=== PATIENT | female | born 1945 | race Caucasian/White ===

== ENCOUNTER 2021-03-29 08:03 | Outpatient (CLI) | payer MEDICARE, BC, SELFPAY ==
--- NOTE | ~2021-03-29 | XR_ITS ---
EXAMINATION: XR foot RT standing 2V EXAM DATE: 03/29/2021 08:47 INDICATION: M05.79 - Rheumatoid arthritis with rheumatoid factor of multiple sites without organ or s ystems involvement. TECHNIQUE: Frontal and lateral projections of the right foot standing. There is no prior study for comparison. 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 There are no bony erosion s identified. There are no acute fractures or dislocations identified. There is no subcutaneous gas. The soft tissue is unremarkable. There are no radiopaque foreign bodies. Small calcaneal inferio r spur. IMPRESSION: Mild right 1st MTP osteoarthritis. Reviewed, dictated and finalized at location A.
--- NOTE | ~2021-03-29 | XR_ITS ---
EXAMINATION: XR foot LT standing 2V EXAM DATE: 03/29/2021 08:47 INDICATION: M05.79 - Rheumatoid arthritis with rheumatoid factor of multiple sites without organ or s ystems involvement TECHNIQUE: Frontal and lateral projections of the left foot standing There is no prior study for c omparison. FINDINGS: There are no bony erosions identified. There are no acute fractures or dislocations identi fied. There is no subcutaneous gas. The soft tissue is unremarkable. There are no radiopaque fore ign bodies. Small calcaneal inferior spur. IMPRESSION: 1. Unremarkable left foot exam. Reviewed, dictated and finalized at location A.
--- NOTE | ~2021-03-29 | XR_ITS ---
EXAMINATION: XR hand BI arthritis min 3V EXAM DATE: 03/29/2021 08:47 INDICATION: M05.79 - Rheumatoid arthritis. Hand pain. TECHNIQUE: Right hand frontal, lateral and oblique projections obtained and reviewed. Left hand fron eunice, lateral and oblique projections obtained and reviewed. Catchers projection of both hands. There is no prior study for comparison. FINDINGS: RIGHT HAND: There is polyarticular primary osteoarthritis as follows: Mild right 1st MCP, 2nd-5th DIP joints. There are no bony erosions identified. There are no acute fractures or dislocations identifi ed. There is no subcutaneous gas. The soft tissue is unremarkable. There are no radiopaque foreig n bodies. LEFT HAND: There is polyarticular primary osteoarthritis as follows: Mild 1st interphalangeal, 2nd-5t h distal interphalangeal, 2nd proximal interphalangeal joints. There are no bony erosions identified. There are no acute fractures or dislocations identified. There is no subcutaneous gas. The soft ti ssue is unremarkable. There are no radiopaque foreign bodies. IMPRESSION: Mild bilateral hand polyarticular osteoarthritis. No erosions. Reviewed, dictated and finalized at location A.
[2021-03-29 09:06] LABS: Hematocrit 39.9 % (37.0-47.0); Hemoglobin 13.4 g/dL (12.0-15.0); Mean Corpuscular HGB Conc 33.6 g/dl (32-36); Mean Corpuscular Hemoglobin 29.2 pg (26-34); Mean Corpuscular Volume 86.9 fl (80-100); Mean Platelet Volume 10.7 fl (7.4-10.4); Platelet Count Result 243 k/mm3 (150-375); Red Blood Count 4.59 M/mm3 (4.2-5.4); Red Cell Distribution Width 15.1 % (11.5-14.5)
[2021-03-29 09:13] LABS: Add Urine Microscopic? YES; Appearance Urine Cloudy (Clear); Bacteria Urine Trace /hpf; Bilirubin Urine Negative (Negative); Blood Urine Negative (Negative); Color Urine Yellow (Yellow); Glucose Urine UA Negative (Negative); Ketones Urine Negative (Negative); Leukocyte Esterase Ur 3+ LEU/UL (Negative); Mucus Urine Few /lpf; Nitrate Urine Negative (Negative); Protein Urine Negative (Negative); RBC Urine 21-50 /hpf (0-2); Specific Grav Ur 1.019 (1.001-1.035); Squamous Epithelial Cell Urine Many /hpf (Few); Urobilinogen Urine Negative mg/dL (<2.0); WBC Urine 31-50 /hpf
[2021-03-29 10:17] LABS: Erythrocyte Sedimentation Rate 25 mm/hr (0-20)
[2021-03-29 10:40] LABS: Hepatitis B Surface Antigen Negative (Negative)
[2021-03-29 10:56] LABS: Alanine Aminotransferase 101 U/L (4-35); Albumin Level 4.4 g/dL (3.5-5.1); Alkaline Phosphatase 89 U/L (38-126); Anion Gap 14 mmol/L (8-16); Aspartate Amino Transferase 143 U/L (14-36); Bilirubin,Total 0.3 mg/dL (0.2-1.3); Blood Urea Nitrogen 20 mg/dL (7-17); CRP 0.9 mg/dL (<1.0); Calcium 9.3 mg/dL (8.4-10.2); Carbon Dioxide 21 mmol/L (22-30); Chloride 105 mmol/L (98-107); Estimated Glomerular Filt Rate > 60; Glucose 131 mg/dL (65-105); Potassium 3.9 mmol/L (3.4-5.0); Sodium 140 mmol/L (137-145)
[2021-03-29 10:57] LABS: Hemoglobin A1C 6.4 % (<5.7)
[2021-03-29 10:57] LABS: Hepatitis B Surface Anti Res Negative
[2021-04-01 15:27] LABS: NIL 0.02 IU/mL; Quantiferon TB Plus, 1T NEGATIVE (NEGATIVE)
== END 2021-03-29 08:04 | disposition home or self-care (01) ==
LOC: ANHIMG 08:16
PROVIDERS: PCP Nurse Practitioner Family; Visit Provider Internal Medicine
DX: M05.79 Rheumatoid arthritis with rheumatoid factor of multiple sites without organ or systems involvement (principal); M19.90 Unspecified osteoarthritis, unspecified site; E11.65 Type 2 diabetes mellitus with hyperglycemia; M19.071 Primary osteoarthritis, right ankle and foot; M19.041 Primary osteoarthritis, right hand; M19.042 Primary osteoarthritis, left hand
CPT/HCPCS: 36415; 73130; 73620; 80053; 81001; 83036; 85027; 85652; 86140; 86480; 86706; 87077; 87086; 87088; 87340

== ENCOUNTER 2021-05-04 10:16 | Outpatient (CLI) | payer MEDICARE, BC, SELFPAY ==
--- NOTE | ~2021-05-04 | MM_ITS ---
EXAMINATION: MM screening [facility] BI w diana HISTORY: Screening mammogram TECHNIQUE: Craniocaudal and mediolateral oblique 3-D tomosynthesis images were obtained and synthetic 2-D images were generated. CAD analysis was submitted and interpreted. COMPARISON: 12/18/2015, 12/11/2015, 04/21/2015, 09/04/2014 BREAST PARENCHYMAL COMPOSITION: There are scattered areas of fibroglandular density. FINDINGS: There are changes of interval lumpectomy in the right breast. There is no evidence of suspi cious mass, calcification, or architectural distortion to suggest malignancy in either breast. There has been no suspicious interval change. IMPRESSION: 1. No mammographic evidence of malignancy. 2. Recommend routine screening mammography in one year. BI-RADS Category 2: Benign finding(s). Reviewed, dictated and finalized at location A.
== END 2021-05-04 10:17 | disposition home or self-care (01) ==
LOC: ANHIMG 10:21
PROVIDERS: PCP Nurse Practitioner Family; Visit Provider Nurse Practitioner Family
DX: Z12.31 Encounter for screening mammogram for malignant neoplasm of breast (principal)
CPT/HCPCS: 77063; 77067

== ENCOUNTER 2021-06-14 09:11 | Outpatient (CLI) | payer MEDICARE, BC, SELFPAY ==
--- NOTE | ~2021-06-14 | US_ITS ---
EXAMINATION: US right upper quadrant DATE: 06/14/2021 09:43 INDICATION: Abnormal liver function tests. TECHNIQUE: Multiple grayscale and Doppler ultrasound images of the abdomen were obtained. COMPARISON: CT abdomen and pelvis 11/15/2018 FINDINGS: The pancreas is obscured by bowel gas. There is diffuse hepatic steatosis. No liver surface nodularity. There is normal flow in main portal vein. The gallbladder is absent. The common duct is normal and measures 5 mm. IMPRESSION: 1. Diffuse hepatic steatosis. Reviewed, dictated and finalized at location A.
== END 2021-06-14 09:12 | disposition home or self-care (01) ==
PROVIDERS: PCP Nurse Practitioner Family; Visit Provider Nurse Practitioner Family
DX: R74.01 Elevation of levels of liver transaminase levels (principal); K76.0 Fatty (change of) liver, not elsewhere classified
CPT/HCPCS: 76705

== ENCOUNTER 2022-04-18 09:48 | Emergency (ER) | payer MEDICARE, BC, SELFPAY ==
[2022-04-18] VITALS (22 sets, daily range): BP systolic 141–160; BP diastolic 79–102; PULSE 60–83; RESP 15–22; TEMP 36.8; O2SAT 93–97
--- NOTE | ~2022-04-18 | CT_ITS ---
EXAMINATION: CTA chest PE protocol DATE: 04/18/2022 11:39 INDICATION: Shortness of breath. Elevated d-dimer. History of Covid. TECHNIQUE: Computed tomography angiography (CTA) of the chest was performed with 100 mL Omnipaque-350 intravenous contrast timed to evaluate the pulmonary arteries. Coronal maximum intensity projection 3D-reconstructions were created by the technologist. Automated exposure control and iterative reconst ruction technique were employed. Exam dose: 847.40 mGy-cm total exam DLP. COMPARISON: 04/18/2022 AP and lateral chest FINDINGS: There is diagnostic contrast enhancement of the pulmonary arteries and no evidence of pulmo nary embolism. Heart size is within normal range. Aortic calcification and ectasia. No pericardial effusion. Moderate right and mild left pleural effusions, with associated compressive atelectasis involving par ticularly the right and to a lesser extent left lower lobes. There is mild prominence of the hilar and mediastinal nodes, likely reactive. Status post right axillary lymph node resection. The breasts are partially excluded from examination. Status post cholecystectomy. The adrenal glands are unremarkable. Small sliding hiatal hernia. Prominent osteoarthritic change at the glenohumeral joints. Prominent degenerative change of the thor acic spine and lower cervical spine. IMPRESSION: No evidence of pulmonary embolism Bilateral pleural effusions, moderate on the right, mild on the left, with associated bilateral right greater than left lower lung compressive atelectasis Reviewed, dictated and finalized at Location A. Reviewed, dictated and finalized at location B. IMPRESSION: No evidence of pulmonary embolism Bilateral pleural effusions, moderate on the right, mild on the left, with asso ciated bilateral right greater than left lower lung compressive atelectasis
--- NOTE | ~2022-04-18 | XR_ITS ---
EXAMINATION: XR chest 2V DATE: 04/18/2022 10:30 INDICATION: Shortness of breath TECHNIQUE: frontal and lateral views of the chest were obtained. COMPARISON: Chest CT dated 12/19/2017 FINDINGS: Opacities at the bilateral lung bases, right greater than left. This includes blunting at the posteri or sulci and right costophrenic angle consistent with small bilateral pleural effusions. No pulmonary edema or pneumothorax. The cardiomediastinal silhouette is normal. Surgical clips at the right axill a likely related to prior axillary lymph node dissection. IMPRESSION: 1. Small bilateral pleural effusions with associated bibasilar atelectasis and/or pneumonia. Reviewed, dictated and finalized at location A. IMPRESSION: 1. Small bilateral pleural effusions with associated bibasilar atelectasis and/ or pneumonia.
--- NOTE | 2022-04-18 09:50 | ECG_ITS ---
Measurements Intervals Agenda Rate: 74 P: 55 ND: 138 QRS: 69 QRSD: 92 T: 47 QT: 391 QTc: 436 Interpretive Statements SINUS RHYTHM WITH OCCASIONAL SUPRAVENTRICULAR PREMATURE COMPLEXES POSSIBLE LEFT ATRIAL ENLARGEMENT [-0.1mV P-WAVE IN V1/V2] BORDERLINE ECG NO PREVIOUS ECG AVAILABLE FOR COMPARISON Electronically Signed On 04-18-2022 15:49:34 CDT by Gaspre Peña M.D.
--- NOTE | 2022-04-18 10:16 | ED.SOB ---
HPI - SOB/Dyspnea General Chief Complaint: Shortness of Breath/Dyspnea Stated Complaint: difficulty breathing - covid 3 weeks ago Time Seen by Provider: 04/18/22 10:03 History of Present Illness HPI Narrative: 76-year-old female with history of diabetes, hypertension, anxiety, recent COVID infection here for evaluation of shortness of breath. Patient states that she tested also for COVID 3 weeks ago, at that time she had a mild cough, and upper respiratory type symptoms which improved without intervention. She was feeling well until 3 days ago when she began to feel SOB, which has been increasing in severity since. She feels short of breath most notably when she is up and exerting herself, but also when she is lying down flat. She contacted her PCP who told her to come to the ED. Does note some acute on chronic BLE swelling which has not been worked up. Denies fevers, chills, chest pain, nausea, vomiting, abdominal pain. Related Data Home Medications Medication Instructions Recorded Confirmed desvenlafaxine succinate 50 mg 50 mg PO DAILY 02/11/21 10/27/21 tablet,extended release 24 hr (Pristiq) duloxetine 60 mg capsule,delayed 120 mg PO DAILY 02/11/21 10/27/21 release (Cymbalta) sumatriptan succinate 50 mg tablet 50 mg PO ONCE 02/11/21 10/27/21 (Imitrex) tizanidine 4 mg tablet 4 mg PO TID 02/11/21 10/27/21 triamterene 37.5 1 cap PO DAILY 02/11/21 10/27/21 mg-hydrochlorothiazide 25 mg capsule buspirone 10 mg tablet 10 mg PO TID 03/19/21 10/27/21 cholecalciferol (vitamin D3) 1,250 1,250 mcg PO WEEKLY 03/19/21 10/27/21 mcg (50,000 unit) capsule esomeprazole magnesium 40 mg 40 mg PO DAILY 03/19/21 10/27/21 granules delayed release for susp fenofibrate 160 mg tablet 160 mg PO DAILY 03/19/21 10/27/21 gabapentin 400 mg capsule 400 mg PO DAILY 03/19/21 10/27/21 insulin glargine 100 unit/mL (3 25 unit subcut QAM 03/19/21 10/27/21 mL) subcutaneous pen (Lantus Solostar U-100 Insulin) losartan 50 mg tablet 50 mg PO DAILY 03/19/21 10/27/21 losartan 50 mg tablet 50 mg PO DAILY 03/19/21 10/27/21 nebivolol 5 mg tablet (Bystolic) 5 mg PO DAILY 03/19/21 10/27/21 rosuvastatin 20 mg tablet 20 mg PO DAILY 03/19/21 10/27/21 tizanidine 4 mg capsule 4 mg PO QHS 03/19/21 10/27/21 zolpidem 12.5 mg tablet,extended PO 03/19/21 10/27/21 release,multiphase Allergies Allergy/AdvReac Type Severity Reaction Status Date / Time ascorbic acid Allergy Intermediate MIGRAINE Verified 10/27/21 13:44 monosodium glutamate Allergy Unknown MIGRAINE Verified 10/27/21 13:44 Penicillins AdvReac Hives Verified 04/18/22 10:10 Chocolate Allergy Intermediate MIGRAINE Uncoded 10/27/21 13:44 DIETARY Allergy Intermediate MIGRAINE Uncoded 10/27/21 13:44 SUPPLEMENT,[id number].[email or web address] NUTS Allergy Intermediate MIGRAINE Uncoded 10/27/21 13:44 MSG AdvReac Intermediate MIGRAINE Uncoded 10/27/21 13:44 Review of Systems Review of Systems: Gen.: Denies fevers or chills Eyes: Denies eye pain or visual change ENT: Denies congestion Respiratory: Reports shortness of breath. Denies cough CV: Denies chest pain or palpitations GI: Denies abdominal pain nausea, emesis or diarrhea denies burning, urgency, frequency or hematuria Musculoskeletal: Denies back pain or muscle pain Neuro: Denies numbness, tingling, weakness or focal weakness Skin: Denies rash Except as documented, all other systems reviewed and negative [facility] Past Medical History Medical History Arthritis Cancer Depression Diabetes Generalized osteoarthritis of multiple sites H/O gastroesophageal reflux (GERD) H/O malignant neoplasm of female breast Head ache Transaminitis Vitamin D deficiency Surgical History Surgical History H/O lumpectomy Social History Social History Social History: never smoker Smoking s
[2022-04-18 10:17] LABS: Basophils Percent Auto 0.3 % (0.2-1.2); Eosinophils Absolute Auto 0.2 K/mm3 (0-0.3); Hematocrit 36.6 % (37.0-47.0); Hemoglobin 11.9 g/dL (12.0-15.0); Immature Granulocyte Absolute 0.08 K/mm3 (0.00-0.031); Immature Granulocyte Percent A 0.8 % (0-0.5); Lymphocytes Absolute Auto 1.88 K/mm3 (0.9-3.2); Lymphocytes Percent Auto 19.2 % (18.3-44.2); Mean Corpuscular HGB Conc 32.5 g/dl (32-36); Mean Corpuscular Hemoglobin 28.1 pg (26-34); Mean Corpuscular Volume 86.3 fl (80-100); Mean Platelet Volume 10.5 fl (7.4-10.4); Monocytes Absolute Auto 0.7 K/mm3 (0.1-0.6); Neutrophils Absolute Auto 6.9 K/mm3 (1.3-6.7); Neutrophils Percent Auto 70.7 % (45.5-73.1); Platelet Count Result 263 k/mm3 (150-375); Red Blood Count 4.24 M/mm3 (4.2-5.4); Red Cell Distribution Width 14.7 % (11.5-14.5); White Blood Count 9.8 K/mm3 (4.5-10.0)
[2022-04-18 10:34] LABS: Alanine Aminotransferase 19 U/L (6-35); Albumin Level 4.1 g/dL (3.5-5.1); Alkaline Phosphatase 68 U/L (38-126); Anion Gap 7 mmol/L (8-16); Aspartate Amino Transferase 21 U/L (14-36); Bilirubin,Total 0.3 mg/dL (0.2-1.3); Blood Urea Nitrogen 16 mg/dL (7-17); Calcium 8.6 mg/dL (8.4-10.2); Carbon Dioxide 24 mmol/L (22-30); Chloride 108 mmol/L (98-107); Estimated CRCL calculation 55 ml/min; Estimated Glomerular Filt Rate > 60; Glucose 142 mg/dL (65-110); Potassium 3.5 mmol/L (3.4-5.0); Sodium 139 mmol/L (137-145)
[2022-04-18 10:36] LABS: INR 1.2; Partial Thromboplastin Time 32.3 SECONDS (22.3-36.8); Prothrombin Time 15.2 Seconds (11.1-14.7)
[2022-04-18 10:39] LABS: D Dimer 1.48 ug/mL (<0.48)
[2022-04-18 10:46] LABS: NT Pro B Type Natriuretic Pept 1520 pg/mL (5-100); Troponin I < 0.012 ng/mL (0.000-0.034)
[2022-04-18 13:54] LABS: Troponin I < 0.012 ng/mL (0.000-0.034)
[2022-04-18] MEDS: FUROSEMIDE INJ 40 MG/4 ML VIAL IV PUSH (14:37)
== END 2022-04-18 15:59 | disposition home or self-care (01) ==
PROVIDERS: Physician Assistant; Emergency Provider Emergency Medicine; PCP Nurse Practitioner Family
DX: R06.02 Shortness of breath (principal); Z86.16 Personal history of COVID-19; I10 Essential (primary) hypertension; E11.9 Type 2 diabetes mellitus without complications; M19.90 Unspecified osteoarthritis, unspecified site; K21.9 Gastro-esophageal reflux disease without esophagitis; E55.9 Vitamin D deficiency, unspecified; F41.9 Anxiety disorder, unspecified; F32.A Depression, unspecified; Z85.3 Personal history of malignant neoplasm of breast; Z79.4 Long term (current) use of insulin; R94.31 Abnormal electrocardiogram [ECG] [EKG]
CPT/HCPCS: 36415; 71046; 71275; 80053; 83880; 84484; 85025; 85380; 85610; 85730; 93005; 96374; 99284; J1940; Q9967

== ENCOUNTER 2022-05-27 12:23 | Outpatient (CLI) | payer MEDICARE, BC, SELFPAY ==
--- NOTE | 2022-05-27 12:31 | ECHO_ITS ---
Patient Info Name: Cynthia Leon Age: 76 years : 1945 Gender: Female Ht: 66 in Wt: 210 lbs BSA: 2.14 m2 HR: 75 bpm BP: 139 / 86 mmHg Technical Quality: Good Exam Date: 05/27/2022 1:01 PM Exam Location: [facility] Patient Status: Outpatient Admit Date: 05/27/2022 Staff Ordering Physician: Rey Marie DO Tray Setter: Mar Cisse RDCS Attending Provider: Rey Marie DO Referring Physician: Frank WU; Exam Type: CA echo doppler color flow Study Info Indications R06.00 - Dyspnea, unspecified Complete two-dimensional, color flow and Doppler transthoracic echocardiogram is performed. Summary 1. Complete two-dimensional, color flow and Doppler transthoracic echocardiogram is performed. 2. Left ventricular chamber dimension is normal. 3. Left ventricular systolic function is hyperdynamic, estimated at >70%. 4. There is mildly increased left ventricular wall thickness. 5. The left ventricular diastolic function is grade I diastolic dysfunction. 6. E/e' 11 is mildly elevated. 7. Global longitudinal strain is abnormal at -15.3%. 8. Left atrial chamber dimension is mildly enlarged. 9. There is mild aortic valve sclerosis. 10. There is mild aortic valve regurgitation. 11. The mitral valve has mildly calcified annulus. 12. No pulmonary hypertension, estimated pulmonary arterial systolic pressure is 37 mmHg. 13. Dilated inferior vena cava with >50% collapse upon inspiration consistent with elevated right atrial pressure, 10 mmHg. Left Ventricle E/e' 11 is mildly elevated. Global longitudinal strain is abnormal at -15.3%. Left ventricular chamber dimension is normal. Left ventricular systolic function is hyperdynamic, estimated at >70%. There is mildly increased left ventricular wall thickness. The left ventricular diastolic function is grade I diastolic dysfunction. Right Ventricle Right ventricular systolic function is normal and with normal TAPSE 2.0 cm. Right ventricular chamber dimension is normal. Left Atria Left atrial chamber dimension is mildly enlarged. Right Atria Right atrial chamber dimension is normal. Aortic Valve The aortic valve is trileaflet. There is mild aortic valve sclerosis. There is no aortic valve stenosis. There is mild aortic valve regurgitation. Pulmonic Valve There is no pulmonic regurgitation. Mitral Valve The mitral valve has mildly calcified annulus. There is no mitral valve stenosis. There is no mitral valve regurgitation. Tricuspid Valve There is no tricuspid valve regurgitation. No pulmonary hypertension, estimated pulmonary arterial systolic pressure is 37 mmHg. Pericardium/Pleural There is no pericardial effusion. Inferior Vena Cava Dilated inferior vena cava with >50% collapse upon inspiration consistent with elevated right atrial pressure, 10 mmHg. Aorta The aortic root size at the sinus of Valsalva is normal. Left Ventricular Outflow Tract Name Value Normal LVOT 2D LVOT Diameter 2.0 cm LVOT Doppler LVOT Peak Gradient 7 mmHg LVOT Mean Gradient 4 mmHg LVOT VT
== END 2022-05-27 12:24 | disposition home or self-care (01) ==
LOC: ANHCARD 12:24
PROVIDERS: PCP Nurse Practitioner Family; Visit Provider Internal Medicine Cardiovascular Disease
DX: R06.00 Dyspnea, unspecified (principal); I35.1 Nonrheumatic aortic (valve) insufficiency
CPT/HCPCS: 93306

== ENCOUNTER 2022-05-30 08:38 | Outpatient (CLI) | payer MEDICARE, BC, SELFPAY ==
--- NOTE | ~2022-05-30 | MMUS_ITS ---
EXAMINATION: US breast biopsy RT w image, MM post biopsy invasive RT DATE: 05/30/2022 10:56 (accession [id number]), 05/30/2022 10:55 (accession [id number]) INDICATION: Patient with lung and increasing pain at the 12:00 location in the right breast near the site of prior lumpectomy. Ultrasound-guided core biopsy is requested to evaluate for malignancy. TECHNIQUE AND FINDINGS: The risks and potential benefits of the procedure were discussed with the patient including bleeding, infection, and nondiagnostic specimen. A time out was performed. The skin of the right breast was pr epared and draped in usual sterile fashion. 1% lidocaine was used for superficial anesthesia. 1% lido tony with epinephrine was used for deep anesthesia. A vacuum-assisted biopsy gun needle was advanced through to the outer edge of the region of interest from a lateral approach utilizing sonographic guidance. A total of seven tissue core samples were obt ained through the lesion. A tissue marker clip was then placed at the biopsy site. Hemostasis was ach ieved. A sterile bandage was applied. The patient tolerated procedure well and there was no evidence of immediate complication. The patient was given verbal instructions to return to the Emergency Department in the event of severe breast pa in or rapid breast enlargement. A two view right breast mammogram was obtained to document tissue mar ker clip placement. IMPRESSION: 1. Successful ultrasound-guided vacuum-assisted biopsy of right breast mass with tissue marker placem ent. Reviewed, dictated and finalized at location A. IMPRESSION: 1. Successful ultrasound-guided vacuum-assisted biopsy of right breast mass wit h tissue marker placement.
== END 2022-05-30 08:39 | disposition home or self-care (01) ==
LOC: ANHIMG 08:41
PROVIDERS: PCP Nurse Practitioner Family; Visit Provider Nurse Practitioner Family
DX: N63.12 Unspecified lump in the right breast, upper inner quadrant (principal)
CPT/HCPCS: 19083; 88305; 88342; A4648

== ENCOUNTER 2022-10-05 12:55 | Outpatient (CLI) | payer MEDICARE, BC, SELFPAY | END 2022-10-05 12:56 | disposition home or self-care (01) | LOC: ANHAUDIO 12:57 | PROVIDERS: PCP Nurse Practitioner Family; Visit Provider Nurse Practitioner Family | DX: H90.3 Sensorineural hearing loss, bilateral (principal) | CPT/HCPCS: 92557; 92567 ==

== ENCOUNTER 2022-12-15 09:00 | Outpatient (RCR) | payer MEDICARE, BC, SELFPAY | END 2023-01-18 23:59 | disposition home or self-care (01) | LOC: ANHAUDASC 09:00 | PROVIDERS: PCP Nurse Practitioner Family; Visit Provider Nurse Practitioner Family | DX: Z46.1 Encounter for fitting and adjustment of hearing aid (principal) | CPT/HCPCS: 99199; V5160; V5261 ==

== ENCOUNTER 2023-11-27 09:43 | Outpatient (CLI) | payer MEDICARE, SELFPAY ==
--- NOTE | ~2023-11-27 | US_ITS ---
EXAMINATION: US renal BI DATE: 11/27/2023 12:05 INDICATION: Chronic kidney disease, stage IIIB. TECHNIQUE: Multiple ultrasound grayscale images of the kidneys were obtained. COMPARISON: CT abdomen and pelvis 11/15/18 FINDINGS: The right kidney measures 12.2 x 5.6 x 5.4 cm. The left kidney measures 12.4 x 6.4 x 4.7 cm. The kidn eys demonstrate normal parenchymal echogenicity. There is no hydronephrosis. The bladder is normal. IMPRESSION: 1. Normal kidney sizes. No hydronephrosis. Reviewed, dictated and finalized at location A. 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
[2023-11-27 11:45] LABS: Creatinine Urine 15.7 mg/dL; Total Protein Urine Random 14 mg/dL; Ur Ttl Prot Creatinine Ratio 0.89 mg/mg (0-0.20)
[2023-11-27 12:03] LABS: Parathyroid Intact 13.7 pg/mL (7.5-53.5)
[2023-11-27 12:09] LABS: Vitamin D 25 Hydroxy 33.3 ng/mL
[2023-11-28 08:19] LABS: Albumin Level 4.1 g/dL (3.5-5.1); Anion Gap 11 mmol/L (8-16); Blood Urea Nitrogen 15 mg/dL (7-17); Calcium 9.8 mg/dL (8.4-10.2); Carbon Dioxide 22 mmol/L (22-30); Chloride 102 mmol/L (98-107); Estimated Glomerular Filt Rate > 60; Glucose 244 mg/dL (65-110); Phosphorus 3.2 mg/dL (2.5-4.5); Potassium 4.4 mmol/L (3.4-5.0); Sodium 135 mmol/L (137-145)
== END 2023-11-27 09:44 | disposition home or self-care (01) ==
PROVIDERS: PCP Nurse Practitioner Family; Visit Provider Internal Medicine Nephrology
DX: E11.22 Type 2 diabetes mellitus with diabetic chronic kidney disease (principal); E55.9 Vitamin D deficiency, unspecified; I12.9 Hypertensive chronic kidney disease with stage 1 through stage 4 chronic kidney disease, or unspecified chronic kidney disease; N25.81 Secondary hyperparathyroidism of renal origin; N18.32 Chronic kidney disease, stage 3b
CPT/HCPCS: 36415; 76775; 80069; 82306; 82570; 83970; 84156

== ENCOUNTER 2024-03-29 08:29 | Outpatient (CLI) | payer MEDICARE, SELFPAY ==
[2024-03-29 09:51] LABS: Hematocrit 49.2 % (37.0-47.0); Hemoglobin 15.6 g/dL (12.0-15.0); Mean Corpuscular HGB Conc 31.7 g/dl (32-36); Mean Corpuscular Hemoglobin 28.8 pg (26-34); Mean Corpuscular Volume 90.8 fl (80-100); Mean Platelet Volume 10.8 fl (7.4-10.4); Platelet Count Result 236 k/mm3 (150-375); Red Blood Count 5.42 M/mm3 (4.2-5.4); Red Cell Distribution Width 13.8 % (11.5-14.5); White Blood Count 10.8 K/mm3 (4.5-10.0)
[2024-03-29 10:02] LABS: Phosphorus 3.2 mg/dL (2.5-4.5)
[2024-03-29 11:18] LABS: Alanine Aminotransferase 47 U/L (6-35); Albumin Level 4.8 g/dL (3.5-5.1); Alkaline Phosphatase 100 U/L (38-126); Anion Gap 13 mmol/L (4-12); Aspartate Amino Transferase 71 U/L (14-36); Bilirubin,Total 0.5 mg/dL (0.2-1.3); Blood Urea Nitrogen 23 mg/dL (7-17); Calcium 9.5 mg/dL (8.4-10.2); Carbon Dioxide 22 mmol/L (22-30); Chloride 102 mmol/L (98-107); Cholesterol 108 mg/dL (0-200); Estimated Glomerular Filt Rate 54; Glucose 152 mg/dL (65-110); HDL Direct 29 mg/dL; Potassium 4.1 mmol/L (3.4-5.0); Sodium 137 mmol/L (137-145); Triglycerides 294 mg/dL (<150)
[2024-03-29 11:23] LABS: NT Pro B Type Natriuretic Pept 39 pg/mL (19.9-100)
[2024-03-29 11:28] LABS: LDL Cholesterol Direct 51 mg/dL
[2024-03-29 11:50] LABS: Creatinine Urine 185.8 mg/dL; Total Protein Urine Random 19 mg/dL
[2024-03-29 12:21] LABS: Hemoglobin A1C 7.6 % (<5.7)
== END 2024-03-29 08:30 | disposition home or self-care (01) ==
PROVIDERS: PCP Nurse Practitioner Family; Referring Provider Internal Medicine Nephrology
DX: E11.22 Type 2 diabetes mellitus with diabetic chronic kidney disease (principal); I12.9 Hypertensive chronic kidney disease with stage 1 through stage 4 chronic kidney disease, or unspecified chronic kidney disease; N18.2 Chronic kidney disease, stage 2 (mild); R06.00 Dyspnea, unspecified; E78.5 Hyperlipidemia, unspecified
CPT/HCPCS: 36415; 80053; 80061; 82570; 83036; 83880; 84100; 84156; 85027

== ENCOUNTER 2024-11-15 13:15 | Outpatient (CLI) | payer MEDICARE, SELFPAY ==
--- NOTE | ~2024-11-15 | MMUS_ITS ---
EXAMINATION: MM diagnostic cathy BI w diana, US breast LT limited HISTORY: Left breast mass TECHNIQUE: 3-D tomosynthesis images of the breasts were performed and synthetic 2-D images were gener ated. CAD analysis was submitted and interpreted. High resolution limited left breast ultrasound was performed. COMPARISON: 05/02/2022, 05/04/2021 BREAST PARENCHYMAL COMPOSITION:Not Dense. There are scattered areas of fibroglandular density. FINDINGS: MAMMOGRAPHIC FINDINGS: There is an irregular dense mass at the posterior, upper left breast, seen on the LM view, measuring at least 2.7 cm in diameter. Stable parenchymal pattern of the right breast, with stable postoperativ e change at the upper aspect. No suspicious microcalcifications in either breast. ULTRASOUND: At the 2:00 position left breast, 10 cm from the nipple, there is a 2.2 x 2.1 x 1.8 cm irregular tall er than wide hypoechoic mass, which correlates with the mammographic finding. IMPRESSION: 2.2 cm irregular hypoechoic mass at the 2:00 position left breast, 10 cm from the nipple. This is hig hly suspicious for malignancy. Ultrasound-guided biopsy recommended to establish a histologic diagnos is. BI-RADS category 5, highly suggestive of malignancy. Reviewed, dictated and finalized at location M. ERCIAL ASSISTANT IMPRESSION: 2.2 cm irregular hypoechoic mass at the 2:00 position left breast, 10 cm from t he nipple. This is highly suspicious for malignancy. Ultrasound-guided biopsy r ecommended to establish a histologic diagnosis. BI-RADS category 5, highly suggestive of malignancy.
--- OUTSIDE RECORDS SUMMARY | 2024-11-15 13:24 | XMS_ITS ---
Author Organization [facility] Address [address] [place] [address] Phone Care Team Providers Care Supervisor Furnace Process Name Role Phone SUSAN AVELAR, JAVIER Kiser [phone] Problems Includes: Active, inactive, and resolved Problems All Visits Onset Date Resolved Date Provider Condition S tatus Major Depression 02/20/2023 JAVIER BAUM MD Active Last Documented On 3 2:06PM ; [facility] Mild Cognitive Impairment 11/24/2022 Active Last Documented On 3 5:53PM ; [facility] Vitamin B12 Deficiency 03/23/2020 Ac tive Last Documented On 3 5:52PM ; [facility] Diabetes Mellitus Type 2 03/12/2019 Active Last Documented On 3 5:52PM ; [facility] Rheumatoid Arthritis 03/12/2019 Acti ve Last Documented On 3 5:52PM ; [facility] Arthritis 11/16/2016 Active Last Documented On 3 5:50PM ; [facility] Hyperlipidemia 11/15/2016 Active Last Documented On 3 5:50PM ; [facility] Psychophysiological Insomnia 11/15/2016 Active Last Documented On 3 5:50PM ; [facility] Breast Cancer 02/11/2016 Active Last Documented On 3 5:49PM ; [facility] Note: Stage II right side Migraine Headache 12/22/2015 Active Last Documented On 3 5:49PM ; [facility] Generalized Anxiety Disorder 11/07/2012 Active Last Documented On 3 5:43PM ; [facility] Hiatal Hernia 11/07/2012 Active Last Documented On 3 5:43PM ; [facility] Hypertension Systemic 11/07/2012 Act carlos Last Documented On 3 5:43PM ; [facility] Triglyceride Problems 11/07/2012 Act carlos Last Documented On 3 5:43PM ; [facility] 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 sleepwalking, sleeptalking, sleepdriving, etc... Pt verbalized understanding Last Documented On 4 10:02AM ; [facility] Discussed good sleep hygiene habits Last Documented On 4 10:02AM ; [facility] Patient counseling I discuss ed risk, benefits, and side effects of sleep aid - Zolpidem ER - including the possibility of sleep related behaviors i.e. sleepwalking, sleeptalking, sleepdriving, etc... Pt verbalized understanding Last Documented On 3 10:33AM ; [facility] Assessments Includes: Assessments for all patient encounters Findings Encounter Date Generalized anxiety disorder PSYCH ADULT FOLLOW UP with JAVIER BAUM MD 11/30/2023 Last Documented On 4 4:48AM ; [facility] Major depression, recurrent PSYCH ADULT FOLLOW UP with JAVIER BAUM MD 11/30/2023 Last Documented On 4 4:48AM ; [facility] Major depressive disorder PSYCH ADULT FO LLOW UP with JAVIER BAUM MD 11/30/2023 Last Documented On 4 4:48AM ; [facility] Migraine headache PSYCH ADULT FOLLOW UP with MET BRENDA BAUM MD 11/30/2023 Last Documented On 4 4:48AM ; [facility] Mild Cognitive Impairment PSYCH ADULT FO LLOW UP with JAVIER BAUM MD 11/30/2023 Last Documented On 4 4:48AM ; [facility] Organic sleep-related bruxism PSYCH ADUL T FOLLOW UP with JAVIER BAUM MD 11/30/2023 Last Documented On 4 4:48AM ; [facility] Psychophysiological insomnia PSYCH ADULT FOLLOW UP with JAVIER BAUM MD 11/30/2023 Last Documented On 4 4:48AM ; [facility] Generalized anxiety disorder PSYCH ADULT FOLLOW UP with JAVIER BAUM MD 05/25/2023 Last Documented On 3 3:33PM ; [facility] Major depression, recurrent PSYCH ADULT FOLLOW UP with JAVIER BAUM MD 05/25/2023 Last Documented On 3 3:33PM ; [facility] Major depressive disorder PSYCH ADULT FO LLOW UP with JAVIER BAUM MD 05/25/2023 Last Documented On 3 3:33PM ; [facility] Migraine headache PSYCH ADULT FOLLOW UP with MET BRENDA BAUM MD 05/25/2023 Last Documented On 3 3:33PM ; [facility] Mild Cognitive Impairment PSYCH ADULT FO LLOW UP with JAVIER BAUM MD 05/25/2023 Last Documented On 3 3:33PM ; [facility] Organic sleep-related bruxism PSYCH ADUL T FOLLOW UP with JAVIER BAUM MD 05/25/2023 Last Documented On 3 3:33PM ; [facility] Psychophysiological insomnia PSYCH ADULT FOLLOW UP with JAVIER BAUM MD 05/25/2023 Last Documented On 3 3:33PM ; [facility] Psychophysiological insomnia PSYCH ADULT FOLLOW UP with JAVIER BAUM MD 05/25/2023 Last Documented On 3 3:33PM ; [facility] Instructions Includes: Instructions for all patient encounters Education and Decision Aids were provided during visit for: Patient counseling I discuss ed risk, benefits, and side effects of sleep aid Zolpidem ER - including the possibility of sleep related behaviors i.e. sleepwalking, sleeptalking, sleepdriving, etc... Pt verbalized understanding Last Documented On 4 10:02AM ; [facility] Discussed good sleep hygiene habits Last Documented On 4 10:02AM ; [facility] Patient counseling I discuss ed risk, benefits, and side effects of sleep aid - Zolpidem ER - including the possibility of sleep related behaviors i.e. sleepwalking, sleeptalking, sleepdriving, etc... Pt verbalized understanding Last Documented On 3 10:33AM ; [facility] Medical Equipment - Implanted Devices Includes: Current and historical Devices No Medical Equipment Recorded Medications Includes: Current and historical Medications Current Medications (continue as prescribed) Zolpidem Tartrate ER 12.5 MG Oral Tablet Extended Release 01/03/2024 Provider: JAVIER BAUM MD Diagnosis: Insomnia, unspec ified TAKE 1 TABLET BY MOUTH EVERY NIGHT AT BEDTIME Last Documented On 01/03/2024 9:04AM By Kaity Baum MD ; [facility] DULoxetine HCl 60 MG Oral Capsule Delayed Release Particles 12/18/2023 Provider: JAVIER BAUM MD Diagnosis: Major depressive disorder, recurrent, moderate TAKE ONE CAPSULE BY MOUTH DAILY Last Documented On 12/18/2023 7:25AM By Kaity Baum MD ; [facility] Aimovig 70 MG/ML Subcutaneou s Solution Auto-injector 08/29/2023 Provider: JAVIER VILLA MD Diagnosis: Chronic migraine w/o aura, not intractable, w/o stat migr as directed - inject 70 mg subcutaneously once a month to upper thigh or abdomnial area, please rotate sites Last Documented On 08/29/2023 4:03PM By Kaity Baum MD ; [facility] Desvenlafaxine Succinate ER 50 MG Oral Tablet Extended Release 24 Hour 08/21/2023 Provider: JAVIER BAUM MD Diagnosis: Major depressive disorder, recurrent, moderate TAKE 1 TABLET BY MOUTH DAILY DIRECTED Last Documented On 08/21/2023 7:15AM By Kaity Baum MD ; [facility] Diclofenac Sodium 75 MG Oral Tablet Delayed Release Provider: Diagnosis: 1 tab daily prn Last Documented On 05/25/2023 10:12AM By VALE CORDOBA ; [facility] Gabapentin 100 MG OR CAPS 11/24/2022 Provider: Diagnosis: 1 at hs Last Documented On 02/18/2023 5:33PM By VALE CORDOBA ; [facility] Nurtec 75 MG OR TBDP 10/18/2022 Provider: JAVIER BAUM MD Diagnosis: Chronic migraine w/o aura, not intractable, w/o stat migr as directed -- 1 tab a day a s needed only at the onset of migraine headache Last Documented On 02/18/2023 5:33PM By Kaity Baum MD ; [facility] Lantus SoloStar 100 UNIT/ML SC SOPN 04/07/2022 Provi georgi: Diagnosis: 25u subq in the evening Munira Greenberg NP Last Documented On 02/18/2023 5:33PM By VALE CORDOBA ; [facility] Fenofibrate 160 MG OR TABS 09/28/2021 Provider: Diagnosis: 1 tab daily Munira Greenberg NP Last Documented On 02/18/2023 5:33PM By VALE CORDOBA ; [facility] Dialyvite Vitamin D3 Max 1.25 MG (03506 UT) OR TABS Provider: Diagnosis: 1 tab q other week Last Documented On 02/18/2023 5:33PM By VALE CORDOBA ; [facility] Bystolic 5 MG OR TABS 10/01/2019 Provider: Diagnosis: 1 tab daily from Munira Greenberg NP Last Documented On 02/18/2023 5:33PM By VALE CORDOBA ; [facility] SUMAtriptan Succinate 100 MG OR TABS 10/01/2019 Provider: JAVIER BAUM MD Diagnosis: Chronic migraine w/o aura, not intractable, w/o stat migr as directed -- 1 tab a day a s needed for migraine - take it at the osnet of migraine Last Documented On 02/18/2023 5:33PM By Kaity Baum MD ; [facility] NexIUM 20 MG OR CPDR 03/12/2019 Provider: Diagnosis: 1 cap daily Last Documented On 02/18/2023 5:33PM By VALE CORDOBA ; [facility] Folic Acid 1 MG OR TABS 09/17/2018 Provider: Diagnosis: 1 tab daily Last Documented On 02/18/2023 5:33PM By VALE CORDOBA ; [facility] Losartan Potassium 25 MG OR TABS 05/07/2015 Provider : Diagnosis: Last Documented On 02/18/2023 5:33PM By Kaity Baum MD ; [facility] Triamterene-HCTZ 37.5-25 MG OR CAPS 05/15/2013 Provi georgi: Diagnosis: Last Documented On 02/18/2023 5:33PM By Kaity Baum MD ; [facility] tiZANidine HCl 4 MG OR CAPS 05/15/2013 Provider: Diagnosis: Last Documented On 02/18/2023 5:33PM By Kaity Baum MD ; [facility] Past Medications on file Zolpidem Tartrate ER 12.5 MG Oral Tablet Extended Release 11/02/2023 - 01/03/2024 Provider: JAVIER JOHNSON MD Diagnosis: Insomnia, unspec ified TAKE 1 TABLET BY MOUTH EVERY NIGHT AT BEDTIME Last Documented On 01/03/2024 9:03AM By Kaity Baum MD ; [facility] busPIRone HCl 10 MG Oral Tablet 07/26/2023 - 07/20/2024 Provider: JAVIER BAUM MD Diagnosis: Generalized anxi ety disorder as directed --1 in am 1 at n oon and 2 tabs in the evening Last Documented On 07/26/2023 6:01PM By Kaity Baum MD ; [facility] Cymbalta 60 MG Oral Capsule Delayed Release Particles 06/21/2023 - 12/18/2023 Provider: JAVIER BAUM MD Diagnosis: Major depressive disorder, recurrent, moderate 1 ca - 1 capsule daily Last Documented On 12/18/2023 7:22AM By Kaity Baum MD ; [facility] Zolpidem Tartrate ER 12.5 MG Oral Tablet Extended Release 06/09/2023 - 11/02/2023 Provider: JAVIER JOHNSON MD Diagnosis: Insomnia, unspec ified One tablet at bed time Last Documented On 11/02/2023 10:13AM By Kaity Baum MD ; [facility] Nurtec 75 MG Oral Tablet Disintegrating 06/05/2023 - 07/05/2023 Provider: JAVIER BAUM MD Diagnosis: Chronic migraine w/o aura, not intractable, w/o stat migr as directed - 1 tab a day as needed only at the onset of migraine headache -- given 6 tabs samples on 05/25/23 Last Documented On 06/05/2023 2:05PM By Kaity Baum MD ; [facility] Aimovig 70 MG/ML Subcutaneous Solution Auto-injector 06/05/2023 - 08/29/2023 Provider: JAVIER BAUM MD Diagnosis: Chronic migraine w/o aura, not intractable, w/o stat migr as directed - inject 70 mg s ubcutaneously once a month to upper thigh or abdomnial area, please rotate sites Last Documented On 08/29/2023 3:46PM By Kaity Baum MD ; [facility] Aimovig 70 MG/ML Subcutaneous Solution Auto-injector 06/05/2023 - 07/05/2023 Provider: JAVIER BAUM MD Diagnosis: Chronic migraine w/o aura, not intractable, w/o stat migr as directed - inject 70 mg S Q once a month - given 3 months samples on 05/25/23 Last Documented On 06/05/2023 1:58PM By Kaity Baum MD ; [facility] L-Methylfolate 15 MG Oral Tablet 06/05/2023 - 12/02/2023 Provider: JAVIER BAUM MD Diagnosis: Mild cognitive impairment of uncertain or unknown etiology 1 tablet every morning with food Last Documented On 06/05/2023 2:07PM By Kaity Baum MD ; [facility] L-Methylfolate 15 MG Oral Tablet 05/25/2023 - 05/19/2024 Provider: JAVIER BAUM MD Diagnosis: Major depressive disorder, recurrent, moderate 1 tablet every morning Last Documented On 05/25/2023 11:14AM By Kaity Baum MD ; [facility] Pristiq 50 MG Oral Tablet Extended Release 24 Hour 04/21/2023 - 08/21/2023 Provider: JAVIER JOHNSON MD Diagnosis: Major depressive disorder, recurrent, moderate as directed --1 tab daily Last Documented On 08/21/2023 7:12AM By Kaity Baum MD ; [facility] Zolpidem Tartrate ER 12.5 MG OR TBCR 01/09/2023 - 06/09/2023 Provider: JAVIER JOHNSON MD Diagnosis: One tablet at bed time as needed for sleep Last Documented On 06/09/2023 9:16AM By Kaity Baum MD ; [facility] Cymbalta 60 MG OR CPEP 12/19/2022 - 06/21/2023 Provider: JAVIER JOHNSON MD Diagnosis: Major depressive disorder, recurrent, moderate 1 ca - 1 capsule daily Last Documented On 06/21/2023 2:23PM By Kaity Baum MD ; [facility] Zonisamide 25 MG OR CAPS 11/24/2022 - 05/25/2023 Provi georgi: Diagnosis: 2 caps bid Last Documented On 05/25/2023 10:13AM By VALE CORDOBA ; [facility] L-Methylfolate 15 MG OR TABS 11/24/2022 - 05/25/2023 Provider: JAVIER BAUM MD Diagnosis: Mild cognitive impairment of uncertain or unknown etiology 1 tablet every morning with food Last Documented On 06/05/2023 2:07PM By Kaity Baum MD ; [facility] Diclofenac Sodium 75 MG OR TBEC 11/24/2022 - Provider: Diagnosis: 1 tab bid Last Documented On 05/25/2023 10:12AM By VALE CORDOBA ; [facility] Cymbalta 60 MG OR CPEP 10/26/2022 - 12/19/2022 Provider: JAVIER JOHNSON MD Diagnosis: Major depressive disorder, recurrent, moderate 1 ca - 1 capsule daily Last Documented On 02/18/2023 5:33PM By Kaity Baum MD ; [facility] Pristiq 50 MG OR TB24 10/18/2022 - 04/21/2023 Provider : JAVIER BAUM MD Diagnosis: Major depressive disorder, recurrent, moderate as directed --1 tab daily Last Documented On 04/21/2023 11:45AM By Kaity Baum MD ; [facility] EC-Naproxen 500 MG OR TBEC 10/13/2022 - 05/25/2023 Provider: JAVIER BAUM MD Diagnosis: Chronic migraine w/o aura, not intractable, w/o stat migr as directed --1 tab a day wi th food as needed for headaches Last Documented On 05/25/2023 10:13AM By VALE CORDOBA ; [facility] Zolpidem Tartrate ER 12.5 MG OR TBCR 10/10/2022 - 01/09/2023 Provider: JAVIER JOHNSON MD Diagnosis: One tablet at bed time as needed for sleep Last Documented On 02/18/2023 5:33PM By Kaity Baum MD ; [facility] EC-Naproxen 500 MG OR TBEC 06/20/2022 - 10/13/2022 Provider: JAVIER BAUM MD Diagnosis: Chronic migraine w/o aura, not intractable, w/o stat migr as directed --1 tab a day wi th food as needed for headaches Last Documented On 02/18/2023 5:33PM By Kaity Baum MD ; [facility] Zolpidem Tartrate ER 12.5 MG OR TBCR 04/18/2022 - 10/10/2022 Provider: JAVIER JOHNSON MD Diagnosis: One tablet at bed time as needed for sleep Last Documented On 02/18/2023 5:33PM By Kaity Baum MD ; [facility] busPIRone HCl 10 MG OR TABS 04/07/2022 - 07/26/2023 Provider: JAVIER BAUM MD Diagnosis: Generalized anxi ety disorder as directed --1 in am 1 at n oon and 2 tabs in the evening Last Documented On 07/26/2023 5:59PM By Kaity Baum MD ; [facility] Pristiq 50 MG OR TB24 04/07/2022 - 10/18/2022 Provider : JAVIER BAUM MD Diagnosis: Major depressive disorder, recurrent, moderate as directed --1 tab daily Last Documented On 02/18/2023 5:33PM By Kaity Baum MD ; [facility] Cymbalta 60 MG OR CPEP 04/07/2022 - 10/26/2022 Provider: JAVIER JOHNSON MD Diagnosis: Major depressive disorder, recurrent, moderate 1 ca - 1 capsule daily Last Documented On 02/18/2023 5:33PM By Kaity Baum MD ; [facility] HYDROcodone-Acetaminophen 10-325 MG OR TABS 04/06/2022 - 11/24/2022 Provider: Diagnosis: 1 tab daily prn #30 12/08/21, 08/11/21, 06/17/21, 05/18/21, 02/11/21, 11/27/20, 10/01/20, 08/06/20, 06/04/20, 04/02/20, 02/03/20, 12/16/19, 10/30/19, 08/19/[address] He Stokes Last Documented On 02/18/2023 5:33PM By VALE CORDOBA ; [facility] EC-Naproxen 500 MG OR TBEC 11/29/2021 - 06/20/2022 Provider: JAVIER BAUM MD Diagnosis: Chronic migraine w/o aura, not intractable, w/o stat migr as directed --1 tab a day wi th food as needed for headaches Last Documented On 02/18/2023 5:33PM By Kaity Baum MD ; [facility] Nurtec 75 MG OR TBDP 10/25/2021 - 10/18/2022 Provider: JAVIER BAUM MD Diagnosis: Chronic migraine w/o aura, not intractable, w/o stat migr as directed -- 1 tab a day a s needed only at the onset of headache Last Documented On 02/18/2023 5:33PM By Kaity Baum MD ; [facility] Cymbalta 60 MG OR CPEP 10/20/2021 - 04/07/2022 Provider: JAVIER JOHNSON MD Diagnosis: Major depressive disorder, recurrent, moderate 1 ca - 1 capsule daily Last Documented On 02/18/2023 5:33PM By Kaity Baum MD ; [facility] Pristiq 50 MG OR TB24 10/20/2021 - 04/07/2022 Provider : JAVIER BAUM MD Diagnosis: Major depressive disorder, recurrent, moderate as directed --1 tab daily Last Documented On 02/18/2023 5:33PM By Kaity Baum MD ; [facility] Zolpidem Tartrate ER 12.5 MG OR TBCR 10/20/2021 - 04/18/2022 Provider: JAVIER JOHNSON MD Diagnosis: One tablet at bed time as needed for sleep Last Documented On 02/18/2023 5:33PM By Kaity Baum MD ; [facility] Gabapentin 100 MG OR CAPS 09/28/2021 - 11/24/2022 Prov ider: Diagnosis: 2 at hs Last Documented On 02/18/2023 5:33PM By VALE CORDOBA ; [facility] HYDROcodone-Acetaminophen 10-325 MG OR TABS 09/27/2021 - 04/06/2022 Provider: Diagnosis: 1 tab daily prn #30 08/11/21 , 06/17/21, 05/18/21, 02/11/21, 11/27/20, 10/01/20, 08/06/20, 06/04/20, 04/02/20, 02/03/20, 12/16/19, 10/30/19, 08/19/[address] He Stokes Last Documented On 02/18/2023 5:33PM By VALE CORDOBA ; [facility] Trimethoprim 100 MG OR TABS 08/27/2021 - 11/25/2021 Pr ovider: Diagnosis: 1 tab daily for 90 days Last Documented On 02/18/2023 5:33PM By VALE CORDOBA ; [facility] Zolpidem Tartrate ER 12.5 MG OR TBCR 05/28/2021 - 09/28/2021 Provider: JAVIER BAUM MD Diagnosis: Psychophysiologi c insomnia One tablet at bed time as ne eded for sleep Last Documented On 02/18/2023 5:33PM By Kaity Baum MD ; [facility] EC-Naproxen 500 MG OR TBEC 05/26/2021 - 11/29/2021 Provider: JAVIER BAUM MD Diagnosis: Chronic migraine w/o aura, not intractable, w/o stat migr as directed --1 tab a day wi th food as needed for headaches Last Documented On 02/18/2023 5:33PM By Kaity Baum MD ; [facility] Cymbalta 60 MG OR CPEP 04/12/2021 - 10/20/2021 Provider: JAVIER JOHNSON MD Diagnosis: Major depressive disorder, recurrent, moderate 1 ca - 1 capsule daily Last Documented On 02/18/2023 5:33PM By Kaity Baum MD ; [facility] Pristiq 50 MG OR TB24 04/12/2021 - 09/28/2021 Provider : JAVIER BAUM MD Diagnosis: Major depressive disorder, recurrent, moderate as directed --1 tab daily Last Documented On 02/18/2023 5:33PM By Kaity Baum MD ; [facility] Methotrexate 10 MG/0.4ML SC SOSY 03/30/2021 - 09/28/20 Provider: Diagnosis: 10 mg once a week Last Documented On 02/18/2023 5:33PM By VALE CORDOBA ; [facility] Gabapentin 400 MG OR CAPS 03/30/2021 - 09/28/2021 Prov ider: Diagnosis: 1 cap hs Last Documented On 02/18/2023 5:33PM By VALE CORDOBA ; [facility] Dialyvite Vitamin D3 Max 1.2 5 MG (82100 UT) OR TABS 03/30/2021 - 09/28/2021 Provider: Diagnosis: once a week Last Documented On 02/18/2023 5:33PM By VALE CORDOBA ; [facility] HYDROcodone-Acetaminophen 10-325 MG OR TABS 03/29/2021 - 09/27/2021 Provider: Diagnosis: 1 tab daily prn #30 02/11/21, 11/27/20, 10/01/20, 08/06/20, 06/04/20, 04/02/20, 02/03/20, 12/16/19, 10/30/19, 08/19/[address] He Stokes Last Documented On 02/18/2023 5:33PM By VALE CORDOBA ; [facility] busPIRone HCl 10 MG OR TABS 02/08/2021 - 04/07/2022 Provider: JAVIER BAMU MD Diagnosis: Generalized anxi ety disorder as directed --1 in am 1 at n oon and 2 tabs in the evening Last Documented On 02/18/2023 5:33PM By Kaity Baum MD ; [facility] Zolpidem Tartrate ER 12.5 MG OR TBCR 01/29/2021 - 05/28/2021 Provider: JAVIER BAUM MD Diagnosis: Psychophysiologi c insomnia One tablet at bed time as ne eded for sleep Last Documented On 02/18/2023 5:33PM By Kaity Baum MD ; [facility] EC-Naproxen 500 MG OR TBEC 11/30/2020 - 05/26/2021 Provider: JAVIER BAUM MD Diagnosis: Chronic migraine w/o aura, not intractable, w/o stat migr as directed --1 tab a day wi th food as needed for headaches Last Documented On 02/18/2023 5:33PM By Kaity Baum MD ; [facility] Cymbalta 60 MG OR CPEP 11/09/2020 - 04/12/2021 Provider: JAVIER JOHNSON MD Diagnosis: Major depressive disorder, recurrent, moderate 1 ca - 1 capsule daily Last Documented On 02/18/2023 5:33PM By Kaity Baum MD ; [facility] Nurtec 75 MG OR TBDP 10/25/2020 - 10/25/2021 Provider: JAVIER BAUM MD Diagnosis: Chronic migraine w/o aura, not intractable, w/o stat migr as directed -- 1 tab a day a s needed only at the onset of headache Last Documented On 02/18/2023 5:33PM By Kaity Baum MD ; [facility] Nurtec 75 MG OR TBDP 10/14/2020 - 10/07/2020 Provider: JAVIER BAUM MD Diagnosis: Chronic migraine w/o aura, not intractable, w/o stat migr as directed -- 1 tab a day a s needed only at the onset of headache Last Documented On 02/18/2023 5:33PM By Kaity Baum MD ; [facility] Pristiq 50 MG OR TB24 10/12/2020 - 04/12/2021 Provider : JAVIER BAUM MD Diagnosis: Major depressive disorder, recurrent, moderate as directed --1 tab daily Last Documented On 02/18/2023 5:33PM By Kaity Baum MD ; [facility] Raloxifene HCl 60 MG OR TABS 10/07/2020 - 03/30/2021 P rovider: Diagnosis: 1 tab daily Last Documented On 02/18/2023 5:33PM By VALE CORDOBA ; [facility] Rosuvastatin Calcium 20 MG OR TABS 10/07/2020 - 2020 Provider: Diagnosis: 1 tab daily Munira Greenberg NP Last Documented On 02/18/2023 5:33PM By VALE CORDOBA ; [facility] HYDROcodone-Acetaminophen 10-325 MG OR TABS 10/07/2020 - 03/29/2021 Provider: Diagnosis: 1 tab daily prn #30 10/01/20 , 08/06/20, 06/04/20, 04/02/20, 02/03/20, 12/16/19, 10/30/19, 08/19/[address] He Stokes Last Documented On 02/18/2023 5:33PM By VALE CORDOBA ; [facility] Gabapentin 100 MG OR CAPS 10/07/2020 - 03/30/2021 Prov ider: Diagnosis: 3 capsules at bedtime Last Documented On 02/18/2023 5:33PM By VALE CORDOBA ; [facility] Zolpidem Tartrate ER 12.5 MG OR TBCR 07/30/2020 - 01/29/2021 Provider: JAVIER BAUM MD Diagnosis: Psychophysiologi c insomnia One tablet at bed time as ne eded for sleep Last Documented On 02/18/2023 5:33PM By Kaity Baum MD ; [facility] Pristiq 50 MG OR TB24 06/15/2020 - 10/12/2020 Provider : JAVIER BAUM MD Diagnosis: Major depressive disorder, recurrent, moderate as directed --1 tab daily Last Documented On 02/18/2023 5:33PM By Kaity Baum MD ; [facility] Cymbalta 60 MG OR CPEP 06/15/2020 - 11/09/2020 Provider: JAVIER JOHNSON MD Diagnosis: Major depressive disorder, recurrent, moderate 1 ca - 1 capsule daily Last Documented On 02/18/2023 5:33PM By Kaity Baum MD ; [facility] EC-Naproxen 500 MG OR TBEC 06/11/2020 - 11/30/2020 Provider: JAVIER BAUM MD Diagnosis: Chronic migraine w/o aura, not intractable, w/o stat migr as directed --1 tab a day wi th food as needed for headaches Last Documented On 02/18/2023 5:33PM By Kaity Baum MD ; [facility] Nurtec 75 MG OR TBDP 06/07/2020 - 05/25/2023 Provider: JAVIER BAUM MD Diagnosis: Chronic migraine w/o aura, not intractable, w/o stat migr as directed - 1 tab a day as needed only at the onset of migraine headache -- given 2 tabs samples on 03/31/20 Last Documented On 06/05/2023 2:05PM By Kaity Baum MD ; [facility] Nurtec 75 MG OR TBDP 04/07/2020 - 10/14/2020 Provider: JAVIER BAUM MD Diagnosis: Chronic migraine w/o aura, not intractable, w/o stat migr as directed -- 1 tab a day a s needed only at the onset of headache Last Documented On 02/18/2023 5:33PM By Kaity Baum MD ; [facility] Simponi Aria 50 MG/4ML IV SOLN 03/31/2020 - 03/30/2021 Provider: Diagnosis: use as directed from Dr. Gay Last Documented On 02/18/2023 5:33PM By VALE CORDOBA ; [facility] KP Folic Acid 1 MG OR TABS 03/31/2020 - 10/07/2020 Pro vider: Diagnosis: Last Documented On 02/18/2023 5:33PM By Kaity Baum MD ; [facility] Vitamin D (Ergocalciferol) 5 0 MCG (1999 [place]) OR CAPS 03/31/2020 - 10/07/2020 Provider: Diagnosis: once a week Last Documented On 02/18/2023 5:33PM By Kaity Baum MD ; [facility] HYDROcodone-Acetaminophen 10-325 MG OR TABS 03/31/2020 - 10/07/2020 Provider: Diagnosis: 1 tab daily prn #30 02/03/20, 12/16/19, 10/30/19, by Dr. He Stokes Last Documented On 02/18/2023 5:33PM By VALE CORDOBA ; [facility] Zolpidem Tartrate ER 12.5 MG OR TBCR 02/24/2020 - 07/30/2020 Provider: JAVIER BAUM MD Diagnosis: Psychophysiologi c insomnia One tablet at bed time as ne eded for sleep Last Documented On 02/18/2023 5:33PM By Kaity Baum MD ; [facility] EC-Naproxen 500 MG OR TBEC 12/18/2019 - 06/11/2020 Provider: JAVIER BAUM MD Diagnosis: Chronic migraine w/o aura, not intractable, w/o stat migr as directed --1 tab a day wi th food as needed for headaches Last Documented On 02/18/2023 5:33PM By Kaity Baum MD ; [facility] EC-Naproxen 500 MG OR TBEC 12/16/2019 - 12/18/2019 Provider: JAVIER BAUM MD Diagnosis: Chronic migraine w/o aura, not intractable, w/o stat migr as directed --1 tab a day wi th food as needed for aches Last Documented On 02/18/2023 5:33PM By Kaity Baum MD ; [facility] Cymbalta 60 MG OR CPEP 12/12/2019 - 06/15/2020 Provider: JAVIER JOHNSON MD Diagnosis: Major depressive disorder, recurrent, moderate 1 ca - 1 capsule daily Last Documented On 02/18/2023 5:33PM By Kaity Baum MD ; [facility] busPIRone HCl 10 MG OR TABS 10/28/2019 - 02/08/2021 Provider: JAVIER BAUM MD Diagnosis: Generalized anxi ety disorder as directed --1 in am 1 at n oon and 2 tabs in the evening Last Documented On 02/18/2023 5:33PM By Kaity Baum MD ; [facility] EC-Naproxen 500 MG OR TBEC 10/01/2019 - 12/16/2019 Provider: JAVIER BAUM MD Diagnosis: Chronic migraine w/o aura, not intractable, w/o stat migr as directed --1 tab a day as needed for aches Last Documented On 02/18/2023 5:33PM By Kaity Baum MD ; [facility] Raloxifene HCl 60 MG OR TABS 10/01/2019 - 10/07/2020 P rovider: Diagnosis: pt states she has 20 mg tabs but there is only 60 mg tabs in the system 1 tab daily Last Documented On 02/18/2023 5:33PM By VALE CORDOBA ; [facility] Cymbalta 60 MG OR CPEP 09/16/2019 - 12/12/2019 Provider: JAVIER JOHNSON MD Diagnosis: Major depressive disorder, recurrent, moderate 1 ca - 1 capsule daily Last Documented On 02/18/2023 5:33PM By Kaity Baum MD ; [facility] Zolpidem Tartrate ER 12.5 MG OR TBCR 09/03/2019 - 02/24/2020 Provider: JAVIER BAUM MD Diagnosis: Psychophysiologi c insomnia One tablet at bed time as ne eded for sleep Last Documented On 02/18/2023 5:33PM By Kaity Baum MD ; [facility] Cymbalta 60 MG OR CPEP 06/10/2019 - 09/16/2019 Provider: JAVIER JOHNSON MD Diagnosis: Major depressive disorder, recurrent, moderate 1 ca - 1 capsule daily Last Documented On 02/18/2023 5:33PM By Kaity Baum MD ; [facility] Zolpidem Tartrate ER 12.5 MG OR TBCR 04/01/2019 - 09/03/2019 Provider: JAVIER BAUM MD Diagnosis: Psychophysiologi c insomnia One tablet at bed time as ne eded for sleep Last Documented On 02/18/2023 5:33PM By Kaity Baum MD ; [facility] Pristiq 50 MG OR TB24 03/15/2019 - 06/15/2020 Provider : JAVIER BAUM MD Diagnosis: Major depressive disorder, recurrent, moderate as directed --1 tab daily Last Documented On 02/18/2023 5:33PM By Kaity Baum MD ; [facility] traZODone HCl 50 MG OR TABS 03/15/2019 - 10/25/2020 Provider: JAVIER BAUM MD Diagnosis: Insomnia, unspec ified as directed -- 1 or 2 at bed time as needed for sleep Last Documented On 02/18/2023 5:33PM By Kaity Baum MD ; [facility] Zolpidem Tartrate ER 12.5 MG OR TBCR 03/15/2019 - 04/01/2019 Provider: JAVIER BAUM MD Diagnosis: Psychophysiologi c insomnia One tablet at bed time as ne eded for sleep Last Documented On 02/18/2023 5:33PM By Kaity Baum MD ; [facility] busPIRone HCl 10 MG OR TABS 03/15/2019 - 10/28/2019 Provider: JAVIER BAUM MD Diagnosis: Generalized anxi ety disorder as directed --1 in am 1 at n oon and 2 tabs in the evening Last Documented On 02/18/2023 5:33PM By Kaity Baum MD ; [facility] Ajovy 225 MG/1.5ML SC SOSY 03/15/2019 - 10/01/2019 Provider: JAVIER BAUM MD Diagnosis: Chronic migraine w/o aura, not intractable, w/o stat migr as directed -- 225 mg1.5 ml Subcutaneous once a month --given 1 box sample on 03/12/19 Last Documented On 02/18/2023 5:33PM By Kaity Baum MD ; [facility] Cymbalta 60 MG OR CPEP 03/15/2019 - 06/10/2019 Provider: JAVIER JOHNSON MD Diagnosis: Major depressive disorder, recurrent, moderate 1 ca - 1 capsule daily Last Documented On 02/18/2023 5:33PM By Kaity Baum MD ; [facility] Lantus SoloStar 100 UNIT/ML SC SOPN 03/12/2019 - 04/07 Provider: Diagnosis: 15 u subq in the evening Munira Greenberg NP Last Documented On 02/18/2023 5:33PM By VALE CORDOBA ; [facility] Zolpidem Tartrate ER 12.5 MG OR TBCR 02/27/2019 - 03/12/2019 Provider: JAVIER BAUM MD Diagnosis: Psychophysiologi c insomnia One tablet at bed time as ne eded for sleep Last Documented On 02/18/2023 5:33PM By Kaity Baum MD ; [facility] busPIRone HCl 10 MG OR TABS 01/21/2019 - 03/12/2019 Provider: JAVIER BAUM MD Diagnosis: Generalized anxi ety disorder as directed --1 in am 1 at n oon and 2 tabs in the evening Last Documented On 02/18/2023 5:33PM By Kaity Baum MD ; [facility] Pristiq 50 MG OR TB24 12/10/2018 - 03/12/2019 Provider : JAVIER BAUM MD Diagnosis: Major depressive disorder, recurrent, moderate as directed --1 tab daily Last Documented On 02/18/2023 5:33PM By Kaity Baum MD ; [facility] Cymbalta 60 MG OR CPEP 11/07/2018 - 03/12/2019 Provider: JAVIER JOHNSON MD Diagnosis: Major depressive disorder, recurrent, moderate 1 ca - 1 capsule daily Last Documented On 02/18/2023 5:33PM By Kaity Baum MD ; [facility] Zolpidem Tartrate ER 12.5 MG OR TBCR 10/08/2018 - 02/27/2019 Provider: JAVIER BAUM MD Diagnosis: Psychophysiologi c insomnia One tablet at bed time as ne eded for sleep --called in 30 and 4 RF on 10/08/18 Last Documented On 02/18/2023 5:33PM By Kaity Baum MD ; [facility] Pristiq 50 MG OR TB24 09/17/2018 - 12/10/2018 Provider : JAVIER BAUM MD Diagnosis: Major depressive disorder, recurrent, moderate as directed --1 tab daily Last Documented On 02/18/2023 5:33PM By Kaity Baum MD ; [facility] Zolpidem Tartrate ER 12.5 MG OR TBCR 09/17/2018 - 10/08/2018 Provider: JAVIER BAUM MD Diagnosis: Psychophysiologi c insomnia One tablet at bed time as ne eded for sleep --called in 30 and 5 RF on 04/11/18 Last Documented On 02/18/2023 5:33PM By Kaity Baum MD ; [facility] Aimovig 70 MG/ML SC SOAJ 09/17/2018 - 10/01/2019 Provider: JAVIER BAUM MD Diagnosis: Chronic migraine w/o aura, not intractable, w/o stat migr as directed -- 70 mg subcutaneous once a month Last Documented On 02/18/2023 5:33PM By Kaity Baum MD ; [facility] Cymbalta 60 MG OR CPEP 09/17/2018 - 11/07/2018 Provider: JAVIER JOHNSON MD Diagnosis: Major depressive disorder, recurrent, moderate 1 ca - 1 capsule daily Last Documented On 02/18/2023 5:33PM By Kaity Baum MD ; [facility] busPIRone HCl 10 MG OR TABS 09/17/2018 - 01/21/2019 Provider: JAVIER BAUM MD Diagnosis: Generalized anxi ety disorder as directed --1 in am 1 at n oon and 2 tabs in the evening Last Documented On 02/18/2023 5:33PM By Kaity Baum MD ; [facility] Gabapentin 100 MG OR CAPS 09/17/2018 - 10/07/2020 Prov ider: Diagnosis: 1 capsule tid Last Documented On 02/18/2023 5:33PM By VALE CORDOBA ; [facility] Zolpidem Tartrate ER 12.5 MG OR TBCR 04/11/2018 - 09/17/2018 Provider: JAVIER JOHNSON MD Diagnosis: Insomnia, unspec ified One tablet at bed time as ne eded for sleep --called in 30 and 5 RF on 04/11/18 Last Documented On 02/18/2023 5:33PM By Kaity Baum MD ; [facility] Imitrex 50 MG OR TABS 03/25/2018 - 10/07/2020 Provider : JAVIER BAUM MD Diagnosis: Chronic migraine w/o aura, intractable, w/o stat migr as directed 1 a day as neede d at the onset of migraine Last Documented On 02/18/2023 5:33PM By Kaity Baum MD ; [facility] Pristiq 50 MG OR TB24 03/25/2018 - 09/17/2018 Provider : JAVIER BAUM MD Diagnosis: Major depressive disorder, recurrent, moderate as directed --1 tab daily Last Documented On 02/18/2023 5:33PM By Kaity Baum MD ; [facility] busPIRone HCl 10 MG OR TABS 03/25/2018 - 09/17/2018 Provider: JAVIER BAUM MD Diagnosis: Generalized anxi ety disorder as directed --1 in am 1 at n oon and 2 tabs in the evening Last Documented On 02/18/2023 5:33PM By Kaity Baum MD ; [facility] Cymbalta 60 MG OR CPEP 03/25/2018 - 09/17/2018 Provider: JAVEIR JOHNSON MD Diagnosis: Major depressive disorder, recurrent, moderate 1 ca - 1 capsule daily Last Documented On 02/18/2023 5:33PM By Kaity Baum MD ; [facility] Methotrexate 2.5 MG OR TABS 03/20/2018 - 03/30/2021 Pr ovider: Diagnosis: 10 tabs once a week -- Dr. Gay -- [facility] Last Documented On 02/18/2023 5:33PM By Kaity Baum MD ; [facility] traZODone HCl 50 MG OR TABS 11/13/2017 - 03/12/2019 Provider: JAVIER BAUM MD Diagnosis: Insomnia, unspec ified as directed -- 1 or 2 at bed time as needed for sleep Last Documented On 02/18/2023 5:33PM By Kaity Baum MD ; [facility] Zolpidem Tartrate ER 12.5 MG OR TBCR 10/13/2017 - 04/11/2018 Provider: JAVIER JOHNSON MD Diagnosis: Insomnia, unspec ified One tablet at bed time as ne eded for sleep --called in 30 and 5 RF on 10/13/17 Last Documented On 02/18/2023 5:33PM By Kaity Baum MD ; [facility] Cymbalta 60 MG OR CPEP 10/09/2017 - 03/20/2018 Provider: JAVIER JOHNSON MD Diagnosis: Major depressive disorder, recurrent, moderate 1 ca - 1 capsule daily Last Documented On 02/18/2023 5:33PM By Kaity Baum MD ; [facility] busPIRone HCl 10 MG OR TABS 10/09/2017 - 03/20/2018 Provider: JAVIER BAUM MD Diagnosis: Generalized anxi ety disorder as directed --1 in am 1 at n oon and 2 tabs in the evening Last Documented On 02/18/2023 5:33PM By Kaity Baum MD ; [facility] Pristiq 50 MG OR TB24 10/09/2017 - 03/20/2018 Provider : JAVIER BAUM MD Diagnosis: Major depressive disorder, recurrent, moderate as directed --1 tab daily Last Documented On 02/18/2023 5:33PM By Kaity Baum MD ; [facility] Raloxifene HCl 60 MG OR TABS 09/12/2017 - 10/01/2019 Damien chakraborty: Diagnosis: pt states she has 20 mg tabs but there is only 6 0 mg tabs in the system Last Documented On 3 5:33PM By MARYAM CORDOBA ; [facility] Topamax 25 MG OR TABS 09/12/2017 - 03/20/2018 Provider: JAVIER JOHNSON MD Diagnosis: Chronic migraine w/o aura, not intractable, w/o stat migr One tablet twice a day Last Documented On 02/18/2023 5:33PM By Kaity Baum MD ; [facility] Zolpidem Tartrate ER 12.5 MG OR TBCR 09/12/2017 - 10/13/2017 Provider: JAVIER JOHNSON MD Diagnosis: Insomnia, unspec ified One tablet at bed time as needed for sleep Last Documented On 02/18/2023 5:33PM By Kaity Baum MD ; [facility] Gabapentin 100 MG OR CAPS 09/12/2017 - 09/17/2018 Prov ider: Diagnosis: twice daily Last Documented On 3 5:33PM By MARYAM CORDOBA ; [facility] Remicade 100 MG IV SOLR 09/12/2017 - 03/31/2020 Provid er: Diagnosis: once every 2 months Last Documented On 02/18/2023 5:33PM By Kaity Baum MD ; [facility] Zolpidem Tartrate ER 12.5 MG OR TBCR 03/28/2017 - 09/12/2017 Provider: JAVIER JOHNSON MD Diagnosis: Insomnia, unspec ified One tablet at bed time as needed for sleep Last Documented On 02/18/2023 5:33PM By Kaity Baum MD ; [facility] busPIRone HCl 10 MG OR TABS 03/28/2017 - 09/12/2017 Provider: JAVIER BAUM MD Diagnosis: Generalized anxi ety disorder as directed --1 in am 1 at n oon and 2 tabs in the evening Last Documented On 02/18/2023 5:33PM By Kaity Baum MD ; [facility] Meloxicam 15 MG OR TABS 03/28/2017 - 03/20/2018 Provid er: Diagnosis: Use as directed Last Documented On 02/18/2023 5:33PM By JULIETTE CUENCA LPN ; [facility] Pristiq 50 MG OR TB24 03/28/2017 - 09/12/2017 Provider : JAVIER BAUM MD Diagnosis: Major depressive disorder, recurrent, moderate as directed --1 tab daily Last Documented On 02/18/2023 5:33PM By Kaity Baum MD ; [facility] Cymbalta 60 MG OR CPEP 03/28/2017 - 09/12/2017 Provider: JAVIER JOHNSON MD Diagnosis: Major depressive disorder, recurrent, moderate 1 ca - 1 capsule daily Last Documented On 02/18/2023 5:33PM By Kaity Baum MD ; [facility] Pristiq 50 MG OR TB24 02/27/2017 - 10/09/2017 Provider: JAVIER JOHNSON MD Diagnosis: Major depressive disorder, recurrent, moderate One tablet daily -- 1 month samples given for p/u on 02/27/17 Last Documented On 02/18/2023 5:33PM By Kaity Baum MD ; [facility] busPIRone HCl 10 MG OR TABS 11/16/2016 - 03/28/2017 Provider: JAVEIR BAUM MD Diagnosis: Generalized anxi ety disorder as directed --1 in am and 2 tabs in the evening Last Documented On 02/18/2023 5:33PM By Kaity Baum MD ; [facility] Pristiq 50 MG OR TB24 11/16/2016 - 02/27/2017 Provider: JAVIER BAUM MD Diagnosis: Major depressive disorder, recurrent, moderate One tablet daily --has 14 ta bs left + 3 months samples given --since pt had headaches when it got reduced to qod Last Documented On 02/18/2023 5:33PM By Kaity Baum MD ; [facility] Cephalexin 500 MG OR TABS 11/16/2016 - 12/16/2016 Prov ider: Diagnosis: Take 1 every 6 hours until gone Last Documented On 02/18/2023 5:33PM By JULIETTE CUENCA LPN ; [facility] Meloxicam 15 MG OR TABS 11/16/2016 - 03/28/2017 Provid er: Diagnosis: 1 daily Last Documented On 02/18/2023 5:33PM By JULIETTE CUENCA LPN ; [facility] Imitrex 50 MG OR TABS 11/11/2016 - 03/20/2018 Provider : JAVIER BAUM MD Diagnosis: Chronic migraine w/o aura, intractable, w/o stat migr as directed 1 a day as neede d at the onset of migraine Last Documented On 02/18/2023 5:33PM By Kaity Baum MD ; [facility] Zolpidem Tartrate ER 12.5 MG OR TBCR 11/11/2016 - 03/28/2017 Provider: JAVIER JOHNSON MD Diagnosis: Insomnia, unspec ified One tablet at bed time as needed for sleep Last Documented On 02/18/2023 5:33PM By Kaity Baum MD ; [facility] NexIUM 20 MG OR CPDR 08/10/2016 - 03/12/2019 Provider: Diagnosis: Last Documented On 02/18/2023 5:33PM By Kaity Baum MD ; [facility] traZODone HCl 50 MG OR TABS 08/10/2016 - 11/13/2017 Provider: JAVIER BAUM MD Diagnosis: Insomnia, unspec ified as directed -- 1 or 2 at bed time as needed for sleep Last Documented On 02/18/2023 5:33PM By Kaity Baum MD ; [facility] busPIRone HCl 10 MG OR TABS 08/10/2016 - 11/16/2016 Provider: JAVIER BAUM MD Diagnosis: Generalized anxi ety disorder as directed --1 in am and 2 tabs in the evening Last Documented On 02/18/2023 5:33PM By Kaity Baum MD ; [facility] Cymbalta 60 MG OR CPEP 08/10/2016 - 03/28/2017 Provider: JAVIER JOHNSON MD Diagnosis: Major depressive disorder, recurrent, moderate 1 ca - 1 capsule daily Last Documented On 02/18/2023 5:33PM By Kaity Baum MD ; [facility] Zolpidem Tartrate ER 12.5 MG OR TBCR 08/10/2016 - 11/11/2016 Provider: JAVIER JOHNSON MD Diagnosis: Insomnia, unspec ified One tablet at bed time as ne eded for sleep --called in 30 and 5RF on 05/16/16 Last Documented On 02/18/2023 5:33PM By Kaity Baum MD ; [facility] Pristiq 50 MG OR TB24 08/10/2016 - 11/16/2016 Provider: JAVIER BAUM MD Diagnosis: Major depressive disorder, recurrent, moderate One tablet daily -- 56 + 35 + 91 tabs samples given -- 1 a day for 2 mos then 1 every other day therafter Last Documented On 02/18/2023 5:33PM By Kaity Baum MD ; [facility] Cymbalta 60 MG OR CPEP 05/25/2016 - 08/10/2016 Provider: JAVIER JOHNSON MD Diagnosis: Major depressive disorder, recurrent, moderate 1 ca - 1 capsule daily Last Documented On 02/18/2023 5:33PM By Kaity Baum MD ; [facility] busPIRone HCl 10 MG OR TABS 05/16/2016 - 08/10/2016 Provider: JAVIER BAUM MD Diagnosis: Generalized anxi ety disorder as directed --1 in am and 2 tabs in the evening Last Documented On 02/18/2023 5:33PM By Kaity Baum MD ; [facility] Zolpidem Tartrate ER 12.5 MG OR TBCR 05/16/2016 - 08/10/2016 Provider: JAVIER JOHNSON MD Diagnosis: Insomnia, unspec ified One tablet at bed time as ne eded for sleep --called in 30 and 5RF on 05/16/16 Last Documented On 02/18/2023 5:33PM By Kaity Baum MD ; [facility] busPIRone HCl 10 MG OR TABS 05/07/2016 - 05/16/2016 Provider: JAVIER BAUM MD Diagnosis: Generalized anxi ety disorder One tablet in am and 2 tabs in evening for anxiety Last Documented On 02/18/2023 5:33PM By Kaity Baum MD ; [facility] Treximet 85-500 MG OR TABS 05/07/2016 - 03/25/2018 Provider: JAVIER BAUM MD Diagnosis: Chronic migraine w/o aura, not intractable, w/o stat migr as directed -- 1 a day as ne eded for fro headache -- 2 tabs samples given (pt was reminded not to take imitrex in combination with treximet) Last Documented On 02/18/2023 5:33PM By Kaity Baum MD ; [facility] Zolpidem Tartrate ER 12.5 MG OR TBCR 05/07/2016 - 05/16/2016 Provider: JAVIER JOHNSON MD Diagnosis: Insomnia, unspec ified One tablet at bed time as needed for sleep Last Documented On 02/18/2023 5:33PM By Kaity Baum MD ; [facility] Femara 2.5 MG OR TABS 05/03/2016 - 11/16/2016 Provider : Diagnosis: Last Documented On 02/18/2023 5:33PM By Kaity Baum MD ; [facility] Pristiq 50 MG OR TB24 05/03/2016 - 08/10/2016 Provider : JAVIER BAUM MD Diagnosis: Major depressive disorder, recurrent, moderate as directed -- 2 a day -- 3 months samples given on 05/03/16 Last Documented On 02/18/2023 5:33PM By Kaity Baum MD ; [facility] Imitrex 50 MG OR TABS 04/11/2016 - 11/11/2016 Provider : JAVIER BAUM MD Diagnosis: Chronic migraine w/o aura, intractable, w/o stat migr as directed 1 a day as neede d at the onset of migraine Last Documented On 02/18/2023 5:33PM By Kaity Baum MD ; [facility] busPIRone HCl 10 MG OR TABS 02/11/2016 - 05/03/2016 Provider: JAVIER BAUM MD Diagnosis: Generalized anxi ety disorder One tablet in am and 2 tabs in evening for anxiety Last Documented On 02/18/2023 5:33PM By Kaity Baum MD ; [facility] Pristiq 50 MG OR TB24 02/11/2016 - 08/10/2016 Provider: JAVIER JOHNSON MD Diagnosis: Major depressive disorder, recurrent, moderate One tablet daily -- 35 tabs samples given on 02/11/16 Last Documented On 02/18/2023 5:33PM By Kaity Baum MD ; [facility] Zolpidem Tartrate ER 12.5 MG OR TBCR 02/11/2016 - 05/03/2016 Provider: JAVIER JOHNSON MD Diagnosis: Oth insomnia not due to a substance or known physiol cond One tablet at bed time as needed for sleep Last Documented On 02/18/2023 5:33PM By Kaity Baum MD ; [facility] Cymbalta 60 MG OR CPEP 02/11/2016 - 05/25/2016 Provider: JAVIER JOHNSON MD Diagnosis: Major depressive disorder, recurrent, moderate 1 ca - 1 capsule daily Last Documented On 02/18/2023 5:33PM By Kaity Baum MD ; [facility] Letrozole 2.5 MG OR TABS 02/11/2016 - 09/17/2018 Provi georgi: Diagnosis: 1 tablet a day Last Documented On 02/18/2023 5:33PM By JULIETTE CUENCA LPN ; [facility] Pristiq 50 MG OR TB24 12/29/2015 - 02/11/2016 Provider: JAVIER JOHNSON MD Diagnosis: Major depressive disorder, recurrent, moderate One tablet daily -- 42 tabs samples for p/u 01/04/16 Last Documented On 02/18/2023 5:33PM By Kaity Baum MD ; [facility] Zolpidem Tartrate ER 12.5 MG OR TBCR 11/10/2015 - 02/11/2016 Provider: JAVIER JOHNSON MD Diagnosis: Oth insomnia not due to a substance or known physiol cond One tablet at bed time as needed for sleep Last Documented On 02/18/2023 5:33PM By Kaity Baum MD ; [facility] Pristiq 50 MG OR TB24 11/10/2015 - 08/10/2016 Provider: JAVIER JOHNSON MD Diagnosis: Major depressive disorder, recurrent, unspecified One tablet daily Last Documented On 02/18/2023 5:33PM By Kaity Baum MD ; [facility] Treximet 85-500 MG OR TABS 11/10/2015 - 05/03/2016 Provider: JAVIER JOHNSON MD Diagnosis: Chronic migraine w/o aura, intractable, w/o stat migr as directed -- 1 a day as ne eded for fro headache -- 8 samples given Last Documented On 02/18/2023 5:33PM By Kaity Baum MD ; [facility] Cymbalta 60 MG OR CPEP 11/10/2015 - 02/11/2016 Provider: JAVIER JOHNSON MD Diagnosis: Major depressive disorder, recurrent, moderate 1 ca - 1 capsule daily Last Documented On 02/18/2023 5:33PM By Kaity Baum MD ; [facility] busPIRone HCl 10 MG OR TABS 11/10/2015 - 02/11/2016 Provider: JAVIER BAUM MD Diagnosis: Generalized anxi ety disorder One tablet in am and 2 tabs in evening for anxiety Last Documented On 02/18/2023 5:33PM By Kaity Baum MD ; [facility] Pristiq 50 MG OR TB24 11/10/2015 - 02/11/2016 Provider: JAVIER BAUM MD Diagnosis: Generalized anxi ety disorder One tablet daily -- 6 weeks samples given, the other mos she gets it from the pharmacy Last Documented On 02/18/2023 5:33PM By Kaity Baum MD ; [facility] Imitrex 50 MG OR TABS 10/12/2015 - 04/11/2016 Provider : JAVIER BAUM MD Diagnosis: Chronic migraine w/o aura, intractable, w/o stat migr as directed 1 a day as neede d at the onset of migraine Last Documented On 02/18/2023 5:33PM By Kaity Baum MD ; [facility] busPIRone HCl 10 MG OR TABS 09/10/2015 - 11/10/2015 Provider: JAVIER BAUM MD Diagnosis: Generalized anxi ety disorder One tablet twice a day Last Documented On 02/18/2023 5:33PM By Kaity Baum MD ; [facility] Imitrex 50 MG OR TABS 05/11/2015 - 10/12/2015 Provider: JAVIER BAUM MD Diagnosis: CHRONIC MIGRAINE W/OUT AURA, W/ INTERCHANGABLE MIGRAINE as directed 1 a day as neede d at the onset of migraine Last Documented On 02/18/2023 5:33PM By Kaity Baum MD ; [facility] Cymbalta 60 MG OR CPEP 05/07/2015 - 11/10/2015 Provider: JAVIER JOHNSON MD Diagnosis: MAJOR DEPRESSION DISORDER/RECURRENT 1 ca - 1 capsule daily Last Documented On 02/18/2023 5:33PM By Kaity Baum MD ; [facility] Treximet 85-500 MG OR TABS 05/07/2015 - 11/10/2015 Provider: JAVIER BAUM MD Diagnosis: CHRONIC MIGRAINE W/OUT AURA, W/ INTERCHANGABLE MIGRAINE as directed -- 1 a day as ne eded for fro headache -- 8 samples given Last Documented On 02/18/2023 5:33PM By Kaity Baum MD ; [facility] Zolpidem Tartrate ER 12.5 MG OR TBCR 05/07/2015 - 11/10/2015 Provider: JAVIER JOHNSON MD Diagnosis: PERSISTENT INSOM JOHN One tablet at bed time as needed for sleep Last Documented On 02/18/2023 5:33PM By Kaity Baum MD ; [facility] Atenolol 25 MG OR TABS 05/07/2015 - 10/01/2019 Provide r: Diagnosis: HYPERTENSION NOS Take 1 by mouth every day Last Documented On 02/18/2023 5:33PM By JULIETTE CUENCA LPN ; [facility] Lotrel 10-20 MG OR CAPS 05/07/2015 - 09/17/2018 Provid er: Diagnosis: HYPERTENSION NOS Take 1 capsule by mouth daily Last Documented On 02/18/2023 5:33PM By JULIETTE CUENCA LPN ; [facility] NexIUM 20 MG OR CPDR 05/07/2015 - 11/16/2016 Provider: Diagnosis: Take 1 capsule by mouth daily Last Documented On 02/18/2023 5:33PM By JULIETTE CUENCA LPN ; [facility] Fenofibrate Micronized 134 MG OR CAPS 05/07/2015 - Provider: Diagnosis: Take 1 capsule by mouth daily Last Documented On 02/18/2023 5:33PM By JULIETTE CUENCA LPN ; [facility] busPIRone HCl 10 MG OR TABS 05/07/2015 - 09/10/2015 Provider: JAVIER BAUM MD Diagnosis: GENERALIZED ANXI ETY DIS One tablet twice a day Last Documented On 02/18/2023 5:33PM By Kaity Baum MD ; [facility] Pristiq 50 MG OR TB24 05/07/2015 - 11/10/2015 Provider: JAVIER JOHNSON MD Diagnosis: GENERALIZED ANXI ETY DIS One tablet daily Last Documented On 02/18/2023 5:33PM By Kaity Baum MD ; [facility] busPIRone HCl 10 MG OR TABS 03/10/2015 - 05/07/2015 Provider: JAVIER BAUM MD Diagnosis: GENERALIZED ANXI ETY DIS One tablet twice a day Last Documented On 02/18/2023 5:33PM By Kaity Baum MD ; [facility] Imitrex 50 MG OR TABS 12/12/2014 - 05/11/2015 Provider: JAVIER BAUM MD Diagnosis: CHRONIC MIGRAINE W/OUT AURA, W/ INTERCHANGABLE MIGRAINE 1 a day as needed at the onset of migraine Last Documented On 02/18/2023 5:33PM By Kaity Baum MD ; [facility] Imitrex 50 MG OR TABS 11/10/2014 - 12/12/2014 Provider: JAVIER BAUM MD Diagnosis: CHRONIC MIGRAINE W/OUT AURA, W/ INTERCHANGABLE MIGRAINE 1 a day as needed at the onset of migraine Last Documented On 02/18/2023 5:33PM By Kaity Baum MD ; [facility] Zolpidem Tartrate ER 12.5 MG OR TBCR 11/06/2014 - 05/07/2015 Provider: JAVIER JOHNSON MD Diagnosis: PERSISTENT INSOM JOHN as needed for sleep Last Documented On 02/18/2023 5:33PM By Kaity Baum MD ; [facility] Cymbalta 60 MG OR CPEP 11/06/2014 - 05/07/2015 Provider: JAVIER BAUM MD Diagnosis: GENERALIZED ANXI ETY DIS may give generic -- Duloxetine Last Documented On 02/18/2023 5:33PM By Kaity Baum MD ; [facility] Pristiq 50 MG OR TB24 11/06/2014 - 05/07/2015 Provider: JAVIER JOHNSON MD Diagnosis: GENERALIZED ANXI ETY DIS Last Documented On 02/18/2023 5:33PM By Kaity Baum MD ; [facility] busPIRone HCl 10 MG OR TABS 11/06/2014 - 03/10/2015 Provider: JAVIER BAUM MD Diagnosis: GENERALIZED ANXI ETY DIS Last Documented On 02/18/2023 5:33PM By Kaity Baum MD ; [facility] Pristiq 50 MG OR TB24 11/06/2014 - 02/11/2016 Provider: JAVIER JOHNSON MD Diagnosis: MAJOR DEPRESSION DISORDER/RECURRENT 3 months samples given Last Documented On 02/18/2023 5:33PM By Kaity Baum MD ; [facility] Imitrex 50 MG OR TABS 10/10/2014 - 11/06/2014 Provider: JAVIER BAUM MD Diagnosis: CHRONIC MIGRAINE W/OUT AURA, W/ INTERCHANGABLE MIGRAINE 1 a day as needed at the onset of migraine Last Documented On 02/18/2023 5:33PM By Kaity Baum MD ; [facility] Zolpidem Tartrate ER 12.5 MG OR TBCR 09/05/2014 - 11/06/2014 Provider: JAVIER JOHNSON MD Diagnosis: PERSISTENT INSOM JOHN as needed for sleep Last Documented On 02/18/2023 5:33PM By Kaity Baum MD ; [facility] busPIRone HCl 10 MG OR TABS 05/15/2014 - 11/06/2014 Provider: JAVIER BAUM MD Diagnosis: GENERALIZED ANXI ETY DIS Last Documented On 02/18/2023 5:33PM By Kaity Baum MD ; [facility] Pristiq 50 MG OR TB24 05/15/2014 - 11/10/2015 Provider: JAVIER JOHNSON MD Diagnosis: MAJOR DEPRESSION DISORDER/RECURRENT has 3 refills and given 3 months samples Last Documented On 02/18/2023 5:33PM By Kaity Baum MD ; [facility] Cymbalta 60 MG OR CPEP 05/15/2014 - 11/06/2014 Provider: JAVIER BAUM MD Diagnosis: GENERALIZED ANXI ETY DIS may give generic --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
--- OUTSIDE RECORDS SUMMARY | 2024-11-15 13:24 | XMS_ITS | Clinical Summary ---
Author Organization [facility] Address [address] [place] [id number] Phone Care Team Providers Care Shop Fitter Name Role Phone SUSAN AVELAR, JAVIER Kiser [phone] Reason for Visit and Chief Complaint FOLLOW UP Problems Includes: Problems addressed during this encounter and other active Problems All Visits Onset Date Resolved Date Provider Condition S tatus Mild Cognitive Impairment 11/24/2022 JAVIER BAUM MD Active Last Documented On 3 4:31PM ; [facility] Vitamin B12 Deficiency 03/23/2020 JAVIER AGRAWAL MD Active Last Documented On 0 1:13AM ; [facility] Diabetes Mellitus Type 2 03/12/2019 JAVIER BAUM MD Active Last Documented On 9 2:14PM ; [facility] Rheumatoid Arthritis 03/12/2019 JAVIER DELONG MD Active Last Documented On 9 2:15PM ; [facility] Arthritis 11/16/2016 JAVIER BAUM MD Ac tive Last Documented On 7 1:43PM ; [facility] Hyperlipidemia 11/15/2016 JAVIER Bergman Active Last Documented On 7 2:14PM ; [facility] Psychophysiological Insomnia 11/15/2016 JAVIER BAUM MD Active Last Documented On 7 2:13PM ; [facility] Breast Cancer 02/11/2016 JAVIER BAUM MD Active Last Documented On 02/11/2016 1:39PM ; [facility] Note: Stage II right side Migraine Headache 12/22/2015 JAVIER Das MD Active Last Documented On 6 9:50PM ; [facility] Major Depression, Recurrent 12/21/2012 JAVIER BAUM MD Active Last Documented On 3 9:51PM ; [facility] Generalized Anxiety Disorder 11/07/2012 JAVIER BAUM MD Active Last Documented On 3 12:52PM ; [facility] Hiatal Hernia 11/07/2012 JAVIER BAUM MD Active Last Documented On 3 12:53PM ; [facility] Hypertension Systemic 11/07/2012 JAVIER GAUTHIER MD Active Last Documented On 3 12:53PM ; [facility] Triglyceride Problems 11/07/2012 JAVIER GAUTHIER MD Active Last Documented On 3 12:55PM ; [facility] 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 VIVIAN BAUM MD Active Last Documented On 3 12:54PM ; [facility] Plan of Treatment Pending Tests Order Diagnosis Results Due Ordering Damien chakraborty Lab VITAMIN D 04/30/20 JAVIER GAUTHIER MD Last Documented On 0 1:14AM ; [facility] Lab B12 & FOLATE 04/30/20 JAVIER BAUM MD Last Documented On 0 1:14AM ; [facility] Assessments Includes: Assessments from this encounter No Assessments Recorded Medical Equipment - Implanted Devices Includes: Current Devices No Medical Equipment Recorded Medications Includes: Medications discussed during this encounter and other current Medications Current Medications (continue as prescribed) Zolpidem Tartrate ER 12.5 MG Oral Tablet Extended Release 01/09/2023 Provider: JAVIER BAUM MD Diagnosis: One tablet at bed time as needed for sleep Last Documented On 01/09/2023 2:25PM By Kaity Baum MD ; [facility] Cymbalta 60 MG Oral Capsule Delayed Release Particles 12/19/2022 Provider: JAVIER BAUM MD Diagnosis: Major depressive disorder, recurrent, moderate 1 ca - 1 capsule daily Last Documented On 3 11:16AM By Kaity Baum MD ; [facility] Gabapentin 100 MG Oral Capsule 11/24/2022 Provider: Diagnosis: 1 at hs Last Documented On 11/24/2022 2:25PM By VALE CORDOBA ; [facility] Diclofenac Sodium 75 MG Oral Tablet Delayed Release Provider: Diagnosis: 1 tab bid Last Documented On 11/24/2022 2:32PM By VALE CORDOBA ; [facility] Zonisamide 25 MG Oral Capsule 11/24/2022 Provider: BRADY ESPINO MD Diagnosis: 2 caps bid Last Documented On 11/24/2022 2:39PM By VALE CORDOBA ; [facility] L-Methylfolate 15 MG Oral Tablet 11/24/2022 Provider: JAVIER BAUM MD Diagnosis: Mild cognitive impairment of uncertain or unknown etiology 1 tablet every morning with food Last Documented On 11/24/2022 4:40PM By Kaity Baum MD ; [facility] Pristiq 50 MG Oral Tablet Extended Release 24 Hour 10/18/2022 Provider: JAVIER DELONG MD Diagnosis: Major depressive disorder, recurrent, moderate as directed --1 tab daily Last Documented On 2 11:36AM By Kaity Baum MD ; [facility] Nurtec 75 MG Oral Tablet Disintegrating 10/18/2022 Provider: JAVIER ABUM MD Diagnosis: Chronic migraine w/o aura, not intractable, w/o stat migr as directed -- 1 tab a day a s needed only at the onset of migraine headache Last Documented On 2 11:36AM By Kaity Baum MD ; [facility] EC-Naproxen 500 MG Oral Tablet Delayed Release 10/13/2022 Provider: JAVIER VILLA MD Diagnosis: Chronic migraine w/o aura, not intractable, w/o stat migr as directed --1 tab a day wi th food as needed for headaches Last Documented On 2 10:40AM By Kaity Baum MD ; [facility] Lantus SoloStar 100 UNIT/ML Subcutaneous Solutio n Pen-injector 04/07/2022 Provider: Diagnosis: 25u subq in the evening Munira Greenberg NP Last Documented On 2 11:01AM By VALE CORDOBA ; [facility] busPIRone HCl 10 MG Oral Tablet 04/07/2022 Provider: JAVIER BAUM MD Diagnosis: Generalized anxi ety disorder as directed --1 in am 1 at n oon and 2 tabs in the evening Last Documented On 2 11:55AM By Kaity Baum MD ; [facility] Fenofibrate 160 MG Oral Tablet 09/28/2021 Provider: Diagnosis: 1 tab daily Munira Greenberg NP Last Documented On 1 11:34AM By VALE CORDOBA ; [facility] Dialyvite Vitamin D3 Max 1.25 MG ([id number] UT) Oral Table t 09/28/2021 Provider: Diagnosis: 1 tab q other week Last Documented On 1 11:35AM By VALE [facility]ORD[facility] Oral Tablet 10/01/2019 Provider: Diagnosis: 1 tab daily from Munira Greenberg NP Last Documented On 10/01/2019 3:30PM By VALE CORDOBA ; [facility] SUMAtriptan Succinate 100 MG Oral Tablet 10/01/2019 Provider: JAVIER BAUM MD Diagnosis: Chronic migraine w/o aura, not intractable, w/o stat migr as directed -- 1 tab a day a s needed for migraine - take it at the osnet of migraine Last Documented On 10/01/2019 4:33PM By Kaity Baum MD ; [facility] NexIUM 20MG Oral Capsule Delayed Release 03/12/2019 Provider: Diagnosis: 1 cap daily Last Documented On 03/12/2019 9:52AM By VALE CORDOBA ; [facility] Folic Acid 1MG Oral Tablet 09/17/2018 Provider: Diagnosis: 1 tab daily Last Documented On 09/17/2018 1:44PM By VALE CORDOBA ; [facility] Losartan Potassium 25 MG Tablet 05/07/2015 Provider: Diagnosis: Last Documented On 05/07/2015 2:14PM By Kaity Baum MD ; [facility] Triamterene-HCTZ 37.5-25 MG OR CAPS 05/15/2013 Provi georgi: Diagnosis: Last Documented On 05/15/2013 9:58PM By Kaity Baum MD ; [facility] tiZANidine HCl 4 MG OR CAPS 05/15/2013 Provider: Diagnosis: Last Documented On 05/15/2013 9:57PM By Kaity Baum MD ; [facility] Medications Administered Includes: Administered Medications from this encounter No Administered Medications Recorded Results Includes: Results discussed during this encounter No Results Recorded For Specified Dates History of Present Illness Includes: History of Present Illness from this encounter No History of Present Illness Recorded Social History No Social History Recorded - Smoking Status Unknown Medical History Includes: Medical History addressed during this encounter No Medical History Recorded Family History Includes: Family History addressed during this encounter No Family History Recorded Review of Systems Includes: Review of Systems from this encounter No Review of Systems Recorded Mental Status Includes: Mental Status from this encounter No Mental Status Recorded Functional Status Includes: Functional Status from this encounter No Functional Status Recorded Physical Exam Includes: Physical Exam from this encounter No Physical Exam Recorded Allergies Includes: Active Allergies Substance Type Reaction Onset Date Resolved Date Statu s Penicillin V Potassium Allergy Skin Rashes / Eruption of skin 09/17/2018 Active Last Documented On 05/25/2023 10:18AM ; [facility] Note: Imported from external source. Insurance Includes: Active Insurance Policies Plan Name Member ID Group # Subscriber Relationship Effect carlos Dates 1 - [facility] [id number] Cynthia Cooper Clinical Notes Includes: Clinical Notes from this encounter No Clinical Notes Recorded
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
--- OUTSIDE RECORDS SUMMARY | 2024-11-15 13:24 | XMS_ITS | Clinical Summary ---
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 -- brother Sororal: Depression -- sister Son's: Attention-deficit hyperactivity disorder -- son Review Of Systems Systemic: Feeling poorly (malaise). No fever, no chills, and no night sweats. Head: Headache associated with head congestion. No sinus pain. Neck: Neck pain. No neck stiffness. Eyes: No vision problems, no itching of the eyes, and no eye pain. Otolaryngeal: Hearing loss - wears hearing aids. No earache, no nasal discharge, no hoarseness, and no sore throat. Cardiovascular: No chest pain or discomfort, no palpitations, and the heart rate was not fast. Pulmonary: No dyspnea, no cough, and no wheezing. Gastrointestinal: No heartburn. No [...] no rash. Physical Findings - Vitals taken 05/25/2023 10:21 am BP-Sitting L 136/68 mmHg BP Cuff Size Regular Pulse Rate-Sitting 71 bpm Pulse Rhythm Regular Height 66 in Weight 212 lbs Body Mass Index 34.2 kg/m2 Body Surface Area 2.1 m2 Tests Educational Testing: Questionnaires PHQ-9: Value PHQ-9: total score 5 Assessment - Migraine headache - Mild Cognitive Impairment - Major depressive disorder - Major depression, recurrent - Psychophysiological insomnia - Psychophysiological insomnia - Organic sleep-related bruxism - Generalized anxiety disorder Therapy - Dangerousness assessment: no suicide risk. - Counseling on new medication: I discussed the risks, benefits and side effects of Aimovig . Patient verbalized understanding and agreed to treatment. - Supportive care and encouragement--given positive reinforcement to keep patient motivated and active, provided supportive therapy and offered feedback, reviewed coping strategies, breathing exercises. - Encouragement to exercise - balanced meal plan, low fat low carb diet. - Education and instructions. - Patient counseling I discussed risk, benefits, and side effects of sleep aid - Zolpidem ER - including the possibility of sleep related behaviors i.e. sleepwalking, sleeptalking, sleepdriving, etc... Pt verbalized understanding. - Assessment of suicide risk performed - not suicidal - Clinical summary provided to patient. * Call [phone] and /or go to the nearest emergency room or call me if suicidal/homicidal ideation or other serious concerns arise. * I gave instructions to call me should there be any questions or concerns. * Patient voiced understanding and agreed to treatment plan. Plan StartCited - Chronic migraine w/o aura, not intractable, w/o stat migr Aimovig 70 MG/ML mL as directed - inject 70 mg subcutaneously once a month to upper thigh or abdomnial area, please rotate sites, 30 days, 5 refills Aimovig 70 MG/ML mL as directed - inject 70 mg SQ once a month - given 3 months samples on 05/25/23, 30 days, 0 refills Nurtec 75 MG tablet as directed - 1 tab a day as needed only at the onset of migraine headache -- given 6 tabs samples on 05/25/23, 30 days, 0 refills EndCited StartCited - Major depressive disorder, recurrent, moderate L-Methylfolate 15 MG tablet 1 tablet every morning, 30 days, 11 refills EndCited StartCited - Mild cognitive impairment, so stated L-Methylfolate 15 MG tablet 1 tablet every morning with food, 30 days, 5 refills EndCited StartCited - Other Follow-up 11/30/23 EndCited Major Depressive Disorder - Cymbalta 60 [...] a month - 3 boxes samples on 05/25/23 Psychophysiological Insomnia - Zolpidem ER 12.5 mg [...] impression and score - please see above for treatment and PHQ score.
--- OUTSIDE RECORDS SUMMARY | 2024-11-15 13:24 | XMS_ITS | Clinical Summary ---
Author Organization [facility] Address [address] [place] [address] Care Team Providers Care Pearl Technician Name Role Phone Unavailable Primary Care Provider Unavailabl e Immunizations Immunization Administration Dates Next Due Covid-19, Mrna, Lnp-s, Pf, 30 Mcg/0.3 Ml Dose (P fizer) 08/20/2021 Social History Tobacco Use Types Packs/Day Years Used Date Smoking Tobacco: Never Assessed Comments Unknown Sex and Gender Information Value Date Recorded Sex Assigned at Not on file Legal Sex Female 12:02 PM CDT Gender Identity Not on file Sexual Orientation Not on file Plan of Treatment Health Maintenance Due Date Last Done Comments DEXA Bone Density 1945 Hepatitis C Virus (HCV) Screening 1945 TdaP Immunization 1945 Pneumococcal Immunization (5 0+ years) (1 of 1 - PCV) 1997 Zoster Immunization (1 of 2) 1997 Respiratory Syncytial Virus (RSV) Immunization (Adult) (1 - 1-dose 75+ series) 2022 Influenza Immunization (#1) 2024 SARS-COV-2 Immunization ( season) 2024 08/20/2021 Hepatitis B Immunization Aged Out No longer eligible based on patient's age to complete this topic Meningococcal Immunization (ACWY) Aged Out No longer eligible based on patient's age to complete this topic Rotavirus Immunization Aged Out No lo nger eligible based on patient's age to complete this topic
--- OUTSIDE RECORDS SUMMARY | 2024-11-15 13:24 | XMS_ITS | Clinical Summary ---
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 Name Role Phone SUSAN AVELAR, JAVIER Kiser [phone] Reason for Visit and Chief Complaint [Patient Encounter] Problems Includes: Problems addressed during this encounter and other active Problems All Visits Onset Date Resolved Date Provider Condition S tatus Major Depression 02/20/2023 JAVIER BAUM MD Active Last Documented On 3 2:06PM ; [facility] Mild Cognitive Impairment 11/24/2022 Active Last Documented On 3 5:53PM ; [facility] Vitamin B12 Deficiency 03/23/2020 Ac tive Last Documented On 3 5:52PM ; [facility] Diabetes Mellitus Type 2 03/12/2019 Active Last Documented On 3 5:52PM ; [facility] Rheumatoid Arthritis 03/12/2019 Acti ve Last Documented On 3 5:52PM ; [facility] Arthritis 11/16/2016 Active Last Documented On 3 5:50PM ; [facility] Hyperlipidemia 11/15/2016 Active Last Documented On 3 5:50PM ; [facility] Psychophysiological Insomnia 11/15/2016 Active Last Documented On 3 5:50PM ; [facility] Breast Cancer 02/11/2016 Active Last Documented On 3 5:49PM ; [facility] Note: Stage II right side Migraine Headache 12/22/2015 Active Last Documented On 3 5:49PM ; [facility] Generalized Anxiety Disorder 11/07/2012 Active Last Documented On 3 5:43PM ; [facility] Hiatal Hernia 11/07/2012 Active Last Documented On 3 5:43PM ; [facility] [[email or web address]] Hypertension Systemic 11/07/2012 Act carlos Last Documented On 3 5:43PM ; [facility] Triglyceride Problems 11/07/2012 Act carlos Last Documented On 3 5:43PM ; [facility] 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 Last Documented On 3 5:43PM ; [facility] Plan of Treatment Future Appointments Date Time Location Provi georgi PSYCH ADULT FOLLOW UP 11/28/2024 10:00AM [facility] JAVIER BAUM MD Last Documented On 4 11:13AM ; [facility] Assessments Includes: Assessments from this encounter No Assessments Recorded Medical Equipment - Implanted Devices Includes: Current Devices No Medical Equipment Recorded Medications Includes: Medications discussed during this encounter and other current Medications Discontinued / Stopped on this date on 04/06/2022 HYDROcodone-Acetaminophen 10-325 MG OR TABS Provider: Diagnosis: Last Documented On 02/18/2023 5:33PM By VALE CORDOBA ; [facility] Gabapentin 100 MG OR CAPS Provider: Diagnosis: Last Documented On 02/18/2023 5:33PM By VALE CORDOBA ; [facility] Current Medications (continue as prescribed) Zolpidem Tartrate ER 12.5 MG Oral Tablet Extended Release 01/03/2024 Provider: JAVIER BAUM MD Diagnosis: Insomnia, unspec ified TAKE 1 TABLET BY MOUTH EVERY NIGHT AT BEDTIME Last Documented On 01/03/2024 9:04AM By Kaity Baum MD ; [facility] DULoxetine HCl 60 MG Oral Capsule Delayed Release Particles 12/18/2023 Provider: JAVIER BAUM MD Diagnosis: Major depressive disorder, recurrent, moderate TAKE ONE CAPSULE BY MOUTH DAILY Last Documented On 12/18/2023 7:25AM By Kaity Baum MD ; [facility] Aimovig 70 MG/ML Subcutaneou s Solution Auto-injector 08/29/2023 Provider: JAVIER VILLA MD Diagnosis: Chronic migraine w/o aura, not intractable, w/o stat migr as directed - inject 70 mg subcutaneously once a month to upper thigh or abdomnial area, please rotate sites Last Documented On 08/29/2023 4:03PM By Kaity Baum MD ; [facility] Desvenlafaxine Succinate ER 50 MG Oral Tablet Extended Release 24 Hour 08/21/2023 Provider: JAVIER BAUM MD Diagnosis: Major depressive disorder, recurrent, moderate TAKE 1 TABLET BY MOUTH DAILY DIRECTED Last Documented On 08/21/2023 7:15AM By Kaity Baum MD ; [facility] Diclofenac Sodium 75 MG Oral Tablet Delayed Release Provider: Diagnosis: 1 tab daily prn Last Documented On 05/25/2023 10:12AM By VALE CORDOBA ; [facility] Gabapentin 100 MG OR CAPS 11/24/2022 Provider: Diagnosis: 1 at hs Last Documented On 02/18/2023 5:33PM By VALE CORDOBA ; [facility] Nurtec 75 MG OR TBDP 10/18/2022 Provider: JAVIER BAUM MD Diagnosis: Chronic migraine w/o aura, not intractable, w/o stat migr as directed -- 1 tab a day a s needed only at the onset of migraine headache Last Documented On 02/18/2023 5:33PM By Kaity Baum MD ; [facility] Lantus SoloStar 100 UNIT/ML SC SOPN 04/07/2022 Provi georgi: Diagnosis: 25u subq in the evening Munira Greenberg NP Last Documented On 02/18/2023 5:33PM By VALE CORDOBA ; [facility] Fenofibrate 160 MG OR TABS 09/28/2021 Provider: Diagnosis: 1 tab daily Munira Greenberg NP Last Documented On 02/18/2023 5:33PM By VALE CORDOBA ; [facility] Dialyvite Vitamin D3 Max 1.25 MG (31867 UT) OR TABS Provider: Diagnosis: 1 tab q other week Last Documented On 02/18/2023 5:33PM By VALE CORDOBA ; [facility] Bystolic 5 MG OR TABS 10/01/2019 Provider: Diagnosis: 1 tab daily from Munira Greenberg NP Last Documented On 02/18/2023 5:33PM By VALE CORDOBA ; [facility] SUMAtriptan Succinate 100 MG OR TABS 10/01/2019 Provider: JAVIER BAUM MD Diagnosis: Chronic migraine w/o aura, not intractable, w/o stat migr as directed -- 1 tab a day a s needed for migraine - take it at the osnet of migraine Last Documented On 02/18/2023 5:33PM By Kaity Baum MD ; [facility] NexIUM 20 MG OR CPDR 03/12/2019 Provider: Diagnosis: 1 cap daily Last Documented On 02/18/2023 5:33PM By VALE CORDOBA ; [facility] Folic Acid 1 MG OR TABS 09/17/2018 Provider: Diagnosis: 1 tab daily Last Documented On 02/18/2023 5:33PM By VALE CORDOBA ; [facility] Losartan Potassium 25 MG OR TABS 05/07/2015 Provider : Diagnosis: Last Documented On 02/18/2023 5:33PM By Kaity Baum MD ; [facility] Triamterene-HCTZ 37.5-25 MG OR CAPS 05/15/2013 Provi georgi: Diagnosis: Last Documented On 02/18/2023 5:33PM By Kaity Baum MD ; [facility] tiZANidine HCl 4 MG OR CAPS 05/15/2013 Provider: Diagnosis: Last Documented On 02/18/2023 5:33PM By Kaity Baum MD ; [facility] Medications Administered Includes: Administered Medications from this encounter No Administered Medications Recorded Vital Signs Includes: Vital Signs from this encounter Vital Name 11/24/2022 02:39P Blood Pressure Sitting (mmHg) 130/88 BP Cuff Size Regular Pulse Rate-Sitting (bpm) 72 Pulse Rhythm Regular Height (in) 66 Weight (lb) 211 Body Mass Index 34.1 Body Surface Area 2 Last Documented: On 02/18/2023 6:07PM ; [facility] [[email or web address]] Results Includes: Results discussed during this encounter [...] Active Last Documented On 05/25/2023 10:18AM ; [facility] Note: Imported from external source. Encounters Encounter Provider Location Date Check-In Time Check-Out Time Diagnosis [Patient Encounter] 11/24/2022 12:00AM 11:59PM Insurance Includes: Active Insurance Policies Plan Name Member ID Group # Subscriber Relationship Effect carlos Dates - [facility] [id number] Cynthia Cooper Clinical Notes Includes: Clinical Notes from this encounter No Clinical Notes Recorded
--- OUTSIDE RECORDS SUMMARY | 2024-11-15 13:24 | XMS_ITS ---
Author Organization [facility] Address [address] [place] [phone] Phone Care Team Providers Care Medical Assistant Name Role Phone SUSAN AVELAR, JAVIER Kiser [phone] Problems Includes: Active, inactive, and resolved Problems All Visits Onset Date Resolved Date Provider Condition S tatus Mild Cognitive Impairment 11/24/2022 JAVIER BAUM MD Active Last Documented On 3 4:31PM ; [facility] Vitamin B12 Deficiency 03/23/2020 JAVIER AGRAWAL MD Active Last Documented On 0 1:13AM ; [facility] Diabetes Mellitus Type 2 03/12/2019 JAVIER BAUM MD Active Last Documented On 9 2:14PM ; [facility] Rheumatoid Arthritis 03/12/2019 JAVIER DELONG MD Active Last Documented On 9 2:15PM ; [facility] Arthritis 11/16/2016 JAVIER BAUM MD Ac tive Last Documented On 7 1:43PM ; [facility] Hyperlipidemia 11/15/2016 JAVIER Bermgan Active Last Documented On 7 2:14PM ; [facility] Psychophysiological Insomnia 11/15/2016 JAVIER BAUM MD Active Last Documented On 7 2:13PM ; [facility] Breast Cancer 02/11/2016 JAVIER BAUM MD Active Last Documented On 02/11/2016 1:39PM ; [facility] Note: Stage II right side Migraine Headache 12/22/2015 JAVIER Das MD Active Last Documented On 6 9:50PM ; [facility] Major Depression, Recurrent 12/21/2012 JAVIER BAUM MD Active Last Documented On 3 9:51PM ; [facility] General[facility] Anxiety Disorder 11/07/2012 JAVIER BAUM MD Active Last Documented On 3 12:52PM ; [facility] Hiatal Hernia 11/07/2012 JAVIER BAUM MD Active Last Documented On 3 12:53PM ; [facility] Hypertension Systemic 11/07/2012 JAVIER GAUTHIER MD Active Last Documented On 3 12:53PM ; [facility] Triglyceride Problems 11/07/2012 JAVIER GAUTHIER MD Active Last Documented On 3 12:55PM ; [facility] 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 VIVIAN BAUM MD Active Last Documented On 3 12:54PM ; [facility] Plan of Treatment Pending Tests Order Diagnosis Results Due Ordering P mylene Lab VITAMIN D 04/30/20 JAVIER GAUTHIER MD Last Documented On 0 1:14AM ; [facility] Lab B12 & FOLATE 04/30/20 JAVIER BAUM MD Last Documented On 0 1:14AM ; [facility] Instructions to patient Lose weight Last Documented On 2 11:09AM ; [facility] Lose weight Last Documented On 1 11:36AM ; [facility] Lose weight Last Documented On 1 11:27AM ; [facility] Lose weight Last Documented On 0 12:03PM ; [facility] Lose weight Last Documented On 0 2:00PM ; [facility] Education and Decision Aids were provided during visit for: Patient counseling I discuss ed risk, benefits, and side effects of sleep aid - Zolpidem ER - including the possibility of sleep related behaviors i.e. sleepwalking, sleeptalking, sleepdriving, etc... Pt verbalized understanding Last Documented On 3 2:41PM ; [facility] I recommended cognitive exer cises such as reading and/or word search puzzles, etc.. Last Documented On 3 8:20AM ; [facility] Patient education about medi cation --- I educated patient on medication(s) and diagnosis. I reviewed the risks, benefits and side effects of patient's medications Last Documented On 2 10:51AM ; [facility] Discussed calming techniques such as breathing exercises and other relaxation techniques Last Documented On 2 10:51AM ; [facility] Patient counseling I discuss ed risk, benefits, and side effects of sleep aid - Zolpidem ER - including the possibility of sleep related behaviors i.e. sleepwalking, sleeptalking, sleepdriving, etc... Pt verbalized understanding Last Documented On 2 11:09AM ; [facility] Counseling for nutrition/ricci ght management provided Last Documented On 2 11:09AM ; [facility] Discussed good sleep hygiene habits Last Documented On 2 11:09AM ; [facility] Patient education about medi cation --- I educated patient on medication(s) and diagnosis. I reviewed the risks, benefits and side effects of patient's medications Last Documented On 1 11:35AM ; [facility] Discussed calming techniques such as breathing exercises and other relaxation techniques Last Documented On 1 11:35AM ; [facility] Patient counseling I discuss ed risk, benefits, and side effects of sleep aid - Zolpidem ER - including the possibility of sleep related behaviors i.e. sleepwalking, sleeptalking, sleepdriving, etc... Pt verbalized understanding Last Documented On 1 11:36AM ; [facility] Counseling for nutrition/ricci ght management provided Last Documented On 1 11:36AM ; [facility] Discussed good sleep hygiene habits Last Documented On 1 11:36AM ; [facility] Patient education about medi cation --- I educated patient on medication(s) and diagnosis. I reviewed the risks, benefits and side effects of patient's medications Last Documented On 1 11:04AM ; [facility] Discussed calming techniques such as breathing exercises and other relaxation techniques Last Documented On 1 11:04AM ; [facility] Patient counseling I discuss ed risk, benefits, and side effects of sleep aid - Zolpidem ER - including the possibility of sleep related behaviors i.e. sleepwalking, sleeptalking, sleepdriving, etc... Pt verbalized understanding Last Documented On 1 11:27AM ; [facility] Counseling for nutrition/ricci ght management provided Last Documented On 1 11:27AM ; [facility] Discussed good sleep hygiene habits Last Documented On 1 11:27AM ; [facility] Patient education about medi cation --- I educated patient on medication(s) and diagnosis. I reviewed the risks, benefits and side effects of patient's medications Last Documented On 0 11:32AM ; [facility] Discussed calming techniques such as breathing exercises and other relaxation techniques Last Documented On 0 11:32AM ; [facility] Patient counseling I discuss ed risk, benefits, and side effects of sleep aid -Zolpidem ER - including the possibility of sleep related behaviors i.e. sleepwalking, sleeptalking, sleepdriving, etc... Pt verbalized understanding Last Documented On 0 12:03PM ; [facility] Counseling for nutrition/ricci ght management provided Last Documented On 0 12:03PM ; [facility] Patient education about medi cation --- I educated patient on medication(s) and diagnosis. I reviewed the risks, benefits and side effects of patient's medications Last Documented On 0 1:38PM ; [facility] Discussed calming techniques such as breathing exercises and other relaxation techniques Last Documented On 0 1:38PM ; [facility] Patient counseling I discuss ed risk, benefits, and side effects of sleep aid - Zolpidem ER - including the possibility of sleep related behaviors i.e. sleepwalking, sleeptalking, sleepdriving, etc... Pt verbalized understanding Last Documented On 0 2:00PM ; [facility] Counseling for nutrition/ricci ght management provided Last Documented On 0 2:00PM ; [facility] Patient education about a pr oper diet Last Documented On 9 3:38PM ; [facility] Patient education about medi cation --- I educated patient on medication(s) and diagnosis. I reviewed the risks, benefits and side effects of patient's medications Last Documented On 9 3:20PM ; [facility] Discussed calming techniques such as breathing exercises and other relaxation techniques Last Documented On 9 3:20PM ; [facility] Discussed calming techniques such as breathing exercises/medication other relaxation techniques Last Documented On 9 12:46AM ; [facility] Patient counseling I discuss ed risk, benefits, and side effects of sleep aid - Zolpidem ER including the possibility of sleep related behaviors i.e. sleepwalking, sleeptalking, sleepdriving, etc... Pt verbalized understanding Last Documented On 9 3:38PM ; [facility] Counseling for nutrition/ricci ght management provided Last Documented On 9 3:38PM ; [facility] Discussed good sleep hygiene habits Last Documented On 9 12:45AM ; [facility] Patient education about a pr oper diet Last Documented On 9 9:41AM ; [facility] Patient education about medi cation --- I educated patient on medication(s) and diagnosis. I reviewed the risks, benefits and side effects of patient's medications Last Documented On 9 9:26AM ; [facility] Discussed calming techniques such as breathing exercises and other relaxation techniques Last Documented On 9 9:26AM ; [facility] Patient counseling I discuss ed risk, benefits, and side effects of sleep aid Zolpidem ER including the possibility of sleep related behaviors i.e. sleepwalking, sleeptalking, sleepdriving, etc... Pt verbalized understanding Last Documented On 9 9:41AM ; [facility] Counseling for nutrition/ricci ght management provided Last Documented On 9 9:41AM ; [facility] Patient education about a pr oper diet Last Documented On 8 1:51PM ; [facility] Patient education about medi cation --- I educated patient on medication(s) and diagnosis. I reviewed the risks, benefits and side effects of patient's medications Last Documented On 8 1:47PM ; [facility] Discussed calming techniques such as breathing exercises and other relaxation techniques Last Documented On 8 1:47PM ; [facility] Patient counseling I discuss ed risk, benefits, and side effects of sleep aid Zolpidem ER - including the possibility of sleep related behaviors i.e. sleepwalking, sleeptalking, sleepdriving, etc... Pt verbalized understanding Last Documented On 8 1:51PM ; [facility] Counseling for nutrition/ricci ght management provided Last Documented On 8 1:51PM ; [facility] Patient education about medi cation --- I educated patient on medication(s) and diagnosis. I reviewed the risks, benefits and side effects of patient's medications Last Documented On 8 1:43PM ; [facility] Discussed calming techniques such as breathing exercises and other relaxation techniques Last Documented On 8 1:43PM ; [facility] Discussed calming techniques such as breathing exercises/medication other relaxation techniques Last Documented On 8 2:04PM ; [facility] Patient counseling I discuss ed risk, benefits, and side effects of sleep aid Zolpidem ER, including the possibility of sleep related behaviors i.e. sleepwalking, sleeptalking, sleepdriving, etc... Pt verbalized understanding Last Documented On 8 2:04PM ; [facility] Counseling for nutrition/ricci ght management provided Last Documented On 8 9:22PM ; [facility] Discussed good sleep hygiene habits Last Documented On 8 9:22PM ; [facility] Patient education about medi cation --- I educated patient on medication(s) and diagnosis. I reviewed the risks, benefits and side effects of patient's medications Last Documented On 7 1:36PM ; [facility] Discussed calming techniques such as breathing exercises and other relaxation techniques Last Documented On 7 1:36PM ; [facility] Patient counseling I discuss ed risk, benefits, and side effects of sleep aid - ambien including the possibility of sleep related behaviors i.e. sleepwalking, sleeptalking, sleepdriving, etc... Pt verbalized understanding Last Documented On 7 6:24AM ; [facility] Counseling for nutrition/ricci ght management provided Last Documented On 7 6:23AM ; [facility] Discussed good sleep hygiene habits Last Documented On 7 6:23AM ; [facility] Patient education about medi cation --- I educated patient on medication(s) and diagnosis. I reviewed the risks, benefits and side effects of patient's medications Last Documented On 7 1:27PM ; [facility] Discussed calming techniques such as breathing exercises and other relaxation techniques Last Documented On 7 1:27PM ; [facility] Counseling for nutrition/ricci ght management provided Last Documented On 7 11:56AM ; [facility] Patient education about medi cation --- I educated patient on medication(s) and diagnosis. I reviewed the risks, benefits and side effects of patient's medications Last Documented On 7 1:26PM ; [facility] Discussed calming techniques such as breathing exercises/meditation and other relaxation techniques Last Documented On 7 1:26PM ; [facility] Patient counseling I discuss ed risk, benefits, and side effects of sleep aid -zolpidem including the possibility of sleep related behaviors i.e. sleepwalking, sleeptalking, sleepdriving, etc... Pt verbalized understanding Last Documented On 7 1:28PM ; [facility] Counseling for nutrition/ricci ght management provided Last Documented On 7 12:47AM ; [facility] Discussed good sleep hygiene habits Last Documented On 7 12:47AM ; [facility] Patient education about medi cation --- I educated patient on medication(s) and diagnosis. I reviewed the risks, benefits and side effects of patient's medications Last Documented On 6 1:30PM ; [facility] Discussed calming techniques such as breathing exercises/meditation and other relaxation techniques Last Documented On 6 1:30PM ; [facility] Patient counseling I discuss ed risk, benefits, and side effects of sleep aid zolpidem er- including the possibility of sleep related behaviors i.e. sleepwalking, sleeptalking, sleepdriving, etc... Pt verbalized understanding Last Documented On 6 1:32PM ; [facility] Counseling for nutrition/ricci ght management provided Last Documented On 6 1:35PM ; [facility] Patient education about medi cation --- I educated patient on medication(s) and diagnosis. I reviewed the risks, benefits and side effects of patient's medications Last Documented On 6 1:09PM ; [facility] Discussed calming techniques such as breathing exercises/meditation and other relaxation techniques Last Documented On 6 1:09PM ; [facility] Discussed good sleep hygiene habits Last Documented On 6 9:54PM ; [facility] Patient education about medi cation --- I educated patient on medication(s) and diagnosis. I reviewed the risks, benefits and side effects of patient's medications Last Documented On 6 1:20PM ; [facility] Discussed calming techniques such as breathing exercises/meditation and other relaxation techniques Last Documented On 6 1:20PM ; [facility] Patient counseling I discuss ed risk, benefits, and side effects of sleep aid - Zolpidem including the possibility of sleep related behaviors i.e. sleepwalking, sleeptalking, sleepdriving, etc... Pt verbalized understanding Last Documented On 6 1:21PM ; [facility] Patient education about medi cation --- I educated patient on medication(s) and diagnosis. I reviewed the risks, benefits and side effects of patient's medications Last Documented On 6 1:08PM ; [facility] Discussed calming techniques such as breathing exercises/meditation and other relaxation techniques Last Documented On 6 1:08PM ; [facility] Patient counseling I discuss ed risk, benefits, and side effects of sleep aid - ambien cr including the possibility of sleep related behaviors i.e. sleepwalking, sleeptalking, sleepdriving, etc... Pt verbalized understanding Last Documented On 6 2:11AM ; [facility] Patient education about medi cation --- I educated patient on medication(s) and diagnosis. I reviewed the risks, benefits and side effects of patient's medications Last Documented On 5 7:57AM ; [facility] Discussed calming techniques such as breathing exercises/meditation and other relaxation techniques Last Documented On 5 1:36PM ; [facility] Patient counseling I discuss ed risk, benefits, and side effects of sleep aid - Ambien CR including the possibility of sleep related behaviors i.e. sleepwalking, sleeptalking, sleepdriving, etc... Pt verbalized understanding Last Documented On 5 8:02AM ; [facility] Counseling for nutrition/ricci ght management provided Last Documented On 5 7:57AM ; [facility] Patient education about medi cation --- I educated patient on medication(s) and diagnosis. I reviewed the risks, benefits and side effects of patient's medications Last Documented On 5 3:43AM ; [facility] Discussed calming techniques such as breathing exercises/meditation and other relaxation techniques Last Documented On 5 1:35PM ; [facility] Counseling for nutrition/ricci ght management provided Last Documented On 5 3:43AM ; [facility] Patient education about medi cation --- I educated patient on medication(s) and diagnosis. I reviewed the risks, benefits and side effects of patient's medications Last Documented On 4 10:39PM ; [facility] Discussed calming techniques such as breathing exercises/meditation and other relaxation techniques Last Documented On 4 1:06PM ; [facility] Counseling for nutrition/ricci ght management provided Last Documented On 4 10:39PM ; [facility] Patient education about medi cation --- I educated patient on medication(s) and diagnosis Last Documented On 4 1:21AM ; [facility] Discussed calming techniques such as breathing exercises/meditation and other relaxation techniques Last Documented On 4 1:10PM ; [facility] Counseling for nutrition/ricci ght management provided --yoga/meditation Last Documented On 4 1:21AM ; [facility] Patient education about medi cation --- I educated patient on medication(s) and diagnosis Last Documented On 3 9:53PM ; [facility] Discussed calming techniques such as breathing exercises/meditation and other relaxation techniques Last Documented On 3 4:02PM ; [facility] Discussed calming techniques such as yoga meditation to help relieve some anxiety symptoms Last Documented On 3 9:53PM ; [facility] Patient education about medi cation --- I educated patient on medication(s) and diagnosis Last Documented On 3 5:45PM ; [facility] Discussed calming techniques such as yoga meditation to help relieve some anxiety symptoms Last Documented On 3 4:42PM ; [facility] Discussed calming techniques such as breathing exercises and other relaxation techniques Last Documented On 3 4:42PM ; [facility] Assessments Includes: Assessments for all patient encounters Findings Encounter Date Generalized anxiety disorder FOLLOW UP with JOSEFINA BAUM MD 11/24/2022 Last Documented On 3 8:24AM ; [facility] Major depression, recurrent FOLLOW UP with AMADEO BAUM MD 11/24/2022 Last Documented On 3 8:24AM ; [facility] Migraine headache FOLLOW UP with JAVIER DELONG MD 11/24/2022 Last Documented On 3 8:24AM ; [facility] Mild Cognitive Impairment FOLLOW UP with JAVIER BAUM MD 11/24/2022 Last Documented On 3 8:24AM ; [facility] Psychophysiological insomnia FOLLOW UP with JOSEFINA BAUM MD 11/24/2022 Last Documented On 3 8:24AM ; [facility] Vitamin B12 deficiency FOLLOW UP with JAVIER BAUM MD 11/24/2022 Last Documented On 3 8:24AM ; [facility] Generalized anxiety disorder FOLLOW UP with JOSEFINA BAUM MD 04/07/2022 Last Documented On 2 10:23AM ; [facility] Major depression, recurrent FOLLOW UP with AMADEO BAUM MD 04/07/2022 Last Documented On 2 10:23AM ; [facility] Migraine headache FOLLOW UP with JAVIER DELONG MD 04/07/2022 Last Documented On 2 10:23AM ; [facility] Psychophysiological insomnia FOLLOW UP with JOSEFINA BAUM MD 04/07/2022 Last Documented On 2 10:23AM ; [facility] Vitamin B12 deficiency FOLLOW UP with JAVIER BAUM MD 04/07/2022 Last Documented On 2 10:23AM ; [facility] Generalized anxiety disorder TELEHEALTH with MET BRENDA BAUM MD 09/28/2021 Last Documented On 2 7:40AM ; [facility] Major depression, recurrent TELEHEALTH with JOSEFINA BAUM MD 09/28/2021 Last Documented On 2 7:40AM ; [facility] Migraine headache TELEHEALTH with JAVIER GAUTHIER MD 09/28/2021 Last Documented On 2 7:40AM ; [facility] Psychophysiological insomnia TELEHEALTH with MET BRENDA BAUM MD 09/28/2021 Last Documented On 2 7:40AM ; [facility] Vitamin B12 deficiency TELEHEALTH with JAVIER BAUM MD 09/28/2021 Last Documented On 2 7:40AM ; [facility] Generalized anxiety disorder TELEHEALTH with MET BRENDA BAUM MD 03/30/2021 Last Documented On 1 8:11AM ; [facility] Major depression, recurrent TELEHEALTH with JOSEFINA BAUM MD 03/30/2021 Last Documented On 1 8:11AM ; [facility] Migraine headache TELEHEALTH with JAVIER GAUTHIER MD 03/30/2021 Last Documented On 1 8:11AM ; [facility] Psychophysiological insomnia TELEHEALTH with MET BRENDA BAUM MD 03/30/2021 Last Documented On 1 8:11AM ; [facility] Vitamin B12 deficiency TELEHEALTH with JAVIER BAUM MD 03/30/2021 Last Documented On 1 8:11AM ; [facility] Generalized anxiety disorder TELEHEALTH with MET BRENDA BAUM MD 10/07/2020 Last Documented On 1 11:46AM ; [facility] Major depression, recurrent TELEHEALTH with JOSEFINA BAUM MD 10/07/2020 Last Documented On 1 11:46AM ; [facility] Migraine headache TELEHEALTH with JAVIER GAUTHIER MD 10/07/2020 Last Documented On 1 11:46AM ; [facility] Psychophysiological insomnia TELEHEALTH with MET BRENDA BAUM MD 10/07/2020 Last Documented On 1 11:46AM ; [facility] Vitamin B12 deficiency TELEHEALTH with JAVIER BAUM MD 10/07/2020 Last Documented On 1 11:46AM ; [facility] Migraine headache * PHONE CALL with JAVIER BAUM MD 04/07/2020 Last Documented On 0 2:01PM ; [facility] Generalized anxiety disorder GENERAL OFF ICE VISIT with JAVIER BAUM MD 03/31/2020 Last Documented On 0 1:15AM ; [facility] Major depression, recurrent GENERAL OFFI CE VISIT with JAVIER BAUM MD 03/31/2020 Last Documented On 0 1:15AM ; [facility] GENERAL OFFICE VISIT with JOSEFINA BAMU MD 03/31/2020 Last Documented On 0 1:15AM ; [facility] Psychophysiological insomnia GENERAL OFF ICE VISIT with JAVIER BAUM MD 03/31/2020 Last Documented On 0 1:15AM ; [facility] Vitamin B12 deficiency GENERAL OFFICE VISIT with JAVIER BAUM MD 03/31/2020 Last Documented On 0 1:15AM ; [facility] Generalized anxiety disorder GENERAL OFF ICE VISIT with JAVIER BAUM MD 10/01/2019 Last Documented On 9 12:49AM ; [facility] Major depression, recurrent GENERAL OFFI CE VISIT with JAVIER BAUM MD 10/01/2019 Last Documented On 9 12:49AM ; [facility] Migraine headache GENERAL OFFICE VISIT with JOSEFINA BAUM MD 10/01/2019 Last Documented On 9 12:49AM ; [facility] Psychophysiological insomnia GENERAL OFF ICE VISIT with JAVIER BAUM MD 10/01/2019 Last Documented On 9 12:49AM ; [facility] Generalized anxiety disorder GENERAL OFF ICE VISIT with JAVIER BAUM MD 03/12/2019 Last Documented On 9 7:15AM ; [facility] Major depression, recurrent GENERAL OFFI CE VISIT with JAVIER BAUM MD 03/12/2019 Last Documented On 9 7:15AM ; [facility] Migraine headache GENERAL OFFICE VISIT with JOSEFINA BAUM MD 03/12/2019 Last Documented On 9 7:15AM ; [facility] Psychophysiological insomnia GENERAL OFF ICE VISIT with JAVIER BAUM MD 03/12/2019 Last Documented On 9 7:15AM ; [facility] GENERAL OFF ICE VISIT with JAVIER BAUM MD 09/17/2018 Last Documented On 8 10:36PM ; [facility] Major depression, recurrent GENERAL OFFI CE VISIT with JAVIER BAUM MD 09/17/2018 Last Documented On 8 10:36PM ; [facility] Migraine headache GENERAL OFFICE VISIT with JOSEFINA BAUM MD 09/17/2018 Last Documented On 8 10:36PM ; [facility] Psychophysiological insomnia GENERAL OFF ICE VISIT with JAVIER BAUM MD 09/17/2018 Last Documented On 8 10:36PM ; [facility] Generalized anxiety disorder GENERAL OFF ICE VISIT with JAVIER BAUM MD 03/20/2018 Last Documented On 8 9:23PM ; [facility], recurrent GENERAL OFFI CE VISIT with JAVIER BAUM MD 03/20/2018 Last Documented On 8 9:23PM ; [facility] Migraine headache GENERAL OFFICE VISIT with JOSEFINA BAUM MD 03/20/2018 Last Documented On 8 9:23PM ; [facility] Psychophysiological insomnia GENERAL OFF ICE VISIT with JAVIER BAUM MD 03/20/2018 Last Documented On 8 9:23PM ; [facility] Generalized anxiety disorder GENERAL OFF ICE VISIT with JAVIER BAUM MD 09/12/2017 Last Documented On 7 6:27AM ; [facility] Major depression, recurrent GENERAL OFFI CE VISIT with JAVIER BAUM MD 09/12/2017 Last Documented On 7 6:27AM ; [facility] Migraine headache GENERAL OFFICE VISIT with JOSEFINA BAUM MD 09/12/2017 Last Documented On 7 6:27AM ; [facility] Psychophysiological insomnia GENERAL OFF ICE VISIT with JAVIER BAUM MD 09/12/2017 Last Documented On 7 6:27AM ; [facility] General[facility] disorder GENERAL OFF ICE VISIT with JAVIER BAUM MD 03/28/2017 Last Documented On 7 11:57AM ; [facility] Major depression, recurrent GENERAL OFFI CE VISIT with JAVIER BAUM MD 03/28/2017 Last Documented On 7 11:57AM ; [facility] Migraine headache GENERAL OFFICE VISIT with JOSEFINA BAUM MD 03/28/2017 Last Documented On 7 11:57AM ; [facility] Psychophysiological insomnia GENERAL OFF ICE VISIT with JAVIER BAUM MD 03/28/2017 Last Documented On 7 11:57AM ; [facility] Generalized anxiety disorder GENERAL OFF ICE VISIT with JAVIER BAUM MD 11/16/2016 Last Documented On 7 12:53AM ; [facility] Major depression, recurrent GENERAL OFFI CE VISIT with JAVIER BAUM MD 11/16/2016 Last Documented On 7 12:53AM ; [facility] Migraine headache GENERAL OFFICE VISIT with JOSEFINA BAUM MD 11/16/2016 Last Documented On 7 12:53AM ; [facility] Psychophysiological insomnia GENERAL OFF ICE VISIT with JAVIER BAUM MD 11/16/2016 Last Documented On 7 12:53AM ; [facility] Generalized anxiety disorder GENERAL OFF ICE VISIT with JAVIER BAUM MD 08/10/2016 Last Documented On 6 1:36PM ; [facility] Major depression, recurrent GENERAL OFFI CE VISIT with JAVIER BAUM MD 08/10/2016 Last Documented On 6 1:36PM ; [facility] Migraine headache GENERAL OFFICE VISIT with JOSEFINA BAUM MD 08/10/2016 Last Documented On 6 1:36PM ; [facility] Persistent insomnia GENERAL OFFICE VISIT with ME ANNMARIE BAUM MD 08/10/2016 Last Documented On 6 1:36PM ; [facility] Generalized anxiety disorder GENERAL OFF ICE VISIT with JAVIER BAUM MD 05/03/2016 Last Documented On 6 10:03PM ; [facility] Major [facility], recurrent GENERAL OFFI CE VISIT with JAVIER BAUM MD 05/03/2016 Last Documented On 6 10:03PM ; [facility] Migraine headache GENERAL OFFICE VISIT with JOSEFINA BAUM MD 05/03/2016 Last Documented On 6 10:03PM ; [facility] Persistent insomnia GENERAL OFFICE VISIT with ME ANNMARIE BAUM MD 05/03/2016 Last Documented On 6 10:03PM ; [facility] 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 GENERAL OFFICE VISIT with JAVIER BAUM MD 02/11/2016 Last Documented On 6 4:47PM ; [facility] Generalized anxiety disorder GENERAL OFF ICE VISIT with JAVIER BAUM MD 02/11/2016 Last Documented On 6 4:47PM ; [facility] Major depression, recurrent GENERAL OFFI CE VISIT with JAVIER BAUM MD 02/11/2016 Last Documented On 6 4:47PM ; [facility] Persistent insomnia GENERAL OFFICE VISIT with ME ANNMARIE BAUM MD 02/11/2016 Last Documented On 6 4:47PM ; [facility] Major depression, recurrent * PHONE CALL with ME ANNMARIE BAUM MD 12/29/2015 Last Documented On 6 5:34PM ; [facility] 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 GENERAL OFFICE VISIT with JAVIER BAUM MD 11/10/2015 Last Documented On 6 2:12AM ; [facility] Generalized anxiety disorder GENERAL OFF ICE VISIT with JAVIER BAUM MD 11/10/2015 Last Documented On 6 2:12AM ; [facility] Major depression, recurrent GENERAL OFFI CE VISIT with JAVIER BAUM MD 11/10/2015 Last Documented On 6 2:12AM ; [facility] Persistent insomnia GENERAL OFFICE VISIT with ME ANNMARIE BAUM MD 11/10/2015 Last Documented On 6 2:12AM ; [facility] 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 GENERAL OFFICE VISIT with JAVIER BAUM MD 05/07/2015 Last Documented On 5 8:03AM ; [facility] Generalized anxiety disorder GENERAL OFF ICE VISIT with JAVIER BAUM MD 05/07/2015 Last Documented On 5 8:03AM ; [facility] Major depression, recurrent GENERAL OFFI CE VISIT with JAVIER BAUM MD 05/07/2015 Last Documented On 5 8:03AM ; [facility] Persistent insomnia GENERAL OFFICE VISIT with ME ANNMARIE BAUM MD 05/07/2015 Last Documented On 5 8:03AM ; [facility] 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 GENERAL OFFICE VISIT with JAVIER BAUM MD 11/06/2014 Last Documented On 5 3:44AM ; [facility] Generalized anxiety disorder GENERAL OFF ICE VISIT with JAVIER BAUM MD 11/06/2014 Last Documented On 5 3:44AM ; [facility] Major depression, recurrent GENERAL OFFI CE VISIT with JAVIRE BAUM MD 11/06/2014 Last Documented On 5 3:44AM ; [facility] Persistent insomnia GENERAL OFFICE VISIT with ME ANNMARIE BAUM MD 11/06/2014 Last Documented On 5 3:44AM ; [facility] 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 GENERAL OFFICE VISIT with JAVIER BAUM MD 05/15/2014 Last Documented On 4 10:44PM ; [facility] Generalized anxiety disorder GENERAL OFF ICE VISIT with JAVIER BAUM MD 05/15/2014 Last Documented On 4 10:44PM ; [facility] Major depression, recurrent GENERAL OFFI CE VISIT with JAVIER BAUM MD 05/15/2014 Last Documented On 4 10:44PM ; [facility] Persistent insomnia GENERAL OFFICE VISIT with ME ANNMARIE BAUM MD 05/15/2014 Last Documented On 4 10:44PM ; [facility] 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 GENERAL OFFICE VISIT with JAVIER BAUM MD 11/13/2013 Last Documented On 4 1:23AM ; [facility] Generalized anxiety disorder GENERAL OFF ICE VISIT with JAVIER BAUM MD 11/13/2013 Last Documented On 4 1:23AM ; [facility] Major depression, recurrent GENERAL OFFI CE VISIT with JAVIER BAUM MD 11/13/2013 Last Documented On 4 1:23AM ; [facility] Persistent insomnia GENERAL OFFICE VISIT with ME ANNMARIE BAUM MD 11/13/2013 Last Documented On 4 1:23AM ; [facility] 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 GENERAL OFFICE VISIT with JAVIER BAUM MD 05/14/2013 Last Documented On 3 10:10PM ; [facility] Generalized anxiety disorder GENERAL OFF ICE VISIT with JAVIER BAUM MD 05/14/2013 Last Documented On 3 10:10PM ; [facility] Major depression, recurrent GENERAL OFFI CE VISIT with JAVIER BAUM MD 05/14/2013 Last Documented On 3 10:10PM ; [facility] Persistent insomnia GENERAL OFFICE VISIT with ME ANNMARIE BAUM MD 05/14/2013 Last Documented On 3 10:10PM ; [facility] Generalized anxiety disorder GENERAL OFF ICE VISIT with JAVIER BAUM MD 11/13/2012 Last Documented On 3 5:48PM ; [facility] Migraine headache GENERAL OFFICE VISIT with JOSEFINA BAUM MD 11/13/2012 Last Documented On 3 5:48PM ; [facility] Severe recurrent major depression GENERA L OFFICE VISIT with JAVIER BAUM MD 11/13/2012 Last Documented On 3 5:48PM ; [facility] Instructions Includes: Instructions for all patient encounters Instructions to patient Lose weight Last Documented On 2 11:09AM ; [facility] Lose [facility] Last Documented On 1 11:36AM ; [facility] Lose weight Last Documented On 1 11:27AM ; [facility] Lose weight Last Documented On 0 12:03PM ; [facility] Lose weight Last Documented On 0 2:00PM ; [facility] Education and Decision Aids were provided during visit for: Patient counseling I discuss ed risk, benefits, and side effects of sleep aid - Zolpidem ER - including the possibility of sleep related behaviors i.e. sleepwalking, sleeptalking, sleepdriving, etc... Pt verbalized understanding Last Documented On 3 2:41PM ; [facility] I recommended cognitive exer cises such as reading and/or word search puzzles, etc.. Last Documented On 3 8:20AM ; [facility] Patient education about medi cation --- I educated patient on medication(s) and diagnosis. I reviewed the risks, benefits and side effects of patient's medications Last Documented On 2 10:51AM ; [facility] Discussed calming techniques such as breathing exercises and other relaxation techniques Last Documented On 2 10:51AM ; [facility] Patient counseling I discuss ed risk, benefits, and side effects of sleep aid - Zolpidem ER - including the possibility of sleep related behaviors i.e. sleepwalking, sleeptalking, sleepdriving, etc... Pt verbalized understanding Last Documented On 2 11:09AM ; [facility] Counseling for nutrition/ricci ght management provided Last Documented On 2 11:09AM ; [facility] Discussed good sleep hygiene habits Last Documented On 2 11:09AM ; [facility] Patient education about medi cation --- I educated patient on medication(s) and diagnosis. I reviewed the risks, benefits and side effects of patient's medications Last Documented On 1 11:35AM ; [facility] Discussed calming techniques such as breathing exercises and other relaxation techniques Last Documented On 1 11:35AM ; [facility] Patient counseling I discuss ed risk, benefits, and side effects of sleep aid - Zolpidem ER - including the possibility of sleep related behaviors i.e. sleepwalking, sleeptalking, sleepdriving, etc... Pt verbalized understanding Last Documented On 1 11:36AM ; [facility] Counseling for nutrition/ricci ght management provided Last Documented On 1 11:36AM ; [facility] Discussed good sleep hygiene habits Last Documented On 1 11:36AM ; [facility] Patient education about medi cation --- I educated patient on medication(s) and diagnosis. I reviewed the risks, benefits and side effects of patient's medications Last Documented On 1 11:04AM ; [facility] Discussed calming techniques such as breathing exercises and other relaxation techniques Last Documented On 1 11:04AM ; [facility] Patient counseling I discuss ed risk, benefits, and side effects of sleep aid - Zolpidem ER - including the possibility of sleep related behaviors i.e. sleepwalking, sleeptalking, sleepdriving, etc... Pt verbalized understanding Last Documented On 1 11:27AM ; [facility] Counseling for nutrition/ricci ght management provided Last Documented On 1 11:27AM ; [facility] Discussed good sleep hygiene habits Last Documented On 1 11:27AM ; [facility] Patient education about medi cation --- I educated patient on medication(s) and diagnosis. I reviewed the risks, benefits and side effects of patient's medications Last Documented On 0 11:32AM ; [facility] Discussed calming techniques such as breathing exercises and other relaxation techniques Last Documented On 0 11:32AM ; [facility] Patient counseling I discuss ed risk, benefits, and side effects of sleep aid -Zolpidem ER - including the possibility of sleep related behaviors i.e. sleepwalking, sleeptalking, sleepdriving, etc... Pt verbalized understanding Last Documented On 0 12:03PM ; [facility] Counseling for nutrition/ricci ght management provided Last Documented On 0 12:03PM ; [facility] Patient education about medi cation --- I educated patient on medication(s) and diagnosis. I reviewed the risks, benefits and side effects of patient's medications Last Documented On 0 1:38PM ; [facility] Discussed calming techniques such as breathing exercises and other relaxation techniques Last Documented On 0 1:38PM ; [facility] Patient counseling I discuss ed risk, benefits, and side effects of sleep aid - Zolpidem ER - including the possibility of sleep related behaviors i.e. sleepwalking, sleeptalking, sleepdriving, etc... Pt verbalized understanding Last Documented On 0 2:00PM ; [facility] Counseling for nutrition/ricci ght management provided Last Documented On 0 2:00PM ; [facility] Patient education about a pr oper diet Last Documented On 9 3:38PM ; [facility] Patient education about medi cation --- I educated patient on medication(s) and diagnosis. I reviewed the risks, benefits and side effects of patient's medications Last Documented On 9 3:20PM ; [facility] Discussed calming techniques such as breathing exercises and other relaxation techniques Last Documented On 9 3:20PM ; [facility] Discussed calming techniques such as breathing exercises/medication other relaxation techniques Last Documented On 9 12:46AM ; [facility] Patient counseling I discuss ed risk, benefits, and side effects of sleep aid - Zolpidem ER including the possibility of sleep related behaviors i.e. sleepwalking, sleeptalking, sleepdriving, etc... Pt verbalized understanding Last Documented On 9 3:38PM ; [facility] Counseling for nutrition/ricci ght management provided Last Documented On 9 3:38PM ; [facility] Discussed good sleep hygiene habits Last Documented On 9 12:45AM ; [facility] Patient education about a pr oper diet Last Documented On 9 9:41AM ; [facility] Patient education about medi cation --- I educated patient on medication(s) and diagnosis. I reviewed the risks, benefits and side effects of patient's medications Last Documented On 9 9:26AM ; [facility] Discussed calming techniques such as breathing exercises and other relaxation techniques Last Documented On 9 9:26AM ; [facility] Patient counseling I discuss ed risk, benefits, and side effects of sleep aid Zolpidem ER including the possibility of sleep related behaviors i.e. sleepwalking, sleeptalking, sleepdriving, etc... Pt verbalized understanding Last Documented On 9 9:41AM ; [facility] Counseling for nutrition/ricci ght management provided Last Documented On 9 9:41AM ; [facility] Patient education about a pr oper diet Last Documented On 8 1:51PM ; [facility] Patient education about medi cation --- I educated patient on medication(s) and diagnosis. I reviewed the risks, benefits and side effects of patient's medications Last Documented On 8 1:47PM ; [facility] Discussed calming techniques such as breathing exercises and other relaxation techniques Last Documented On 8 1:47PM ; [facility] Patient counseling I discuss ed risk, benefits, and side effects of sleep aid Zolpidem ER - including the possibility of sleep related behaviors i.e. sleepwalking, sleeptalking, sleepdriving, etc... Pt verbalized understanding Last Documented On 8 1:51PM ; [facility] Counseling for nutrition/ricci ght management provided Last Documented On 8 1:51PM ; [facility] Patient education about medi cation --- I educated patient on medication(s) and diagnosis. I reviewed the risks, benefits and side effects of patient's medications Last Documented On 8 1:43PM ; [facility] Discussed calming techniques such as breathing exercises and other relaxation techniques Last Documented On 8 1:43PM ; [facility] Discussed calming techniques such as breathing exercises/medication other relaxation techniques Last Documented On 8 2:04PM ; [facility] Patient counseling I discuss ed risk, benefits, and side effects of sleep aid Zolpidem ER, including the possibility of sleep related behaviors i.e. sleepwalking, sleeptalking, sleepdriving, etc... Pt verbalized understanding Last Documented On 8 2:04PM ; [facility] Counseling for nutrition/ricci ght management provided Last Documented On 8 9:22PM ; [facility] Discussed good sleep hygiene habits Last Documented On 8 9:22PM ; [facility] Patient education about medi cation --- I educated patient on medication(s) and diagnosis. I reviewed the risks, benefits and side effects of patient's medications Last Documented On 7 1:36PM ; [facility] Discussed calming techniques such as breathing exercises and other relaxation techniques Last Documented On 7 1:36PM ; [facility] Patient counseling I discuss ed risk, benefits, and side effects of sleep aid - ambien including the possibility of sleep related behaviors i.e. sleepwalking, sleeptalking, sleepdriving, etc... Pt verbalized understanding Last Documented On 7 6:24AM ; [facility] Counseling for nutrition/ricci ght management provided Last Documented On 7 6:23AM ; [facility] Discussed good sleep hygiene habits Last Documented On 7 6:23AM ; [facility] Patient education about medi cation --- I educated patient on medication(s) and diagnosis. I reviewed the risks, benefits and side effects of patient's medications Last Documented On 7 1:27PM ; [facility] Discussed calming techniques such as breathing exercises and other relaxation techniques Last Documented On 7 1:27PM ; [facility] Counseling for nutrition/ricci ght management provided Last Documented On 7 11:56AM ; [facility] Patient education about medi cation --- I educated patient on medication(s) and diagnosis. I reviewed the risks, benefits and side effects of patient's medications Last Documented On 7 1:26PM ; [facility] Discussed calming techniques such as breathing exercises/meditation and other relaxation techniques Last Documented On 7 1:26PM ; [facility] Patient counseling I discuss ed risk, benefits, and side effects of sleep aid -zolpidem including the possibility of sleep related behaviors i.e. sleepwalking, sleeptalking, sleepdriving, etc... Pt verbalized understanding Last Documented On 7 1:28PM ; [facility] Counseling for nutrition/ricci ght management provided Last Documented On 7 12:47AM ; [facility] Discussed good sleep hygiene habits Last Documented On 7 12:47AM ; [facility] Patient education about medi cation --- I educated patient on medication(s) and diagnosis. I reviewed the risks, benefits and side effects of patient's medications Last Documented On 6 1:30PM ; [facility] Discussed calming techniques such as breathing exercises/meditation and other relaxation techniques Last Documented On 6 1:30PM ; [facility] Patient counseling I discuss ed risk, benefits, and side effects of sleep aid zolpidem er- including the possibility of sleep related behaviors i.e. sleepwalking, sleeptalking, sleepdriving, etc... Pt verbalized understanding Last Documented On 6 1:32PM ; [facility] Counseling for nutrition/ricci ght management provided Last Documented On 6 1:35PM ; [facility] Patient education about medi cation --- I educated patient on medication(s) and diagnosis. I reviewed the risks, benefits and side effects of patient's medications Last Documented On 6 1:09PM ; [facility] Discussed calming techniques such as breathing exercises/meditation and other relaxation techniques Last Documented On 6 1:09PM ; [facility] Discussed good sleep hygiene habits Last Documented On 6 9:54PM ; [facility] Patient education about medi cation --- I educated patient on medication(s) and diagnosis. I reviewed the risks, benefits and side effects of patient's medications Last Documented On 6 1:20PM ; [facility] Discussed calming techniques such as breathing exercises/meditation and other relaxation techniques Last Documented On 6 1:20PM ; [facility] Patient counseling I discuss ed risk, benefits, and side effects of sleep aid - Zolpidem including the possibility of sleep related behaviors i.e. sleepwalking, sleeptalking, sleepdriving, etc... Pt verbalized understanding Last Documented On 6 1:21PM ; [facility] Patient education about medi cation --- I educated patient on medication(s) and diagnosis. I reviewed the risks, benefits and side effects of patient's medications Last Documented On 6 1:08PM ; [facility] Discussed calming techniques such as breathing exercises/meditation and other relaxation techniques Last Documented On 6 1:08PM ; [facility] Patient counseling I discuss ed risk, benefits, and side effects of sleep aid - ambien cr including the possibility of sleep related behaviors i.e. sleepwalking, sleeptalking, sleepdriving, etc... Pt verbalized understanding Last Documented On 6 2:11AM ; [facility] Patient education about medi cation --- I educated patient on medication(s) and diagnosis. I reviewed the risks, benefits and side effects of patient's medications Last Documented On 5 7:57AM ; [facility] Discussed calming techniques such as breathing exercises/meditation and other relaxation techniques Last Documented On 5 1:36PM ; [facility] Patient counseling I discuss ed risk, benefits, and side effects of sleep aid - Ambien CR including the possibility of sleep related behaviors i.e. sleepwalking, sleeptalking, sleepdriving, etc... Pt verbalized understanding Last Documented On 5 8:02AM ; [facility] Counseling for nutrition/ricci ght management provided Last Documented On 5 7:57AM ; [facility] Patient education about medi cation --- I educated patient on medication(s) and diagnosis. I reviewed the risks, benefits and side effects of patient's medications Last Documented On 5 3:43AM ; [facility] Discussed calming techniques such as breathing exercises/meditation and other relaxation techniques Last Documented On 5 1:35PM ; [facility] Counseling for nutrition/ircci ght management provided Last Documented On 5 3:43AM ; [facility] Patient education about medi cation --- I educated patient on medication(s) and diagnosis. I reviewed the risks, benefits and side effects of patient's medications Last Documented On 4 10:39PM ; [facility] Discussed calming techniques such as breathing exercises/meditation and other relaxation techniques Last Documented On 4 1:06PM ; [facility] Counseling for nutrition/ricci ght management provided Last Documented On 4 10:39PM ; [facility] Patient education about medi cation --- I educated patient on medication(s) and diagnosis Last Documented On 4 1:21AM ; [facility] Discussed calming techniques such as breathing exercises/meditation and other relaxation techniques Last Documented On 4 1:10PM ; [facility] Counseling for nutrition/ricci ght management provided --yoga/meditation Last Documented On 4 1:21AM ; [facility] Patient education about medi cation --- I educated patient on medication(s) and diagnosis Last Documented On 3 9:53PM ; [facility] techniques such as breathing exercises/meditation and other relaxation techniques Last Documented On 3 4:02PM ; [facility] D[facility] calming techniques such as yoga meditation to help relieve some anxiety symptoms Last Documented On 3 9:53PM ; [facility] Patient education about medi cation --- I educated patient on medication(s) and diagnosis Last Documented On 3 5:45PM ; [facility] Discuss[facility] calming techniques such as yoga meditation to help relieve some anxiety symptoms Last Documented On 3 4:42PM ; [facility] Discussed calming techniques such as breathing exercises and other relaxation techniques Last Documented On 3 4:42PM ; [facility] Medical Equipment - Implanted Devices Includes: Current and historical Devices No Medical Equipment Recorded Medications Includes: Current and historical Medications Current Medications (continue as prescribed) Zolpidem Tartrate ER 12.5 MG Oral Tablet Extended Release 01/09/2023 Provider: JAVIER BAUM MD Diagnosis: One tablet at bed time as needed for sleep Last Documented On 01/09/2023 2:25PM By Kaity Baum MD ; [facility] Cymbalta 60 MG Oral Capsule Delayed Release Particles 12/19/2022 Provider: JAVIER BAUM MD Diagnosis: Major depressive disorder, recurrent, moderate 1 ca - 1 capsule daily Last Documented On 3 11:16AM By Kaity Baum MD ; [facility] Gabapentin 100 MG Oral Capsule 11/24/2022 Provider: Diagnosis: 1 at hs Last Documented On 11/24/2022 2:25PM By VALE CORDOBA ; [facility] Diclofenac Sodium 75 MG Oral Tablet Delayed Release Provider: Diagnosis: 1 tab bid Last Documented On 11/24/2022 2:32PM By VALE CORDOBA ; [facility] Zonisamide 25 MG Oral Capsule 11/24/2022 Provider: HE ESPINO MD Diagnosis: 2 caps bid Last Documented On 11/24/2022 2:39PM By VALE CORDOBA ; [facility] L-Methylfolate 15 MG Oral Tablet 11/24/2022 Provider: JAVIER BAUM MD Diagnosis: Mild cognitive impairment of uncertain or unknown etiology 1 tablet every morning with food Last Documented On 11/24/2022 4:40PM By Kaity Baum MD ; [facility] Pristiq 50 MG Oral Tablet Extended Release 24 Hour 10/18/2022 Provider: JAVIER DELONG MD Diagnosis: Major depressive disorder, recurrent, moderate as directed --1 tab daily Last Documented On 2 11:36AM By Kaity Baum MD ; [facility] Nurtec 75 MG Oral Tablet Disintegrating 10/18/2022 Provider: JAVIER BAUM MD Diagnosis: Chronic migraine w/o aura, not intractable, w/o stat migr as directed -- 1 tab a day a s needed only at the onset of migraine headache Last Documented On 2 11:36AM By Kaity Baum MD ; [facility] EC-Naproxen 500 MG Oral Tablet Delayed Release 10/13/2022 Provider: JAVIER VILLA MD Diagnosis: Chronic migraine w/o aura, not intractable, w/o stat migr as directed --1 tab a day wi th food as needed for headaches Last Documented On 2 10:40AM By Kaity Baum MD ; [facility] Lantus SoloStar 100 UNIT/ML Subcutaneous Solutio n Pen-injector 04/07/2022 Provider: Diagnosis: 25u subq in the evening Munira Greenberg NP Last Documented On 2 11:01AM By VALE CORDOBA ; [facility] busPIRone HCl 10 MG Oral Tablet 04/07/2022 Provider: JAVIER BAUM MD Diagnosis: Generalized anxi ety disorder as directed --1 in am 1 at n oon and 2 tabs in the evening Last Documented On 2 11:55AM By Kaity Baum MD ; [facility] Fenofibrate 160 MG Oral Tablet 09/28/2021 Provider: Diagnosis: 1 tab daily Munira Greenberg NP Last Documented On 1 11:34AM By VALE CORDOBA ; [facility] Dialyvite Vitamin D3 Max 1.25 MG (28833 UT) Oral Table t 09/28/2021 Provider: Diagnosis: 1 tab q other week Last Documented On 1 11:35AM By VALE CORDOBA ; [facility] Bystolic 5 MG Oral Tablet 10/01/2019 Provider: Diagnosis: 1 tab daily from Munira Greenberg NP Last Documented On 10/01/2019 3:30PM By VALE CORDOBA ; [facility] SUMAtriptan Succinate 100 MG Oral Tablet 10/01/2019 Provider: JAVIER BAUM MD Diagnosis: Chronic migraine w/o aura, not intractable, w/o stat migr as directed -- 1 tab a day a s needed for migraine - take it at the osnet of migraine Last Documented On 10/01/2019 4:33PM By Kaity Baum MD ; [facility] NexIUM 20MG Oral Capsule Delayed Release 03/12/2019 Provider: Diagnosis: 1 cap daily Last Documented On 03/12/2019 9:52AM By VALE CORDOBA ; [facility] Folic Acid 1MG Oral Tablet 09/17/2018 Provider: Diagnosis: 1 tab daily Last Documented On 09/17/2018 1:44PM By VALE CORDOBA ; [facility] Losartan Potassium 25 MG Tablet 05/07/2015 Provider: Diagnosis: Last Documented On 05/07/2015 2:14PM By Kaity Baum MD ; [facility] Triamterene-HCTZ 37.5-25 MG OR CAPS 05/15/2013 Provi georgi: Diagnosis: Last Documented On 05/15/2013 9:58PM By Kaity Baum MD ; [facility] tiZANidine HCl 4 MG OR CAPS 05/15/2013 Provider: Diagnosis: Last Documented On 05/15/2013 9:57PM By Kaity Baum MD ; [facility] Past Medications on file Cymbalta 60 MG Oral Capsule Delayed Release Particles 10/26/2022 - 12/19/2022 Provider: JAVIER BAUM MD Diagnosis: Major depressive disorder, recurrent, moderate 1 ca - 1 capsule daily Last Documented On 3 11:09AM By Kaity Baum MD ; [facility] Zolpidem Tartrate ER 12.5 MG Oral Tablet Extended Release 10/10/2022 - 01/09/2023 Provider: JAVIER ABUM MD Diagnosis: One tablet at bed time as needed for sleep Last Documented On 01/09/2023 2:22PM By Kaity Baum MD ; [facility] EC-Naproxen 500 MG Oral Tablet Delayed Release 06/20/2022 - 10/13/2022 Provider: JAVIER BAUM MD Diagnosis: Chronic migraine w/o aura, not intractable, w/o stat migr as directed --1 tab a day wi th food as needed for headaches Last Documented On 2 10:37AM By Kaity Baum MD ; [facility] Zolpidem Tartrate ER 12.5 MG Oral Tablet Extended Release 04/18/2022 - 10/10/2022 Provider: JAVIER BAUM MD Diagnosis: One tablet at bed time as needed for sleep Last Documented On 10/10/2022 2:36PM By Kaity Baum MD ; [facility] Pristiq 50 MG Oral Tablet Extended Release 24 Hour 04/07/2022 - 10/18/2022 Provider: JAVIER JOHNSON MD Diagnosis: Major depressive disorder, recurrent, moderate as directed --1 tab daily Last Documented On 2 11:24AM By Kaity Baum MD ; [facility] Cymbalta 60 MG Oral Capsule Delayed Release Particles 04/07/2022 - 10/26/2022 Provider: JAVIER BAUM MD Diagnosis: Major depressive disorder, recurrent, moderate 1 ca - 1 capsule daily Last Documented On 10/26/2022 2:25PM By Kaity Baum MD ; [facility] HYDROcodone-Acetaminophen 10-325 MG Oral Tablet 04/06/2022 - 11/24/2022 Provider: Diagnosis: 1 tab daily prn #30 12/08/21, 08/11/21, 06/17/21, 05/18/21, 02/11/21, 11/27/20, 10/01/20, 08/06/20, 06/04/20, 04/02/20, 02/03/20, 12/16/19, 10/30/19, 08/19/[address] He Espino Last Documented On 11/24/2022 2:22PM By VALE CORDOBA ; [facility] EC-Naproxen 500 MG Oral Tablet Delayed Release 11/29/2021 - 06/20/2022 Provider: JAVIER BAUM MD Diagnosis: Chronic migraine w/o aura, not intractable, w/o stat migr as directed --1 tab a day wi th food as needed for headaches Last Documented On 2 12:23PM By Kaity Baum MD ; [facility] Nurtec 75 MG Oral Tablet Disintegrating 10/25/2021 - 10/18/2022 Provider: JAVIER BAUM MD Diagnosis: Chronic migraine w/o aura, not intractable, w/o stat migr as directed -- 1 tab a day a s needed only at the onset of headache Last Documented On 2 11:25AM By Kaity Baum MD ; [facility] Zolpidem Tartrate ER 12.5 MG Oral Tablet Extended Release 10/20/2021 - 04/18/2022 Provider: JAVIER BAUM MD Diagnosis: One tablet at bed time as needed for sleep Last Documented On 2 11:48AM By Kaity Baum MD ; [facility] Pristiq 50 MG Oral Tablet Extended Release 24 Hour 10/20/2021 - 04/07/2022 Provider: JAVIER JOHNSON MD Diagnosis: Major depressive disorder, recurrent, moderate as directed --1 tab daily Last Documented On 2 11:55AM By Kaity Baum MD ; [facility] Cymbalta 60 MG Oral Capsule Delayed Release Particles 10/20/2021 - 04/07/2022 Provider: JAVIER BAUM MD Diagnosis: Major depressive disorder, recurrent, moderate 1 ca - 1 capsule daily Last Documented On 2 11:54AM By Kaity Baum MD ; [facility] Gabapentin 100 MG Oral Capsule 09/28/2021 - 11/24/2022 Provider: Diagnosis: 2 at hs Last Documented On 11/24/2022 2:25PM By VALE CORDOBA ; [facility] HYDROcodone-Acetaminophen 10-325 MG Oral Tablet 09/27/2021 - 04/06/2022 Provider: Diagnosis: 1 tab daily prn #30 08/11/21 , 06/17/21, 05/18/21, 02/11/21, 11/27/20, 10/01/20, 08/06/20, 06/04/20, 04/02/20, 02/03/20, 12/16/19, 10/30/19, 08/19/[address] He Espino Last Documented On 2 12:11PM By VALE CORDOBA ; [facility] Trimethoprim 100 MG Oral Tablet 08/27/2021 - 2 Provider: DASHA PEREIRA MD Diagnosis: 1 tab daily for 90 days Last Documented On 1 11:34AM By VALE CORDOBA ; [facility] Zolpidem Tartrate ER 12.5 MG Oral Tablet Extended Release 05/28/2021 - 09/28/2021 Provider: JAVIER BAUM MD Diagnosis: Psychophysiologi c insomnia One tablet at bed time as ne eded for sleep Last Documented On 10/20/2021 4:37PM By Kaity Baum MD ; [facility] EC-Naproxen 500 MG Oral Tablet Delayed Release 05/26/2021 - 11/29/2021 Provider: JAVIER BAUM MD Diagnosis: Chronic migraine w/o aura, not intractable, w/o stat migr as directed --1 tab a day wi th food as needed for headaches Last Documented On 2 10:30AM By Kaity Baum MD ; [facility] Pristiq 50 MG Oral Tablet Extended Release 24 Hour 04/12/2021 - 09/28/2021 Provider: JAVIER JOHNSON MD Diagnosis: Major depressive disorder, recurrent, moderate as directed --1 tab daily Last Documented On 10/20/2021 4:35PM By Kaity Baum MD ; [facility] Cymbalta 60 MG Oral Capsule Delayed Release Particles 04/12/2021 - 10/20/2021 Provider: JAVIER BAUM MD Diagnosis: Major depressive disorder, recurrent, moderate 1 ca - 1 capsule daily Last Documented On 10/20/2021 4:31PM By Kaity Baum MD ; [facility] Gabapentin 400 MG Oral Capsule 03/30/2021 - 09/28/2021 Provider: Diagnosis: 1 cap hs Last Documented On 1 12:23PM By VALE CORDOBA ; [facility] Dialyvite Vitamin D3 Max 1.2 5 MG (08611 UT) Oral Tablet 03/30/2021 - 09/28/2021 Provider: Diagnosis: once a week Last Documented On 11:35AM By VALE CORDOBA ; [facility] Methotrexate 10 MG/0.4ML Sub cutaneous Solution Prefilled Syringe 03/30/2021 - 09/28/2021 Provider: Diagnosis: 10 mg once a week Last Documented On 1 11:17AM By VALE CORDOBA ; [facility] HYDROcodone-Acetaminophen 10-325 MG Oral Tablet 03/29/2021 - 09/27/2021 Provider: Diagnosis: 1 tab daily prn #30 02/11/21, 11/27/20, 10/01/20, 08/06/20, 06/04/20, 04/02/20, 02/03/20, 12/16/19, 10/30/19, 08/19/[address] He Espino Last Documented On 1 11:53AM By VALE CORDOBA ; [facility] busPIRone HCl 10 MG Oral Tablet 02/08/2021 - 04/07/2022 Provider: JAVIER BAUM MD Diagnosis: Generalized anxi ety disorder as directed --1 in am 1 at n oon and 2 tabs in the evening Last Documented On 2 11:53AM By Kaity Baum MD ; [facility] Zolpidem Tartrate ER 12.5 MG Oral Tablet Extended Release 01/29/2021 - 05/28/2021 Provider: JAVIER BAUM MD Diagnosis: Psychophysiologi c insomnia One tablet at bed time as ne eded for sleep Last Documented On 05/28/2021 5:56PM By Kaity Baum MD ; [facility] EC-Naproxen 500 MG Oral Tablet Delayed Release 11/30/2020 - 05/26/2021 Provider: JAVIER BAUM MD Diagnosis: Chronic migraine w/o aura, not intractable, w/o stat migr as directed --1 tab a day wi th food as needed for headaches Last Documented On 1 10:52AM By Kaity Baum MD ; [facility] Cymbalta 60 MG Oral Capsule Delayed Release Particles 11/09/2020 - 04/12/2021 Provider: JAVIER BAUM MD Diagnosis: Major depressive disorder, recurrent, moderate 1 ca - 1 capsule daily Last Documented On 1 11:55AM By Kaity Baum MD ; [facility] Nurtec 75 MG Oral Tablet Disintegrating 10/25/2020 - 10/25/2021 Provider: JAVIER BAUM MD Diagnosis: Chronic migraine w/o aura, not intractable, w/o stat migr as directed -- 1 tab a day a s needed only at the onset of headache Last Documented On 2 11:16AM By Kaity Baum MD ; [facility] Nurtec 75 MG Oral Tablet Disintegrating 10/14/2020 - 10/07/2020 Provider: JAVIER BAUM MD Diagnosis: Chronic migraine w/o aura, not intractable, w/o stat migr as directed -- 1 tab a day a s needed only at the onset of headache Last Documented On 1 11:46AM By Kaity Baum MD ; [facility] Pristiq 50 MG Oral Tablet Extended Release 24 Hour 10/12/2020 - 04/12/2021 Provider: JAVIER JOHNSON MD Diagnosis: Major depressive disorder, recurrent, moderate as directed --1 tab daily Last Documented On 1 11:54AM By Kaity Baum MD ; [facility] Rosuvastatin Calcium 20 MG Oral Tablet 10/07/2020 - Provider: Diagnosis: 1 tab daily Munira Greenberg NP Last Documented On 1 11:18AM By VALE CORDOBA ; [facility] Raloxifene HCl 60 MG Oral Tablet 10/07/2020 - 03/30/20 21 Provider: PATRICA BAKER MD Diagnosis: 1 tab daily Last Documented On 1 11:08AM By VALE CORDOBA ; [facility] Gabapentin 100 MG Oral Capsule 10/07/2020 - 03/30/2021 Provider: Diagnosis: 3 capsules at bedtime Last Documented On 1 11:21AM By VALE CORDOBA ; [facility] HYDROcodone-Acetaminophen 10-325 MG Oral Tablet 10/07/2020 - 03/29/2021 Provider: Diagnosis: 1 tab daily prn #30 10/01/20 , 08/06/20, 06/04/20, 04/02/20, 02/03/20, 12/16/19, 10/30/19, 08/19/[address] He Espino Last Documented On 03/29/2021 4:02PM By VALE CORDOBA ; [facility] Zolpidem Tartrate ER 12.5 MG Oral Tablet Extended Release 07/30/2020 - 01/29/2021 Provider: JAVIER BAUM MD Diagnosis: Psychophysiologi c insomnia One tablet at bed time as ne eded for sleep Last Documented On 01/29/2021 3:37PM By Kaity Baum MD ; [facility] Pristiq 50 MG Oral Tablet Extended Release 24 Hour 06/15/2020 - 10/12/2020 Provider: JAVIER JOHNSON MD Diagnosis: Major depressive disorder, recurrent, moderate as directed --1 tab daily Last Documented On 10/12/2020 3:35PM By Kaity Baum MD ; [facility] Cymbalta 60 MG Oral Capsule Delayed Release Particles 06/15/2020 - 11/09/2020 Provider: JAVIER BAUM MD Diagnosis: Major depressive disorder, recurrent, moderate 1 ca - 1 capsule daily Last Documented On 11/09/2020 3:30PM By Kaity Baum MD ; [facility] EC-Naproxen 500 MG Oral Tablet Delayed Release 06/11/2020 - 11/30/2020 Provider: JAVIER BAUM MD Diagnosis: Chronic migraine w/o aura, not intractable, w/o stat migr as directed --1 tab a day wi th food as needed for headaches Last Documented On 11/30/2020 2:59PM By Kaity Baum MD ; [facility] Nurtec 75 MG Oral Tablet Disintegrating 06/07/2020 - 07/07/2020 Provider: JAVIER BAUM MD Diagnosis: Chronic migraine w/o aura, not intractable, w/o stat migr as directed - 1 tab a day as needed only at the onset of migraine headache -- given 2 tabs samples on 03/31/20 Last Documented On 06/07/2020 1:12AM By Kaity Baum MD ; [facility] Nurtec 75 MG Oral Tablet Disintegrating 04/07/2020 - 10/14/2020 Provider: JAVIER BAUM MD Diagnosis: Chronic migraine w/o aura, not intractable, w/o stat migr as directed -- 1 tab a day a s needed only at the onset of headache Last Documented On 10/14/2020 7:04PM By Kaity Baum MD ; [facility] Simponi Aria 50 MG/4ML Intravenous Solution 03/31/2020 - 03/30/2021 Provider: Diagnosis: use as directed from Dr. Gay Last Documented On 1 11:09AM By VALE CORDOBA ; [facility] HYDROcodone-Acetaminophen 10-325 MG Oral Tablet 03/31/2020 - 10/07/2020 Provider: Diagnosis: 1 tab daily prn #30 02/03/20, 12/16/19, 10/30/19, by Dr. He Espino Last Documented On 0 12:02PM By VALE CLIFFORD Rosalino ; [facility] Vitamin D (Ergocalciferol) 5 0 MCG (1999 UT) Oral Capsule 03/31/2020 - 10/07/2020 Provider: Diagnosis: once a week Last Documented On 0 12:01PM By VALE CLIFFORD Rosalino ; [facility] KP Folic Acid 1 MG Oral Tablet 03/31/2020 - 10/07/2020 Provider: Diagnosis: Last Documented On 0 11:55AM By VALE CORDOBA ; [facility] Zolpidem Tartrate ER 12.5 MG Oral Tablet Extended Release 02/24/2020 - 07/30/2020 Provider: JAVIER BAUM MD Diagnosis: Psychophysiologi c insomnia One tablet at bed time as ne eded for sleep Last Documented On 0 11:10AM By Kaity Baum MD ; [facility] EC-Naproxen 500 MG Oral Tablet Delayed Release 12/18/2019 - 06/11/2020 Provider: JAVIER BAUM MD Diagnosis: Chronic migraine w/o aura, not intractable, w/o stat migr as directed --1 tab a day wi th food as needed for headaches Last Documented On 06/11/2020 4:34PM By Kaity Baum MD ; [facility] EC-Naproxen 500 MG Oral Tablet Delayed Release 12/16/2019 - 12/18/2019 Provider: JAVIER BAUM MD Diagnosis: Chronic migraine w/o aura, not intractable, w/o stat migr as directed --1 tab a day wi th food as needed for aches Last Documented On 12/18/2019 7:31AM By Kaity Baum MD ; [facility] Cymbalta 60 MG Oral Capsule Delayed Release Particles 12/12/2019 - 06/15/2020 Provider: JAVIER BAUM MD Diagnosis: Major depressive disorder, recurrent, moderate 1 ca - 1 capsule daily Last Documented On 06/15/2020 6:30PM By Kaity Baum MD ; [facility] busPIRone HCl 10 MG Oral Tablet 10/28/2019 - 02/08/2021 Provider: JAVIER BAUM MD Diagnosis: Generalized anxi ety disorder as directed --1 in am 1 at n oon and 2 tabs in the evening Last Documented On 1 11:13AM By Kaity Baum MD ; [facility] EC-Naproxen 500 MG Oral Tablet Delayed Release 10/01/2019 - 12/16/2019 Provider: JAVIER BAUM MD Diagnosis: Chronic migraine w/o aura, not intractable, w/o stat migr as directed --1 tab a day as needed for aches Last Documented On 12/16/2019 3:20PM By Kaity Baum MD ; [facility] Raloxifene HCl 60 MG Oral Tablet 10/01/2019 - 10/07/20 Provider: PATRICA BAKER MD Diagnosis: pt states she has 20 mg tabs but there is only 60 mg tabs in the system 1 tab daily Last Documented On 0 11:59AM By VALE CORDOBA ; [facility] Cymbalta 60 MG Oral Capsule Delayed Release Particles 09/16/2019 - 12/12/2019 Provider: JAVIER BAUM MD Diagnosis: Major depressive disorder, recurrent, moderate 1 ca - 1 capsule daily Last Documented On 0 11:37AM By Kaity Baum MD ; [facility] Zolpidem Tartrate ER 12.5 MG Oral Tablet Extended Release 09/03/2019 - 02/24/2020 Provider: JAVIER BAUM MD Diagnosis: Psychophysiologi c insomnia One tablet at bed time as ne eded for sleep Last Documented On 02/24/2020 9:52AM By Kaity Baum MD ; [facility] Cymbalta 60MG Oral Capsule Delayed Release Particles 06/10/2019 - 09/16/2019 Provider: JAVIER BAUM MD Diagnosis: Major depressive disorder, recurrent, moderate 1 ca - 1 capsule daily Last Documented On 9 11:36AM By Kaity Baum MD ; [facility] Zolpidem Tartrate ER 12.5MG Oral Tablet Extended Release 04/01/2019 - 09/03/2019 Provider: JAVIER BAUM MD Diagnosis: Psychophysiologi c insomnia One tablet at bed time as ne eded for sleep Last Documented On 09/03/2019 1:34PM By Kaity Baum MD ; [facility] Cymbalta 60MG Oral Capsule Delayed Release Particles 03/15/2019 - 06/10/2019 Provider: JAVIER BAUM MD Diagnosis: Major depressive disorder, recurrent, moderate 1 ca - 1 capsule daily Last Documented On 9 11:25AM By Kaity Baum MD ; [facility] Pristiq 50MG Oral Tablet Extended Release 24 Hour 03/15/2019 - 06/15/2020 Provider: JAVIER JOHNSON MD Diagnosis: Major depressive disorder, recurrent, moderate as directed --1 tab daily Last Documented On 06/15/2020 6:31PM By Kaity Baum MD ; [facility] traZODone HCl 50MG Oral Tablet 03/15/2019 - 10/25/2020 Provider: JAVIER BAUM MD Diagnosis: Insomnia, unspec ified as directed -- 1 or 2 at bed time as needed for sleep Last Documented On 1 11:43AM By Kaity Baum MD ; [facility] Zolpidem Tartrate ER 12.5MG Oral Tablet Extended Release 03/15/2019 - 04/01/2019 Provider: JAVIER BAUM MD Diagnosis: Psychophysiologi c insomnia One tablet at bed time as ne eded for sleep Last Documented On 04/01/2019 1:22PM By Kaity Baum MD ; [facility] Ajovy 225MG/1.5ML Subcutaneous Solution Prefilled Syringe 03/15/2019 - 10/01/2019 Provider: JAVIER BAUM MD Diagnosis: Chronic migraine w/o aura, not intractable, w/o stat migr as directed -- 225 mg1.5 ml Subcutaneous once a month --given 1 box sample on 03/12/19 Last Documented On 10/01/2019 3:36PM By VALE CORDOBA ; [facility] busPIRone HCl 10MG Oral Tablet 03/15/2019 - 10/28/2019 Provider: JAVIER BAUM MD Diagnosis: Generalized anxi ety disorder as directed --1 in am 1 at n oon and 2 tabs in the evening Last Documented On 0 12:43PM By Kaity Baum MD ; [facility] Lantus SoloStar 100UNIT/ML S ubcutaneous Solution Pen-injector 03/12/2019 - 04/07/2022 Provider: Diagnosis: 15 u subq in the evening Munira Greenberg NP Last Documented On 2 11:01AM By VALE CORDOBA ; [facility] Zolpidem Tartrate ER 12.5MG Oral Tablet Extended Release 02/27/2019 - 03/12/2019 Provider: JAVIER BAUM MD Diagnosis: Psychophysiologi c insomnia One tablet at bed time as ne eded for sleep Last Documented On 03/15/2019 7:28AM By Kaity Baum MD ; [facility] busPIRone HCl 10MG Oral Tablet 01/21/2019 - 03/12/2019 Provider: JAVIER BAUM MD Diagnosis: Generalized anxi ety disorder as directed --1 in am 1 at n oon and 2 tabs in the evening Last Documented On 03/15/2019 7:28AM By Kaity Baum MD ; [facility] Pristiq 50MG Oral Tablet Extended Release 24 Hour 12/10/2018 - 03/12/2019 Provider: JAVIER JOHNSON MD Diagnosis: Major depressive disorder, recurrent, moderate as directed --1 tab daily Last Documented On 03/15/2019 7:28AM By Kaity Baum MD ; [facility] Cymbalta 60MG Oral Capsule, delayed-release particles 11/07/2018 - 03/12/2019 Provider: JAVIER BAUM MD Diagnosis: Major depressive disorder, recurrent, moderate 1 ca - 1 capsule daily Last Documented On 03/15/2019 7:28AM By Kaity Baum MD ; [facility] Zolpidem Tartrate ER 12.5MG Oral Tablet Extended Release 10/08/2018 - 02/27/2019 Provider: JAVIER BAUM MD Diagnosis: Psychophysiologi c insomnia One tablet at bed time as ne eded for sleep --called in 30 and 4 RF on 10/08/18 Last Documented On 02/27/2019 6:23PM By Kaity Baum MD ; [facility] Aimovig 70MG/ML Subcutaneous Solution Auto-injector 09/17/2018 - 10/01/2019 Provider: JAVIER BAUM MD Diagnosis: Chronic migraine w/o aura, not intractable, w/o stat migr as directed -- 70 mg subcutaneous once a month Last Documented On 10/01/2019 3:36PM By VALE CORDOBA ; [facility] Gabapentin 100MG Oral Capsule 09/17/2018 - 10/07/2020 Provider: Diagnosis: 1 capsule tid Last Documented On 0 12:00PM By VALE CORDOBA ; [facility] Zolpidem Tartrate ER 12.5MG Oral Tablet Extended Release 09/17/2018 - 10/08/2018 Provider: JAVIER BAUM MD Diagnosis: Psychophysiologi c insomnia One tablet at bed time as ne eded for sleep --called in 30 and 5 RF on 04/11/18 Last Documented On 10/08/2018 6:30PM By Kaity Baum MD ; [facility] BusPIRone HCl 10MG Oral Tablet 09/17/2018 - 01/21/2019 Provider: JAVIER BAUM MD Diagnosis: Generalized anxi ety disorder as directed --1 in am 1 at n oon and 2 tabs in the evening Last Documented On 01/21/2019 7:36PM By Kaity Baum MD ; [facility] Pristiq 50MG Oral Tablet Extended Release 24 Hour 09/17/2018 - 12/10/2018 Provider: JAVIER JOHNSON MD Diagnosis: Major depressive disorder, recurrent, moderate as directed --1 tab daily Last Documented On 12/10/2018 1:49PM By Kaity Baum MD ; [facility] Cymbalta 60MG Oral Capsule Delayed Release Particles 09/17/2018 - 11/07/2018 Provider: JAVIER BAUM MD Diagnosis: Major depressive disorder, recurrent, moderate 1 ca - 1 capsule daily Last Documented On 11/07/2018 2:54PM By Kaity Baum MD ; [facility] Zolpidem Tartrate ER 12.5MG Oral Tablet Extended Release 04/11/2018 - 09/17/2018 Provider: JAVIER JOHNSON MD Diagnosis: Insomnia, unspec ified One tablet at bed time as ne eded for sleep --called in 30 and 5 RF on 04/11/18 Last Documented On 8 10:24PM By Kaity Baum MD ; [facility] Pristiq 50MG Oral Tablet, extended-release 24 hour 03/25/2018 - 09/17/2018 Provider: JAVIER BAUM MD Diagnosis: Major depressive disorder, recurrent, moderate as directed --1 tab daily Last Documented On 8 10:24PM By Kaity Baum MD ; [facility] Imitrex 50MG Oral Tablet 03/25/2018 - 10/07/2020 Provider: JAVIER JOHNSON MD Diagnosis: Chronic migraine w/o aura, intractable, w/o stat migr as directed 1 a day as neede d at the onset of migraine Last Documented On 0 12:00PM By VALE CORDOBA ; [facility] Cymbalta 60MG Oral Capsule, delayed-release particles 03/25/2018 - 09/17/2018 Provider: JAVIER BAUM MD Diagnosis: Major depressive disorder, recurrent, moderate 1 ca - 1 capsule daily Last Documented On 8 10:24PM By Kaity Baum MD ; [facility] BusPIRone HCl 10MG Oral Tablet 03/25/2018 - 09/17/2018 Provider: JAVIER BAUM MD Diagnosis: Generalized anxi ety disorder as directed --1 in am 1 at n oon and 2 tabs in the evening Last Documented On 8 10:24PM By [facility] MD ; [facility] Meth[facility] 2.5MG Oral Tablet 03/20/2018 - 03/30/2021 Provider: Diagnosis: 10 tabs once a week -- Dr. Gay -- CRISTIANE Pack Last Documented On 1 11:21AM By VALE CORDOBA ; [facility] TraZODone HCl 50MG Oral Tablet 11/13/2017 - 03/12/2019 Provider: JAVIER BAUM MD Diagnosis: Insomnia, unspec ified as directed -- 1 or 2 at bed time as needed for sleep Last Documented On 03/15/2019 7:28AM By Kaity Baum MD ; [facility] Zolpidem Tartrate ER 12.5MG Oral Tablet Extended Release 10/13/2017 - 04/11/2018 Provider: JAVIER JOHNSON MD Diagnosis: Insomnia, unspec ified One tablet at bed time as ne eded for sleep --called in 30 and 5 RF on 10/13/17 Last Documented On 8 11:33AM By Kaity Baum MD ; [facility] BusPIRone HCl 10MG Oral Tablet 10/09/2017 - 03/20/2018 Provider: JAVIER BAUM MD Diagnosis: Generalized anxi ety disorder as directed --1 in am 1 at n oon and 2 tabs in the evening Last Documented On 03/25/2018 9:16PM By Kaity Baum MD ; [facility] Pristiq 50MG Oral Tablet Extended Release 24 Hour 10/09/2017 - 03/20/2018 Provider: JAVIER JOHNSON MD Diagnosis: Major depressive disorder, recurrent, moderate as directed --1 tab daily Last Documented On 03/25/2018 9:16PM By Kaity Baum MD ; [facility] Cymbalta 60MG Oral Capsule Delayed Release Particles 10/09/2017 - 03/20/2018 Provider: JAVIER BAUM MD Diagnosis: Major depressive disorder, recurrent, moderate 1 ca - 1 capsule daily Last Documented On 03/25/2018 9:16PM By Kaity Baum MD ; [facility] Remicade 100MG Intravenous S olution, when reconstituted 09/12/2017 - 03/31/2020 Provider: JANNIE GAY MD Diagnosis: once every 2 months Last Documented On 03/31/2020 2:14PM By Kaity Baum MD ; [facility] Topamax 25MG Oral Tablet 09/12/2017 - 03/20/2018 Provider: JAVIER JOHNSON MD Diagnosis: Chronic migraine w/o aura, not intractable, w/o stat migr One tablet twice a day Last Documented On 03/20/2018 2:09PM By Kaity Baum MD ; [facility] Zolpidem Tartrate ER 12.5MG Oral Tablet, controlled-release 09/12/2017 - 10/13/2017 Provider: JAVIER BAUM MD Diagnosis: Insomnia, unspec ified One tablet at bed time as needed for sleep Last Documented On 10/13/2017 3:33PM By Kaity Baum MD ; [facility] Gabapentin 100MG Oral Capsul e, conventional 09/12/2017 - 09/17/2018 Provider: PATRICA PEREZ MD Diagnosis: twice daily Last Documented On 09/17/2018 1:39PM By VALE CORDOBA ; [facility] Raloxifene HCl 60MG Oral Tablet 09/12/2017 - 9 Provider: PATRICA BAKER MD Diagnosis: pt states she has 20 mg tabs but there is only 60 mg tabs in the system Last Documented On 10/01/2019 3:28PM By VALE CORDOBA ; [facility] Pristiq 50MG Oral Tablet Extended Release 24 Hour 03/28/2017 - 09/12/2017 Provider: JAVIER JOHNSON MD Diagnosis: Major depressive disorder, recurrent, moderate as directed --1 tab daily Last Documented On 10/09/2017 6:27AM By Kaity Baum MD ; [facility] Cymbalta 60MG Oral Capsule Delayed Release Particles 03/28/2017 - 09/12/2017 Provider: JAVIER BAUM MD Diagnosis: Major depressive disorder, recurrent, moderate 1 ca - 1 capsule daily Last Documented On 10/09/2017 6:27AM By Kaity Baum MD ; [facility] Zolpidem Tartrate ER 12.5MG Oral Tablet Extended Release 03/28/2017 - 09/12/2017 Provider: JAVIER JOHNSON MD Diagnosis: Insomnia, unspec ified One tablet at bed time as needed for sleep Last Documented On 09/12/2017 2:28PM By Kaity Baum MD ; [facility] BusPIRone HCl 10MG Oral Tablet 03/28/2017 - 09/12/2017 Provider: JAVIER BAUM MD Diagnosis: Generalized anxi ety disorder as directed --1 in am 1 at n oon and 2 tabs in the evening Last Documented On 10/09/2017 6:27AM By Kaity Baum MD ; [facility] Meloxicam 15MG Oral Tablet 03/28/2017 - 03/20/2018 Pro vider: Diagnosis: Use as directed Last Documented On 03/20/2018 2:15PM By Kaity Baum MD ; [facility] Pristiq 50MG Oral Tablet Extended Release 24 Hour 02/27/2017 - 10/09/2017 Provider: JAVIER JOHNSON MD Diagnosis: Major depressive disorder, recurrent, moderate One tablet daily -- 1 month samples given for p/u on 02/27/17 Last Documented On 10/09/2017 6:25AM By Kaity Baum MD ; [facility] BusPIRone HCl 10MG Oral Tablet 11/16/2016 - 03/28/2017 Provider: JAVIER BAUM MD Diagnosis: Generalized anxi ety disorder as directed --1 in am and 2 tabs in the evening Last Documented On 03/28/2017 2:04PM By Kaity Baum MD ; [facility] Pristiq 50MG Oral Tablet, extended-release 24 hour 11/16/2016 - 02/27/2017 Provider: JAVIER BAUM MD Diagnosis: Major

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
--- OUTSIDE RECORDS SUMMARY | 2024-11-15 13:25 | XMS_ITS ---
Care Plan - [facility] Medical Group [facility] Created on: November 15, 2024 Cynthia NIELSON : 1945 Sex: Female Author Organization [facility] Medical Formerly [facility] S Address [address] [place] [id number] Phone Care Team Providers Care Store Keeper Name Role Phone SUSAN AVELAR, JAVIER PADILLA Unavailable [phone]
--- OUTSIDE RECORDS SUMMARY | 2024-11-15 13:25 | XMS_ITS ---
Care Plan - [facility] Created on: November 15, 2024 Cynthia NIELSON : 1945 Sex: Female Author Organization [facility] Address [address] [place] [address] Phone Care Team Providers Care Assistant Signal Maintainer Name Role Phone JAVIER DAVIS MD Unavailable [phone]
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
--- OUTSIDE RECORDS SUMMARY | 2024-11-15 13:25 | XMS_ITS | Encounter Summary ---
Author Organization [facility] Healthcare Address [address] [place] [address] Care Team Providers Care Heavy Equipment Operator Name Role Phone Munira Greenberg POSITIVE PRINTER OPERATOR Primary Care Provider + Encounter Details Date Type Department Care Team (Late st Contact Info) Description 11/13/2024 Orders Only [facility] Cardiology [address] [place] [address] Kaylan Ritter MD [address] [address] [address] Social History Tobacco Use Types Packs/Day Years Used Date Smoking Tobacco: Never Smokeless Tobacco: Never AUDIT-C Answer Date Recorded Q1: How often do you have a drink containing alc ohol? Monthly or less 07/01/2021 Q2: How many drinks containi ng alcohol do you have on a typical day when you are drinking? 1 or 2 07/01/2021 Q3: How often do you have si x or more drinks on one occasion? Never 07/01/2021 Comments Unknown Sex and Gender Information Value Date Recorded Sex Assigned at Not on file Legal Sex Female 1:04 AM FELT HAT STEAMER Gender Identity Not on file Sexual Orientation Not on file Occupation Industry Job Start Date Job End Date retired Not on file Not on file Not on file documented as of this encounter Plan of Treatment Not on file documented as of this encounter Procedures Procedure Name Priority Date/Time Associated Diagnosis Comments CARDIOLOGY DOCUMENT SCAN Routine 11/05/2024 8:24 AM FELT HAT STEAMER documented in this encounter Results * Cardiology Document Scan (11/05/2024 8:24 AM FELT HAT STEAMER) Anatomical Region Laterality Modality Other Kaylan Ritter MD [facility] PRO CEDURES Final Result documented in this encounter Visit Diagnoses Not on filedocumented in this encounter Care Teams Heavy Equipment Operator Relationship Specialty Start Date End Date Munira Greenberg NP [address] [place] [address] PCP - General Nurse Practitioner 06/18/21 documented as of this encounter
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
--- OUTSIDE RECORDS SUMMARY | 2024-11-15 13:26 | XMS_ITS | Clinical Summary ---
Author Organization [facility] Address [address] [place] [address] Phone Care Team Providers Care Dray Driver Name Role Phone SUSAN AVELAR, JAVIER Kiser [phone] Reason for Visit and Chief Complaint [Patient Encounter] Problems Includes: Problems addressed during this encounter and other active Problems All Visits Onset Date Resolved Date Provider Condition S tatus Major Depression 02/20/2023 JAVIER BAMU MD Active Last Documented On 3 2:06PM ; [facility] Mild Cognitive Impairment 11/24/2022 Active Last Documented On 3 5:53PM ; [facility] Vitamin B12 Deficiency 03/23/2020 Ac tive Last Documented On 3 5:52PM ; [facility] Diabetes Mellitus Type 2 03/12/2019 Active Last Documented On 3 5:52PM ; [facility] Rheumatoid Arthritis 03/12/2019 Acti ve Last Documented On 3 5:52PM ; [facility] Arthritis 11/16/2016 Active Last Documented On 3 5:50PM ; [facility] Hyperlipidemia 11/15/2016 Active Last Documented On 3 5:50PM ; [facility] Psychophysiological Insomnia 11/15/2016 Active Last Documented On 3 5:50PM ; [facility] Breast Cancer 02/11/2016 Active Last Documented On 3 5:49PM ; [facility] Note: Stage II right side Migraine Headache 12/22/2015 Active Last Documented On 3 5:49PM ; [facility] Generalized Anxiety Disorder 11/07/2012 Active Last Documented On 3 5:43PM ; [facility] Hiatal Hernia 11/07/2012 Active Last Documented On 3 5:43PM ; [facility] Hypertension Systemic 11/07/2012 Act carlos Last Documented On 3 5:43PM ; [facility] Triglyceride Problems 11/07/2012 Act carlos Last Documented On 3 5:43PM ; [facility] 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 Last Documented On 3 5:43PM ; [facility] Plan of Treatment Future Appointments Date Time Location Provi georgi PSYCH ADULT FOLLOW UP 11/28/2024 10:00AM [facility] OUP-PSY JAVIER BAUM MD Last Documented On 4 11:13AM ; [facility] Assessments Includes: Assessments from this encounter No Assessments Recorded Medical Equipment - Implanted Devices Includes: Current Devices No Medical Equipment Recorded Medications Includes: Medications discussed during this encounter and other current Medications Discontinued / Stopped on this date JAVIER BAUM MD on 05/28/2021 Zolpidem Tartrate ER 12.5 MG OR TBCR Provider: JAVIER BAUM MD Diagnosis: Psychophysiologi c insomnia Last Documented On 02/18/2023 5:33PM By Kaity Baum MD ; [facility] Methotrexate 10 MG/0.4ML SC SOSY Provider : Diagnosis: Last Documented On 02/18/2023 5:33PM By VALE CORDOBA ; [facility] Gabapentin 400 MG OR CAPS Provider: Diagnosis: Last Documented On 02/18/2023 5:33PM By VALE CORDOBA ; [facility] Dialyvite Vitamin D3 Max 1.25 MG (62526 UT) OR TABS Provider: Diagnosis: Last Documented On 02/18/2023 5:33PM By VALE CORDOBA ; [facility] Rosuvastatin Calcium 20 MG OR TABS Provid er: Diagnosis: Last Documented On 02/18/2023 5:33PM By VALE CORDOBA ; [facility] Current Medications (continue as prescribed) Zolpidem Tartrate ER 12.5 MG Oral Tablet Extended Release 01/03/2024 Provider: JAVIER BAUM MD Diagnosis: Insomnia, unspec ified TAKE 1 TABLET BY MOUTH EVERY NIGHT AT BEDTIME Last Documented On 01/03/2024 9:04AM By Kaity Baum MD ; [facility] DULoxetine HCl 60 MG Oral Capsule Delayed Release Particles 12/18/2023 Provider: JAVIER BAUM MD Diagnosis: Major depressive disorder, recurrent, moderate TAKE ONE CAPSULE BY MOUTH DAILY Last Documented On 12/18/2023 7:25AM By Kaity Baum MD ; [facility] Aimovig 70 MG/ML Subcutaneou s Solution Auto-injector 08/29/2023 Provider: JAVIER VILLA MD Diagnosis: Chronic migraine w/o aura, not intractable, w/o stat migr as directed - inject 70 mg subcutaneously once a month to upper thigh or abdomnial area, please rotate sites Last Documented On 08/29/2023 4:03PM By Kaity Baum MD ; [facility] Desvenlafaxine Succinate ER 50 MG Oral Tablet Extended Release 24 Hour 08/21/2023 Provider: JAVIER BAUM MD Diagnosis: Major depressive disorder, recurrent, moderate TAKE 1 TABLET BY MOUTH DAILY DIRECTED Last Documented On 08/21/2023 7:15AM By Kaity Baum MD ; [facility] Diclofenac Sodium 75 MG Oral Tablet Delayed Release Provider: Diagnosis: 1 tab daily prn Last Documented On 05/25/2023 10:12AM By VALE CORDOBA ; [facility] Gabapentin 100 MG OR CAPS 11/24/2022 Provider: Diagnosis: 1 at hs Last Documented On 02/18/2023 5:33PM By VALE CORDOBA ; [facility] Nurtec 75 MG OR TBDP 10/18/2022 Provider: JAVIER BAUM MD Diagnosis: Chronic migraine w/o aura, not intractable, w/o stat migr as directed -- 1 tab a day a s needed only at the onset of migraine headache Last Documented On 02/18/2023 5:33PM By Kaity Baum MD ; [facility] Lantus SoloStar 100 UNIT/ML SC SOPN 04/07/2022 Provi georgi: Diagnosis: 25u subq in the evening Munira Greenberg NP Last Documented On 02/18/2023 5:33PM By VALE CORDOBA ; [facility] Fenofibrate 160 MG OR TABS 09/28/2021 Provider: Diagnosis: 1 tab daily Munira Magnolia, JAILER Last Documented On 02/18/2023 5:33PM By VALE CORDOBA ; [facility] Dialyvite Vitamin D3 Max 1.25 MG (46193 UT) OR TABS Provider: Diagnosis: 1 tab q other week Last Documented On 02/18/2023 5:33PM By VALE CORDOBA ; [facility] Bystolic 5 MG OR TABS 10/01/2019 Provider: Diagnosis: 1 tab daily from Munira Greenberg NP Last Documented On 02/18/2023 5:33PM By VALE CORDOBA ; [facility] SUMAtriptan Succinate 100 MG OR TABS 10/01/2019 Provider: JAVIER BAUM MD Diagnosis: Chronic migraine w/o aura, not intractable, w/o stat migr as directed -- 1 tab a day a s needed for migraine - take it at the osnet of migraine Last Documented On 02/18/2023 5:33PM By Kaity Baum MD ; [facility] NexIUM 20 MG OR CPDR 03/12/2019 Provider: Diagnosis: 1 cap daily Last Documented On 02/18/2023 5:33PM By VALE CORDOBA ; [facility] Folic Acid 1 MG OR TABS 09/17/2018 Provider: Diagnosis: 1 tab daily Last Documented On 02/18/2023 5:33PM By VALE CORDOBA ; [facility] Losartan Potassium 25 MG OR TABS 05/07/2015 Provider : Diagnosis: Last Documented On 02/18/2023 5:33PM By Kaity Baum MD ; [facility] Triamterene-HCTZ 37.5-25 MG OR CAPS 05/15/2013 Provi georgi: Diagnosis: Last Documented On 02/18/2023 5:33PM By Kaity Baum MD ; [facility] tiZANidine HCl 4 MG OR CAPS 05/15/2013 Provider: Diagnosis: Last Documented On 02/18/2023 5:33PM By Kaity Baum MD ; [facility] Medications Administered Includes: Administered Medications from this encounter No Administered Medications Recorded Vital Signs Includes: Vital Signs from this encounter Vital Name 09/28/2021 12:21P Blood Pressure Sitting (mmHg) 149/88 BP Cuff Size Regular Pulse Rate-Sitting (bpm) 84 Pulse Rhythm Regular Height (in) 66 Weight (lb) 210 Body Mass Index (kg/m2) 33.9 Body Surface Area (m2) 2.0 Note: self reported vitals Last Documented: On 02/18/2023 6:07PM ; [facility] Results Includes: Results discussed during [...] Active Last Documented On 05/25/2023 10:18AM ; [facility] Note: Imported from external source. Encounters Encounter Provider Location Date Check-In Time Check-Out Time Diagnosis [Patient Encounter] 09/28/2021 12:00AM 11:59PM Insurance Includes: Active Insurance Policies Plan Name Member ID Group # Subscriber Relationship Effect carlos Dates 1 - [facility] [id number] Cynthia Cooper Clinical Notes Includes: Clinical Notes from this encounter No Clinical Notes Recorded
--- OUTSIDE RECORDS SUMMARY | 2024-11-15 13:26 | XMS_ITS | Clinical Summary ---
Author Organization [facility] Address [address] [place] [phone] Phone Care Team Providers Care Supervisor Brake Repair Name Role Phone SUSAN AVELAR, JAVIER Kiser [phone] Reason for Visit and Chief Complaint NO SHOW Problems Includes: Problems addressed during this encounter and other active Problems All Visits Onset Date Resolved Date Provider Condition S tatus Mild Cognitive Impairment 11/24/2022 JAVIER BAUM MD Active Last Documented On 3 4:31PM ; [facility] Vitamin B12 Deficiency 03/23/2020 JAVIER AGRAWAL MD Active Last Documented On 0 1:13AM ; [facility] Diabetes Mellitus Type 2 03/12/2019 JAVIER BAUM MD Active Last Documented On 9 2:14PM ; [facility] Rheumatoid Arthritis 03/12/2019 JAVIER DELONG MD Active Last Documented On 9 2:15PM ; [facility] Arthritis 11/16/2016 JAVIER BAUM MD Ac tive Last Documented On 7 1:43PM ; [facility] Hyperlipidemia 11/15/2016 JAVIER Bergman Active Last Documented On 7 2:14PM ; [facility] Psychophysiological Insomnia 11/15/2016 JAVIER BAUM MD Active Last Documented On 7 2:13PM ; [facility] Breast Cancer 02/11/2016 JAVIER BAUM MD Active Last Documented On 02/11/2016 1:39PM ; [facility] Note: Stage II right side Migraine Headache 12/22/2015 JAVIER Das MD Active Last Documented On 6 9:50PM ; [facility] Major Depression, Recurrent 12/21/2012 JAVIER BAUM MD Active Last Documented On 3 9:51PM ; [facility] Generalized Anxiety Disorder 11/07/2012 JAVIER BAUM MD Active Last Documented On 3 12:52PM ; [facility] Hiatal Hernia 11/07/2012 JAVIER BAUM MD Active Last Documented On 3 12:53PM ; [facility] Hypertension Systemic 11/07/2012 JAVIER GAUTHIER MD Active Last Documented On 3 12:53PM ; [facility] Triglyceride Problems 11/07/2012 JAVIER GAUTHIER MD Active Last Documented On 3 12:55PM ; [facility] 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 VIVIAN BAUM MD Active Last Documented On 3 12:54PM ; [facility] Plan of Treatment Pending Tests Order Diagnosis Results Due Ordering Damien chakraborty Lab VITAMIN D 04/30/20 JAVIER GAUTHIER MD Last Documented On 0 1:14AM ; [facility] Lab B12 & FOLATE 04/30/20 JAVIER BAUM MD Last Documented On 0 1:14AM ; [facility] Assessments Includes: Assessments from this encounter No [...] 01/09/2023 2:25PM By Kaity Baum MD ; [facility] Cymbalta 60 MG Oral Capsule Delayed Release Particles 12/19/2022 Provider: JAVIER BAUM MD Diagnosis: Major depressive disorder, recurrent, moderate 1 ca - 1 capsule daily Last Documented On 3 11:16AM By Kaity Baum MD ; [facility] Gabapentin 100 MG Oral Capsule 11/24/2022 Provider: Diagnosis: 1 at hs Last Documented On 11/24/2022 2:25PM By VALE CORDOBA ; [facility] Diclofenac Sodium 75 MG Oral Tablet Delayed Release Provider: Diagnosis: 1 tab bid Last Documented On 11/24/2022 2:32PM By VALE CORDOBA ; [facility] Zonisamide 25 MG Oral Capsule 11/24/2022 Provider: BRADY ESPINO MD Diagnosis: 2 caps bid Last Documented On 11/24/2022 2:39PM By VALE CORDOBA ; [facility] L-Methylfolate 15 MG Oral Tablet 11/24/2022 Provider: JAVIER BAUM MD Diagnosis: Mild cognitive impairment of uncertain or unknown etiology 1 tablet every morning with food Last Documented On 11/24/2022 4:40PM By Kaity Baum MD ; [facility] Pristiq 50 MG Oral Tablet Extended Release 24 Hour 10/18/2022 Provider: JAVIER DELONG MD Diagnosis: Major depressive disorder, recurrent, moderate as directed --1 tab daily Last Documented On 2 11:36AM By Kaity Baum MD ; [facility] Nurtec 75 MG Oral Tablet Disintegrating 10/18/2022 Provider: JAVIER BAUM MD Diagnosis: Chronic migraine w/o aura, not intractable, w/o stat migr as directed -- 1 tab a day a s needed only at the onset of migraine headache Last Documented On 2 11:36AM By Kaity Baum MD ; [facility] EC-Naproxen 500 MG Oral Tablet Delayed Release 10/13/2022 Provider: JAVIER VILLA MD Diagnosis: Chronic migraine w/o aura, not intractable, w/o stat migr as directed --1 tab a day wi th food as needed for headaches Last Documented On 2 10:40AM By Kaity Baum MD ; [facility] Lantus SoloStar 100 UNIT/ML Subcutaneous Solutio n Pen-injector 04/07/2022 Provider: Diagnosis: 25u subq in the evening Munira Greenberg NP Last Documented On 2 11:01AM By VALE CORDOBA ; [facility] busPIRone HCl 10 MG Oral Tablet 04/07/2022 Provider: JAVIER BAUM MD Diagnosis: Generalized anxi ety disorder as directed --1 in am 1 at n oon and 2 tabs in the evening Last Documented On 2 11:55AM By Kaity Baum MD ; [facility] Fenofibrate 160 MG Oral Tablet 09/28/2021 Provider: Diagnosis: 1 tab daily Munira Greenberg NP Last Documented On 1 11:34AM By VALE CORDOBA ; [facility] Dialyvite Vitamin D3 Max 1.25 MG (93742 UT) Oral Table t 09/28/2021 Provider: Diagnosis: 1 tab q other week Last Documented On 1 11:35AM By VALE CORDOBA ; [facility] Bystolic 5 MG Oral Tablet 10/01/2019 Provider: Diagnosis: 1 tab daily from Munira Greenberg NP Last Documented On 10/01/2019 3:30PM By VALE CORDOBA ; [facility] SUMAtriptan Succinate 100 MG Oral Tablet 10/01/2019 Provider: JAVIER BAUM MD Diagnosis: Chronic migraine w/o aura, not intractable, w/o stat migr as directed -- 1 tab a day a s needed for migraine - take it at the osnet of migraine Last Documented On 10/01/2019 4:33PM By Kaity Baum MD ; [facility] NexIUM 20MG Oral Capsule Delayed Release 03/12/2019 Provider: Diagnosis: 1 cap daily Last Documented On 03/12/2019 9:52AM By VALE CORDOBA ; [facility] Folic Acid 1MG Oral Tablet 09/17/2018 Provider: Diagnosis: 1 tab daily Last Documented On 09/17/2018 1:44PM By VALE CORDOBA ; [facility] Losartan Potassium 25 MG Tablet 05/07/2015 Provider: Diagnosis: Last Documented On 05/07/2015 2:14PM By Kaity Baum MD ; [facility] Triamterene-HCTZ 37.5-25 MG OR CAPS 05/15/2013 Provi georgi: Diagnosis: Last Documented On 05/15/2013 9:58PM By Kaity Baum MD ; [facility] tiZANidine HCl 4 MG OR CAPS 05/15/2013 Provider: Diagnosis: Last Documented On 05/15/2013 9:57PM By Kaity Baum MD ; [facility] Medications Administered Includes: Administered Medications from this [...] Active Last Documented On 05/25/2023 10:18AM ; [facility] Note: Imported from external source. Encounters Encounter Provider Location Date Check-In Time Check-Out Time Diagnosis NO SHOW METBRENDA BAUM MD [facility] 03/23/2022 1:30PM 11:59PM Insurance Includes: Active Insurance Policies Plan Name Member ID Group # Subscriber Relationship Effect carlos Dates 1 - [facility] [id number] Cynthia NIELSON Self Clinical Notes Includes: Clinical Notes from this encounter No Clinical Notes Recorded
--- OUTSIDE RECORDS SUMMARY | 2024-11-15 13:26 | XMS_ITS | Referral Summary ---
Author Organization [facility] Address [address] [place] [phone] Care Team Providers Care Antisqueak Chalker Name Role Phone Munira Greenberg SENIOR LOAN OFFICER Primary Care Provider + Encounters Date Type Department Care Team Description 11/13/2024 Orders Only [facility] Medical [facility] Cardiology [address] [facility] [address] [place] [phone] Jaki Ritter MD 11/05/2024 Orders Only [facility] Health Information Management [address] [place] [id number] Jaki Ritter MD 10/24/2024 Telephone [facility] Cardiology [address] [facility] [address] [place] [phone] Jaki Ritter MD 10/21/2024 11:51 AM WIRE BRUSHER - 10/21/2024 11:59 PM WIRE BRUSHER Hospital Encounter [facility] [id number] [place] [id number] Other chest pain; Dyspnea on exertion Discharge Disposition: Discharge to home or self care 10/17/2024 Telephone [facility] [id number] [place] [id number] Dariela Mejia RN 10/04/2024 9:15 AM WIRE BRUSHER Ancillary Procedure [facility] Medical [facility] Cardiology at [address] [place] [phone] Other chest pain; Dyspnea on exertion 09/25/2024 9:45 AM WIRE BRUSHER Office Visit [facility] Cardiology at [address] [place] [phone] Jaki Ritter MD Other chest pain (Primary Dx); Dyspnea on exertion; Primary hypertension; Mixed hyperlipidemia from Last 3 Months Allergies Active Allergy Reactions Criticality Noted Date Comments Fenofibrate Nanocrystallized Headache Low 021 Fluconazole Headache Low 07/01/2021 Niacin Hives Medium 07/01/2021 Pantoprazole Headache Low 07/01/2021 Penicillins Hives High 08/11/2016 Medications busPIRone (BUSPAR) 10 mg tablet buspirone 10 mg tablet TAKE 1 TABLET IN AM AND TAKE 2 TABLETS IN PM [address] (CYMBALTA) 60 mg capsule duloxetine 60 mg capsule,delayed release Take 1 capsule every day by oral route. 8 Active ergocalciferol (VITAMIN D) 50,000 unit capsule ergocalciferol (vitamin D2) 1,250 mcg (50,000 unit) capsule TAKE 1 CAPSULE BY MOUTH EVERY 2 WEEKS Active fenofibrate (TRIGLIDE) 160 mg tablet fenofibrate 160 mg tablet TAKE 1 TABLET BY MOUTH EVERY NIGHT Active insulin glargine (LANTUS) 100 unit/mL (3 mL) pen for injection Lantus Solostar U-100 Insulin 100 unit/mL (3 mL) subcutaneous pen 25 units injected SQ nightly 9 Active nebivoloL (Bystolic) 5 mg tablet Bystolic 5 mg tablet TAKE 1 TABLET BY MOUTH EVERY DAY Active triamterene-hy droCHLOROthiaz rina (triamterene-h ydroCHLOROthia zide) 37.5-25 mg per tablet/capsule triamterene 37.5 mg-hydrochlorothia zide 25 mg capsule TAKE 1 CAPSULE BY MOUTH EVERY DAY Active zolpidem CR (AMBIEN CR) 12.5 mg CR tablet zolpidem ER 12.5 mg tablet,extended release,multiphase Take 1 tablet every day by oral route. 8 Active losartan (COZAAR) 100 mg tablet Take 1 tablet (100 mg total) by mouth daily Active rosuvastatin (CRESTOR) 20 mg tablet Take 1 tablet (20 mg total) by mouth daily Active esomeprazole DR (NexIUM) 40 mg capsule Take 1 capsule (40 mg total) by mouth daily before breakfast Active desvenlafaxine ER 50 mg 24 hr tablet Take 1 tablet (50 mg total) by mouth daily Active cranberry 500 mg capsule Take by mouth Activ e diclofenac DR (VOLTAREN) 75 mg EC tablet Take 1 tablet (75 mg total) by mouth 2 (two) times a day Active Active Problems Problem Noted Date Diagnosed Date Primary hypertension 09/25/2024 Dyspnea on exertion 09/25/2024 Mixed hyperlipidemia 09/25/2024 Other chest pain 09/25/2024 Social History Tobacco Use Types Packs/Day Years [...] on file Legal Sex Female 1:04 AM WIRE BRUSHER Gender Identity Not on file Sexual Orientation Not on file Occupation Industry Job Start Date Job End Date retired Not on file Not on file Not on file Last Filed Vital Signs Vital Sign Reading Time Taken Comments Blood Pressure 124/65 10/21/2024 12:43 PM WIRE BRUSHER Pulse 75 10/21/2024 12:43 PM WIRE BRUSHER Temperature - - Respiratory Rate - - Oxygen Saturation 96% 09/25/2024 9:45 AM WIRE BRUSHER Inhaled Oxygen Concentration - - Weight 98 kg (216 lb) 09/25/2024 9:45 AM WIRE BRUSHER Height 165.1 cm (5' 5 ) 09/25/2024 9:45 AM WIRE BRUSHER Body Mass Index 35.94 09/25/2024 9:45 AM WIRE BRUSHER Plan of Treatment Not on file Procedures Procedure Name Priority Date/Time Associated Diagnosis Comments CARDIOLOGY DOCUMENT SCAN Routine 025 8:24 AM WIRE BRUSHER CARDIOLOGY DOCUMENT SCAN 11/05/2024 CT HEART MORPHOLOGY AND CORONARY ARTERIES W CONTRAST Schedule Routine, Read Routine (OP Routine) 10/21/2024 12:51 PM WIRE BRUSHER Other chest pain Dyspnea on exertion POC ISTAT Routine 10/21/2024 12:20 PM WIRE BRUSHER TRANSTHORACIC ECHO (TTE) COMPLETE W DOPPLER/CF WO CONTRAST Routine 10/04/2024 9:48 AM WIRE BRUSHER Other chest pain Dyspnea on exertion ELECTROCARDIOGRAM REPORT Routine 024 10:25 AM WIRE BRUSHER Other chest pain from Last 3 Months Results * Cardiology Document Scan (11/05/2024 8:24 AM WIRE BRUSHER) Anatomical Region Laterality Modality Other Jaki Ritter MD CV CARDIAC SERVICES PRO CEDURES Final Result * Cardiology Document Scan (11/05/2024) Anatomical Region Laterality Modality Other Jaik Ritter MD CV CARDIAC SERVICES PRO CEDURES Final Result * CTA Heart and Coronary Arteries W Morphology when Performed (10/21/2024 12:51 PM WIRE BRUSHER) Anatomical Region Laterality Modality Chest N/A Computed Tomogra phy 10/21/2024 2:03 PM WIRE BRUSHER Impressions 10/21/2024 2:32 PM WIRE BRUSHER 1. ??Mixed plaque within the mid right coronary artery which results in at least 70% stenosis. ??Consider further evaluation with rectal flow reserve (FFR). ?? 2. ??LEFT upper outer quadrant/axillary 2.5 cm mass which is highly suspicious for breast cancer. ??Recommend further evaluation with mammography and ultrasound with consideration of tissue sampling if not already performed. 3. ??Large hiatal hernia. Recommend follow up of the Incidental breast mass Additional Imaging In 1 Month with mammography and breast ultrasound. ?? Dictated by: Ambrosio Wilson M.D. The radiology attending physician has personally reviewed this study, and had reviewed and/or edited this written report and agrees with it. Electronically signed by: Gasper Perrin M.D. Narrative 10/21/2024 2:32 PM WIRE BRUSHER EXAMINATION: CORONARY CT ANGIOGRAM HISTORY: 79-year-old woman with chest pain. ?? COMPARISON: None TECHNIQUE: CT angiography of the coronary arteries was performed after the administration of 90 mL of Optiray 350. Images were also obtained precontrast for the purposes of calcium scoring. ??Prior to the examination, 5 mg of intravenous metoprolol and 0.8 mg of sublingual nitroglycerin were administered. The patient's heart rate and blood pressure at the time of the examination were 75 beats per minute and 124/65 mmHg. Images were transferred to a 3D workstation for additional post-processing. FINDINGS: The coronary arteries are right system dominant. There is no anomalous coronary artery origin or course. Right coronary system: Mixed plaque within the mid right coronary artery which results in at least 70% stenosis. Left coronary system: There is a short left main coronary artery without plaque or stenosis. There is a small 1st obtuse marginal branch and a large 2nd obtuse marginal branch. ??There are small calcific plaques within the 2nd obtuse marginal branch which results in mild stenosis. There is no plaque or significant stenosis of the left circumflex artery. There is no significant plaque or stenosis of the left anterior descending coronary artery. ??There are calcified plaques within the 1st and 2nd diagonal branches which do not result in significant stenosis. The calculated calcium score is 193. ?? Other findings: Large hiatal hernia. ??Mild bibasilar atelectasis. ??No pleural effusion or pneumothorax. Normal caliber main pulmonary artery. ??Normal caliber of the imaged thoracic aorta with mild atherosclerosis. ??Heart size is normal. ??No pericardial effusion. ??Mild aortic valve leaflet calcification. 2.5 x 2.5 cm left upper outer quadrant/axillary mass. Accessory left hepatic artery arising from the left gastric artery. Procedure Note Gasper Perrin MD - 10/21/2024 EXAMINATION: CORONARY CT ANGIOGRAM HISTORY: 79-year-old woman with chest pain. COMPARISON: None TECHNIQUE: CT angiography of the coronary arteries was performed after the administration of 90 mL of Optiray 350. Images were also obtained precontrast for the purposes of calcium scoring. Prior to the examination, 5 mg of intravenous metoprolol and 0.8 mg of sublingual nitroglycerin were administered. The patient's heart rate and blood pressure at the time of the examination were 75 beats per minute and 124/65 mmHg. Images were transferred to a 3D workstation for additional post-processing. FINDINGS: The coronary arteries are right system dominant. There is no anomalous coronary artery origin or course. Right coronary system: Mixed plaque within the mid right coronary artery which results in at least 70% stenosis. Left coronary system: There is a short left main coronary artery without plaque or stenosis. There is a small 1st obtuse marginal branch and a large 2nd obtuse marginal branch. There are small calcific plaques within the 2nd obtuse marginal branch which results in mild stenosis. There is no plaque or significant stenosis of the left circumflex artery. There is no significant plaque or stenosis of the left anterior descending coronary artery. There are calcified plaques within the 1st and 2nd diagonal branches which do not result in significant stenosis. The calculated calcium score is 193. Other findings: Large hiatal hernia. Mild bibasilar atelectasis. No pleural effusion or pneumothorax. Normal caliber main pulmonary artery. Normal caliber of the imaged thoracic aorta with mild atherosclerosis. Heart size is normal. No pericardial effusion. Mild aortic valve leaflet calcification. 2.5 x 2.5 cm left upper outer quadrant/axillary mass. Accessory left hepatic artery arising from the left gastric artery. IMPRESSION: 1. Mixed plaque within the mid right coronary artery which results in at least 70% stenosis. Consider further evaluation with rectal flow reserve (FFR). 2. LEFT upper outer quadrant/axillary 2.5 cm mass which is highly suspicious for breast cancer. Recommend further evaluation with mammography and ultrasound with consideration of tissue sampling if not already performed. 3. Large hiatal hernia. Recommend follow up of the Incidental breast mass Additional Imaging In 1 Month with mammography and breast ultrasound. Dictated by: Ambrosio Wilson M.D. The radiology attending physician has personally reviewed this study, and had reviewed and/or edited this written report and agrees with it. Electronically signed by: Gasper Perrin M.D. Jaki Ritter MD IMG CT PROCEDURES Final Result * POC ISTAT (10/21/2024 12:20 PM WIRE BRUSHER) Creatinine, POC, bld 1.0 0.6 - 1.3 mg/dL POC Device Number [id number] [facility] POC Performer [id number] [facility] Blood 10/21/2024 12:2 0 PM WIRE BRUSHER 10/21/2024 12:20 PM WIRE BRUSHER Yoana Nicole NP LAB BLOOD ORDERABLES Fi nal Result [facility] [id number] [facility] [address] * TRANSTHORACIC ECHO (TTE) COMPLETE W DOPPLER/CF WO CONTRAST (10/04/2024 9:48 AM WIRE BRUSHER) Anatomical Region Laterality Modality Ultrasound 10/04/2024 9:21 AM WIRE BRUSHER Narrative 10/04/2024 12:23 PM WIRE BRUSHER [facility] Cardiology [address], [address], [place] [address] P:[phone] P:[phone] Echocardiographic Report Patient Name: Cynthia NIELSON : 1945 Study Date: 10/04/2024 9:21:15 AM Gender: F Tech: Location: [facility] Ref Provider: JAKI RITTER ?Height(Cm): 165 BSA: 2.12 Weight(Kg): 98 Heart Rate: 76 BP: 128 / 76 Quality: Good Order Provider: JAKI RITTER ?? PROCEDURES: Echocardiographic Report: Transthoracic echocardiogram with complete 2D, M-Mode, and color Doppler examination. ?? INDICATIONS: Chest Pain and Dyspnea on Exertion. ?? MEASUREMENTS: 2D/MM ?Value ? Range ?Doppler ?Value ? Range EF Mod BP ?63 % ?[ 54 - 74 ] ?DAWOOD Vmax ? 2.60 cm2 ?[ 2.00 - 4.00 ] EF Teich MM ?54 % ?[ 54 - 74 ] ?AV Mean PG ? 6 mmHg Estimated EF ? 70 % ? AV Peak Gilmar ?1.71 m/s ?[ 1.00 - 1.70 ] LVIDd 2D ? 4.41 cm ? [ 3.80 - 5.20 ] ?AV Peak PG ? 12 mmHg LVIDd MM ? 5.54 cm ? [ 3.80 - 5.20 ] ?AV VTI ? 30.59 cm LVIDs 2D ? 3.02 cm ? [ 2.20 - 3.50 ] ?LVOT Diam ?1.99 cm ? [ 1.70 - 2.10 ] LVIDs MM ? 3.98 cm ? [ 2.20 - 3.50 ] ?LVOT Peak Gilmar ?1.43 m/s ?[ 0.70 - 1.10 ] LVPWd 2D ? 1.05 cm ? [ 0.60 - 0.90 ] ?LVOT VTI ? 24.99 cm LVPWd MM ? 0.98 cm ? [ 0.60 - 0.90 ] ?MV E Peak Gilmar ?0.59 m/s ?[ 0.60 - 1.30 ] IVSd 2D ?1.09 cm ? [ 0.60 - 0.90 ] ?MV A Peak Gilmar ?0.95 m/s ?[ 1.00 - 1.20 ] IVSd MM ?0.86 cm ? [ 0.60 - 0.90 ] ?MV Decel Time ?248 msec ?[ 104 - 258 ] LA Dimension MM ?4.07 cm ? [ 2.70 - 3.80 ] ?PV Peak Gilmar ?1.05 m/s ?[ 0.40 - 0.80 ] AoR Diam MM ?3.28 cm ? [ 2.70 - 3.70 ] ?TR Peak Gilmar ?2.41 m/s ?[ 1.00 - 2.80 ] LA Volume Index ?23 cc/m2 ?[ 16 - 34 ] ?TR Peak PG ? 23 mmHg ACS MM ? 1.38 cm ?RVSP ? 31.00 mmHg ?[ 10.00 - 36.00 ] E` ? 0.05 m/s E/E` ? 12 2D/MM ?Value ? Range ?Doppler ?Value ? Range - ?? FINDINGS: Interpretation Site: Exam was interpreted at [facility]. Left Ventricle: Normal left ventricular size. Normal global left ventricular systolic function. Impaired diastolic relaxation Grade I. Ejection fraction is measured at 63 %. Ejection Fraction is visually estimated to be 70 %. Right Ventricle: Normal right ventricular size. Left Atrium: Left atrial size is within upper limits of normal. Right Atrium: The right atrium is normal in size. Atrial Septum: Normal atrial septum. Mitral Valve: Normal appearance of the mitral valve. Aortic Valve: No evidence of hemodynamically significant aortic stenosis by Doppler. Aortic cusps appear moderately sclerotic. Trace aortic valve regurgitation. Tricuspid Valve: Normal appearance of the tricuspid valve. Estimated peak RVSP is 31 mmHg. Pulmonic Valve: Normal appearance of the pulmonic valve. Pericardium: Normal pericardium with no significant pericardial effusion. Aorta: Normal aortic root. IVC: Normal size and normal respiratory collapse consistent with normal right atrial pressure (<5 mmHg). Pulmonary Artery: Normal pulmonary artery size. ?? CONCLUSIONS: Normal left ventricular size. Normal global left ventricular systolic function. Impaired diastolic relaxation Grade I. Ejection fraction is measured at 63 %. Ejection Fraction is visually estimated to be 70 %. Left atrial size is within upper limits of normal. No evidence of hemodynamically significant aortic stenosis by Doppler. Aortic cusps appear moderately sclerotic. Systolic leaflet excursion is well-maintained. Trace aortic valve regurgitation. Electronically Signed By: Gasper Peña MD, [facility] 10/04/2024 12:22:45 PM WIRE BRUSHER 70 Procedure Note Gasper Peña MD - 10/04/2024 [facility] Medical Group Cardiology [address] [facility], [address], [place] [address] P:[phone] P:[phone] Echocardiographic Report Patient Name: Cynthia NIELSON : 1945 Study Date: 10/04/2024 9:21:15 AM Gender: F Tech: Location: [facility] Ref Provider: JAKI RITTER Height(Cm): 165 BSA: 2.12 Weight(Kg): 98 Heart Rate: 76 BP: 128 / 76 Quality: Good Order Provider: JAKI RITTER PROCEDURES: Echocardiographic Report: Transthoracic echocardiogram with complete 2D, M-Mode, and color Dopplerexamination. INDICATIONS: Chest Pain and Dyspnea on Exertion. MEASUREMENTS: 2D/MM Value Range Doppler ValueRange EF Mod BP 63 % [ 54 - 74 ] DAWOOD Vmax 2.60cm2 [ 2.00 - 4.00 ] EF Teich MM 54 % [ 54 - 74 ] AV Mean PG 6mmHg Estimated EF 70 % AV Peak Gilmar 1.71m/s [ 1.00 - 1.70 ] LVIDd 2D 4.41 cm [ 3.80 - 5.20 ] AV Peak PG 12mmHg LVIDd MM 5.54 cm [ 3.80 - 5.20 ] AV VTI 30.59cm LVIDs 2D 3.02 cm [ 2.20 - 3.50 ] LVOT Diam 1.99 cm[ 1.70 - 2.10 ] LVIDs MM 3.98 cm [ 2.20 - 3.50 ] LVOT Peak Gilmar 1.43m/s [ 0.70 - 1.10 ] LVPWd 2D 1.05 cm [ 0.60 - 0.90 ] LVOT VTI 24.99cm LVPWd MM 0.98 cm [ 0.60 - 0.90 ] MV E Peak Gilmar 0.59m/s [ 0.60 - 1.30 ] IVSd 2D 1.09 cm [ 0.60 - 0.90 ] MV A Peak Gilmar 0.95m/s [ 1.00 - 1.20 ] IVSd MM 0.86 cm [ 0.60 - 0.90 ] MV Decel Time 248msec [ 104 - 258 ] LA Dimension MM 4.07 cm [ 2.70 - 3.80 ] PV Peak Gilmar 1.05m/s [ 0.40 - 0.80 ] AoR Diam MM 3.28 cm [ 2.70 - 3.70 ] TR Peak Gilmar 2.41m/s [ 1.00 - 2.80 ] LA Volume Index 23 cc/m2 [ 16 - 34 ] TR Peak PG 23mmHg ACS MM 1.38 cm RVSP 31.00mmHg [ 10.00 - 36.00 ] E` 0.05 m/s E/E` 12 2D/MM Value Range Doppler ValueRange - FINDINGS: Interpretation Site: Exam was interpreted at [facility]. Left Ventricle: Normal left ventricular size. Normal global left ventricular systolicfunction. Impaired diastolic relaxation Grade I. Ejection fraction is measured at 63 %.Ejection Fraction is visually estimated to be 70 %. Right Ventricle: Normal right ventricular size. Left Atrium: Left atrial size is within upper limits of normal. Right Atrium: The right atrium is normal in size. Atrial Septum: Normal atrial septum. Mitral Valve: Normal appearance of the mitral valve. Aortic Valve: No evidence of hemodynamically significant aortic stenosis by Doppler.Aortic cusps appear moderately sclerotic. Trace aortic valve regurgitation. Tricuspid Valve: Normal appearance of the tricuspid valve. Estimated peak RVSP is 31mmHg. Pulmonic Valve: Normal appearance of the pulmonic valve. Pericardium: Normal pericardium with no significant pericardial effusion. Aorta: Normal aortic root. IVC: Normal size and normal respiratory collapse consistent with normal rightatrial pressure (<5 mmHg). Pulmonary Artery: Normal pulmonary artery size. CONCLUSIONS: Normal left ventricular size. Normal global left ventricular systolicfunction. Impaired diastolic relaxation Grade I. Ejection fraction is measured at 63 %.Ejection Fraction is visually estimated to be 70 %. Left atrial size is within upper limits of normal. No evidence of hemodynamically significant aortic stenosis by Doppler.Aortic cusps appear moderately sclerotic. Systolic leaflet excursion iswell-maintained. Trace aortic valve regurgitation. Electronically Signed By: Gasper Peña MD, [facility] 10/04/2024 12:22:45 PM WIRE BRUSHER 70 Jaki Ritter MD CV ECHO PROCEDURES Elle l Result * Electrocardiogram Report (09/25/2024 10:25 AM WIRE BRUSHER) Jaki Ritter MD ECG ORDERABLES Final R esult from Last 3 Months Insurance MEDICARE [employer] [facility] Address: [address] [place] [address] [employer] MEDICARE PPO Care Teams Antisqueak Chalker Relationship Specialty Start Date End Date Munira Greenberg NP [address] [place] [address] [place] [address] PCP - General Nurse Practitioner 06/18/21
--- OUTSIDE RECORDS SUMMARY | 2024-11-15 13:26 | XMS_ITS | Clinical Summary ---
Author Organization [facility] Address [address] [place] [address] Phone Care Team Providers Care Boring Machine Operator Vertical Name Role Phone SUSAN AVELAR, JAVIER Kiser [phone] Reason for Visit and Chief Complaint [Patient Encounter] Problems Includes: Problems addressed during this encounter and other active Problems All Visits Onset Date Resolved Date Provider Condition S tatus Major Depression 02/20/2023 JAVIER BAUM MD Active Last Documented On 3 2:06PM ; [facility] Mild Cognitive Impairment 11/24/2022 Active Last Documented On 3 5:53PM ; [facility] Vitamin B12 Deficiency 03/23/2020 Ac tive Last Documented On 3 5:52PM ; [facility] Diabetes Mellitus Type 2 03/12/2019 Active Last Documented On 3 5:52PM ; [facility] Rheumatoid Arthritis 03/12/2019 Acti ve Last Documented On 3 5:52PM ; [facility] Arthritis 11/16/2016 Active Last Documented On 3 5:50PM ; [facility] Hyperlipidemia 11/15/2016 Active Last Documented On 3 5:50PM ; [facility] Psychophysiological Insomnia 11/15/2016 Active Last Documented On 3 5:50PM ; [facility] Breast Cancer 02/11/2016 Active Last Documented On 3 5:49PM ; [facility] Note: Stage II right side Migraine Headache 12/22/2015 Active Last Documented On 3 5:49PM ; [facility] Generalized Anxiety Disorder 11/07/2012 Active Last Documented On 3 5:43PM ; [facility] Hiatal Hernia 11/07/2012 Active Last Documented On 3 5:43PM ; 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 OUP-PSY JAVIER BAUM MD Last Documented On 4 11:13AM ; [facility] Assessments Includes: Assessments from this encounter No Assessments Recorded Medical Equipment - Implanted Devices Includes: Current Devices No Medical Equipment Recorded Medications Includes: Medications discussed during this encounter and other current Medications Discontinued / Stopped on this date on 03/12/2019 Lantus SoloStar 100 UNIT/ML SC SOPN Provi georgi: Diagnosis: Last Documented On 02/18/2023 5:33PM By VALE CORDOBA ; [facility] Current Medications (continue as prescribed) Zolpidem Tartrate ER 12.5 MG Oral Tablet Extended Release 01/03/2024 Provider: JAVIER ABUM MD Diagnosis: Insomnia, unspec ified TAKE 1 TABLET BY MOUTH EVERY NIGHT AT BEDTIME Last Documented On 01/03/2024 9:04AM By Kaity Baum MD ; [facility] DULoxetine HCl 60 MG Oral Capsule Delayed Release Particles 12/18/2023 Provider: JAVIER BAUM MD Diagnosis: Major depressive disorder, recurrent, moderate TAKE ONE CAPSULE BY MOUTH DAILY Last Documented On 12/18/2023 7:25AM By Kaity Baum MD ; [facility] Aimovig 70 MG/ML Subcutaneou s Solution Auto-injector 08/29/2023 Provider: JAVIER VILLA MD Diagnosis: Chronic migraine w/o aura, not intractable, w/o stat migr as directed - inject 70 mg subcutaneously once a month to upper thigh or abdomnial area, please rotate sites Last Documented On 08/29/2023 4:03PM By Kaity Baum MD ; [facility] Desvenlafaxine Succinate ER 50 MG Oral Tablet Extended Release 24 Hour 08/21/2023 Provider: JAVIER BAUM MD Diagnosis: Major depressive disorder, recurrent, moderate TAKE 1 TABLET BY MOUTH DAILY DIRECTED Last Documented On 08/21/2023 7:15AM By Kaity Baum MD ; [facility] Diclofenac Sodium 75 MG Oral Tablet Delayed Release Provider: Diagnosis: 1 tab daily prn Last Documented On 05/25/2023 10:12AM By VALE CORDOBA ; [facility] Gabapentin 100 MG OR CAPS 11/24/2022 Provider: Diagnosis: 1 at hs Last Documented On 02/18/2023 5:33PM By VALE CORDOBA ; [facility] Nurtec 75 MG OR TBDP 10/18/2022 Provider: JAVIER BAUM MD Diagnosis: Chronic migraine w/o aura, not intractable, w/o stat migr as directed -- 1 tab a day a s needed only at the onset of migraine headache Last Documented On 02/18/2023 5:33PM By Kaity Baum MD ; [facility] Lantus SoloStar 100 UNIT/ML SC SOPN 04/07/2022 Provi georgi: Diagnosis: 25u subq in the evening Munira Greenberg NP Last Documented On 02/18/2023 5:33PM By VALE CORDOBA ; [facility] Fenofibrate 160 MG OR TABS 09/28/2021 Provider: Diagnosis: 1 tab daily uMnira Greenberg NP Last Documented On 02/18/2023 5:33PM By VALE CORDOBA ; [facility] Dialyvite Vitamin D3 Max 1.25 MG (31180 UT) OR TABS Provider: Diagnosis: 1 tab q other week Last Documented On 02/18/2023 5:33PM By VALE CORDOBA ; [facility] Bystolic 5 MG OR TABS 10/01/2019 Provider: Diagnosis: 1 tab daily from Munira Greenberg NP Last Documented On 02/18/2023 5:33PM By VALE CORDOBA ; [facility] SUMAtriptan Succinate 100 MG OR TABS 10/01/2019 Provider: JAVIER BAUM MD Diagnosis: Chronic migraine w/o aura, not intractable, w/o stat migr as directed -- 1 tab a day a s needed for migraine - take it at the osnet of migraine Last Documented On 02/18/2023 5:33PM By Kaity Baum MD ; [facility] NexIUM 20 MG OR CPDR 03/12/2019 Provider: Diagnosis: 1 cap daily Last Documented On 02/18/2023 5:33PM By VALE CORDOBA ; [facility] Folic Acid 1 MG OR TABS 09/17/2018 Provider: Diagnosis: 1 tab daily Last Documented On 02/18/2023 5:33PM By VALE CORDOBA ; [facility] Losartan Potassium 25 MG OR TABS 05/07/2015 Provider : Diagnosis: Last Documented On 02/18/2023 5:33PM By Kaity Baum MD ; [facility] Triamterene-HCTZ 37.5-25 MG OR CAPS 05/15/2013 Provi georgi: Diagnosis: Last Documented On 02/18/2023 5:33PM By Kaity Baum MD ; [facility] tiZANidine HCl 4 MG OR CAPS 05/15/2013 Provider: Diagnosis: Last Documented On 02/18/2023 5:33PM By Kaity Baum MD ; [facility] Medications Administered Includes: Administered Medications from this encounter No Administered Medications Recorded Vital Signs Includes: Vital Signs from this encounter Vital Name 04/07/2022 11:11A Blood Pressure Sitting (mmHg) 128/76 BP Cuff Size Regular Pulse Rate-Sitting (bpm) 74 Pulse Rhythm Regular Height (in) 66 Weight (lb) 211 Body Mass Index (kg/m2) 34.1 Body Surface Area (m2) 2.0 Last Documented: On 02/18/2023 6:07PM ; [facility] Results Includes: Results discussed during this encounter [...] Active Last Documented On 05/25/2023 10:18AM ; [facility] Note: Imported from external source. Encounters Encounter Provider Location Date Check-In Time Check-Out Time Diagnosis [Patient Encounter] 04/07/2022 12:00AM 11:59PM Insurance Includes: Active Insurance Policies Plan Name Member ID Group # Subscriber Relationship Effect carlos Dates - [facility] [id number] Cynthia NIELSON Self Clinical Notes Includes: Clinical Notes from this encounter No Clinical Notes Recorded
--- OUTSIDE RECORDS SUMMARY | 2024-11-15 13:26 | XMS_ITS | Clinical Summary ---
Author Organization [facility] Address [address] [place] [phone] Care Team Providers Care Dewer Name Role Phone Munira Greenberg VENTILATOR SPECIALIST Primary Care Provider + Allergies Active Allergy Reactions Criticality Noted Date [...] Mixed hyperlipidemia 09/25/2024 Other chest pain 09/25/2024 Encounters Date Type Department Care Team Description 11/13/2024 Orders Only [facility] Cardiology [address] [place] [phone] Jaki Ritter MD 11/05/2024 Orders Only [facility] Information Management [address] [place] [phone] Jaki Ritter MD 10/24/2024 Telephone [facility] Cardiology [address] [place] [address] [address] [place] [phone] Jaki Ritter MD 10/21/2024 11:51 AM CRIMPER ASSEMBLER - 10/21/2024 11:59 PM CRIMPER ASSEMBLER Hospital Encounter [facility] [address] [address] Other chest pain; Dyspnea on exertion Discharge Disposition: Discharge to home or self care 10/17/2024 Telephone [facility] [address] [address] Dariela Mejia RN 10/04/2024 9:15 AM CRIMPER ASSEMBLER Ancillary Procedure [facility] Cardiology at [address] [place] [phone] Other chest pain; Dyspnea on exertion 09/25/2024 9:45 AM CRIMPER ASSEMBLER Office Visit [facility] Cardiology at [address] [phone] Jaki Ritter MD Other chest pain (Primary Dx); Dyspnea on exertion; Primary hypertension; Mixed hyperlipidemia from Last 3 Months Surgical History Surgery Date Site/Laterality Comments CHOLECYSTECTOMY BREAST LUMPECTOMY Right BREAST BIOPSY 12/24/2015 Right Medical History Medical History Date Comments Depression Emphysema of lung (HCC) Diabetes mellitus (HCC) Cancer (CMS/HCC) (HCC) Peripheral neuropathy Gastric reflux GERD (gastroesophageal reflux disease) Hiatal hernia Hypercholesteremia Hypertension Migraines Rheumatoid arthritis (HCC) Spondylosis of lumbar joint Anterolisthesis 07/01/2021 Grade 1 L4 on L5 Family History Medical History Relation Name Comments No Known Problems Father Arthritis Mother Heart disease Mother Relation Name Status Comments Father Mother Social History Tobacco Use Types Packs/Day Years [...] on file Legal Sex Female 1:04 AM CRIMPER ASSEMBLER Gender Identity Not on file Sexual Orientation Not on file Occupation Industry Job Start Date Job End Date retired Not on file Not on file Not on file Obstetrics History Last Filed Vital Signs Vital Sign Reading Time Taken Comments Blood Pressure 124/65 10/21/2024 12:43 PM CRIMPER ASSEMBLER Pulse 75 10/21/2024 12:43 PM CRIMPER ASSEMBLER Temperature - - Respiratory Rate - - Oxygen Saturation 96% 09/25/2024 9:45 AM CRIMPER ASSEMBLER Inhaled Oxygen Concentration - - Weight 98 kg (216 lb) 09/25/2024 9:45 AM CRIMPER ASSEMBLER Height 165.1 cm (5' 5 ) 09/25/2024 9:45 AM CRIMPER ASSEMBLER Body Mass Index 35.94 09/25/2024 9:45 AM CRIMPER ASSEMBLER Plan of Treatment Health Maintenance Due Date Last Done Comments Depression Screening 1945 Fall Risk Assessment 1945 Hepatitis C Screening 1945 Osteoporosis Screening-Bone Density Scan 1945 Hepatitis B Screening 1963 Zoster Vaccine (2 of 3) 12/02/2011 10/07/2011 Well Visit 65+ 2012 DTaP/Tdap/Td Vaccine (2 - Td or Tdap) 11/08/2020 11/08/2010 Covid-19 Vaccine (4 - 2023-2 5 season) 2024 08/20/2021, 01/08/2021, 12/18/2020 Influenza Vaccine (#1) 2024 , 09/08/2019, 09/26/2018, Additional history exists Pneumococcal vaccine 65+ Completed 018, 08/12/2016, 11/19/2012 Procedures Procedure Name Priority Date/Time Associated Diagnosis Comments CARDIOLOGY DOCUMENT SCAN Routine 025 8:24 AM CRIMPER ASSEMBLER CARDIOLOGY DOCUMENT SCAN 11/05/2024 CT HEART MORPHOLOGY AND CORONARY ARTERIES W CONTRAST Schedule Routine, Read Routine (OP Routine) 10/21/2024 12:51 PM CRIMPER ASSEMBLER Other chest pain Dyspnea on exertion POC ISTAT Routine 10/21/2024 12:20 PM CRIMPER ASSEMBLER TRANSTHORACIC ECHO (TTE) COMPLETE W DOPPLER/CF WO CONTRAST Routine 10/04/2024 9:48 AM CRIMPER ASSEMBLER Other chest pain Dyspnea on exertion ELECTROCARDIOGRAM REPORT Routine 024 10:25 AM CRIMPER ASSEMBLER Other chest pain from Last 3 Months Results * Cardiology Document Scan (11/05/2024 8:24 AM CRIMPER ASSEMBLER) Anatomical Region Laterality Modality Other us Jaki Ritter MD [facility] CARDIAC SERVICES PRO CEDURES Final Result * Cardiology Document Scan (11/05/2024) Anatomical Region Laterality Modality Other us Jaki Ritter MD CV CARDIAC SERVICES PRO CEDURES Final Result * CTA Heart and Coronary Arteries W Morphology when Performed (10/21/2024 12:51 PM CRIMPER ASSEMBLER) Anatomical Region Laterality Modality Chest N/A Computed Tomogra phy 10/21/2024 2:03 PM CRIMPER ASSEMBLER Impressions 10/21/2024 2:32 PM CRIMPER ASSEMBLER 1. ??Mixed plaque within the mid right [...] Gasper Perrin M.D. Narrative 10/21/2024 2:32 PM CRIMPER ASSEMBLER EXAMINATION: CORONARY CT ANGIOGRAM HISTORY: 79-year-old woman [...] it. Electronically signed by: Gasper Perrin M.D. [facility] Mark Ritter MD IMG CT PROCEDURES Final Result * POC ISTAT (10/21/2024 12:20 PM CRIMPER ASSEMBLER) Creatinine, POC, bld 1.0 0.6 - 1.3 mg/dL POC Device Number [id number] [facility] POC Performer [id number] [facility] Blood 10/21/2024 12:2 0 PM CRIMPER ASSEMBLER 10/21/2024 12:20 PM CRIMPER ASSEMBLER Yoana Nicole NP LAB BLOOD ORDERABLES Fi nal Result [facility] [id number] [facility] [address] * TRANSTHORACIC ECHO (TTE) COMPLETE W DOPPLER/CF WO CONTRAST (10/04/2024 9:48 AM CRIMPER ASSEMBLER) Anatomical Region Laterality Modality Ultrasound 10/04/2024 9:21 AM CRIMPER ASSEMBLER Narrative 10/04/2024 12:23 PM CRIMPER ASSEMBLER [facility] Cardiology [address] , [address], [place] [address] P:[phone] P:[phone] Echocardiographic Report Patient Name: Cynthia NIELSON : [...] FINDINGS: Interpretation Site: [facility] Left Ventricle: Normal left ventricular size. [...] regurgitation. Electronically Signed By: Gasper Peña MD, [facility] 10/04/2024 12:22:45 PM CRIMPER ASSEMBLER 70 Procedure Note Gasper Peña MD - 10/04/2024 [facility] Cardiology [address] [facility], [address], [place] [address] P:[phone] P:[phone] Echocardiographic Report Patient Name: Cynthia NIELSON : [...] FINDINGS: Interpretation Site: [facility]am [facility]. Left Ventricle: Normal left ventricular size. [...] regurgitation. Electronically Signed By: Gasper Peña MD, [facility] 10/04/2024 12:22:45 PM CRIMPER ASSEMBLER 70 Jaki Ritter MD CV ECHO PROCEDURES Elle l Result * Electrocardiogram Report (09/25/2024 10:25 AM CRIMPER ASSEMBLER) us Jaki Ritter MD ECG ORDERABLES Final R esult from Last 3 Months Insurance MEDICARE [facility] [employer] CHOICE MEDICARE PPO Care Teams Dewer Relationship Specialty Start Date End Date Munira Greenberg NP [address] [place] [address] [place] [address] PCP - General Nurse Practitioner 06/18/21
--- OUTSIDE RECORDS SUMMARY | 2024-11-15 13:26 | XMS_ITS | Clinical Summary ---
Author Organization [facility] Address [address] [place] [address] Phone Care Team Providers Care Entertainment Musician Name Role Phone Munira Greenberg [facility] Primary Care Provider Allergies Active Allergy Reactions Criticality Noted Date Comments Amoxicillin Hives High 08/11/2016 Unclassified Drug Nausea and Vomiting Low 6 Medications zolpidem (AMBIEN CR) 12.5 mg Controlled Release tablet Take 12.5 mg by mouth nightly as needed for Insomnia. Active tiZANidine (ZANAFLEX) 4 mg Capsule Take 4 mg by mouth daily at bedtime . Active ERGOCALCIFEROL, VITAMIN D2, (VITAMIN D ORAL) Take 50,000 mg by mouth. Active busPIRone (BUSPAR) 10 mg tablet Take 10 mg by mouth 3 times daily. Active triamterene-hyd rochlorothiazid e (DYAZIDE) 37.5-25 mg capsule Take 1 Cap by mouth daily early morning babysitter. Active desvenlafaxine (PRISTIQ) 50 mg Extended Release 24 hour tablet Take 50 mg by mouth daily with breakfast. Active DULoxetine (CYMBALTA) 60 mg Capsule, Delayed Release(E.C.) Take 60 mg by mouth daily. Active simvastatin (ZOCOR) 40 mg tablet Take 40 mg by mouth daily at bedtime . Active SUMAtriptan (IMITREX) 50 mg tablet Take 50 mg by mouth every 2 hours as needed for Headaches may repeat in 2 hours; max dose 200mg in 24 hours . Active HYDROcodone-tabatha taminophen (NORCO) 10-325 mg Tablet Take 1 Tab by mouth every 4 hours as needed for Pain, Moderate. Active esomeprazole (NEXIUM) 40 mg Capsule, Delayed Release(E.C.) Take 40 mg by mouth 2 times daily. Active ergocalciferol (VITAMIN D2) 50,000 unit capsule Take 50,000 Units by mouth every 2 weeks. Active losartan (COZAAR) 50 mg tablet Take 50 mg by mouth daily. Active FOLIC ACID ORAL Take by mouth. Active gabapentin (NEURONTIN) 100 mg capsuleIndicati ons:Malignant neoplasm of upper-outer quadrant of right breast in female, estrogen receptor positive (CMS/HCC) Take 100 mg by mouth 3 times daily. Active nebivolol (BYSTOLIC) 5 mg Tablet Take 5 mg by mouth daily. Active albuterol HFA 90 mcg inhaler albuterol sulfate HFA 90 mcg/actuation aerosol inhaler INHALE 2 PUFFS BY MOUTH FOUR TIMES DAILY NEEDED Active clotrimazole-be tamethasone (LOTRISONE) 1-0.05 % Cream clotrimazole-bet amethasone 1 %-0.05 % topical cream APPLY TO THE AFFECTED AND SURROUNDING AREAS OF SKIN BY TOPICAL ROUTE 2 TIMES PER DAY IN THE MORNING AND EVENING FOR 2 WEEKS Active fluticasone propionate (FLONASE) 50 mcg/spray Economy, Suspension nasal inhaler fluticasone propionate 50 mcg/actuation nasal spray,suspension Use 2 sprays in each nostril once daily in the morning Active golimumab (Simponi ARIA) 12.5 mg/mL Solution Simponi Aria 50 MG/4ML Intravenous Solution QTY: 0 Days: 0 Refills: 0 Written: 03/31/20 Patient Instructions: use as directed from Dr. Gay 0 Active insulin glargine (Lantus Solostar U-100 Insulin) 100 unit/mL pen syringe Lantus SoloStar 100 UNIT/ML Subcutaneous Solution Pen-injector QTY: 0 Days: 0 Refills: 0 Written: 03/12/19 Patient Instructions: 15 u subq in the evening Munira Greenberg NP 9 Active methotrexate (RHEUMATREX) 2.5 mg Tablet Methotrexate 2.5 MG Oral Tablet QTY: 0 tablet Days: 0 Refills: 0 Written: 03/20/18 Patient Instructions: 10 tabs once a week -- Dr. Gay -- [address] Pack 8 Active naproxen (EC-Naprosyn) 500 mg Tablet, Delayed Release (E.C.) EC-Naproxen 500 MG Oral Tablet Delayed Release QTY: 15 tablet Days: 30 Refills: 3 Written: 12/18/19 Patient Instructions: as directed --1 tab a day with food as needed for headaches 0 Active raloxifene (EVISTA) 60 mg tablet TAKE 1 TABLET BY MOUTH EVERY DAY 90 Tablet 3 0 Active rimegepant (Nurtec ODT) 75 mg Tablet, Rapid Dissolve Take by mouth. Active Active Problems Patient Care Coordination No te Formatting of this note migh t be different from the original. Primary Care: Alix Morales ANP Referring Provider: Alix Morales ANP [address] [address] Other: Dr Candi Awad Problem Noted Date Diagnosed Date Malignant neoplasm of upper- outer quadrant of right female breast 12/24/2015 Overview (08/11/2016): Stage: Clinical T1 N0; pT1c N1 Date of diagnosis: 12/24/15 Diagnosis: right 1.6 cm IDC 1/2 LN ER(+) MD(+) HER 2 (-) Ki-76 21% Surgeon: Delmi Surgery: 01/18/16: right lump/SLN Medical Oncologist: Brad Oncotype: low RS (13) Chemotherapy: none Radiation Oncologist: Liliane Radiation: standard + boost Hormonal therapy: started letrozole on 04/2016 Left breast lump 05/06/2015 Family History Medical History Relation Name Comments Breast Cancer Paternal Aunt Breast Cancer Paternal Uncle Ovarian Cancer Neg Hx Uterine Cancer Neg Hx Relation Name Status Comments Paternal Aunt Paternal Uncle Social History Tobacco Use Types Packs/Day Years Used Date Smoking Tobacco: Never Smokeless Tobacco: Never Tobacco Cessation:Counseling Given: No Alcohol Use Standard Drinks/Week Comments Yes 0 (1 standard drink = 0.6 oz pur e alcohol) rarely Comments No Sex and Gender Information Value Date Recorded Sex Assigned at Not on file Legal Sex Female 4:29 AM INFORMATICS PHARMACIST Gender Identity Not on file Sexual Orientation Not on file Last Filed Vital Signs Vital Sign Reading Time Taken Comments Blood Pressure 125/73 10/29/2020 10:42 AM INFORMATICS PHARMACIST Pulse 79 10/29/2020 10:42 AM INFORMATICS PHARMACIST Temperature 36.4 ??C (97.5 ??F) 10/29/2020 10:[address] Respiratory Rate 16 02/14/2017 10:35 AM CDT Oxygen Saturation 98% 10/29/2020 10:42 AM INFORMATICS PHARMACIST Inhaled Oxygen Concentration - - Weight 97.1 kg (214 lb) 10/29/2020 10:42 AM INFORMATICS PHARMACIST Height 165.1 cm (5' 5 ) 10/29/2020 10:42 AM INFORMATICS PHARMACIST Body Mass Index 35.61 10/29/2020 10:42 AM INFORMATICS PHARMACIST Plan of Treatment Health Maintenance Due Date Last Done Comments DIABETES ANNUAL FOOT EXAM 1963 DIABETES ANNUAL RETINAL EXAM 1963 DIABETES MICROALBUMIN ANNUAL SCREEN 1963 LDL CHOLESTEROL ANNUAL 1963 ZOSTER VACCINE (2 of 3) 12/02/2011 10/07/2011 DTAP/TDAP/TD VACCINES (2 - T d or Tdap) 11/08/2020 11/08/2010 RSV VACCINE (60+ or ) (1 - 1-dose 75+ series) 2022 DIABETES HBA1C Q 6 MONTHS 06/06/20222021, 03/29/2021, 08/25/2020, Additional history exists INFLUENZA VACCINE (#1) 2024 , 08/11/2020, 09/26/2018, Additional history exists COVID-19 Vaccine (2 - 2023-2 5 season) 2024 08/20/2021 OSTEOPOROSIS SCREENING Completed 09/04/2014 PNEUMOCOCCAL VACCINE 65+ YEARS Completed 1 11/27/2017, 08/12/2016, 11/19/2012 Insurance MEDICARE RAILROAD [facility] BLUE ACCESS/TRUE BLUE PPO Advance Directives For more information, please contact: [phone] * Full Code (Latest Code Status on File) Date Activated Date Inactivated Comments 01/18/2016 9:45 AM 01/18/2016 7:03 PM Care Teams Entertainment Musician Relationship Specialty Start Date End Date Munira Greenberg FNP [address] [phone] PCP - General Nurse Practitioner Family 06/06/19
== END 2024-11-15 13:16 | disposition home or self-care (01) ==
DX: N63.21 Unspecified lump in the left breast, upper outer quadrant (principal)
CPT/HCPCS: 76642; 77062; 77066; G0279

== ENCOUNTER 2024-11-25 08:42 | Outpatient (CLI) | payer MEDICARE, SELFPAY ==
--- NOTE | ~2024-11-25 | MMUS_ITS ---
EXAMINATION: 1. US breast biopsy LT w image 2. MM post biopsy diagnostic LT DATE: 11/25/2024 10:06 INDICATION: Left breast mass. TECHNIQUE: The procedure including the risks, benefits, and alternatives was discussed with the patie nt. Risks discussed included bleeding and infection. The patient understood the risks and agreed to p roceed. The skin of the left breast was prepped and draped in usual sterile fashion. Anesthetic was administered with 1% lidocaine at the skin and 1% lidocaine with epinephrine in the deeper tissue. A 10-gauge vacuum-assisted core biopsy needle was then used to obtain 4 core biopsy specimens under co ntinuous sonographic guidance. A Mammotome HydroMARK butterfly marker was placed under sonographic gu idance The entry site was cleaned and dressed. There were no immediate complications. A two-view mammogram was obtained to document marker placement. FINDINGS: Ultrasound images demonstrate the needle in a 2.5 cm mass in the left breast at 2:00. Breast composition: There are scattered areas of fibroglandular density. Mammogram: There is a mass in the upper outer left breast with marker within the mass. IMPRESSION: 1. Successful ultrasound-guided vacuum-assisted biopsy of a 2.5 cm mass in the left breast at 2:00 wi th post procedure mammogram for marker placement. Reviewed, dictated and finalized at location A. NG MACHINE TENDER IMPRESSION: 1. Successful ultrasound-guided vacuum-assisted biopsy of a 2.5 cm mass in the left breast at 2:00 with post procedure mammogram for marker placement.
--- OUTSIDE RECORDS SUMMARY | 2024-11-25 09:01 | XMS_ITS | Clinical Summary ---
Author Organization [facility] Address [address] [place] [address] Care Team Providers Care Sew Out Operator Name Role Phone Unavailable Primary Care Provider [...]
--- OUTSIDE RECORDS SUMMARY | 2024-11-25 09:01 | XMS_ITS | Data Portability ---
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 tizanidin e 4 mg tablet TAKE 1 TABLET BY MOUTH EVERY 6 HOURS NEEDED NO MORE THAN 3 TABLETS PER DAY 09/26 completed Not Available Not Available Not Available sumatript an 100 mg tablet TAKE 1 TABLET BY MOUTH 1 TIME. MAY REPEAT IN 2 HOURS IF SYMPTOMS PERSIST 2023 active Not Available Not Available Not Avai lable hydrocodo ne 5 mg-acetam inophen 325 mg tablet Take 1 tablet every 6 hours by oral route as needed. 12/01 completed 1/2 tab po daily prn. Dr. Stokes prn for headache . Not Available Not Available Not Available meloxicam 15 mg tablet Take 1 tablet every day by oral route. 04/14 completed arthriti s in both joints. Rheumato logy. Not Available Not Available Not Available phenazopy ridine 200 mg tablet Take 1 tablet 3 times a day by oral route as needed for 5 days. 11/17 completed Not Available Not Available Not Available gabapenti n 400 mg capsule TAKE 1 CAPSULE BY MOUTH THREE TIMES DAILY 06/24 completed Not Available Not Available Not Available atenolol 25 mg tablet TAKE ONE TABLET BY MOUTH ONCE DAILY. 01/18 completed Not Available Not Available Not Available Zithromax Z-Huy 250 mg tablet TAKE 2 TABLETS (500 MG) BY ORAL ROUTE ONCE DAILY FOR 1 DAY THEN 1 TABLET (250 MG) BY ORAL ROUTE ONCE DAILY FOR 4 DAYS active Not Available Not Available No t Available sumatript an 50 mg tablet TAKE 2 TABLETS BY MOUTH ONCE WITH FLUIDS EARLY POSSIBLE AFTER THE ONSET OF A MIGRAINE ATTACK; MAY REPEAT AFTER 2 HOURS IF HEADACHE RET 04/14 completed Not Available Not Available Not Available simvastat in 80 mg tablet 1 tab po nightly. 09/29 completed Not Available Not Available Not Available hydrocodo ne 10 mg-acetam inophen 325 mg tablet Take 1 tablet every 4 hours by oral route as needed. 09/28 completed PRN, Dr. Stokes prescrib es. Not Available Not Available Not Available triamtere ne 37.5 mg-hydroc hlorothia zide 25 mg capsule TAKE 1 CAPSULE BY MOUTH EVERY DAY 2023 active Not Available Not Available Not Avai lable simvastat in 40 mg tablet TAKE ONE TABLET BY MOUTH AT BEDTIME 09/29 completed Not Available Not Available Not Available fenofibra te micronize d 134 mg capsule Take one capsule by mouth daily 06/02 completed Not Available Not Available Not Available Kenalog 40 mg/mL suspensio n for injection Take 1 mL every day by injectio n route. 11/17 completed Not Available Not Available Not Available Macrobid 100 mg capsule Take 1 capsule every 12 hours by oral route for 7 days. 11/17 completed Not Available Not Available Not Available alprazola m 0.25 mg tablet TAKE ONE TABLET BY MOUTH DAILY NEEDED 08/03 completed Not Available Not Available Not Available cephalexi n 500 mg capsule Take by oral route. 08/25 completed Not Available Not Available Not Available esomepraz ole magnesium 40 mg capsule,d elayed release TAKE 1 CAPSULE BY MOUTH EVERY DAY 2024 active Not Available Not Available Not Avai lable nitrofura ntoin macrocrys eunice 100 mg capsule Take 1 capsule 3 times a day by oral route for 7 days. active Not Available Not Available No t Available buspirone 10 mg tablet TAKE 1 TABLET IN AM AND TAKE 2 TABLETS IN PM 03/[address] BAUTISTA TOMAS Not Available Not Available Not Available clotrimaz ole-betam ethasone 1 %-0.05 % topical cream APPLY TOPICALL Y TO THE AFFECTED AND SURROUND ING AREAS TWICE DAILY IN THE MORNING AND IN THE EVENING FOR 2 WEEKS 05/31 completed Not Available Not Available Not Available lansopraz ole 30 mg capsule,d elayed release TAKE ONE CAPSULE BY MOUTH TWO TIMES A DAY 04/13 completed Not Available Not Available Not Available Femara 2.5 mg tablet Take 1 tablet every day by oral route. 11/[address]Huq Nancy tomas (Oncolog y at [facility] Not Available Not Available Not Available gabapenti n 300 mg capsule TAKE 3 CAPSULES BY MOUTH EVERY DAY 05/12 completed Not Available Not Available Not Available triamtere ne 37.5 mg-hydroc hlorothia zide 25 mg tablet Take 1 tablet every day by oral route. 05/18 completed Not Available Not Available Not Available raloxifen e 60 mg tablet Take 1 tablet every day by oral route as directed . 11/20 completed Not Available Not Available Not Available diclofena c sodium 75 mg tablet,de layed release Take 1 tablet twice a day by oral route as needed for 30 days. 2023 active Not Available Not Available Not Avai lable folic acid 1 mg tablet Take 1 tablet every day by oral route as directed . 03/31 completed Not Available Not Available Not Available gabapenti n 100 mg capsule TAKE 1 CAPSULE BY MOUTH THREE TIMES DAILY 03/21 completed 100 mg po nightly. Not Available Not Available Not Available ergocalci ferol (vitamin D2) 1,250 mcg (50,000 unit) capsule TAKE 1 CAPSULE BY MOUTH EVERY 2 WEEKS 03/21 completed Not Available Not Available Not Available Transderm -Scop 1 mg over 3 days transderm al patch 1 patch to skin every 3 days for cruise. 05/12 completed Not Available Not Available Not Available albuterol sulfate HFA 90 mcg/actua tion aerosol inhaler INHALE 2 PUFFS BY MOUTH FOUR TIMES DAILY NEEDED 08/03 completed Not Available Not Available Not Available ketorolac 60 mg/2 mL intramusc ular solution Inject 1 mL every day by intramus cular route for 1 day. 11/17 completed Not Available Not Available Not Available hydrocodo ne 10 mg-acetam inophen 650 mg tablet Take 1 tablet every 4 hours by oral route for 30 days. 2012 active Not Available Not Available Not Avai lable losartan 100 mg tablet TAKE 1 TABLET BY MOUTH EVERY DAY DIRECTED 2024 active Not Available Not Available Not Avai lable fluticaso ne propionat e 50 mcg/actua tion nasal spray,kilo pension INSTILL 2 SPRAYS IN EACH NOSTRIL EVERY MORNING 03/21 completed Not Available Not Available Not Available amoxicill in 500 mg-potass ium clavulana te 125 mg tablet Take 1 tablet every 12 hours by oral route for 7 days. active Not Available Not Available No t Available Glucose Test strips 03/21 completed Not Available Not Available Not Available cyclobenz aprine 5 mg tablet TAKE ONE TABLET BY MOUTH EVERY MORNING AND AT NOON; TAKE 2 TABLETS EVERY EVENING NEEDED 09/26 completed pt states that Dr. Stokes told her to take this anymore Not Available Not Available Not Available rosuvasta tin 20 mg tablet TAKE 1 TABLET BY MOUTH EVERY NIGHT 2023 active Not Available Not Available Not Avai lable Spiriva with [employer] r 18 mcg and inhalatio n capsules Inhale 1 capsule every day by inhalati on route for 30 days. 01/18 completed PRN for SOB during radiatio n treatmen t Not Available Not Available Not Available duloxetin e 60 mg capsule,d elayed release Take 1 capsule every day by oral route. active Not Available Not Available No t Available omega-3 acid ethyl esters 1 gram capsule Take 2 capsules twice a day by oral route. 03/31 completed Not Available Not Available Not Available fenofibra te 160 mg tablet Take 1 tablet by mouth daily 2023 active Not Available Not Available Not Avai lable zolpidem ER 6.25 mg tablet,ex tended release,m ultiphase Take 1-2 tablet(s ) EVERY DAY by oral route. 07/11 completed Internal note: PT STATES TAKES 1 TABLET DAILYExt ernal note: DR. BAUM PRESCRIB ES Not Available Not Available Not Available zolpidem ER 12.5 mg tablet,ex tended release,m ultiphase Take 1 tablet every day by oral route. 2023 active Not Available Not Available Not Avai lable folic acid 11/17 completed Not Available Not Available Not Available methotrex ate 10 tabs po 1 day weekly 02/12 completed Not Available Not Available Not Available diclofena c sodium 03/31 completed Not Available Not Available Not Available cyclobenz aprine 5mg 08/04 completed Not Available Not Available Not Available buspirone three times daily 2023 active not sure mg Dr Baum prescrib es Not Available Not Available Not Available gabapenti n 300mg 05/18 completed Not Available Not Available Not Available Remicade injectio n for RA 01/01 completed Every 6 weeks Not Available Not Available Not Available Spiriva with [employer] 11/28 completed Not Available Not Available Not Available Januvia 100 mg tablet Take 1 tablet every day by oral route. 01/18 completed Not Available Not Available Not Available Lantus Solostar U-100 Insulin 100 unit/mL (3 mL) subcutane ous pen ADMINIST ER 25 UNITS UNDER THE SKIN EVERY NIGHT 2023 active Not Available Not Available Not Avai lable nebivolol 5 mg tablet TAKE 1 TABLET BY MOUTH EVERY DAY 2023 active Not Available Not Available Not Avai lable Pristiq 50 mg tablet,ex tended release Take 1 tablet every day by oral route for [address]. [address] Bautista tomas Not Available Not Available Not Available Treximet 85 mg-500 mg tablet Take 1 tablet as needed by oral route for 30 days. 2012 active Not Available Not Available Not Avai lable metformin ER 1,000 mg 24 hr tablet,ex tended release (gastric reten.) Take 1 tablet every day by oral route. 10/29 completed Not Available Not Available Not Available Trilipix 135 mg capsule,d elayed release Take 1 capsule every day by oral route for 30 days. active Not Available Not Available No t Available Tradjenta 5 mg tablet Take 1 tablet every day by oral route as directed for 90 days. 12/28 completed Not Available Not Available Not Available Vascepa 1 gram capsule Take 2 capsules twice a day by oral route. 03/22 completed Not Available Not Available Not Available Invokana 100 mg tablet Take 1 tablet every day by oral route. 11/02 completed Not Available Not Available Not Available Simponi ARIA 12.5 mg/mL intraveno us solution Inject by intraven ous route. 11/17 completed rheumato logist prescrib ing Not Available Not Available Not Available Simponi ARIA 04/14 completed Not Available Not Available Not Available methotrex ate (PF) 10 mg/0.2 mL subcutane ous auto-inje ctor Inject 0.2 mL every week by subcutan eous route. 03/22 completed Not Available Not Available Not Available Bydureon BCise 2 mg/0.85 mL subcutane ous auto-inje ctor Inject 2 mg every week by subcutan eous route. 01/18 completed Not Available Not Available Not Available Ozempic 0.25 mg or 0.5 mg (2 mg/1.5 mL) subcutane ous pen injector 0.25 mg inject sc weekly for 4 weeks, then 0.5 mg inject sc weekly for 4 weeks 03/21 completed Not Available Not Available Not Available OndangoTouch Ultra Blue Test Strip USE DIRECTED TO TEST BLOOD SUGAR DAILY TO TWICE DAILY 03/21 completed Not Available Not Available Not Available [facility] ODT 75 mg disintegr ating tablet Take 1 tablet every day by oral route as needed. 03/21 completed Not Available Not Available Not Available Mounjaro 2.5 mg/0.5 mL subcutane ous pen injector Inject 0.5 mL every week by subcutan eous route as directed for 28 days. 09/26 completed Not Available Not Available Not Available Ozempic 0.25 mg or 0.5 mg (2 mg/3 mL) subcutane ous pen injector INJECT 0.25 MG UNDER THE SKIN WEEKLY FOR 4 WEEKS, THEN 0.5 MG WEEKLY FOR 4 WEEKS active Not Available Not Available No t Available Vitals Date Recorded Body mass index (BMI) Body height Oxygen saturation Oxygen saturation in Arterial blood by Pulse oximetry Heart rate Respiratory rate Body temperature Body weight Systolic blood pressure Diastolic blood pressure Provider Name and Address Organization Details Last Updated DateTime 3 35.4 kg/m2 165.1 cm 96 % 96 % 70 /min 16 /min 96.7 [degF] 18083.7 4 g 140 mm[Hg] 91 mm[Hg] Not Available [facility] 3 06:13:04 Date Recorded Body height Body mass index (BMI) Body weight Body temperature Heart rate Oxygen saturation Oxygen saturation in Arterial blood by Pulse oximetry Pain severity - 0-10 verbal numeric rating [Score] - Reported Respiratory rate Systolic blood pressure Diastolic blood pressure Provider Name and Address Organization Details Last Updated DateTime 3 165.1 cm 35.8 kg/m2 91420.3 6 g 96.7 [degF] 94 /min 96 % 96 % 3 20 /min 152 mm[Hg] 84 mm[Hg] Munira Jasmine RN [facility] [employer] 3 12:42:54 Date Recorded Systolic blood pressure Diastolic blood pressure Provider Name and Address Organization Details Last Updated DateTime 03/31/2023 142 mm[Hg] 88 mm[Hg] Munira Lockwood NP [address] [facility] [address], [place], [address], [place] [employer] [facility] [employer] 03/31/2023 13:21:26 Date Recorded Body height Body mass index (BMI) Body weight Body temperature Heart rate Respiratory rate Oxygen saturation Oxygen saturation in Arterial blood by Pulse oximetry Pain severity - 0-10 verbal numeric rating [Score] - Reported Systolic blood pressure Diastolic blood pressure Provider Name and Address Organization Details Last Updated DateTime 3 165.1 cm 35.1 kg/m2 53647.9 9 g 95.3 [degF] 75 /min 16 /min 94 % 94 % 0 150 mm[Hg] 84 mm[Hg] Munira Jasmine RN [facility] [employer] [facility] 3 10:44:20 Date Recorded Body height Body mass index (BMI) Body weight Body temperature Heart rate Oxygen saturation Oxygen saturation in Arterial blood by Pulse oximetry Systolic blood pressure Diastolic blood pressure Provider Name and Address Organization Details Last Updated DateTime 4 165.1 cm 36.2 kg/m2 72096.6 4 g 98.6 [degF] 93 /min 97 % 97 % 154 mm[Hg] 86 mm[Hg] [place] Deshpande MA [facility] [employer] [facility] 4 10:05:12 Date Recorded Body height Body mass index (BMI) Body weight Body temperature Heart rate Respiratory rate Oxygen saturation Oxygen saturation in Arterial blood by Pulse oximetry Pain severity - 0-10 verbal numeric rating [Score] - Reported Systolic blood pressure Diastolic blood pressure Provider Name and Address Organization Details Last Updated DateTime 4 165.1 cm 35.7 kg/m2 00117.5 7 g 96.6 [degF] 80 /min 24 /min 94 % 94 % 1 172 mm[Hg] 98 mm[Hg] Munira Jasmine RN [facility] [employer] [facility] 4 10:20:48 Social History Question Answer Notes LastModified by Organization Details LastModified Time Tobacco Smoking Status Never Smoker Not Available [facility] 12/21/2022 06:09:42 Do You Have An Advance Directive? No [id number] Information not available 12/21/2022 What Is Your Level Of Alcohol Consumption? Occasional [id number] Information not available 12/21/2022 Are You Blind Or Do You Have Difficulty Seeing? No [id number] Information not available 12/21/2022 What Is Your Level Of Caffeine Consumption? None MIGRATION.0301 [id number] Information not available 12/21/2022 What Is Your Code Status? Full Code [id number] [id number] Information not available 12/21/2022 In The 14 Days Before Symptom Onset, Have You Had Close Contact With A Laboratory-confi rmed COVID-19 While That Case Was Ill? No MIGRATION.0301 [id number] Information not available 12/21/2022 In The 14 Days Before Symptom Onset, Have You Had Close Contact With A Person Who Is Under Investigation For COVID-19 While That Person Was Ill? No MIGRATION.0301 [id number] Information not available 12/21/2022 Are You Deaf Or Do You Have Serious Difficulty Hearing? Yes Tenitis MIGRATION.0301 [id number] Information not available 12/21/2022 What Type Of Diet Are You Following? REGULAR MIGRATION.0301 [id number] Information not available 12/21/2022 What Is Your Occupation? Retired MIGRATION.0301 [id number] Information not available 12/21/2022 How Many Days Of Moderate To Strenuous Exercise, Like A Brisk Walk, Did You Do In The Last 7 Days? 2 [employer] Information not available 03/31/2023 On Those Days That You Engage In Moderate To Strenuous Exercise, How Many Minutes, On Average, Do You Exercise? 45 Information not available 03/31/2023 Have There Been Any Changes To Your Family Or Social Situation? No MIGRATION.0301 [id number] Information not available 12/21/2022 Do You Use Insect Repellent Routinely? Yes MIGRATION.0301 [id number] Information not available 12/21/2022 [facility] 03/31/2023 Are You Following A Low Salt Diet? Yes MIGRATION.0301 [id number] Information not available 12/21/2022 Do You Have A Medical Power Of Inventory Control Coordinator? Yes MIGRATION.0301 599110 Information not available 12/21/2022 Do You Have Any Pets? Yes MIGRATION.0301 [id number] Information not available 12/21/2022 What Is Your Relationship Status? Single MIGRATION.0301 [id number] Information not available 12/21/2022 Do You Use Your Seat Belt Or Car Seat Routinely? Yes MIGRATION.0301 [id number] Information not available 12/21/2022 Do You Have Smoke And Carbon Monoxide Detectors In Your Home? Yes MIGRATION.0301 [id number] Information not available 12/21/2022 Are There Any Smokers In Your House? No MIGRATION.0301 225893 Information not available 12/21/2022 Do You Participate In Social Media? No MIGRATION.0301 [id number] Information not available 12/21/2022 What Types Of Sporting Activities Do You Participate In? Treadmill, Chair Yoga Information not available 03/31/2023 Do You Feel Stressed (tense, Restless, Nervous, Or Anxious, Or Unable To Sleep At Night)? [id number] MIGRATION.0301 [id number] Information not available 12/21/2022 Do You Use Any Illicit Or Recreational Drugs? No MIGRATION.0301 [id number] Information not available 12/21/2022 Do You Use Sunscreen Routinely? Yes MIGRATION.0301 164518 Information not available 12/21/2022 Has Tobacco Cessation Counseling Been Provided? No MIGRATION.0301 [id number] Information not available 12/21/2022 Have You Recently Traveled Abroad? No MIGRATION.0301 000421 Information not available 12/21/2022 Do You Have Any Dietary Restrictions? Yes MIGRATION.0301 [id number] Information not available 12/21/2022 Do You Or Have You Ever Used Any Other Forms Of Tobacco Or Nicotine? No MIGRATION.0301 [id number] Information not available 12/21/2022 Sex: Female Functional Status Question Answer Note LastModified by Organizat ion Details LastModified Time Do you have difficulty walking or climbing stairs? No [id number] 026 Information not available 12/21/2022 Do you have transportation difficulties? No MIGRATION.[id number] 026 Information not available 12/21/2022 Are you able to walk? YESWOREST [id number].[id number] 026 Information not available 12/21/2022 Do you have difficulty doing errands alone? No MIGRATION.[id number] 026 Information not available 12/21/2022 Are you able to care for yourself? Yes [id number] 026 Information not available 12/21/2022 Do you have difficulty dressing or bathing? No MIGRATION.[id number] 026 Information not available 12/21/2022 What is your exercise level? Heavy MIGRATION.[id number] 026 Information not available 12/21/2022 Mental Status Question Answer Note LastModified by Organizat ion Details LastModified Time Do you have difficulty concentrating, remembering or making decisions? No [id number] Information not available 12/21/2022 Family History Relationship Description Onset Age of this Age Resolved Age Notes LastModified by Organization Details LastModified Time Mother Dementia Deceas ed [id number].[id number] Not available 12/21/2022 06:11:10 Notes:Mother had recurrent n osebleeds Medical History Condition Response DIABETES, TYPE Y ALLERGIES/HAYFEVER Y HEADACHES/MIGRAINES Y OBESITY Y ANXIETY DISORDER Y INSOMNIA Y HYPERTENSION Y HIGH CHOLESTEROL / HYPERLIPIDEMIA Y Gynecological History Statement/Question Response If Post Menopausal, Age at Menopause 55 Date of Last Mammogram 05/02/2022 Date of Last Colonoscopy Most Recent Bone Density 06/22/2022 Obstetrics History GPAL:G 0 P 0 0 0 0 Immunizations Vaccine Type Date Status Note Provider Nam e and Address Organization Details Recorded Time Influenza, high-dose, quadrivalent, PF 2 completed Not Available [facility] 12/21/2022 06:21:46 SARS-COV-2 (COVID-19) vaccine, UNSPECIFIED 2 completed Not Available [facility] 12/21/2022 06:21:46 SARS-COV-2 (COVID-19) vaccine, UNSPECIFIED 1 completed Not Available [facility] 12/21/2022 06:21:46 SARS-COV-2 (COVID-19) vaccine, UNSPECIFIED 1 completed Not Available [facility] 12/21/2022 06:21:46 pneumococcal polysaccharide PPV23 3 completed Not Available [facility] 12/21/2022 06:21:46 Influenza, split virus, trivalent, preservative 3 completed Not Available [facility] 12/21/2022 06:21:46 zoster live 1 completed Not Available [facility] 12/21/2022 06:21:46 Tdap 1 completed Not Available [facility] 12/21/2022 06:21:47 Influenza, high-dose, quadrivalent, PF 1 completed Not Available [facility] 12/21/2022 06:21:47 Td (adult), 5 Lf tetanus toxoid, preservative free, adsorbed 3 completed Not [facility] 12/21/2022 06:21:47 Influenza, high-dose, quadrivalent, PF 0 completed Not Available [facility] 12/21/2022 06:21:47 pneumococcal polysaccharide PPV23 8 completed Not Available [facility] 12/21/2022 06:21:47 Influenza, high-dose, trivalent, PF 8 completed Not [facility] 12/21/2022 06:21:47 Pneumococcal conjugate PCV 13 6 completed Not Available [facility] 12/21/2022 06:21:47 Influenza, high-dose, quadrivalent, PF 4 completed YUNG Lowry, [place] - [facility] Saqina [facility] 03/21/2024 17:35:08 Past Encounters Encounter ID Performer Location Encounter Start Date Encounter Closed Date Diagnosis/Indication Diagnosis SNOMED-CT Code Diagnosis ICD10 Code Diagnosis Note [id number] [facility]_[address] [address] 05/18/2021 00:00:00 05/18/2021 16:56:[id number] [address] 06/24/2021 00:00:00 06/24/2021 14:15:49 [id number] [facility]_[address] [address] 1 07/27/2021 00:00:00 07/27/2021 13:41:32 [id number] [facility]_[address] [address] 1 07/28/2021 00:00:00 07/28/2021 15:56:19 [id number] [facility]_[address] [address] 11/17/2021 00:00:00 11/17/2021 15:00:15 [id number] [facility] Bob [address] [place] [id number] 1 06/16/2022 00:00:00 06/17/2022 15:47:52 [id number] S_[facility] Bob [address] [place] [id number] 1 07/28/2022 00:00:00 07/28/2022 11:07:33 [id number] S_GMG [facility] Jones Thurston [address] [place] [address] 08/04/2022 00:00:00 08/04/2022 11:23:20 [id number] S_[facility] [address] [address] 08/25/2022 00:00:00 08/25/2022 11:00:04 [id number] [facility]_G [address] [address] 1 12/01/2022 00:00:00 12/01/2022 17:56:30 [id number] Munira Lockwood NP [address] [address] 03/31/2023 12:32:52 03/31/2023 14:31:05 Essential hypertension 19351541 I10 Gastroesop hageal reflux disease 385783053 K21.9 Hyperlipidemia 91765455 E78.5 trigs 400+ in december 2022. Osteoarthritis 736536918 M19.90 Depressive disorder 3548 9007 F32.9 Type 2 oli betes mellitus 62976069 E11.9 Rheumatoid arthritis 698 05360 M06.9 Vitamin D deficiency 347 42967 E55.9 Chronic ki dney disease stage 3B 251286469 N18.[address] Juan. [place] [facility] [place] if [place] office avail. If not, call office to change referral. Candidiasis of vagina 72 708996 B37.31 Allergy to diflucan. Will try monastat. Vaginal irritation 57861 6004 N89.8 [id number] Munira Lockwood NP [address] [address] 05/31/2023 10:23:45 05/31/2023 11:15:28 Essential hypertension 41883396 I10 Losartan 100 mg po daily.Nebi volol 5 mg po daily.tria mterene 37.5 mg- hctz 25 mg po daily. Gastroesop hageal reflux disease 668655077 K21.9 Nexium 40 mg po daily. Hyperlipidemia 78377633 E78.5 trigs 400+ in december 2022.Fenof ibrate 160 mg po daily.Rosu vastatin 20 mg po nightly. Osteoarthritis 316373274 M19.90 Stable Depressive disorder 3548 9007 F32.9 buspirone 10 mg, 2 tab po in AM and 1 tab in PMPristiq 50 mg po [address]Dr. Baum. Type 2 oli betes mellitus 25708820 E11.9 Gabapentin 100 mg po tid, pt takes 100 mg po nightly.La ntus solostar 25 units nightly.Oz empic 0.5 mg weekly. Rheumatoid arthritis 698 68817 M06.9 Stable Vitamin D deficiency 347 63938 E55.9 Vit d 50,000 IU po weekly. Chronic ki dney disease stage 3B 058158601 N18.[address] Juan. [place] [facility] [place] if [place] office avail. If not, call office to change referral. Migraine 22476772 G43.90 9 Sumatripta n 100 mg po prn.Tizani dine prn. Insomnia 730891850 G47.0 0 Zolpidem ER 12.5 mg po nightly prn. [id number] TANIKA Alberts [address] [address] 03/21/2024 09:52:05 03/21/2024 12:29:11 Type 2 diabetes mellitus 77300595 E11.9 Recommende huy Adams, would like to wait due to yeast infection risks Will consider weaning off insulin pending A1C in 90 days Dyspnea at rest 94875622 7 R06.00 Will consider cardio consult Hyperlipidemia 52177799 E78.5 Screening mammography 24 561710 Z12.31 Screening for osteoporosis 821870479 Z13.820 Essential hypertension 27030294 I10 Administra tion of influenza vaccine 81206879 Z23 [id number] TANIKA Alberts [facility] [address] [address] 09/26/2024 09:57:36 09/26/2024 11:12:35 Essential hypertension 60027533 I10 Blood pressure elevated to 172/98 in office today but reportedly normal in cardiology office yesterday. Already on maximum dose of losartan 100mg daily. Additional ly on nebivolol 5 mg daily and triamteren e 37.5-HCTZ 25 mg daily. Hyperlipidemia 50383167 E78.5 Taking fenofibrat e 160mg daily and rosuvastat in 20 mg daily. Type 2 oli betes mellitus 43290386 E11.9 Recommende huy Adams, would like to wait due to yeast infection risks Will consider weaning off insulin pending A1C in 90 days Sleep apnea 20905592 G47 .30 Significan t fatigue in the morning and throughout the day with elevated blood pressure, risk factor (obesity), and elevated blood pressure concerning for sleep apnea. Stable angina 482629197 I20.89 Shortness of breath and chest discomfort with effort worsening over the last year. Is following with cardiology (Dr. Ritter at [facility] in [facility]) with plans for TTE on 10/[address] on 10/21. Migraine 19040497 G43.90 9 Bilateral anterior headaches in the morning. Likely component of teeth-grin ding at night but it is possible that sleep apnea and elevated blood pressures are contributi ng. Can take sumatripta n 100 mg tablet for episodes if necessary. Health Concerns Section Related Observation LastModified by Organization Detai ls LastModified Time None Recorded Concern Status LastModified by Organization Details LastModified Time None Recorded Advance Directives Directive N: Payers Encounter Date Sequence Insurance Name Policy Number Policy Ortega Covered Member ID Ortega Member ID Guarantor Name 03/31/2023 2 [facility]IC[facility] Cynthia Nielson [id number] 1 Cynthia Nielson 03/31/[address] [facility] (INDEMNITY) [id number] L Edgar Nielson [id number] L Yaima Nielson 05/31/2023 2 MEDICARE B: [employer] - RAILROAD MEDICARE L E Edward [id number] 1 L Yaima Nielson 05/31/2023 2 [employer] (INDEMNITY) [id number] L Edgar Nielson [id number] L Yaima Nielson 03/21/2024 2 MEDICARE B: [employer] - RAILROAD MEDICARE L E Edward [id number] 1 L Yaima Nielson 03/21/2024 1 [employer] CLAIM[employer] OFFICE Yaima Nielson [id number] L Yaima Nielson 09/26/2024 2 MEDICARE B: [employer] - RAILROAD MEDICARE L E Edward [id number] 1 L Yaima Nielson 09/26/2024 1 [employer] OFFICE Yaima Nielson [id number] L Yaima Nielson Notes Date Note Type Note Provider Name and Address Organization Details Recorded Time 03/31/2023 text/html Here for 6 mo ch maykel up. HTN-good. Not checking at homemigraine- has been on diclofenacDM- Labs due now. Has been hungry and keeps eating. On lantus. Glucometer is not working.Vaginal irritation- some itch, burning. Unsure if uti. Tried monistat last week. Still symptoms.gerd- stable.arthritis/RA- stable.Depression- seeing psych.Vit d- on supplementCKD- hasn't been to nephrology. Divya has her on diclofenac for migraines. Patient wasn't aware it is an NSAID and this can further harm her kidneys. States she was given sample of qulipita Colonoscopy- diverticuli identified.Mammogram - scheduled April 2023. Munira Lockwood, [employer] [address] [facility], [facility] [address], [place], [address], [place] [employer] 04/05/2023 13:57:19 05/31/2023 text/html Here for check u p 2-3 mo. HTN- stable. No cp or headache or blurred vision.Gerd- nexium stable.Lipid- trigs have reduced with reduction in sweets.Arthritis- Stable. Weather change is the difference.Depressio n-DMII- 131 fasting. Has been feeling good. High was 141 after eating cherries the night before. Ozempic 0.5 mg and steady with A1C 6.5. Pt doesn't wish to risk nausea or constipation at a higher dose.RA- Stable.Vit d def- vit d weekly.CKD- Seeing Dr. Paulson. exercising at [facility] 3 days weekly. Munira Lockwood NP [address] [facility], [facility] [address], [place], [address], [facility] [place] [employer] [facility] 05/31/2023 11:11:02 03/21/2024 text/html Yaima Nielson is a 78 year old female patient here today to transition care. She was previously under the care of Munira Lockwood DNP. She has concerns today with SOB and the inability to take a good deep breath. She has a history of anxiety and depression. She was seeing psych (Dr. Baum) in the past. Her PHQ 2/9 score today is 5. She is currently taking desvenlafaxine and buspar. She has a history of hyperlipidemia. Her last lipid panel (05/25/2023) resulted triglycerides 272. She is currently taking rosuvastatin 20 mg PO HS. She has a history of Type II DM. Her last A1C (05/25/2023) was 6.5. She is currently taking Lantus insulin for the past 2-3 years 25u every day. Interested in starting Mounjaro for weight loss and better diabetic control. She has a history of hypertension. Her BP on arrival is 154/86. She is currently taking triamterene 37.5 - HCTZ 25 mg PO daily, losartan 100 mg PO daily and nebivolol 5 mg PO daily. She has a history of migraine headaches. She currently takes sumatriptan as an abortive PRN. She admits to migraines 4-5x per month. She knows her triggers. She has CKD3 she sees nephrology (Dr. Banks) Flu shot: will administer todayCOVID vaccines: 11/2020, 12/2020, 07/2022Tdap: nuemoccocal: PCV13 (07/2016), PPV23 (09/2018)Shingrix: 09/2011Mammogram: 04/2023, will order todayDEXA: 06/22/2022, ordered for 4Colonoscop y: cologuard and colonoscopy last year Yoana Lauren, DIGITAL TRAFFIC COORDINATOR [address] [facility], [facility] [address], [place], [address], [facility] [employer] [facility] 04/05/2024 12:13:26 09/26/2024 text/html Yaima Nielson is a 78 year old female patient here today for a 6 month FU She saw a concrete block layer (Dr. Ritter at [facility] in [place]) yesterday for angina, she has testing scheduled. She notes shortness of breath with effort as well as chest discomfort that is mostly relieved with rest. Symptoms have been worsening over the past year. EKG yesterday was normal. She is scheduled for a TTE on 10/[address] on 10/21. She still feels symptoms today; she can't walk more than a few yards without having to breath through her mouth. She does have elevated BP today and a headache. She normally wakes up with a headache due to teeth grinding at night which improves with aspirin and breakfast and notes this feels similar to her normal headaches. She also notes significant fatigue when she wakes up in the morning that has been worsening over the last year. She has a history of anxiety and depression. She was seeing psych (Dr. Baum) in the past. Her PHQ 2/9 score today is 5. She is currently taking desvenlafaxine and buspar. She has a history of hyperlipidemia. Her last lipid panel (05/25/2023) resulted triglycerides 272. She is currently taking rosuvastatin 20 mg PO HS. She has a history of Type II DM. Her last A1C (05/25/2023) was 6.5. She is currently taking Lantus insulin for the past 2-3 years 25u every day. Interested in starting Mounjaro for weight loss and better diabetic control. She notes that she does not check her blood glucose and is not strict with her diet. She has a history of hypertension. Her BP on arrival is 154/86. She is currently taking triamterene 37.5 - HCTZ 25 mg PO daily, losartan 100 mg PO daily and nebivolol 5 mg PO daily. She has a history of migraine headaches. She currently takes sumatriptan as an abortive PRN. She admits to migraines 4-5x per month. She knows her triggers. She has CKD3 she sees nephrology (Dr. Banks). Flu shot: declines flu shot todayCOVID vaccines: 11/2020, 12/2020, 07/2022Tdap: nuemoccocal: PCV13 (07/2016), PPV23 (09/2018)Shingrix: 09/2011Mammogram: 04/2023, will order again todayDEXA: 06/22/2022, ordered for 06/22/2024 but still needs to getColonoscopy: cologuard and colonoscopy last year; colonoscopy was normal Yoana Lauren, DIGITAL TRAFFIC COORDINATOR [address] [facility] [address], [place], [address], [place] - [facility] 09/26/2024 11:29:04 OBGyn Episode No OBEpisode recorded.
--- OUTSIDE RECORDS SUMMARY | 2024-11-25 09:01 | XMS_ITS | Clinical Summary ---
Author Organization [facility] Address [address] [place] [phone] Care Team Providers Care Shot Blast Equipment Operator Name Role Phone Munira Greenberg BLOOD BANK LABORATORY PROFESSIONAL Primary Care Provider + Allergies Active Allergy [...] Department Care Team Description 11/13/2024 Orders Only [facility] Medical [facility] Cardiology [address] [place] [phone] Jaki Ritter MD 11/05/[address] [facility] Health Information Management [address] [place] [phone] Jaki Ritter MD 10/24/2024 Telephone [facility] Cardiology [address] [place] [address] [address] [place] [phone] Jaki Ritter MD 10/21/2024 11:51 AM CASHIER AND WAITER/WAITRESS - 10/21/2024 11:59 PM CASHIER AND WAITER/WAITRESS Hospital Encounter [facility] [address] [address] [address] Other chest pain; Dyspnea on exertion Discharge Disposition: Discharge to home or self care 10/17/2024 Telephone [facility] [address] [address] [address] Dariela Mejia RN 10/04/2024 9:15 AM CASHIER AND WAITER/WAITRESS Ancillary Procedure [facility] Cardiology at [address] [place] [phone] Other chest pain; Dyspnea on exertion 09/25/2024 9:45 AM CASHIER AND WAITER/WAITRESS Office Visit [facility] Medical Group Cardiology at [address] [phone] Jaki Ritter MD Other chest pain (Primary [...] on file Legal Sex Female 1:04 AM CASHIER AND WAITER/WAITRESS Gender Identity Not on file Sexual Orientation Not on file Occupation Industry Job Start Date Job End Date retired Not on file Not on file Not on file Obstetrics History Last Filed Vital Signs Vital Sign Reading Time Taken Comments Blood Pressure 124/65 10/21/2024 12:43 PM CASHIER AND WAITER/WAITRESS Pulse 75 10/21/2024 12:43 PM CASHIER AND WAITER/WAITRESS Temperature - - Respiratory Rate - - Oxygen Saturation 96% 09/25/2024 9:45 AM CASHIER AND WAITER/WAITRESS Inhaled Oxygen Concentration - - Weight 98 kg (216 lb) 09/25/2024 9:45 AM CASHIER AND WAITER/WAITRESS Height 165.1 cm (5' 5 ) 09/25/2024 9:45 AM CASHIER AND WAITER/WAITRESS Body Mass Index 35.94 09/25/2024 9:45 AM CASHIER AND WAITER/WAITRESS Plan of Treatment Health Maintenance Due Date [...] CARDIOLOGY DOCUMENT SCAN Routine 025 8:24 AM CASHIER AND WAITER/WAITRESS CARDIOLOGY DOCUMENT SCAN 11/05/2024 CT HEART MORPHOLOGY AND CORONARY ARTERIES W CONTRAST Schedule Routine, Read Routine (OP Routine) 10/21/2024 12:51 PM CASHIER AND WAITER/WAITRESS Other chest pain Dyspnea on exertion POC ISTAT Routine 10/21/2024 12:20 PM CASHIER AND WAITER/WAITRESS TRANSTHORACIC ECHO (TTE) COMPLETE W DOPPLER/CF WO CONTRAST Routine 10/04/2024 9:48 AM CASHIER AND WAITER/WAITRESS Other chest pain Dyspnea on exertion ELECTROCARDIOGRAM REPORT Routine 024 10:25 AM CASHIER AND WAITER/WAITRESS Other chest pain from Last 3 Months Results * Cardiology Document Scan (11/05/2024 8:24 AM CASHIER AND WAITER/WAITRESS) Anatomical Region Laterality Modality Other us Jaki Ritter MD CV CARDIAC SERVICES PRO CEDURES Final Result * Cardiology Document Scan (11/05/2024) Anatomical Region Laterality Modality Other us Jaki Ritter MD CV CARDIAC SERVICES PRO CEDURES Final Result * CTA Heart and Coronary Arteries W Morphology when Performed (10/21/2024 12:51 PM CASHIER AND WAITER/WAITRESS) Anatomical Region Laterality Modality Chest N/A Computed Tomogra phy 10/21/2024 2:03 PM CASHIER AND WAITER/WAITRESS Impressions 10/21/2024 2:32 PM CASHIER AND WAITER/WAITRESS 1. ??Mixed plaque within the mid right [...] Gasper Perrin M.D. Narrative 10/21/2024 2:32 PM CASHIER AND WAITER/WAITRESS EXAMINATION: CORONARY CT ANGIOGRAM HISTORY: 79-year-old woman [...] Electronically signed by: Gasper Perrin M.D. [facility] Mark Ritter MD IMG CT PROCEDURES Final Result * POC ISTAT (10/21/2024 12:20 PM CASHIER AND WAITER/WAITRESS) Creatinine, POC, bld 1.0 0.6 - 1.3 mg/dL POC Device Number [id number] [facility] POC Performer [id number] [facility] Blood 10/21/2024 12:2 0 PM CASHIER AND WAITER/WAITRESS 10/21/2024 12:20 PM CASHIER AND WAITER/WAITRESS Yoana Nicole NP LAB BLOOD ORDERABLES Fi nal Result [facility] [address] [facility]. [place] [address] * TRANSTHORACIC ECHO (TTE) COMPLETE W DOPPLER/CF WO CONTRAST (10/04/2024 9:48 AM CASHIER AND WAITER/WAITRESS) Anatomical Region Laterality Modality Ultrasound 10/04/2024 9:21 AM CASHIER AND WAITER/WAITRESS Narrative 10/04/2024 12:23 PM CASHIER AND WAITER/WAITRESS [facility] Medical Group Cardiology [address], [place] [address] P:[phone] P:[phone] Echocardiographic Report Patient Name: Cynthia NIELSON : [...] FINDINGS: Interpretation Site: Exam was interpreted at [facility]. Left Ventricle: Normal left ventricular size. [...] regurgitation. Electronically Signed By: Gasper Peña MD, [facility] 10/04/2024 12:22:45 PM CASHIER AND WAITER/WAITRESS 70 Procedure Note Gasper Peña MD - 10/04/2024 [facility] Medical Group Cardiology [address] [facility], [address], [place] [address] P:[phone] P:[phone] Echocardiographic Report Patient Name: Cynthia NIELSON : [...] FINDINGS: Interpretation Site: Exam was interpreted at [facility]. Left Ventricle: Normal left ventricular size. [...] regurgitation. Electronically Signed By: Gasper Peña MD, [facility] 10/04/2024 12:22:45 PM CASHIER AND WAITER/WAITRESS 70 Jaki Ritter MD CV ECHO PROCEDURES Elle l Result * Electrocardiogram Report (09/25/2024 10:25 AM CASHIER AND WAITER/WAITRESS) us Jaki Ritter MD ECG ORDERABLES Final R esult from Last 3 Months Insurance [facility] [facility]ICE MEDICARE PPO Care Teams Shot Blast Equipment Operator Relationship Specialty Start Date End Date Munira Greenberg NP [address] [place] [address] [place] [address] PCP - General Nurse Practitioner 06/18/21
--- OUTSIDE RECORDS SUMMARY | 2024-11-25 09:01 | XMS_ITS | Referral Summary ---
Author Organization [facility] Address [address] [place] [phone] Care Team Providers Care Data Support Specialist Name Role Phone Munira Greenberg SENIOR MECHANICAL DEVELOPMENT ENGINEER Primary Care Provider + Encounters Date Type Department Care Team Description 11/13/2024 Orders Only [facility] Medical [facility] Cardiology [address] [facility] [address] [place] [phone] Jaki Ritter MD 11/05/2024 Orders Only [facility] Health Information Management [address] [place] [address] Jaki iRtter MD 10/24/2024 Telephone [facility] Cardiology [address] [facility] [address] [place] [phone] Jaki Ritter MD 10/21/2024 11:51 AM HOME ENERGY CONSULTANT SUPERVISOR - 10/21/2024 11:59 PM HOME ENERGY CONSULTANT SUPERVISOR Hospital Encounter [facility] [address] [place] [address] Other chest pain; Dyspnea on exertion Discharge Disposition: Discharge to home or self care 10/17/2024 Telephone [facility] [address] [place] [address] Dariela Mejia RN 10/04/2024 9:15 AM HOME ENERGY CONSULTANT SUPERVISOR Ancillary Procedure [facility] Cardiology at [address] [place] [phone] Other chest pain; Dyspnea on exertion 09/25/2024 9:45 AM HOME ENERGY CONSULTANT SUPERVISOR Office Visit [facility] Cardiology at [address] [place] [phone] Jaki Ritter MD Other chest pain [...] on file Legal Sex Female 1:04 AM HOME ENERGY CONSULTANT SUPERVISOR Gender Identity Not on file Sexual Orientation Not on file Occupation Industry Job Start Date Job End Date retired Not on file Not on file Not on file Last Filed Vital Signs Vital Sign Reading Time Taken Comments Blood Pressure 124/65 10/21/2024 12:43 PM HOME ENERGY CONSULTANT SUPERVISOR Pulse 75 10/21/2024 12:43 PM HOME ENERGY CONSULTANT SUPERVISOR Temperature - - Respiratory Rate - - Oxygen Saturation 96% 09/25/2024 9:45 AM HOME ENERGY CONSULTANT SUPERVISOR Inhaled Oxygen Concentration - - Weight 98 kg (216 lb) 09/25/2024 9:45 AM HOME ENERGY CONSULTANT SUPERVISOR Height 165.1 cm (5' 5 ) 09/25/2024 9:45 AM HOME ENERGY CONSULTANT SUPERVISOR Body Mass Index 35.94 09/25/2024 9:45 AM HOME ENERGY CONSULTANT SUPERVISOR Plan of Treatment Not on file Procedures Procedure Name Priority Date/Time Associated Diagnosis Comments CARDIOLOGY DOCUMENT SCAN Routine 025 8:24 AM HOME ENERGY CONSULTANT SUPERVISOR CARDIOLOGY DOCUMENT SCAN 11/05/2024 CT HEART MORPHOLOGY AND CORONARY ARTERIES W CONTRAST Schedule Routine, Read Routine (OP Routine) 10/21/2024 12:51 PM HOME ENERGY CONSULTANT SUPERVISOR Other chest pain Dyspnea on exertion POC ISTAT Routine 10/21/2024 12:20 PM HOME ENERGY CONSULTANT SUPERVISOR TRANSTHORACIC ECHO (TTE) COMPLETE W DOPPLER/CF WO CONTRAST Routine 10/04/2024 9:48 AM HOME ENERGY CONSULTANT SUPERVISOR Other chest pain Dyspnea on exertion ELECTROCARDIOGRAM REPORT Routine 024 10:25 AM HOME ENERGY CONSULTANT SUPERVISOR Other chest pain from Last 3 Months Results * Cardiology Document Scan (11/05/2024 8:24 AM HOME ENERGY CONSULTANT SUPERVISOR) Anatomical Region Laterality Modality Other Jaki Ritter MD CV CARDIAC SERVICES PRO CEDURES Final Result * Cardiology Document Scan (11/05/2024) Anatomical Region Laterality Modality Other Jaki Ritter MD CV CARDIAC SERVICES PRO CEDURES Final Result * CTA Heart and Coronary Arteries W Morphology when Performed (10/21/2024 12:51 PM HOME ENERGY CONSULTANT SUPERVISOR) Anatomical Region Laterality Modality Chest N/A Computed Tomogra phy 10/21/2024 2:03 PM HOME ENERGY CONSULTANT SUPERVISOR Impressions 10/21/2024 2:32 PM HOME ENERGY CONSULTANT SUPERVISOR 1. ??Mixed plaque within the mid right [...] Gasper Perrin M.D. Narrative 10/21/2024 2:32 PM HOME ENERGY CONSULTANT SUPERVISOR EXAMINATION: CORONARY CT ANGIOGRAM HISTORY: 79-year-old woman [...] Result * POC ISTAT (10/21/2024 12:20 PM HOME ENERGY CONSULTANT SUPERVISOR) Creatinine, POC, bld 1.0 0.6 - 1.3 mg/dL POC Device Number [id number] [facility] POC Performer [id number] [facility] Blood 10/21/2024 12:2 0 PM HOME ENERGY CONSULTANT SUPERVISOR 10/21/2024 12:20 PM HOME ENERGY CONSULTANT SUPERVISOR Yoana Nicole NP LAB BLOOD ORDERABLES Fi nal Result [facility] [address] [facility] [address] * TRANSTHORACIC ECHO (TTE) COMPLETE W DOPPLER/CF WO CONTRAST (10/04/2024 9:48 AM HOME ENERGY CONSULTANT SUPERVISOR) Anatomical Region Laterality Modality Ultrasound 10/04/2024 9:21 AM HOME ENERGY CONSULTANT SUPERVISOR Narrative 10/04/2024 12:23 PM HOME ENERGY CONSULTANT SUPERVISOR [facility] Medical Group Cardiology [address], [address], [place] [address] P:[phone] P:[phone] Echocardiographic Report Patient Name: Cynthia NIELSON : [...] FINDINGS: Interpretation Site: Exam was interpreted at [facility]. Left Ventricle: Normal left ventricular size. [...] regurgitation. Electronically Signed By: Gasper Peña MD, [facility] 10/04/2024 12:22:45 PM HOME ENERGY CONSULTANT SUPERVISOR 70 Procedure Note Gasper Peña MD - 10/04/2024 [facility] Medical Group Cardiology [address] [facility] [address], [address], [place] [address] P:[phone] P:[phone] Echocardiographic Report Patient Name: Cynthia NIELSON : [...] FINDINGS: Interpretation Site: Exam was interpreted at [facility]. Left Ventricle: Normal left ventricular size. [...] regurgitation. Electronically Signed By: Gasper Peña MD, [facility] 10/04/2024 12:22:45 PM HOME ENERGY CONSULTANT SUPERVISOR 70 Jaki Ritter MD CV ECHO PROCEDURES Elle l Result * Electrocardiogram Report (09/25/2024 10:25 AM HOME ENERGY CONSULTANT SUPERVISOR) Jaki Ritter MD ECG ORDERABLES Final R esult from Last 3 Months Insurance MEDICARE RAILROAD BLUE [facility] Address: [address] [place] [address] [employer] CHO[employer] MEDICARE PPO Care Teams Data Support Specialist Relationship Specialty Start Date End Date Munira Greenberg NP [address] [place] [address] [place] [address] PCP - General Nurse Practitioner 06/18/21
--- OUTSIDE RECORDS SUMMARY | 2024-11-25 09:01 | XMS_ITS | Clinical Summary ---
Author Organization [facility] [place] Address [address] [place] [phone] Phone Care Team Providers Care Block Operator Name Role Phone Munira Greenberg [facility] Primary Care Provider Allergies Active Allergy Reactions [...] capsule Take 1 Cap by mouth daily computer programming manager. 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 Overview (08/11/2016): Stage: Clinical T1 N0; pT1c N1 Date of diagnosis: 12/24/15 Diagnosis: right 1.6 cm IDC 1/2 LN ER(+) VT(+) HER 2 (-) Ki-76 21% Surgeon: Delmi [...] on file Legal Sex Female 4:29 AM AUTO REBUILDER Gender Identity Not on file Sexual Orientation Not on file Last Filed Vital Signs Vital Sign Reading Time Taken Comments Blood Pressure 125/73 10/29/2020 10:42 AM AUTO REBUILDER Pulse 79 10/29/2020 10:42 AM AUTO REBUILDER Temperature 36.4 ??C (97.5 ??F) 10/29/2020 10:[address] Respiratory Rate 16 02/14/2017 10:35 AM CDT Oxygen Saturation 98% 10/29/2020 10:42 AM AUTO REBUILDER Inhaled Oxygen Concentration - - Weight 97.1 kg (214 lb) 10/29/2020 10:42 AM AUTO REBUILDER Height 165.1 cm (5' 5 ) 10/29/2020 10:42 AM AUTO REBUILDER Body Mass Index 35.61 10/29/2020 10:42 AM AUTO REBUILDER Plan of Treatment Health Maintenance Due Date [...] 1 11/27/2017, 08/12/2016, 11/19/2012 Insurance MEDICARE RAILROAD [facility] BLUE ACCESS/TRUE BLUE PPO Advance Directives For more information, please contact: [phone] * Full Code (Latest Code Status on File) Date Activated Date Inactivated Comments 01/18/2016 9:45 AM 01/18/2016 7:03 PM Care Teams Block Operator Relationship Specialty Start Date End Date Munira Greenberg FNP [address] [phone] PCP - General Nurse Practitioner Family 06/06/19
== END 2024-11-25 08:43 | disposition home or self-care (01) ==
DX: C50.412 Malignant neoplasm of upper-outer quadrant of left female breast (principal); N63.20 Unspecified lump in the left breast, unspecified quadrant
CPT/HCPCS: 19083; 77065; 88305; 88360; A4648

== ENCOUNTER 2025-04-01 11:03 | Outpatient (CLI) | payer MEDICARE, SELFPAY ==
--- NOTE | ~2025-04-01 | XR_ITS ---
Clinical Indication: Shortness of breath PA and lateral views of the chest: Comparison: 04/18/2022 Findings: The lungs are clear, without evidence of focal consolidation or pleural effusion. Cardiome diastinal silhouette is within normal limits. Small hiatal hernia present. Osseous structures are int act. Impression: Clear lungs. Small hiatal hernia. Reviewed, dictated and finalized at location . Impression: Clear lungs. Small hiatal hernia.
--- OUTSIDE RECORDS SUMMARY | 2025-04-01 12:28 | XMS_ITS | Clinical Summary ---
Author Organization [facility] Address [address] [place] [address] Care Team Providers Care Robotype Operator Name Role Phone Unavailable Primary Care [...] Health Maintenance Due Date Last Done Comments Hepatitis C Virus (HCV) Screening 1945 TdaP Immunization 1945 Pneumococcal Immunization (5 0+ years) (1 of 1 - PCV) 1997 Zoster Immunization (1 of 2) 1997 Respiratory Syncytial Virus (RSV) Immunization (Adult) (1 - 1-dose 75+ series) 2022 SARS-COV-2 Immunization (2 - season) 2024 08/20/2021 Influenza Immunization (Seas on Ended) 2025 Hepatitis B Immunization Aged Out No longer eligible based on patient's age to complete this topic Human Papillomavirus (HPV) Immunization Aged Out No longer eligible b ased on patient's age to complete this topic Meningococcal Immunization (ACWY) Aged Out No longer eligible based on patient's age to complete this topic Rotavirus Immunization Aged Out No lo nger eligible based on patient's age to complete this topic
--- OUTSIDE RECORDS SUMMARY | 2025-04-01 12:28 | XMS_ITS | Encounter Summary ---
Author Organization [facility] Address [address] [place] [address] Care Team Providers Care Electronics Processing Supervisor Name Role Phone Munira Greenberg NEWSPAPER CORRESPONDENT Primary Care Provider [phone] Reason for Referral * Radiology Services (Routine) - Closed Specialty Diagnoses / Procedures Referred By Carmen t Referred To Contact Diagnoses Osteopenia of multiple sites Procedures XR DEXA BONE DENSITY AXIAL 1 OR MORE SITES Tomás Walsh MD [address] [place] [phone] Phone: tel: fax: [place] [phone] Referral ID Status Reason Start Date Expiration Date V isits Requested Visits Authorized [id number] Closed [facility] CTS 04/01/2025 05/02/2026 1 1 Reason for Visit * Reason Comments Cancer Follow Up Encounter Details Date Type Department Care Team (Late st Contact Info) Description 04/01/2025 10:00 AM CDT Office Visit [facility] Oncology and Hematology [facility] [address] [place] [address] [address] [place] [address] Tomás Walsh MD [address] [place] [address] Osteopenia of multiple sites (Primary Dx) Social History Tobacco Use Types Packs/Day Years Used Date Smoking Tobacco: Never Smokeless Tobacco: Never Tobacco Cessation:Counseling Given: Not Answered Alcohol Use Standard Drinks/Week Comments Yes 0 (1 standard drink = 0.6 oz pur e alcohol) rarely holidays Feeling Safe Answer Date Recorded Do you worry about feeling s afe and happy with the people in your life? No 12/19/2024 Feeling Safe Answer Date Recorded Are you in a relationship wi th someone who hurts you emotionally and/or physically? 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 Gender Identity Not on file Sexual Orientation Not on file documented as of this encounter Last Filed Vital Signs Vital Sign Reading Time Taken Comments Blood Pressure 136/88 04/01/2025 9:58 AM CDT Pulse 96 04/01/2025 9:58 AM CDT Temperature 36.4 C (97.5 F) 04/01/2025 9:58 AM CDT Respiratory Rate 15 04/01/2025 9:58 AM CDT Oxygen Saturation 96% 04/01/2025 9:58 AM CDT Inhaled Oxygen Concentration - - Weight 99.1 kg (218 lb 6.4 oz) 04/01/2025 9:58 A M CDT Height - - Body Mass Index 36.34 01/28/2025 12:00 PM CDT documented in this encounter Progress Notes * Tomás Walsh MD - 04/01/2025 10:46 AM CDT HEMATOLOGY / ONCOLOGY PROGRESS NOTE Patient Identification: Name: Cynthia Leon Age: 79 y.o. Sex: female : 1945 DIAGNOSIS T2 N0 M0 stage IIA invasive ductal carcinoma status post left breast mass biopsy at 2 o'clock position 10 cm from the nipple. Final pathology showed overall grade 2 without DCIS and lymphovascular invasion. ER and VT strongly positive, HER2/delia negative and Ki-67 of intermediate grade. Oncotype DX recurrence score 13. CURRENT TREATMENT Expectant TREATMENT HISTORY Status post left-sided lumpectomy and sentinel lymph node excision done on January 15, 2025. Radiation therapy to the left lumpectomy site completed March 20, 2025. SUBJECTIVE Patient came into the office for follow-up visit after completion of radiation therapy treatment that she tolerated well. Denies any new lung sounds and lymphadenopathy. No other new complaints. Review of system Constitutional: Patient did not mention fevers, sweats, fatigue, malaise, weight loss HEENT: Patient did not mention sinus congestion, hearing or vision problems Respiratory: Patient did not mention cough, dyspnea, wheeze Cardiovascular: Patient did not mention chest pain, exertional chest pressure/discomfort, nausea, syncope, shortness of breath GI: Patient did not mention constipation, diarrhea, dsyphagia, reflux symptoms, vomiting, melena : Patient did not mention dysuria, frequency, incontinence, urgency Integumentary system: no lymphadenopathy, sweats, flushing Musculoskeletal: Patient not mention: myalgia, arthralgia Neurological: Patient did not mention blurry or disturbed vision, numbness/weakness, dizziness Skin: No lumps, bumps or rashes. 12 point review of system was reviewed Objective: Vital signs in last 24 hours: As per nursing note Exam: HEENT: Atraumatic, external ears normal, nose normal, oropharynx moist, no pharyngeal exudates. no sinus tenderness Neck- normal range of motion, no tenderness, supple Respiratory: No respiratory distress, normal breath sounds, no rales, no wheezing Breasts: Symmetric, left breast upper outer quadrant palpable mass at 2 o'clock position at least 2cm in size without any axillary lymphadenopathy Cardiovascular: Normal rate, normal rhythm, no murmurs, no gallops, no rubs GI: Soft, nondistended, normal bowel sounds, nontender, no splenomegaly, no hepatomegaly, no mass, no rebound, no guarding : No costovertebral angle tenderness Musculoskeletal: No edema, no tenderness, no deformities. Back- no tenderness Left breast postoperative changes and some swelling. Right breast no masses and adenopathy. Exam as above PATH LABS @IMAGEIMP@ Assessment: Plan: Patient Active Problem List Diagnosis Date Noted Anxiety 12/19/2024 Cellulitis of foot 12/19/2024 Change in shape of pigmented skin lesion 12/19/2024 Injury of tendon of rotator cuff 12/19/2024 Abdominal pain 12/19/2024 Abnormal mammogram 12/11/2024 Abnormal computed tomography scan 12/11/2024 Pain in female pelvis 12/11/2024 Posterior rhinorrhea 12/11/2024 Pharyngitis 12/11/2024 Tinea pedis 12/11/2024 Vitamin D deficiency 12/11/2024 Upper respiratory infection 12/11/2024 Breast mass seen on mammogram 12/11/2024 Mass of left breast 10/23/2024 Sleep apnea 09/25/2024 Stable angina 09/25/2024 Dyspnea on exertion 09/25/2024 Primary hypertension 09/25/2024 Other chest pain 09/25/2024 Shortness of breath at rest 03/21/2024 Vaginal irritation 03/31/2023 Candidiasis of vagina 03/31/2023 Positive colorectal cancer screening using DNA-based stool test 01/17/2023 Stage 3b chronic kidney disease ([facility]) 01/05/2023 Hypertriglyceridemia 01/04/2023 Foreign body in left ear 08/04/2022 Elevated liver enzymes 06/18/2021 Low back pain 05/18/2021 Neuropathy 08/11/2020 Skin lesion 01/18/2019 Type 2 diabetes mellitus ([facility]) 09/26/2018 Postmenopausal state 03/22/2018 Atelectasis 11/27/2017 Mixed anxiety and depressive disorder 09/27/2017 Abdominal hernia 08/08/2017 Diverticular disease 08/08/2017 Insect bite 06/20/2017 Low back strain 06/20/2017 Gastroesophageal reflux disease 06/02/2017 Shoulder joint pain 06/02/2017 Osteoarthrosis 06/02/2017 Rheumatoid arthritis ([facility]) 11/16/2016 Psychophysiological insomnia 11/15/2016 Mixed hyperlipidemia 11/15/2016 Malignant neoplasm of upper-outer quadrant of left breast in female, estrogen receptor positive ([facility]) 02/11/2016 Overview Note: Stage: Clinical T2N0; pT2N1 Date of diagnosis: 11/25/2024 Diagnosis: LEFT 3.0 cm IDC, 1/3 LN ER(+) VT(+) Her 2(-) Surgeon: Delmi Surgery: 01/15/2025 left lump/SLN Medical Oncologist: Nico Chemotherapy: Radiation Oncologist: Radiation: Anti-estrogen therapy: History of right breast cancer 12/24/2015 Overview Note: Stage: Clinical T1 N0; pT1c N1 Date of diagnosis: 12/24/15 Diagnosis: right 1.6 cm IDC 1/2 LN ER(+) VT(+) HER 2 (-) Ki-76 21% Surgeon: Delmi Surgery: 01/18/16: right lump/SLN Medical Oncologist: Nico Oncotype: low RS (13) Chemotherapy: none Radiation Oncologist: Liliane Radiation: standard + boost Hormonal therapy: started letrozole on 04/2016 --> Tamoxifen --> Raloxifene (stopped January 2021) Migraine headache 12/22/2015 Left breast lump 05/06/2015 Major depression, recurrent 12/21/2012 Sleep-related bruxism 11/07/2012 Generalized anxiety disorder 11/07/2012 Hiatal hernia 11/07/2012 Hypertension 11/07/2012 T2 N1a M0 stage IIB invasive ductal carcinoma status post left breast mass biopsy at 2 o'clock position 10 cm from the nipple. Final pathology showed overall grade 2 without DCIS and lymphovascular invasion. ER and VT strongly positive, HER2/delia negative and Ki-67 of intermediate grade. Oncotype DX recurrence score 13. History of of stage II right breast cancer ER/VT positive HER2/delia negative status post lumpectomy and sentinel lymph node biopsy in December 2015 followed by radiation therapy and endocrine therapy for5 years. She did not receive chemotherapy due to Oncotype DX recurrence score of 13. Patient is now status post left-sided lumpectomy and left axillary excision done on January 15, 2025. Pathology reviewed. Tumor was 3 cm IDC with posterior margin positive which was further excised with negative margins. There was DCIS intermediate grade and 1 out of 3 lymph node with metastatic carcinoma 10 mm in size. Patient completed radiation therapy treatment on March 20, 2025. I will order bone density testing before starting her on endocrine therapy. I will discuss that thebone density testing with her next week. She will have left breast diagnostic mammogram in July 2025. Bone health. I will check vitamin D level as well as CBC and CMP today. Will order the bone densitytesting now. 04/01/2025 Tomás Walsh MD documented in this encounter Plan of Treatment Upcoming Encounters Date Type Department Care Team (Late st Contact Info) Description 04/14/2025 4:30 PM CDT Telephone Check Up [facility] Oncology and Hematology - [place] [address] [facility] [address] [place] [phone] Tomás Walsh MD [address] [facility] [address] [place] [address] 08/05/2025 11:30 AM CDT Appointment [facility] Janessa [address] [place] [place] [phone] [place] [address] [facility] [address] [place] [address] 08/05/2025 12:15 PM CDT Office Visit [facility] Breast Surgery Janessa [place] [address] [facility] [address] [place] [address] [place] [address] [facility] [address] [place] [address] Scheduled Orders Name Type Priority Associated Diagnoses Orde r Schedule XR DEXA BONE DENSITY AXIAL 1 OR MORE SITES Imaging Routine Osteopenia of multiple sites 1 Occurrences starting 04/01/2025 until 04/01/2026 CBC WITH DIFFERENTIAL Lab Stat Osteopenia of multiple sites Expected: 04/01/2025, Expires: 04/01/2026 COMPREHENSIVE METABOLIC PANEL Lab Stat Osteopenia of multiple sites Expected: 04/01/2025, Expires: 04/01/2026 VITAMIN D 25 HYDROXY Lab Routine Osteopenia of multiple sites Ordered: 04/01/2025 documented as of this encounter Visit Diagnoses Diagnosis Osteopenia of multiple sites- Primary documented in this encounter Care Teams Electronics Processing Supervisor Relationship Specialty Start Date End Date Munira Greenberg FNP [address] [phone] PCP - General Nurse Practitioner Family 06/06/19 documented as of this encounter
--- OUTSIDE RECORDS SUMMARY | 2025-04-01 12:29 | XMS_ITS | Clinical Summary ---
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 Active busPIRone (BUSPAR) 10 mg tablet Take 10 mg by mouth 3 times daily. Active DULoxetine (CYMBALTA) 60 mg Capsule, Delayed Release(E.C.) Take 60 mg by mouth daily. Active SUMAtriptan (IMITREX) 50 mg tablet Take 50 mg by mouth every 2 hours as needed for Headaches may repeat in 2 hours; max dose 200mg in 24 hours . Active esomeprazole (NEXIUM) 40 mg Capsule, Delayed Release(E.C.) Take 40 mg by mouth 2 times daily. Active ergocalciferol (VITAMIN D2) 50,000 unit capsule Take 50,000 Units by mouth every 2 weeks. Active losartan (COZAAR) 50 mg tablet Take 50 mg by mouth daily. Active nebivolol (BYSTOLIC) 5 mg Tablet Take 5 mg by mouth daily. Active insulin glargine (Lantus Solostar U-100 Insulin) [...] food as needed for headaches 0 Active Cranberry 500 mg Capsule Take by mouth. Acti ve fenofibrate (LOFIBRA) 160 mg Tablet 160 mg daily. Active rosuvastatin (CRESTOR) 20 mg tablet Take 20 mg by mouth daily. Active DULoxetine (CYMBALTA) 60 mg Capsule, Delayed Release(E.C.) Take 60 mg by mouth daily. Active zolpidem (AMBIEN CR) 12.5 mg Controlled Release tablet Take 12.5 mg by mouth nightly as needed. 0 Active TRIAMTERENE ORAL Take 25 mg by mouth daily. Active desvenlafaxine (PRISTIQ) 50 mg Extended Release 24 hour tablet Take 50 mg by mouth daily with breakfast. Active diclofenac sodium (VOLTAREN) 75 mg Tablet, Delayed Release (E.C.) Take 75 mg by mouth 2 times daily. Active HYDROcodone-tabatha taminophen (NORCO) 5-325 mg tabletIndicatio ns:Malignant neoplasm of upper-outer quadrant of left breast in female, estrogen receptor positive (CMS/HCC) Take 1 Tablet by mouth every 4 hours as needed for Moderate Pain. Max Daily Amount: 6 Tablets 10 Tablet 01/15/2025 1:34 PM CDT 5 Active budesonide-form oteroL (SYMBICORT) 80-4.5 mcg/actuation HFA Aerosol Inhaler Take 2 Puffs by inhalation 2 times daily. Active Active Problems Patient Care Coordination No te Formatting of this note migh t be different from the original. Primary Care: Alix Morales ANP Referring Provider: Alix Morales ANP [address] [address] Other: Dr Candi Awad Problem Noted Date Diagnosed Date Anxiety 12/19/2024 Cellulitis of foot 12/19/2024 Change in shape of pigmented skin lesion 025 Injury of tendon of rotator cuff 12/19/2024 [...] Candidiasis of vagina 03/31/2023 Positive colorectal cancer s creening using DNA-based stool test 01/17/2023 Stage 3b chronic kidney disease 01/05/2023 Hypertriglyceridemia 01/04/2023 Foreign body in left ear 08/04/2022 Elevated liver enzymes 06/18/2021 Low back pain 05/18/2021 Neuropathy 08/11/2020 Skin lesion 01/18/2019 Type 2 diabetes mellitus 09/26/2018 Postmenopausal state 03/22/2018 Atelectasis 11/27/2017 Mixed anxiety and depressive disorder 09/27/2017 Abdominal hernia 08/08/2017 Diverticular disease 08/08/2017 Insect bite 06/20/2017 Low back strain 06/20/2017 Gastroesophageal reflux disease 06/02/2017 Shoulder joint pain 06/02/2017 Osteoarthrosis 06/02/2017 Rheumatoid arthritis 11/16/2016 Psychophysiological insomnia 11/15/2016 Mixed hyperlipidemia 11/15/2016 Malignant neoplasm of upper- outer quadrant of left breast in female, estrogen receptor positive 02/11/2016 Overview (01/23/2025): Stage: Clinical T2N0; pT2N1 Date of diagnosis: 11/25/2024 Diagnosis: LEFT 3.0 cm IDC, 1/3 LN ER(+) MS(+) Her 2(-) Surgeon: Delmi Surgery: 01/15/2025 left lump/SLN Medical Oncologist: Nico Chemotherapy: Radiation Oncologist: Radiation: Anti-estrogen therapy: History of right breast cancer 12/24/2015 Overview (12/19/2024): Stage: Clinical T1 N0; pT1c N1 Date of diagnosis: 12/24/15 Diagnosis: right 1.6 cm IDC 1/2 LN ER(+) MS(+) HER 2 (-) Ki-76 21% Surgeon: Delmi Surgery: 01/18/16: right lump/SLN Medical Oncologist: Nico Oncotype: low RS (13) Chemotherapy: none Radiation Oncologist: Liliane Radiation: standard + boost Hormonal therapy: started letrozole on 04/2016 --> Tamoxifen --> Raloxifene (stopped January 2021) Migraine headache 12/22/2015 Left breast lump 05/06/2015 Major depression, recurrent 12/21/2012 Sleep-related bruxism 11/07/2012 Generalized anxiety disorder 11/07/2012 Hiatal hernia 11/07/2012 Hypertension 11/07/2012 Encounters Date Type Department Care Team Description 04/01/2025 10:00 AM CDT Office Visit [facility] and [facility] [address] [place] [address] Tomás Walsh MD Osteopenia of multiple sites (Primary Dx) 01/29/2025 10:00 AM CDT Office Visit [facility] and [facility] [address] [place] [address] Tomás Walsh MD Malignant neoplasm of upper-outer quadrant of left breast in female, estrogen receptor positive (CMS/HCC) (Primary Dx) 01/28/2025 12:00 PM CDT Office Visit [facility] [address] [place] [address] Candi Awad MD History of right breast cancer (Primary Dx); Malignant neoplasm of upper-outer quadrant of left breast in female, estrogen receptor positive (CMS/HCC) 01/24/2025 Orders Only [facility] [address] [place] [phone] Candi Awad MD Malignant neoplasm of upper-outer quadrant of left breast in female, estrogen receptor positive (CMS/HCC) (Primary Dx); History of right breast cancer 01/23/2025 Results Follow-Up [facility] [place] [address] [place] [phone] Candi Awad MD PATHOLOGY 01/15/2025 11:05 AM CDT - 01/15/2025 11:59 PM CDT Hospital Encounter [facility] [address] [address] Discharge Disposition: Home or Self Care 01/15/2025 10:57 AM CDT Anesthesia Event [facility] Operating Room [address] [place] [address] Kristopher Chatterjee MD Boon, Melanie Marie, FNP 01/15/2025 10:23 AM CDT - 01/15/2025 12:21 PM CDT Surgery [facility] Operating Room [address] [place] [address] Candi Awad MD BREAST LUMPECTOMY 01/15/2025 8:25 AM CDT - 01/15/2025 11:59 PM CDT Hospital Encounter [facility] [address] [address] Discharge Disposition: Home or Self Care 01/15/2025 8:22 AM CDT - 01/15/2025 11:59 PM CDT Hospital Encounter [facility] [address] [address] Candi Awad MD Discharge Disposition: Home or Self Care 01/15/2025 8:00 AM CDT - 01/15/2025 11:59 PM CDT Hospital Encounter [facility] [address] [place] [address] Candi Awad MD Discharge Disposition: Home or Self Care 01/15/2025 6:53 AM CDT - 01/15/2025 2:27 PM CDT Hospital Encounter [facility] [address] [place] [address] Candi Awad MD Malignant neoplasm of upper-outer quadrant of left breast in female, estrogen receptor positive (CMS/HCC) Discharge Disposition: Home or Self Care 01/02/2025 9:57 AM CDT - 01/02/2025 11:59 PM CDT Hospital Encounter [facility] [address] [place] [address] Candi Awad MD Discharge Disposition: Home or Self Care from Last 3 Months Family History Medical History Relation Name Comments No Known Problems Brother No Known Problems Father Heart Disease Mother Breast Cancer Paternal Aunt Breast Cancer Paternal Uncle No Known Problems Sister Ovarian Cancer Neg Hx Uterine Cancer Neg Hx Relation Name Status Comments Brother Alive Father Mother Paternal Aunt Paternal Uncle Sister Alive Social History Tobacco Use Types Packs/Day Years [...] on file 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 Gender Identity Not on file Sexual Orientation [...] oz) 04/01/2025 9:58 A M CDT Height 165.1 cm (5' 5) 01/28/2025 12:00 PM CDT Body Mass Index 36.34 01/28/2025 12:00 PM CDT Plan of Treatment Upcoming Encounters Date Type Department Care Team (Late st Contact Info) Description 04/14/2025 4:30 PM CDT Telephone Check Up [facility] [address] [place] [address] [address] [place] [phone] Tomás Walsh MD [address] [facility] [address] [place] [address] 08/05/2025 11:30 AM CDT Appointment [facility] [address] [place] [address] [place] [address] [place] [address] 08/05/2025 12:15 PM CDT Office Visit [facility] [address] [facility] [address] [place] [address] [place] [address] [place] [address] Health Maintenance Due Date Last Done Comments DIABETES ANNUAL FOOT EXAM 1965 DIABETES ANNUAL RETINAL EXAM 1965 DIABETES MICROALBUMIN ANNUAL SCREEN 1965 LDL CHOLESTEROL ANNUAL 1965 ZOSTER VACCINE (2 of 3) 12/02/2011 10/07/2011 OSTEOPOROSIS SCREENING 09/04/2019 09/04/2014 DIABETES HBA1C Q 6 MONTHS 09/28/20212022, 03/29/2021, 08/25/2020, Additional history exists RSV VACCINE (60+ or ) (1 - 1-dose 75+ series) 2022 INFLUENZA VACCINE (#1) 2024 , 08/09/2022, 07/28/2021, Additional history exists COVID-19 Vaccine (2 - 2023-2 5 season) 2024 08/20/2021 Medicare Advantage (DC) Preventative Visit/Annual Wellness Visit 10/23/2024 DTAP/TDAP/TD VACCINES (3 - T d or Tdap) 12/01/2032 12/01/2022, 11/08/2010 PNEUMOCOCCAL VACCINE 50+ YEARS Completed 1 11/27/2017, 08/12/2016, 11/19/2012 Medical Devices Implanted Type Area Coordinator Skill Training Program Device Identifier Shelf Expiration Date Model / Serial / Lot 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 [employer] Msm20 - [id number] Implanted:Qty : 1 on 01/15/2025 by Candi Awad MD at [facility] Clip Left: [employer] [id number] 11/22/2029 [id number] / / [id number] Procedures Procedure Name Priority Date/Time Associated Diagnosis Comments MAMMO POST PROCEDURE MAMMO LEFT Routine 01/15/2025 11:58 AM CDT Malignant neoplasm of upper-outer quadrant of left breast in female, estrogen receptor positive (CMS/HCC) MAMMO BREAST SPECIMEN LT Routine 01/15/2025 11:58 AM CDT Malignant neoplasm of upper-outer quadrant of left breast in female, estrogen receptor positive (CMS/HCC) PATHOLOGY Pathology 01/15/2025 11:46 AM CDT Malignant neoplasm of upper-outer quadrant of left breast in female, estrogen receptor positive (CMS/HCC) MS INTRAOP SENTINEL LYMPH NODE ID W/DYE INJECTION 01/15/2025 10:23 AM CDT Malignant neoplasm of upper-outer quadrant of left breast in female, estrogen receptor positive (CMS/HCC) MS BX/EXC LYMPH NODE OPEN SUPERFICIAL 01/15/2025 10:23 AM CDT Malignant neoplasm of upper-outer quadrant of left breast in female, estrogen receptor positive (CMS/HCC) MS INJ RADIOACTIVE TRACER FOR ID OF SENTINEL NODE 01/15/2025 10:23 AM CDT Malignant neoplasm of upper-outer quadrant of left breast in female, estrogen receptor positive (CMS/HCC) MS BX/EXC LYMPH NODE OPEN DEEP AXILLARY NODE 01/15/2025 10:23 AM CDT Malignant neoplasm of upper-outer quadrant of left breast in female, estrogen receptor positive (CMS/HCC) MS EXC BRST LES PREOP PLMT RAD MARKER OPN EA ADDL 01/15/2025 10:23 AM CDT Malignant neoplasm of upper-outer quadrant of left breast in female, estrogen receptor positive (CMS/HCC) MS EXC CYST/ABERRANT BREAST TISSUE OPEN 1/> LESION 01/15/2025 10:23 AM CDT Malignant neoplasm of upper-outer quadrant of left breast in female, estrogen receptor positive (CMS/HCC) MS EXC BREAST LES PREOP PLMT RAD MARKER OPEN 1 LES 01/15/2025 10:23 AM CDT Malignant neoplasm of upper-outer quadrant of left breast in female, estrogen receptor positive (CMS/HCC) MS MASTECTOMY PARTIAL 01/15/2025 10:23 AM CDT Malignant neoplasm of upper-outer quadrant of left breast in female, estrogen receptor positive (CMS/HCC) MAMMO US GUIDED BREAST LOCAL Routine 01/15/2025 9:55 AM CDT Malignant neoplasm of upper-outer quadrant of left breast in female, estrogen receptor positive (CMS/HCC) POC GLUCOSE Routine 01/15/2025 9:40 AM CDT NM INJ SENTINEL NODE Routine 01/15/2025 9:29 AM CDT Malignant neoplasm of upper-outer quadrant of left breast in female, estrogen receptor positive (CMS/HCC) POC GLUCOSE Routine 01/15/2025 8:02 AM CDT BASIC METABOLIC PANEL Stat 01/15/2025 7:26 AM CDT BASIC METABOLIC PANEL Routine 01/02/2025 10:37 AM CDT CBC WITHOUT DIFFERENTIAL Routine 01/02/2025 10:37 AM CDT from Last 3 Months Results * MAMMO POST PROCEDURE MAMMO LEFT (01/15/2025 11:58 AM CDT) Anatomical Region Laterality Modality Breast Left Mammography 01/15/2025 8:33 AM CDT Impressions 01/15/2025 11:51 AM CDT IMPRESSION: 1. Technically successful ultrasound-guided wire needle localization of the area of interest in the left breast. DICTATION LOCATION: [facility] 01/15/2025 11:51 AM CDT EXAMINATION: MAMMO NEEDLE LOC EA LESION LT, MAMMO POST PROCEDURE MAMMO LEFT DATE: 01/15/2025 8:32 AM. HISTORY: Malignant neoplasm of upper-outer quadrant of left breast in female, estrogen receptor positive (CMS/HCC); Malignant neoplasm of upper-outer quadrant of left breast in female, estrogen receptor positive (CMS/HCC). COMPARISON: 11/15/2024, 11/25/2024. PROCEDURE AND FINDINGS: The risks (including pain, bleeding, infection, and damage to adjacent structures) and potential benefits of the procedure were discussed with the patient and verbal and written informed consent was obtained. A timeout procedure was performed, at which time the patient identity, procedure, and procedure site were confirmed verbally with the patient and the healthcare team. After sterile preparation of the skin, 1% lidocaine was utilized for local anesthesia. The hookwire system was inserted into the mass of interest from a lateral approach using sonographic guidance. 0.2 cc of methylene blue dye was injected through the hub of the needle prior to insertion of the wire. The wire was inserted and the needle was removed, leaving the wire in place. The patient tolerated the procedure well and there was no evidence of immediate complication. A two-view full-field left unilateral digital diagnostic mammogram was performed and reveals the wire to be in adequate position. Images were marked for the surgeon, and the patient was transferred to the operating suite for surgical excision. The surgical specimen was subsequently received from the operating room and digital radiography was performed. The surgical specimen contains the left breast mass of concern, the biopsy marker clip, and the localization wire. The findings were communicated to the operating room by Dr. Huerta via telephone immediately after the surgical specimen radiograph was obtained. Candi Awad MD MAMMO ORDERABLES Final Result * MAMMO BREAST SPECIMEN LT (01/15/2025 11:58 AM CDT) Anatomical Region Laterality Modality Breast Left Mammography 01/15/2025 11:5 8 AM CDT Impressions 01/15/2025 12:10 PM CDT IMPRESSION: 1. Technically successful ultrasound-guided wire needle localization of the area of interest in the left breast. DICTATION LOCATION: [facility] 01/15/2025 12:10 PM CDT EXAMINATION: MAMMO NEEDLE LOC EA LESION LT, MAMMO POST PROCEDURE MAMMO LEFT DATE: 01/15/2025 8:32 AM. HISTORY: Malignant neoplasm of upper-outer quadrant of left breast in female, estrogen receptor positive (CMS/HCC); Malignant neoplasm of upper-outer quadrant of left breast in female, estrogen receptor positive (CMS/HCC). COMPARISON: 11/15/2024, 11/25/2024. PROCEDURE AND FINDINGS: The risks (including pain, bleeding, infection, and damage to adjacent structures) and potential benefits of the procedure were discussed with the patient and verbal and written informed consent was obtained. A timeout procedure was performed, at which time the patient identity, procedure, and procedure site were confirmed verbally with the patient and the healthcare team. After sterile preparation of the skin, 1% lidocaine was utilized for local anesthesia. The hookwire system was inserted into the mass of interest from a lateral approach using sonographic guidance. 0.2 cc of methylene blue dye was injected through the hub of the needle prior to insertion of the wire. The wire was inserted and the needle was removed, leaving the wire in place. The patient tolerated the procedure well and there was no evidence of immediate complication. A two-view full-field left unilateral digital diagnostic mammogram was performed and reveals the wire to be in adequate position. Images were marked for the surgeon, and the patient was transferred to the operating suite for surgical excision. The surgical specimen was subsequently received from the operating room and digital radiography was performed. The surgical specimen contains the left breast mass of concern, the biopsy marker clip, and the localization wire. The findings were communicated to the operating room by Dr. Huerta via telephone immediately after the surgical specimen radiograph was obtained. Candi Awad MD MAMMO ORDERABLES Final Result * PATHOLOGY (01/15/2025 11:46 AM CDT) CASE REPORT Surgical Pathology Report Case: [id number] Authorizing Provider: Candi Awad MD Collected: 01/15/2025 11:46 AM Ordering Location: [facility] Received: 01/15/2025 11:54 AM Operating Room Pathologist: Darwin Pisano DO Specimens: A) - Breast, left, LEFT BREAST LUMPECTOMY; SHORT STITCH SUPERIOR; LONG STITCH LATERAL B) - [place] Lymph Node, LEFT AXILLARY SENTINEL LYMPH NODES C) - Breast, left, Additional posterior margin; stitch siddiqi new margin 4:27 PM CDT [facility] FINAL DIAGNOSIS Breast, left, lumpectomy: - Invasive ductal carcinoma, with the following features: 1. Size: 3.0 cm. 2. [place] score: 7/9 (grade 2). 3. Margins: Invasive carcinoma present at the posterior margin. 4. Lymphvascular invasion: Present, focal. 5. Stage: pT2, pN1a(sn). - Ductal carcinoma in situ, with the following features: 1. Extent: Not directly measurable, admixed with invasive carcinoma. 2. Grade: Intermediate nuclear grade, solid and cribriform patterns. 3. Margins: Uninvolved by ductal carcinoma in situ by greater than 2 mm. - Biopsy site changes. [place] lymph nodes, left axillary, excision: - Metastatic carcinoma involving one of three lymph nodes (1/3, 10 mm). Breast, left, additional posterior margin, excision: - Benign fibroadipose tissue. - No malignancy identified. 4:27 PM CDT [facility] [employer] [facility] at 1627 CDT GROSS DESCRIPTION The specimens are received in three containers each labeled L Isabelbob Bautistaaus. Received in the first container additionally labeled left breast lumpectomy, short stitch superior, long stitch lateral is a 8 x 5.5 x 3.2 cm (ML X SI XAP), ovoid piece of soft yellow fatty tissue. The specimen is oriented with a short suture designated superior and a long suture designated as lateral. The specimen is inked as follows: Superior-blue, inferior-green, anterior-yellow, posterior-black. A needle localization wire is present extending from the lateral aspect of the specimen. The specimen is placed in the Faxitron prior to sectioning and a mini coil biopsy clip is identified in the track of the needle localization wire. The specimen is sectioned from lateral to medial into 12 slices with the lateral margin being slice 1 and the medial margin being slice 12. Located on slices 2 through 7 is a gritty burgos-pink ovoid mass with scalloped borders measuring 3 x 2.5 x 2.3 cm. A mini coil biopsy clip is present within the mass in slices 4 through 5. The mass abuts the deep margin, is 0.7 cm from the inferior and anterior margins, 1 cm from the superior margin, 1.2 cm from the lateral margin and 2.5 cm from the medial margin. The remaining tissue is soft yellow fatty unremarkable. [employer] sections are submitted from lateral to medial labeled: A1 through A4-slice 1, lateral margin perpendicularly sectioned and entirely submitted; A5-patient accounting representative slice 2 with entire mass; A6 through A7-patient accounting representative slice 3 with entire mass;; A8 through V99-pwldz 4 entirely submitted; A12 through Q51-weeyozpvxcfexz slice 5 with mass entirely submitted; A14 through F76-hwbdn 6 entirely submitted; D74-hfctjqtvsfifxl slice 7 with remainder of mass; M51-rnpryclvctcpxj slice 8, tissue flanking mass; N69-abqsihmnxuimak slice 9, tissue to slices medial from mass; Y14-rkrqwdnhbvynte perpendicular sections of medial margin, slice 12 (mass is entirely submitted, approximately 50% of specimen is submitted) Received in the second container additionally labeled left axillary sentinel lymph node is a 6 x 3.5 x 1.5 cm aggregate of soft yellow fatty nodular tissue. Upon palpation, 4 burgos-pink lymph nodes are identified ranging from 0.5 to 3 cm in greatest dimension. Sections of 1 lymph node shows a putative grossly positive solid white area measuring 1 cm in greatest dimension. The lymph nodes are entirely submitted labeled: B1-1 lymph node bisected; B2-1 lymph node trisected; B3 through B4-1 lymph node serially sectioned B5 through B7-grossly positive lymph node serially sectioned. Received in the third container additionally labeled left breast additional posterior margin, stitch siddiqi new margin is a 4.5 x 2.5 x 0.5 cm ovoid piece of soft yellow fatty tissue. A suture is present on 1 surface designated as the new margin and the surface is inked blue. The opposite surface is inked black.. The piece is serially sectioned to show soft yellow fatty cut surface. Entirely submitted labeled C1 through C5. ARC 5 4:27 PM [facility] MICROSCOPIC DESCRIPTION The slides are labeled [id number] and Cynthia Leon. Sections from the left breast lumpectomy show a nodular focus of invasive ductal carcinoma corresponding to the grossly noted 3 x 2.5 x 2.3 cm mass. A biopsy cavity is present within the lesion. The tumor is composed of an infiltrative proliferation of malignant epithelial cells predominantly arranged in solid nests. Patchy abortive tubule formation is seen. There is moderate nuclear pleomorphism, and brisk mitotic activity is noted. Focal lymphovascular space invasion is noted. The tumor extensively comes to within less than 1 mm of and is transected at the posterior margin in several tissue blocks (extensive). At the periphery of the invasive carcinoma there are foci of ductal carcinoma in situ, intermediate nuclear grade, with solid and cribriform patterns. Immunostains for p63 and SMMS highlight retained myoepithelial cells associated with the carcinoma in situ. There is an absence of myoepithelial cells in the invasive carcinoma. The carcinoma in situ displays loss of expression of CK5/6 and strong nuclear staining for estrogen receptor. E-cadherin displays retained membranous expression within the in situ and invasive carcinoma, consistent with a ductal phenotype. No lobular neoplasia is identified. Please see the synoptic report for additional information. Sections of the left axillary sentinel lymph node tissue show metastatic carcinoma involving 1 of 3 lymph nodes. The involved lymph node has a 1 cm focus of metastatic tumor. No extranodal tumor extension is identified. Sections of the left breast additional posterior margin show benign fibroadipose tissue. No malignancy is identified. 5 4:27 PM [facility] OPERATIVE PROCEDURE 1: BREAST LUMPECTOMY 2: SENTINEL LYMPH NODE BIOPSY MAPPING 5 4:27 PM [facility] [facility] CLINICAL INFORMATION Malignant neoplasm of upper-outer quadrant of left breast in female, estrogen receptor positive (CMS/HCC) [C50.412, Z17.0] C50.412, Z17.0-Malignant neoplasm of upper-outer quadrant of left breast in female, estrogen receptor positive (CMS/HCC) 4:27 PM CDT [facility] [employer] [facility] SYNOPTIC REPORT INVASIVE CARCINOMA OF THE BREAST: Resection INVASIVE CARCINOMA OF THE BREAST: RESECTION - A, B 8th Edition - Protocol posted: 04/10/2024 SPECIMEN Procedure: Excision (less than total mastectomy) Specimen Laterality: Left TUMOR Histologic Type: Invasive carcinoma of no special type (ductal) Histologic Grade (Brian Histologic Score): Glandular (Acinar) / Tubular Differentiation: Score 2 Nuclear Pleomorphism: Score 2 Mitotic Rate: Score 3 Overall Grade: Grade 2 (scores of 6 or 7) Tumor Size: Greatest dimension of largest invasive focus (Millimeters): 30 mm Tumor Focality: Single focus of invasive carcinoma Ductal Carcinoma In Situ (DCIS): Present : Negative for extensive intraductal component (EIC) Architectural Patterns: Cribriform Architectural Patterns: Solid Nuclear Grade: Grade II (intermediate) Lobular Carcinoma In Situ (LCIS): Not identified Lymphatic and / or Vascular Invasion: Present : Focal Dermal Lymphatic and / or Vascular Invasion: Not identified Treatment Effect in the Breast: No known presurgical therapy MARGINS Margin Status for Invasive Carcinoma: Invasive carcinoma present at margin Margin(s) Involved by Invasive Carcinoma: Posterior: Extensive Margin Status for DCIS: All margins negative for DCIS Distance from DCIS to Closest Margin: Greater than: 2 mm REGIONAL LYMPH NODES Regional Lymph Node Status: : Tumor present in regional lymph node(s) Number of Lymph Nodes with Macrometastases: 1 Number of Lymph Nodes with Micrometastases: 0 Size of Largest Gilberto Metastatic Deposit: 10 mm Extranodal Extension: Not identified Total Number of Lymph Nodes Examined (sentinel and non-sentinel): 3 Number of [place] Nodes Examined: 3 pTNM CLASSIFICATION (AJCC 8th Edition) Reporting of pT, pN, and (when applicable) pM categories is based on information available to the pathologist at the time the report is issued. As per the AJCC (Chapter 1, 8th Ed.) it is the managing physician's responsibility to establish the final pathologic stage based upon all pertinent information, including but potentially not limited to this pathology report. pT Category: pT2 pN Category: pN1a N Suffix: (sn) SPECIAL STUDIES Estrogen Receptor (ER) Status: Positive (greater than 10% of cells demonstrate nuclear positivity) Progesterone Receptor (PgR) Status: Positive HER2 (by immunohistochemistry): Negative (Score 1+) Ki-67 Percentage of Positive Nuclei: 15 % Testing Performed on 4:27 PM CDT [facility] COMMENT Special stain, immunohistochemical, and/or in situ hybridization results are interpreted with controls that demonstrate appropriate staining reactions. Note on use of immunohistochemistry reagents and in situ hybridization probes: These tests were developed and their performance characteristics determined by [facility], Department of Laboratory Medicine. It has not been cleared or approved by the U.S. Food and Drug Administration. The FDA has determined that such clearance or approval is not necessary. The test is used for clinical purposes. It should not be regarded as investigational or for research. This laboratory is certified to perform high complexity testing. Frozen section/operating room consultation, gross examination and dissection, and case sign out may have been performed in part or completely in the following laboratories: [facility], [place] #[id number] [address] [place] [address] [facility], [place] #[id number] [address] [place] [address] [facility]/[place], [place] #[id number] [address] [place] [address] This report was created with the [employer] voice-activated dictation system. Inherent to this system is the possibility of syntax, grammar, punctuation and other errors that could impact the interpretation of the report. If there are interpretative questions about aspects of this report, please contact the performing pathologist. 4:27 PM CDT [facility] Tissue LEFT BREAST STRUCTURE / Unknown Collection / Unknown 01/15/2025 11:46 AM CDT 01/15/2025 11:54 AM CDT Tissue specimen (specimen) ([place] Lymph Node) Collection / Unknown 01/15/2025 11:52 AM CDT 01/15/2025 1:47 PM CDT Tissue specimen (specimen) LEFT BREAST STRUCTURE / Unknown 01/15/2025 11:55 AM CDT 01/15/2025 1:47 PM CDT us Candi Awad MD PATHOLOGY/CYTOLOGY ORDERABLES Fi nal Result [facility] FELIX# [id number] [address] [place] [address] * MAMMO US GUIDED BREAST LOCAL (01/15/2025 9:55 AM CDT) Anatomical Region Laterality Modality Breast N/A Mammography 01/15/2025 9:56 AM CDT Impressions 01/15/2025 11:51 AM CDT IMPRESSION: 1. Technically successful ultrasound-guided wire needle localization of the area of interest in the left breast. DICTATION LOCATION: [facility] Narrative 01/15/2025 11:51 AM CDT EXAMINATION: MAMMO NEEDLE LOC EA LESION LT, MAMMO POST PROCEDURE MAMMO LEFT DATE: 01/15/2025 8:32 AM. HISTORY: Malignant neoplasm of upper-outer quadrant of left breast in female, estrogen receptor positive (CMS/HCC); Malignant neoplasm of upper-outer quadrant of left breast in female, estrogen receptor positive (CMS/HCC). COMPARISON: 11/15/2024, 11/25/2024. PROCEDURE AND FINDINGS: The risks (including pain, bleeding, infection, and damage to adjacent structures) and potential benefits of the procedure were discussed with the patient and verbal and written informed consent was obtained. A timeout procedure was performed, at which time the patient identity, procedure, and procedure site were confirmed verbally with the patient and the healthcare team. After sterile preparation of the skin, 1% lidocaine was utilized for local anesthesia. The hookwire system was inserted into the mass of interest from a lateral approach using sonographic guidance. 0.2 cc of methylene blue dye was injected through the hub of the needle prior to insertion of the wire. The wire was inserted and the needle was removed, leaving the wire in place. The patient tolerated the procedure well and there was no evidence of immediate complication. A two-view full-field left unilateral digital diagnostic mammogram was performed and reveals the wire to be in adequate position. Images were marked for the surgeon, and the patient was transferred to the operating suite for surgical excision. The surgical specimen was subsequently received from the operating room and digital radiography was performed. The surgical specimen contains the left breast mass of concern, the biopsy marker clip, and the localization wire. The findings were communicated to the operating room by Dr. Huerta via telephone immediately after the surgical specimen radiograph was obtained. us Candi Awad MD MAMMO ORDERABLES Final Result * (ABNORMAL) POC GLUCOSE (01/15/2025 9:40 AM CDT) Only the most recent of2 resultswithin the time period is included. GLUCOSE POC 196(H) 74 - 99 mg/dL 01/15/2025 9:40 AM CDT [facility] SPECIMEN SOURCE, GLUCOSE POC Whole Blood 01/15/2025 9:40 AM CDT [facility] Blood, whole 01/15/2025 9:40 AM CDT 01/15/2025 9:52 AM CDT us Candi Awad MD POINT OF CARE TESTING Final Resu lt [facility]# [id number] [address] [place], [place] [address] [address] * NM INJ SENTINEL NODE (01/15/2025 9:29 AM CDT) Anatomical Region Laterality Modality Nuclear Medicine 01/15/2025 9:30 AM CDT Impressions 01/15/2025 9:38 AM CDT IMPRESSION: Lymphoseek injected for sentinel lymph node localization. No images acquired. Dictated by Dr. Tyson Torres MD DICTATION LOCATION: 1 Narrative 01/15/2025 9:38 AM CDT NM SENTINEL LYMPH NODE INJECTION ONLY DATE: 01/15/2025 9:29 AM HISTORY: Invasive ductal carcinoma involving the upper outer quadrant of the left breast. PROCEDURE: Skin preparation with Chloraprep wipes. Technetium Lymphoseek was injected as 2 intradermal injections around the periareolar region. RADIOPHARMACEUTICAL: 0.53 mCi technetium-99m Lymphoseek FINDINGS: Patient injected however no image was acquired. INCIDENTAL FINDINGS: None. 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 PROCEDURE: Skin preparation with Chloraprep wipes. Technetium Lymphoseek was injected as 2 intradermal injections around the periareolar region. RADIOPHARMACEUTICAL: 0.53 mCi technetium-99m Lymphoseek FINDINGS: Patient injected however no image was acquired. INCIDENTAL FINDINGS: None. IMPRESSION: Lymphoseek injected for sentinel lymph node localization. No images acquired. Dictated by Dr. Tyson Torres MD DICTATION LOCATION: 1 Candi Awad MD NM ORDERABLES Final Result * (ABNORMAL) BASIC METABOLIC PANEL (01/15/2025 7:26 AM CDT) Only the most recent of2 resultswithin the time period is included. SODIUM 137 136 - 145 mmol/L 01/15/2025 9:03 AM T [employer] [facility] POTASSIUM 4.3 3.5 - 5.0 mmol/L 01/15/2025 9:03 AM T [employer] [facility] Comment:Hemolysis present. R esult may be falsely elevated. CHLORIDE 101 98 - 107 mmol/L 01/15/2025 9:03 AM T [employer] [facility] CO2 21(L) 22 - 29 mmol/L 01/15/2025 9:03 AM T [employer] [facility] CALCIUM 10.0 8.6 - 10.2 mg/dL 01/15/2025 9:03 AM [facility] [employer] [facility] BUN 27(H) 8 - 23 mg/dL 01/15/2025 9:03 AM [facility] CREATININE 1.03(H) 0.51 - 0.95 mg/dL 01/15/2025 9:03 AM [facility] Comment:The GFR result is no t clinically significant on patients <18 or >70 years of age. GLUCOSE 218(H) 74 - 99 mg/dL 01/15/2025 9:03 AM T [facility] [employer] [facility] GFR 56 mL/min/1.7 3 sq meter 01/15/2025 9:03 AM [facility] Comment:eGFR calculated with 2020 CKD-EPI equation. Vegetarian diet, extremely high or low muscle mass, and may affect results. Cystatin C with Glomerular Filtration Rate is a suitable alternative for these patients. ANION GAP 15 8 - 16 mmol/L 01/15/2025 9:03 AM [facility] [employer] [facility] Blood Venipuncture / Unknown 01/15/2025 7:26 AM CDT 01/15/2025 8:14 AM CDT Clifford Paul PA-C CHEMISTRY ORDERABLES F inal Result [facility] [employer] [facility] CLIA# [id number] [address] [place] [address] * (ABNORMAL) CBC WITHOUT DIFFERENTIAL (01/02/2025 10:37 AM CDT) WBC 10.3(H) 4.0 - 9.8 K/uL 01/02/2025 11:12 AM [facility] [employer] [facility] RBC 5.08(H) 3.90 - 4.90 M/uL 01/02/2025 11:12 AM T [employer] [facility] HEMOGLOBIN 14.7 11.8 - 14.8 g/dL 01/02/2025 11:12 AM [facility] [employer] [facility] HEMATOCRIT 44.9(H) 35.5 - 44.0 % 01/02/2025 11:12 AM [facility] [employer] [facility] MCV 88.4 82.0 - 99.0 fL 01/02/2025 11:12 AM [facility] MCH 28.9 27.2 - 32.6 pg 01/02/2025 11:12 AM CDT [facility] MCHC 32.7 31.5 - 35.5 g/dL 01/02/2025 11:12 AM CDT [facility] PLATELETS 229 140 - 350 K/uL 01/02/2025 11:12 AM CDT [facility] MPV 11.0 9.3 - 12.4 fL 01/02/2025 11:12 AM CDT [facility] RDW 13.2 11.5 - 14.5 % 01/02/2025 11:12 AM CDT [facility] RDW-STDEV 42.9 37.1 - 48.7 fL 01/02/2025 11:12 AM T [facility] Blood Venipuncture / Unknown 01/02/2025 10:37 AM CDT 01/02/2025 11:07 AM CDT Clifford Paul PA-C HEMATOLOGY ORDERABLES Final Result [facility] [employer] [facility] CLIA# [id number] [address] [facility] [place] [address] from Last 3 Months Insurance RX [employer] Medicare Part D Advance Directives For more information, please contact: [phone] * Full Code (Latest Code Status on File) Date Activated Date Inactivated Comments 01/18/2016 9:45 AM 01/18/2016 7:03 PM Care Teams New Vehicle Sales Consultant Relationship Specialty Start Date End Date Munira Greenberg FNP [address] [address] PCP - General Nurse Practitioner Family 06/06/19
--- OUTSIDE RECORDS SUMMARY | 2025-04-01 12:29 | XMS_ITS | Clinical Summary ---
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 Primary Care Provider + Allergies Active Allergy [...] Mixed hyperlipidemia 09/25/2024 Other chest pain 09/25/2024 Surgical History Surgery Date Site/Laterality Comments CHOLECYSTECTOMY BREAST LUMPECTOMY Right BREAST BIOPSY 12/24/2015 Right Medical History Medical History Date Comments Depression Emphysema of lung (HCC) Diabetes mellitus (HCC) Cancer (HCC) Peripheral neuropathy Gastric reflux GERD (gastroesophageal [...] on file Legal Sex Female 1:04 AM [employer]AND PL[employer] Gender Identity Not on file Sexual Orientation Not on file Occupation Industry Job Start Date Job End Date retired Not on file Not on file Not on file Obstetrics History Last Filed Vital Signs Vital Sign Reading Time Taken Comments Blood Pressure 124/65 10/21/2024 12:43 PM [employer]AND [employer]NER Pulse 75 10/21/2024 12:43 PM [employer] Temperature - - Respiratory Rate - - Oxygen Saturation 96% 09/25/2024 9:45 AM [employer] Inhaled Oxygen Concentration - - Weight 98 kg (216 lb) 09/25/2024 9:45 AM [employer] Height 165.1 cm (5' 5) 09/25/2024 9:45 AM [employer] Body Mass Index 35.94 09/25/2024 9:45 AM [employer] Plan of Treatment Health Maintenance Due Date Last Done Comments Depression Screening 1945 Fall Risk Assessment 1945 Hepatitis C Screening 1945 Osteoporosis Screening-Bone Density Scan 1945 Hepatitis B Screening 1965 Zoster Vaccine (2 of 3) 12/02/2011 10/07/2011 Well Visit 65+ 2012 DTaP/Tdap/Td Vaccine (2 - Td or Tdap) 11/08/2020 11/08/2010 Covid-19 Vaccine (4 - 2023-2 5 season) 2024 08/20/2021, 01/08/2021, 12/18/2020 Influenza Vaccine (Season Ended) 2025 08/11/2020, 09/08/2019, 09/26/2018, Additional history exists Breast Cancer Screening-Mammogram Discontinued 014, 01/26/2012 Pneumococcal vaccine 65+ Completed 018, 08/12/2016, 11/19/2012 Insurance MEDICARE RAILROAD [place] [id number] [employer] CHOICE MEDICARE PPO [employer] CHOICE MEDICARE PPO Care Teams Explosive Operator Bomb Relationship Specialty Start Date End Date Munira Greenberg NP PCP - General Nurse Practitioner 06/18/21
--- OUTSIDE RECORDS SUMMARY | 2025-04-01 12:29 | XMS_ITS | Patient Health Record ---
Author Organization [employer] Address [address] [facility] [address] [place], [place] [address] Care Team Providers Care Superintendent Division Name Role Phone Jerardo King Primary Care Provider Angelo Price Unavailable [phone] ALLERGIES Allergen (clinical drug ingredient) Drug/Non Drug Allergy documented on EMR Reaction Allergy Type Onset Date Status penicillin Unknown Drug Allergy Active REASON FOR REFERRAL No Information MEDICATIONS Medication SIG (Take, Route, Frequency, Duration) Notes Start Date End Date Status busPIRone 10 mg 1 tab(s) orally 3 ti mes a day Active zolpidem 12.5 mg 1 tab(s) orally once a day (at bedtime) Active triamterene 37.5 mg 1 cap(s) orally daily Active Voltaren Gel - for lower body joint 1% 4 g apply topically to lower back and knees 4 times a day 12/24/2018 Active Simponi Aria 50 mg/4 mL 2mg/kg intraveno usly every 8 weeks Active vitamin d 50,000 iu orally onc e month Active folic acid 1 1 tab(s) orally once a day Active Lantus 100 units/mL 16 units subcutaneou sly NOC Active NexIUM 30 mg 1 cap(s) orally once a day Active raloxifene 60 mg 1 tab(s) orally once a day Active Voltaren Gel - for lower body joint 1% 2 g apply topically to knees 4 times a day as needed 12/24/2018 Not-Taking Tradjenta 5 mg 1 tab(s) orally once a day Active folic acid 1 mg 1 tab(s) orally once a day for 90 days 12/31/2018 Not-Taking methotrexate 50mg/2ml solution 50mg/2ml 1cc Injection sq once a week for 30 days 11/19/2020 Active DULoxetine 60 mg 1 cap(s) orally once a day Active Syringe 1 cc 27 gauge 1/2 for methotrexate subcutaneous once a week for 90 days 11/19/2020 Active SOCIAL HISTORY Tobacco Use: Social History Observation Description Date Details (start date - stop date) Never Smoker NA - NA Sex Assigned At : Social History Observation Description Sex Assigned At Unknown Tobacco Use: Question Answer Notes Smoking Status nonsmoker PROBLEMS Problem Type ICD Code Onset Dates Problem Status W/U Status Risk SNOMED Code Notes Problem Never smoked cigarettes (Z78.9) Active confirmed 508480251 Problem Right wrist pain (M25.531) Active confirmed 754675688688461 Problem Left wrist pain (M25.532) Active confirmed 970676275109987 Problem Myalgia (M79.1) Active confirmed 210226 01 Problem Shoulder pain (M25.519) Active confirmed 60797971 Problem Polyarthritis (M13.0) Active confirmed 77173712 Problem Positive anti-CCP test (R76.8) Active confirmed 519274078 Problem terminal gauger current use of non-steroidal anti-inflammatori es (NSAID) (Z79.1) Active confirmed 992083065 Problem 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) Active confirmed 848326142 Problem Other termite treater (current) drug therapy (Z79.899) Active confirmed 165698021 Problem Screening-pulmona ry TB (Z11.1) Active confirmed Problem Abnormal labor (O62.9) Active confirmed 22913916 Problem Abnormal laboratory test result (R89.9) Active confirmed 641172532 Problem Need for hepatitis B screening test (Z11.59) Active confirmed 739258676 PLAN OF TREATMENT Pending Test Test Name Order Date Sed Rate (IH) 01/21/2021 X ray : Hand, left 11/14/2016 X ray : Hand, right 11/14/2016 AST (SGOT) 04/28/2019 Creatinine, Serum 05/28/2018 ALT (SGPT) 04/28/2019 ALERA (IH) 01/21/2021 CBC (IH) 01/21/2021 AST (IH) 01/21/2021 ALT (IH) 01/21/2021 Creatinine (IH) 01/21/2021 QUANTIFERON(R)-TB GOLD PLUS, 1 TUBE 04/2019 QUANTIFERON(R)-TB GOLD PLUS, 1 TUBE 12/23 Future Test Test Name Order Date CBC With Differential/Platelet 9 Insurance Providers Payer Name Payer Address Payer Phone Subscriber Number Group Number Insured Name Patient Relationship to Insured Coverage Start Date Coverage End Date LISA PRABHAKARA [address] [address] [place] [address] [id number] Cynthia Leon Self - patient is the insured 3 [employer] M/CARE SUPP [address] [place] [address] [id number] Cynthia Leon Self - patient is the insured 9 MEDICAL (GENERAL) HISTORY Medical History History ICD Code bruises easily migraine headache tension headaches Ringing in ears hayfever sinus problems lumps high blood pressure hemorrhoids indigestion weight gain weight loss Hot Flashes anxiety depression Surgical History Surgery Date(Month/Year) lumpectomy 2016 hemorrhoidectomy 1999 gallbladder surgery 1999 Hospitalization History Reason Date(Month/Year) Clavical,wrist 1990 right foot stress fracture 2016
--- OUTSIDE RECORDS SUMMARY | 2025-04-01 12:29 | XMS_ITS | Data Portability ---
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 Plan of Treatment Reminders Order Date Submit Date Provider Last Modified By Organization Details Last Modified Time Details Appointments Follow Up 30 2024 10:15A M TANIKA Alberts Not available Not available Not available Lab glycohemo globin, total, blood [address] (Lab), [address] [place], [address], 09/26/2024 11:52:20 CBC w/ auto diff [address] (Lab), [address] [place], [address], 09/26/2024 11:53:48 lipid panel, serum [address] (Lab), [address] [place], [address], 09/26/2024 11:53:16 CMP, serum or plasma [address] (Lab), [address] [place], [address], 09/26/2024 11:52:44 HbA1c (hemoglob in A1c), blood 2023 024 [facility], [address], [place], [address], 03/28/2024 08:19:52 HbA1c (hemoglob in A1c), blood 2023 024 [facility], [address], [place], [address], 07/01/2024 08:17:42 CMP, serum or plasma 2023 024 [facility] [facility], [address], [place], [address], 03/28/2024 08:19:52 lipid panel, serum 2023 [facility]24 [facility], [address], [place], [address], 03/28/2024 08:19:52 pro BNP (pro B-type natriuret ic peptide), serum or plasma 2023 024 [facility], [address], [place], [address], 03/28/2024 08:19:52 CBC w/ auto diff 2023 024 [employer] [facility] [facility], [address], [place], [address], 03/28/2024 08:19:52 BMP, serum or plasma [address] (Lab), [address] [place], [address], 11/16/2023 11:53:24 HbA1c (hemoglob in A1c), blood [address] (Lab), [address] [place], [address], 11/16/2023 11:53:24 microalbu min, urine [address] [facility], [address] [place], [address], 11/16/2023 11:53:24 lipid panel, serum [address] (Lab), [address] [place], [address], 11/16/2023 11:53:23 BMP, serum or plasma [address] [facility], [address] [place], [address], 04/21/2023 08:54:38 HbA1c (hemoglob in A1c), blood [address] [facility], [address] [place], [address], 04/21/2023 08:54:39 lipid panel, serum [address] [facility], [address] [place], [address], 04/21/2023 08:54:39 Referral None recorded. Procedures None recorded. Surgeries None recorded. Imaging home sleep study - Please call pt to schedule 2023 024 [email or web address] [facility] [address] [facility], [place], [address], 10/30/2024 14:09:43 MAMMO, screening , digital, bilateral - US if indicated *PLEASE CALL PT TO SCHEDULE* [address]23 [email or web address] [place] [address], [address] [facility] [address], [place], [address], 06/17/2024 16:31:44 DEXA - Please call pt to schedule 2023 [email or web address] [place] [address], [address], [place], [address], 07/25/2024 08:58:13 Medication Orders Mounjaro 2.5 mg/0.5 mL subcutane ous pen injector 2023 024 [id number], [address], [place], [id number], 09/26/2024 10:17:34 nebivolol 5 mg tablet 2023 024 [id number], [address], [place], [id number], 03/21/2024 10:45:27 Ozempic 0.25 mg or 0.5 mg (2 mg/1.5 mL) subcutane ous pen injector 2022 023 [email or web address] [facility]93181, [address], [place], [id number], 03/21/2024 10:13:54 Patient TargetsNo targets recorded. Patient Instructions Encounter Date Encounter Id Patient Instructions Last Modified By Organization Details Last Modified Time 03/31/2023 [id number] FU in 2-3 mo for dm, htn, arthritis, depression, allergies, lipid dbogue5 Not available 03/31/2023 13:26:05 Reason for Referral None Reported. Results Created Date Observation Date Name Description Value Unit Range Abnormal Flag Note LastModifiedBy Organization Detail LastModifiedTime 01/04/2001/04/2023 LIPID PANEL , STAND ROSITA cholesterol, total 132 mg/dL <200 normal Not Available [employer] [facility] [address] [place], [address], 01/04/2023 02:38:45 01/04/2001/04/2023 LIPID PANEL , STAND ROSITA HDL cholesterol 33 mg/dL > or = 50 low Not Available [facility] [address] [place], [address], 01/04/2023 02:38:45 01/04/20 23 01/04/2023 LIPID PANEL , STAND ROSITA triglyceride s 423 mg/dL <150 high If a non-f astin g speci men was colle cted, consi georgi repea t trigl yceri de testi ng on a fasti ng speci men if clini mark indic ated. Rakan mckeon et al. J. of Clin. Lipid ol. 2015; 9:129 -169. Not Available [facility] [address], [place], [address], 01/04/2023 02:38:45 01/04/20 23 01/04/2023 LIPID PANEL [...] 2061- 2068 (http ://ed ucati on.Qu estDi [employer]. com/f aq/FA Q164) Not Available [facility] [address], [place], [address], 01/04/2023 02:38:45 01/04/20 23 01/04/2023 LIPID PANEL , STAND ROSITA chol/HDLC ratio 4.0 (calc ) <5.0 normal Not Available [facility] [place] [address] [place], [address], 01/04/2023 02:38:45 01/04/2001/04/2023 LIPID PANEL , STAND ROSITA non HDL cholesterol 99 mg/dL _(jose c) <130 normal For patie nts with diabe angela plus 1 major ASCVD risk facto r, treat ing to a non-H DL-C goal of <100 mg/dL (LDL- C of <70 mg/dL ) is consi dered a thera peuti c optio n. Not Available [facility] [place] [address] [place], [address], 01/04/2023 02:38:45 01/04/2001/04/2023 BASIC METAB OLIC PANEL glucose 123 mg/dL 65-99 high Fasti ng refer ence inter rika For someo ne witho ut known diabe angela, a gluco se value betwe en 100 and 125 mg/dL is consi stent with predi abete s and shoul d be confi rmed with a follo w-up test. Not Available [facility] [place] [address] [place], [address], 01/04/2023 02:38:46 01/04/2001/04/2023 BASIC METAB OLIC PANEL urea nitrogen (BUN) 36 mg/dL 7-25 high Not Available [facility] [address] [place], [address], 01/04/2023 02:38:46 01/04/20 23 01/04/2023 BASIC METAB OLIC PANEL creatinine 1.31 mg/dL 0.60-1 .00 high Not Available [facility] [address], [address], 01/04/2023 02:38:46 01/04/20 23 01/04/2023 BASIC METAB OLIC PANEL eGFR 42 mL/mi n/1.7 3m2 > or = 60 low The eGFR is based on the CKD-E PI 2020 equat ion. To calcu late the new eGFR from a previ ous Creat inine or Cysta cheyenne C resul t, go to https ://tessa gomes/cydney london s/ kdoqi /gfr% 5Fcal culat or Not Available [place] [address] [place], [address], 01/04/2023 02:38:46 01/04/20 23 01/04/2023 BASIC METAB OLIC PANEL BUN/creatini ne ratio 27 (calc ) 6-22 high Not Available [address] [address] [place], [address], 01/04/2023 02:38:46 01/04/20 23 01/04/2023 BASIC METAB OLIC PANEL sodium 136 mmol/ L 135-14 6 normal Not Available [address] [address] [place], [address], 01/04/2023 02:38:46 01/04/20 23 01/04/2023 BASIC METAB OLIC PANEL potassium 4.5 mmol/ L 3.5-5. 3 normal Not Available [address], [address], 01/04/2023 02:38:46 01/04/20 23 01/04/2023 BASIC METAB OLIC PANEL chloride 103 mmol/ L 98-110 normal Not Available [address], [address], 01/04/2023 02:38:46 01/04/20 23 01/04/2023 BASIC METAB OLIC PANEL carbon dioxide 21 mmol/ L 20-32 normal Not Available [address] [address] [place], [address], 01/04/2023 02:38:46 01/04/20 23 01/04/2023 BASIC METAB OLIC PANEL calcium 9.1 mg/dL 8.6-10 .4 normal Not Available [address], [address], 01/04/2023 02:38:46 01/04/20 23 01/04/2023 HEPAT IC FUNCT ION PANEL protein, total 7.5 g/dL 6.1-8. 1 normal Not Available [address], [address], 01/04/2023 02:38:46 01/04/20 23 01/04/2023 HEPAT IC FUNCT ION PANEL albumin 4.3 g/dL 3.6-5. 1 normal Not Available [address], [address], 01/04/2023 02:38:46 01/04/20 23 01/04/2023 HEPAT IC FUNCT ION PANEL globulin 3.2 g/dL_ (calc ) 1.9-3. 7 normal Not Available [address], [address], 01/04/2023 02:38:46 01/04/20 23 01/04/2023 HEPAT IC FUNCT ION PANEL albumin/glob ulin ratio 1.3 (calc ) 1.0-2. 5 normal Not Available [address], [address], 01/04/2023 02:38:46 01/04/2001/04/2023 HEPAT IC FUNCT ION PANEL bilirubin, total 0.3 mg/dL 0.2-1. 2 normal Not Available [address], [address], 01/04/2023 02:38:46 01/04/20 23 01/04/2023 HEPAT IC FUNCT ION PANEL bilirubin, direct 0.1 mg/dL < or = 0.2 normal Not Available [address], [address], 01/04/2023 02:38:46 01/04/20 23 01/04/2023 HEPAT IC FUNCT ION PANEL bilirubin, indirect 0.2 mg/dL _(jose c) 0.2-1. [address] [facility] [employer] [place] [address] [place], [address], 01/04/2023 02:38:46 01/04/20 23 01/04/2023 HEPAT IC FUNCT ION PANEL alkaline phosphatase 78 U/L 37-153 normal Not Available [facility] [employer] [place] [address] [place], [address], 01/04/2023 02:38:46 01/04/20 23 01/04/2023 HEPAT IC FUNCT ION PANEL AST 18 U/L 10-35 normal Not Available [address] [address] [place], [address], 01/04/2023 02:38:46 01/04/2001/04/2023 HEPAT IC FUNCT ION PANEL ALT 20 U/L 6-29 normal Not Available [address] [address] [place], [address], 01/04/2023 02:38:46 01/04/2001/04/2023 VITAM IN D,25- OH,TO [...] /MS is recom dora d: order code 23043 (carmen ents >2yrs ). See Note 1 Note 1 For addit ional infor chelsea gautam refer to http: //keny choQue stDia gnost ics.c om/fa q/FAQ 199 (This link is being provi ded for infor fredy heredia/ yadi clarkeo ses only. ) Not Available [facility] [place] [address] [place], [address], 01/04/2023 02:38:47 01/04/2001/04/2023 HEMOG LOBIN A1C hemoglobin [...] for child fabian. Not Available [facility] [place] [address] [place], [address], 01/04/2023 02:38:48 05/25/2005/25/2023 LIPID PANEL , STAND ROSITA cholesterol, total 124 mg/dL <200 normal Not Available [facility] [place] [address] [place], [address], 05/26/2023 00:57:48 05/25/2005/25/2023 LIPID PANEL , STAND ROSITA HDL cholesterol 35 mg/dL > or = 50 low Not Available [facility] [place] [address] [place], [address], 05/26/2023 00:57:48 05/25/2005/25/2023 LIPID PANEL , STAND ROSITA triglyceride s 272 mg/dL <150 high If a non-f astin g speci men was colle cted, consi georgi repea t trigl yceri de testi ng on a fasti ng speci men if clini mark indic ated. Rakan mckeon et al. J. of Clin. Lipid ol. 2015; 9:129 -169. Not Available [employer] [facility] [address] [place], [place] [address] [place], [address], 05/26/2023 00:57:48 05/25/2005/25/2023 LIPID PANEL , STAND [...] 2061- 2068 (http ://ed ucati on.Qu maria luisaInboxQ. com/f aq/FA Q164) Not Available [facility] [address] [place], [address], 05/26/2023 00:57:48 05/25/2005/25/2023 LIPID PANEL , STAND ROSITA chol/HDLC ratio 3.5 (calc ) <5.0 normal Not Available [facility] [address] [place], [address], 05/26/2023 00:57:48 05/25/2005/25/2023 LIPID PANEL , STAND ROSITA non HDL cholesterol 89 mg/dL _(jose c) <130 normal For patie nts with diabe angela plus 1 major ASCVD risk facto r, treat ing to a non-H DL-C goal of <100 mg/dL (LDL- C of <70 mg/dL ) is bro nguyen optio n. Not Available [address], [address], 05/26/2023 00:57:48 05/25/2005/25/2023 BASIC METAB OLIC PANEL glucose 130 mg/dL 65-99 high Fasti ng refer ence inter rika For someo ne witho ut known diabe angela, a gluco se value >125 mg/dL indic ates that they may have diabe angela and this shoul d be confi rmed with a follo w-up test. Not Available [address], [address], 05/26/2023 00:57:48 05/25/2005/25/2023 BASIC METAB OLIC PANEL urea nitrogen (BUN) 19 mg/dL 7-25 normal Not Available [address], [address], 05/26/2023 00:57:48 05/25/2005/25/2023 BASIC METAB OLIC PANEL creatinine 1.28 mg/dL 0.60-1 .00 high Not Available [address], [address], 05/26/2023 00:57:48 05/25/2005/25/2023 BASIC METAB OLIC PANEL eGFR 44 mL/mi n/1.7 3m2 > or = 60 low Not Available [address], [address], 05/26/2023 00:57:48 05/25/2005/25/2023 BASIC METAB OLIC PANEL BUN/creatini ne ratio 15 (calc ) 6-22 normal Not Available [address], [address], 05/26/2023 00:57:48 05/25/2005/25/2023 BASIC METAB OLIC PANEL sodium 136 mmol/ L 135-14 6 normal Not Available [address], [address], 05/26/2023 00:57:48 05/25/2005/25/2023 BASIC METAB OLIC PANEL potassium 4.5 mmol/ L 3.5-5. 3 normal Not Available [address], [address], 05/26/2023 00:57:48 05/25/2005/25/2023 BASIC METAB OLIC PANEL chloride 100 mmol/ L 98-110 normal Not Available [address], [address], 05/26/2023 00:57:48 05/25/2005/25/2023 BASIC METAB OLIC PANEL carbon dioxide 23 mmol/ L 20-32 normal Not Available [address], [address], 05/26/2023 00:57:48 05/25/2005/25/2023 BASIC METAB OLIC PANEL calcium 9.5 mg/dL 8.6-10 .4 normal Not Available [address], [address], 05/26/2023 00:57:48 05/25/2005/25/2023 HEMOG LOBIN A1C hemoglobin [...] diabe angela for child fabian. Not Available [facility] [address] [address], [place], [address], 05/26/2023 00:57:49 05/16/20 23 MAMMO , scree dalton, digit al, bilat eral [facility] [address] [facility] [address] [facility], [place] [address] Patien t Name: Cynthia NIELSON Access ion #: [id number] Sex: F : 1944 2 Dictat [...] at 2022 13:04: 13 PM Page [address] (Imaging) [address], [place], [address], 05/19/2023 15:26:36 11/15/19 25 11/15/2024 MAMMO , diagn ostic , digit al, bilat eral No observ ation record ed. [place] [address], [place], [address], 11/19/2024 10:16:11 11/18/19 25 11/15/2024 biops y, breas t, w/ ultra sound yolie nce (PROC ) No observ ation record ed. [address], [place], [address], 11/19/2024 11:38:17 11/25/19 25 11/25/2024 biops y, breas t, w/ ultra sound yolie nce (PROC ) No observ ation record ed. [address], [place], [address], 11/26/2024 15:36:58 11/29/19 25 11/25/2024 biops y, breas t, w/ ultra sound yolie nce (PROC ) No observ ation record ed. [facility] [address], [place], [address], 12/03/2024 11:06:08 Result Notes None recorded. Problems Name Problem SNOMED Code Status Onset Date Resolution Date Notes Provider Name and Address Organization Details Recorded Time Foreign body in left ear 64881305044 099458 Active 2021 Not Available [facility] 06:16:06 Mass of right breast 61862975525 973706 Active 2021 Not Available [facility] 3 06:16:06 Celluliti s of foot 549807221 Completed 03/21/2024 TANIKA Alberts [address], [place], [address] , [facility] 4 08:43:52 Computed tomograph y result abnormal 009048676 Active Not Available [facility] 3 06:16:06 Mammograp hic mass of breast 276282760 Active Not Available [facility] 3 06:16:06 Mammograp hy abnormal 621375936 Active Not Available [facility] 3 06:16:06 Insomnia 309089666 Active Not Available [facility] 3 06:16:06 Abdominal pain 13529257 Completed 03/21/2024 Yoana Lauren, UROLOGY NURSE [address] [facility], [address], [place], [address] , [facility] [employer]inary [employer] [facility] 4 08:43:33 Mixed anxiety and depressiv e disorder 827617182 Active 2016 Not Available [facility] 3 06:16:06 Stage fright 335360255 Active 2021 Not Available [facility] 3 06:16:06 Gastroeso phageal reflux disease 544441042 Active 2016 Not Available [facility] 3 06:16:06 Shoulder joint pain 254442168 Active 2016 Not Available [facility] 3 06:16:06 Insect bite - wound 557416273 Active 2016 Not Available [facility] 3 06:16:06 Low back pain 115745812 Active 2020 Not Available [facility] 3 06:16:06 Low back strain 853478903 Active 2016 Not Available [facility] 3 06:16:07 Pain in pelvis 47212479 Active Not Available [facility] 3 06:16:07 Injury of tendon of the rotator cuff of shoulder 615513549 Active Not Available [facility] 3 06:16:07 Changing shape of pigmented skin lesion 983225627 Active Not Available [facility] 3 06:16:07 Vitamin D deficienc y 99194022 Active Not Available [facility] 3 06:16:07 Depressiv e disorder 70365151 Active Not Available [facility] 3 06:16:07 Migraine 96401897 Active Not Available [facility] 3 06:16:07 Hypertens carlos disorder 27964596 Active Not Available [facility] 3 06:16:07 Neuropath y 740540899 Active 2019 Not Available [facility] 3 06:16:07 Osteoarth ritis 223669151 Active 2016 Not Available [facility] 3 06:16:07 Diverticu lar disease 037349039 Active 2016 Not Available [facility] 3 06:16:07 Pharyngit is 984487211 Active Not Available [facility] 3 06:16:07 History of malignant neoplasm of breast 270419544 Active 2016 Not Available [facility] 3 06:16:08 Hot flash caused by medicatio n 086105419 Active 2016 Not Available [facility] 3 06:16:08 Type 2 diabetes mellitus 07794601 Active 2017 Not Available [facility] 3 06:16:08 Atelectas is 87919666 Active 2017 Not Available [facility] 3 06:16:08 Anxiety 56493022 Active Not Available [facility] 3 06:16:08 Hernia of abdominal cavity 44921306 Active 2016 Not Available [facility] 3 06:16:08 Upper respirato ry infection 78874068 Active Not Available [facility] 3 06:16:08 Hyperlipi demia 48359019 Active Not Available [facility] 3 06:16:08 Essential hypertens ion 21857370 Active Not Available [facility] 3 06:16:08 Tinea pedis 6196844 Active Not Available [facility] 3 06:16:08 Rheumatoi d arthritis 96258787 Active 2016 Not Available [facility] 3 06:16:08 Liver enzymes level above reference range 061608924 Active 2020 Not Available [facility] 3 06:16:09 Posterior rhinorrhe a 59586040 Active Not Available [facility] 3 06:16:09 Postmenop ausal state 18859883 Active 2017 Not Available [facility] 3 06:16:09 Hiatal hernia 31043328 Active Not Available [facility] 3 06:16:09 Breast lump 56145480 Active Not Available [facility] 3 06:16:09 Skin lesion 03603312 Active 2018 Not Available [facility] 3 06:16:09 Hypertrig lyceridem ia 816360980 Active 2022 Munira Lockwood NP [address], [place], [address] , [employer] 3 09:37:54 Chronic kidney disease stage 3B 570125573 Active 2022 Munira Lockwood NP [address], [place], [address] , [employer] 3 08:50:27 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 572639195 Active 2022 Munira Lockwood NP [address], [place], [address] , [employer] 3 19:18:27 Candidias is of vagina 64526162 Completed 202203/21/2024 TANIKA Alberts [address], [place], [address] , [employer] 4 08:43:36 Vaginal irritatio n 184031198 Active 2022 Munira Lockwood NP [address], [place], [address] , [employer] 3 13:23:44 Dyspnea at rest 510511448 Active 2023 TANIKA Alberts [address], [place], [address] , [employer] 4 10:36:05 Sleep apnea 62738907 Active 2023 TANIKA Alberts [address], [place], [address] , [place] [facility] [employer] 4 11:03:50 Stable angina 339888826 Active 2023 TANIKA Alberts [address], [place], [address] , [employer] 4 11:13:47 Mass of left breast 43888138600 595224 Active 2024 TANIKA Alberts [address], [place], [address] , [employer] 5 11:10:38 Lump in bilateral breasts 45272374735 891407 Active 2024 TANIKA Alberts [address], [place], [address] , [employer] 5 11:53:19 Invasive carcinoma of breast 184515314 Active 2024 TANIKA Alberts [address], [place], [address] , [employer] 5 12:13:34 Problem Notes None recorded. Procedures Surgical History Date Name Laterality Status Provider Name and Address Organization Details Recorded Time 06/22/20 Most Recent Bone Density completed Not Available [facility] 12/21/2022 06:11:06 Cholecystectomy completed Not Available [facility] 12/21/2022 06:11:09 lumpectomy of breast completed Not Available [facility] 12/21/2022 06:11:09 procedure on lymph node completed Not Available [facility] 12/21/2022 06:11:09 Imaging Results None recorded. Procedure Notes None recorded. Medical Equipment None Reported. Allergies Allergen ID Allergen Name Allergen Category Reaction Reaction Severity Criticality Documentation Date Start Date Code Code System Note Provider Name and Address Organization Details Recorded Time 57746 Tricor medicatio n headache Not available Not available 12/21/2022 56706 6 RxNorm Not Available [facility] 3 06:22:00 51528 Protonix medicatio n Not available Not available Not available 12/21/2022 49670 4 RxNorm DOESN 'T HELP Yoana Lauren, UROLOGY NURSE [address] [facility], [place], [address] , [facility] [employer] 4 16:11:56 52147 Product containin g penicilli n (product) medicatio n hives Not available Not available 12/21/2022 92176 8001 SNOMED Not Available [facility] 3 06:22:01 45069 Niaspan medicatio n Not available Not available Not available 12/21/2022 58478 6 RxNorm FLUSH ING Not Available [facility] 3 06:22:01 00335 Diflucan medicatio n Not available Not available Not available 12/21/2022 82693 3 RxNorm Not Available [facility] 3 06:22:01 Medications Name Sig Start Date Stop Date Status Note LastModified by Organization Details LastModified Time Prescript ion - Renewal active Not Available Not Available Not Available losartan 50 mg tablet TAKE 1 TABLET [...] REPEAT IN 2 HOURS IF SYMPTOMS PERSIST 2024 active Not Available Not Available Not [...] Not Available alprazola m 0.25 mg tablet Take 1 tablet 3 times a day by oral route as needed for 30 days. 2024 active Not Available Not Available Not Avai lable cephalexi n 500 mg capsule Take by [...] 2 TABLETS IN PM 03/[address] SUSAN TOMAS Not Available Not Available Not Available [...] completed Dr.Huq Nancy tomas (Oncolog y at [facility] Not Available Not Available Not Available gabapenti [...] Not Available fenofibra te 160 mg tablet TAKE 1 TABLET BY MOUTH DAILY 2024 active Not Available Not Available Not [...] TAKE 1 TABLET BY MOUTH EVERY DAY 2024 active Not Available Not Available Not Avai lable Pristiq 50 mg tablet,ex tended release Take 1 tablet every day by oral route for [address]. [address] Baum prescrib es Not Available Not Available Not Available Treximet [...] completed Not Available Not Available Not Available OneTouch Ultra Blue Test Strip USE DIRECTED TO TEST BLOOD SUGAR DAILY TO TWICE DAILY 03/21 completed Not Available Not Available Not Available [facility] ODT 75 mg disintegr ating tablet Take [...] % 70 /min 16 /min 96.7 [degF] 31053.7 4 g 140 mm[Hg] 91 mm[Hg] Not Available [facility] 3 06:13:04 Date Recorded Body height Body mass index (BMI) Body weight Body temperature Heart rate Oxygen saturation Oxygen saturation in Arterial blood by Pulse oximetry Systolic blood pressure Diastolic blood pressure Provider Name and Address Organization Details Last Updated DateTime 4 165.1 cm 36.2 kg/m2 91215.6 4 g 98.6 [degF] 93 /min 97 % 97 % 154 mm[Hg] 86 mm[Hg] [place] Deshpande MA [place] [employer] [facility] 4 10:05:12 Date Recorded Systolic blood pressure Diastolic blood pressure Provider Name and Address Organization Details Last Updated DateTime 03/31/2023 142 mm[Hg] 88 mm[Hg] Munira Lockwood NP [address], [address], [place], [address], [facility] [employer] [facility] 03/31/2023 13:21:26 Date Recorded Body height Body mass index (BMI) Body weight Body temperature Heart rate Oxygen saturation Oxygen saturation in Arterial blood by Pulse oximetry Respiratory rate Systolic blood pressure Diastolic blood pressure Provider Name and Address Organization Details Last Updated DateTime 3 165.1 cm 35.8 kg/m2 60817.3 6 g 96.7 [degF] 94 /min 96 % 96 % 20 /min 152 mm[Hg] 84 mm[Hg] Munira Jasmine RN [facility] [employer] [facility] 3 12:42:54 Date Recorded Body height Body mass index (BMI) Body weight Body temperature Heart rate Respiratory rate Oxygen saturation Oxygen saturation in Arterial blood by Pulse oximetry Systolic blood pressure Diastolic blood pressure Provider Name and Address Organization Details Last Updated DateTime 3 165.1 cm 35.1 kg/m2 70516.9 9 g 95.3 [degF] 75 /min 16 /min 94 % 94 % 150 mm[Hg] 84 mm[Hg] Munira Jasmine RN [facility] [employer] [facility] 3 10:44:20 Date Recorded Body height Body mass index (BMI) Body weight Body temperature Heart rate Respiratory rate Oxygen saturation Oxygen saturation in Arterial blood by Pulse oximetry Systolic blood pressure Diastolic blood pressure Provider Name and Address Organization Details Last Updated DateTime 4 165.1 cm 35.7 kg/m2 54469.5 7 g 96.6 [degF] 80 /min 24 /min 94 % 94 % 172 mm[Hg] 98 mm[Hg] Munira Jasmine RN [facility] [employer] [facility] 4 10:20:48 Social History Question Answer Notes LastModified by Organization Details LastModified Time Tobacco Smoking Status Never Smoker Not Available [employer] 12/21/2022 06:09:42 Do You Have An Advance Directive? No MIGRATION.300 [id number] Information not available 12/21/2022 Are You Blind Or Do You Have Difficulty Seeing? No MIGRATION.300026 Information not available 12/21/2022 What Is Your Level Of Caffeine Consumption? None MIGRATION.0301 [id number] Information not available 12/21/2022 What Is Your Code Status? Full Code MIGRATION.0301 [id number] Information not available 12/21/2022 In The 14 Days Before Symptom Onset, Have You Had Close Contact With A Laboratory-confi rmed COVID-19 While That Case Was Ill? No MIGRATION.0301 [id number] Information not available 12/21/2022 In The 14 Days Before Symptom Onset, Have You Had Close Contact With A Person Who Is Under Investigation For COVID-19 While That Person Was Ill? No MIGRATION.0301 [id number] Information not available 12/21/2022 Are You Deaf Or Do You Have Serious Difficulty Hearing? Yes Tenitis MIGRATION.0301 355131 Information not available 12/21/2022 What Type Of Diet Are You Following? REGULAR MIGRATION.030 056637 Information not available 12/21/2022 How Many Days [...] Your Family Or Social Situation? No MIGRATION.0301 [id number] Information not available 12/21/2022 Do You Use Insect Repellent Routinely? Yes MIGRATION.0301 639314 Information not available 12/21/2022 [facility] 03/31/2023 Are You Following A Low Salt Diet? Yes MIGRATION.0301 362368 Information not available 12/21/2022 Do You Have A Medical Power Of Demonstrator [employer] Appliances? Yes MIGRATION.0301 185486 Information not available 12/21/2022 Do You Have Any Pets? Yes MIGRATION.0301 816758 Information not available 12/21/2022 What Is Your Relationship Status? Single MIGRATION.0301 981335 Information not available 12/21/2022 Do You Use Your Seat Belt Or Car Seat Routinely? Yes MIGRATION.0301 134222 Information not available 12/21/2022 Do You Have Smoke And Carbon Monoxide Detectors In Your Home? Yes MIGRATION.0301 912194 Information not available 12/21/2022 Are There Any Smokers In Your House? No MIGRATION.0301 673056 Information not available 12/21/2022 Do You Participate In Social Media? No MIGRATION.0301 339887 Information not available 12/21/2022 What Types Of Sporting Activities Do You Participate In? Treadmill, Chair Yoga Information not available 03/31/2023 Do You Use Sunscreen Routinely? Yes MIGRATION.0301 994878 Information not available 12/21/2022 Has Tobacco Cessation Counseling Been Provided? No MIGRATION.0301 762619 Information not available 12/21/2022 Have You Recently Traveled Abroad? No MIGRATION.0301 837810 Information not available 12/21/2022 Do You Have Difficulty Walking Or Climbing Stairs? No MIGRATION.0301 370636 Information not available 12/21/2022 Do You Have Any Dietary Restrictions? Yes MIGRATION.0301 715569 Information not available 12/21/2022 Sex: Female Functional Status Question Answer Note LastModified by [employer] Details LastModified Time Do you use any illicit or recreational drugs? No MIGRATION.3443307 026 Information not available 12/21/2022 Do you or have you ever used any other forms of tobacco or nicotine? No MIGRATION.9873315 026 Information not available 12/21/2022 What is your level of alcohol consumption? Occasional MIGRATION.1541686 026 Information not available 12/21/2022 Do you have transportation difficulties? No MIGRATION.3418258 026 Information not available 12/21/2022 Are you able to walk? YESWOREST MIGRATION.2855044 026 Information not available 12/21/2022 Do you have difficulty doing errands alone? No MIGRATION.6877173 026 Information not available 12/21/2022 Are you able to care for yourself? Yes MIGRATION.7068474 026 Information not available 12/21/2022 What is your occupation? retired MIGRATION.0216204 026 Information not available 12/21/2022 Do you have difficulty dressing or bathing? No MIGRATION.3417610 026 Information not available 12/21/2022 What is your exercise level? Heavy MIGRATION.2371310 026 Information not available 12/21/2022 Mental Status Question Answer Note LastModified by [employer] Details LastModified Time Do you feel stressed (tense, restless, nervous, or anxious, or unable to sleep at night)? [id number] MIGRATION.[id number] 26 Information not available 12/21/2022 Do you have difficulty concentrating, remembering or making decisions? No MIGRATION.70501324 Information not available 12/21/2022 Family History Relationship Description Onset Age of this Age Resolved Age Notes LastModified by Organization Details LastModified Time Mother Dementia Deceas ed MIGRATION.080 [id number] Not available 12/21/2022 06:11:10 Notes:Mother had recurrent n osebleeds Medical History Condition Response HEADACHES/MIGRAINES Y DIABETES, TYPE Y ALLERGIES/HAYFEVER Y INSOMNIA Y HYPERTENSION Y HIGH CHOLESTEROL / HYPERLIPIDEMIA Y OBESITY Y ANXIETY DISORDER Y Gynecological History Statement/Question Response If Post Menopausal, Age at Menopause 55 Date of Last Mammogram 05/02/2022 Date of Last Colonoscopy Most Recent Bone Density 06/22/2022 Obstetrics History GPAL:G 0 P 0 0 0 0 Immunizations Vaccine Type Date Status Note Provider Nam e and Address Organization Details Recorded Time Influenza, high-dose, quadrivalent, PF 2 completed Not Available [facility] 12/21/2022 06:21:46 SARS-COV-2 (COVID-19) vaccine, UNSPECIFIED 2 completed Not Available [facility] 12/21/2022 06:21:46 SARS-COV-2 (COVID-19) vaccine, UNSPECIFIED 1 completed Not Available [facility] 12/21/2022 06:21:46 SARS-COV-2 (COVID-19) vaccine, UNSPECIFIED 1 completed Not Available [facility] 12/21/2022 06:21:46 pneumococcal polysaccharide PPV23 3 completed Not Available [facility] 12/21/2022 06:21:46 Influenza, split virus, trivalent, preservative 3 completed [facility] Available [facility] 12/21/2022 06:21:46 zoster live 1 completed Not Available [facility] 12/21/2022 06:21:46 Tdap 1 completed Not Available [facility] 12/21/2022 06:21:47 Influenza, high-dose, quadrivalent, PF 1 completed Not Available [facility] 12/21/2022 06:21:47 Td (adult), 5 Lf tetanus toxoid, preservative free, adsorbed 3 completed Not Available [facility] 12/21/2022 06:21:47 Influenza, high-dose, quadrivalent, PF 0 completed Not Available [facility] 12/21/2022 06:21:47 pneumococcal polysaccharide PPV23 8 completed Not Available [facility] 12/21/2022 06:21:47 Influenza, high-dose, trivalent, PF 8 completed Not Available [facility] 12/21/2022 06:21:47 Pneumococcal conjugate PCV 13 6 completed Not Available [facility] 12/21/2022 06:21:47 Influenza, high-dose, quadrivalent, PF 4 completed YUNG [place], [place] - [facility] [employer] [facility] 03/21/2024 17:35:08 Past Encounters Encounter ID Performer Location Encounter Start Date Encounter Closed Date Diagnosis/Indication Diagnosis SNOMED-CT Code Diagnosis ICD10 Code Diagnosis Note [id number] Wan Ritter MD [address] [address] 05/18/2021 00:00:00 05/18/2021 16:56:56 [id number] Wan Ritter MD [address] [address] 06/24/2021 00:00:00 06/24/2021 14:15:49 [id number] Wan Ritter MD [address] [address] 1 07/27/2021 00:00:00 07/27/2021 13:41:32 [id number] Wan Ritter MD [address] [address] 1 07/28/2021 00:00:00 07/28/2021 15:56:19 [id number] Wan Ritter MD [address] [address] 11/17/2021 00:00:00 11/17/2021 15:00:15 [id number] Munira Lockwood NP [address] [address] 06/16/2022 00:00:00 06/17/2022 15:47:52 [id number] Munira Lockwood NP [address] [address] 1 07/28/2022 00:00:00 07/28/2022 11:07:33 [id number] Rivera Scruggs MD [facility] [place] [address] [place] [address] 08/04/2022 00:00:00 08/04/2022 11:23:20 [id number] Wan Ritter MD [address] [address] 08/25/2022 00:00:00 08/25/2022 11:00:04 [id number] Wan Ritter MD [address] [address] 12/01/2022 00:00:00 12/01/2022 17:56:30 [id number] Munira Lockwood NP [address] [address] 03/31/2023 12:32:52 03/31/2023 14:31:05 Essential hypertension 19744710 I10 Gastroesop hageal reflux disease 336532602 K21.9 Hyperlipidemia 04010216 E78.5 trigs 400+ in december 2022. Osteoarthritis 887010660 M19.90 Depressive disorder 3548 9007 F32.9 Type 2 oli betes mellitus 84868398 E11.9 Rheumatoid arthritis 698 24997 M06.9 Vitamin D deficiency 347 47815 E55.9 Chronic ki dney disease stage 3B 845996686 N18.32 referred to nephrologzayra Juan. Pt wants [place] office. She is to call [facility] and see if [place] office avail. If not, call office to change referral. Candidiasis of vagina 72 623186 B37.31 Allergy to diflucan. Will try monastat. Vaginal irritation 43839 6004 N89.8 [id number] Munira Lockwood NP [address] [address] 05/31/2023 10:23:45 05/31/2023 11:15:28 Essential hypertension 08623374 I10 Losartan 100 mg po daily.Nebi volol 5 mg po daily.tria mterene 37.5 mg- hctz 25 mg po daily. Gastroesop hageal reflux disease 084567941 K21.9 Nexium 40 mg po daily. Hyperlipidemia 09564263 E78.5 trigs 400+ in december 2022.Fenof ibrate 160 mg po daily.Rosu vastatin 20 mg po nightly. Osteoarthritis 890916059 M19.90 Stable Depressive disorder 3548 9007 F32.9 buspirone 10 mg, 2 tab po in AM and 1 tab in PMPristiq 50 mg po daily[address]. Baum. Type 2 oli betes mellitus 21483520 E11.9 Gabapentin 100 mg po tid, pt takes 100 mg po nightly.La ntus solostar 25 units nightly.Oz empic 0.5 mg weekly. Rheumatoid arthritis 698 80301 M06.9 Stable Vitamin D deficiency 347 33916 E55.9 Vit d 50,000 IU po weekly. Chronic ki dney disease stage 3B 835257860 N18.[address] Juan. [place] office[place] She is to call [facility] [place] if [place] office avail. If not, call office to change referral. Migraine 01291332 G43.90 9 Sumatripta n 100 mg po prn.Tizani dine prn. Insomnia 378618506 G47.0 0 Zolpidem ER 12.5 mg po nightly prn. [id number] Wan Ritter MD [address] [address] 03/21/2024 09:52:05 03/21/2024 12:29:11 Type 2 diabetes mellitus 89773002 E11.9 Recommende huy Adams, would like to wait due to yeast infection risks Will consider weaning off insulin pending A1C in 90 days Dyspnea at rest 22758932 7 R06.00 Will consider cardio consult Hyperlipidemia 61082209 E78.5 Screening mammography 24 846213 Z12.31 Screening for osteoporosis 300668766 Z13.820 Essential hypertension 04029955 I10 Administra tion of influenza vaccine 40657543 Z23 [id number] Wan Ritter MD [facility] [address] [address] 09/26/2024 09:57:36 09/26/2024 11:12:35 Essential hypertension 02415985 I10 Blood pressure elevated to 172/98 in office today but reportedly normal in cardiology office yesterday. Already on maximum dose of losartan 100mg daily. Additional ly on nebivolol 5 mg daily and triamteren e 37.5-HCTZ 25 mg daily. Hyperlipidemia 35935347 E78.5 Taking fenofibrat e 160mg daily and rosuvastat in 20 mg daily. Type 2 oli betes mellitus 66693806 E11.9 Recommende huy Adams, would like to wait due to yeast infection risks Will consider weaning off insulin pending A1C in 90 days Sleep apnea 76317829 G47 .30 Significan t fatigue in the morning and throughout the day with elevated blood pressure, risk factor (obesity), and elevated blood pressure concerning for sleep apnea. Stable angina 249075714 I20.89 Shortness of breath and chest discomfort with effort worsening over the last year. Is following with cardiology (Dr. Ritter at [facility] in [facility]) with plans for TTE on 10/[address] on 10/21. Migraine 21617415 G43.90 9 Bilateral anterior headaches in the [...] Ortega Member ID Guarantor Name 03/31/2023 2 LISA GBA - MEDICARE-RAIL [address] JAIL BOARD (MEDICARE) L Boone BautistaEdward [id number] 1 [id number] L Yaima Edward 03/31/2023 2 [place] [employer] (INDEMNITY) [id number] L E Edward [id number] L Yaima Edward 05/31/2023 2 BLOOMINGDALEKARI GBA - MEDICARE-RAIL RO[address] JAIL BOARD (MEDICARE) L Boone BautistaEdward [id number] 1 [id number] L Yaima Edward 05/31/2023 2 [place] [employer] (INDEMNITY) [id number] L E Edward [id number] L Yaima Edward 03/21/2024 2 LISA GBA - MEDICARE-RAIL [address] JAIL BOARD (MEDICARE) L Boone BautistaEdward [id number] L Yaima Edward 03/21/2024 1 [employer] Yaima L Edward [id number] L Yaima Edward 09/26/2024 2 LISA GBA - MEDICARE-RAIL [address] JAIL BOARD (MEDICARE) L Boone BautistaEdward [id number] 1 [id number] L Yaima Edward 09/26/2024 1 [employer] Yaima L Edward [id number] L Yaima Edward Notes Date Note Type Note Provider Name [...] scheduled April 2023. Munira Lockwood, [employer] [address], [place], [address], [facility] [employer] [facility] 04/05/2023 13:57:19 05/31/2023 text/html Here for check [...] d weekly.CKD- Seeing Dr. Paulson. exercising at [facility] 3 days weekly. Munira Lockwood NP [address], [facility] [address], [place], [address], [employer] 05/31/2023 11:11:02 03/21/2024 text/html Yaima Nielson is [...] cologuard and colonoscopy last year Yoana Lauren, UROLOGY NURSE [address], [place], [address], [facility] [employer] 04/05/2024 12:13:26 09/26/2024 text/html Yaima Nielson is a 78 year old female patient here today for a 6 month FU She saw a diving fisher (Dr. Ritter at [facility] in [place]) yesterday for angina, she has testing scheduled. [...] last year; colonoscopy was normal Yoana Lauren, UROLOGY NURSE [address], [facility] [address], [place], [address], [facility] [employer] 09/26/2024 11:29:04 OBGyn Episode No OBEpisode recorded.
--- OUTSIDE RECORDS SUMMARY | 2025-04-01 12:29 | XMS_ITS | Referral Summary ---
Author Organization [facility] Address [address] [place] [address] Care Team Providers Care Director Physical Therapy Name Role Phone Munira Greenberg FINANCIAL SECRETARY Primary Care Provider + Allergies Active Allergy [...] on file Legal Sex Female 1:04 AM ADOPTION COORDINATOR Gender Identity Not on file Sexual Orientation Not on file Occupation Industry Job Start Date Job End Date retired Not on file Not on file Not on file Last Filed Vital Signs Vital Sign Reading Time Taken Comments Blood Pressure 124/65 10/21/2024 12:43 PM ADOPTION COORDINATOR Pulse 75 10/21/2024 12:43 PM ADOPTION COORDINATOR Temperature - - Respiratory Rate - - Oxygen Saturation 96% 09/25/2024 9:45 AM ADOPTION COORDINATOR Inhaled Oxygen Concentration - - Weight 98 kg (216 lb) 09/25/2024 9:45 AM ADOPTION COORDINATOR Height 165.1 cm (5' 5) 09/25/2024 9:45 AM ADOPTION COORDINATOR Body Mass Index 35.94 09/25/2024 9:45 AM ADOPTION COORDINATOR Plan of Treatment Not on file Insurance MEDICARE RA[employer] [place] [employer] CHOICE MEDICARE PPO [employer] MEDICARE PPO Care Teams Director Physical Therapy Relationship Specialty Start Date End Date Munira Greenberg NP PCP - General Nurse Practitioner 06/18/21
== END 2025-04-01 11:04 | disposition home or self-care (01) ==
PROVIDERS: Visit Provider Nurse Practitioner Family
DX: K44.9 Diaphragmatic hernia without obstruction or gangrene (principal); R06.02 Shortness of breath
CPT/HCPCS: 71046

== ENCOUNTER 2025-04-30 09:09 | Outpatient (CLI) | payer MEDICARE, SELFPAY ==
--- OUTSIDE RECORDS SUMMARY | 2025-04-30 09:17 | XMS_ITS | Data Portability ---
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 MIGRATION.6337470 026 Information not available 12/21/2022 Are you able to walk? YESWOREST MIGRATION.6689784 026 Information not available 12/21/2022 Do you have difficulty doing errands alone? No MIGRATION.5655553 026 Information not available 12/21/2022 Are you able to care for yourself? Yes MIGRATION.2926350 026 Information not available 12/21/2022 What is your occupation? retired MIGRATION.1071749 026 Information not available 12/21/2022 Do you have difficulty dressing or bathing? No MIGRATION.6215628 026 Information not available 12/21/2022 What is your exercise level? Heavy MIGRATION.9418451 026 Information not available 12/21/2022 Mental Status Question Answer Note LastModified by [employer] Details LastModified Time Do you feel stressed (tense, restless, nervous, or anxious, or unable to sleep at night)? [id number] MIGRATION.11452514 26 Information not available 12/21/2022 Do you have difficulty concentrating, remembering or making decisions? No MIGRATION.83816407 26 Information not available 12/21/2022 Family History Relationship Description Onset Age of this Age Resolved Age Notes LastModified by Organization Details LastModified Time Mother Dementia Deceas ed MIGRATION.147 [id number] Not available 12/21/2022 06:11:10 Notes:Mother had recurrent [...] high-dose, quadrivalent, PF 2 completed Not Available [facility] 12/21/2022 06:21:46 SARS-COV-2 (COVID-19) vaccine, UNSPECIFIED 2 completed Not Available [facility] 12/21/2022 06:21:46 SARS-COV-2 (COVID-19) vaccine, UNSPECIFIED 1 completed Not Available [facility] 12/21/2022 06:21:46 SARS-COV-2 (COVID-19) vaccine, UNSPECIFIED 1 completed Not Available [facility] 12/21/2022 06:21:46 pneumococcal polysaccharide PPV23 3 completed Not Available [facility] 12/21/2022 06:21:46 Influenza, split virus, trivalent, preservative 3 completed Not Available [facility] 12/21/2022 06:21:46 zoster live 1 completed Not Available [facility] 12/21/2022 06:21:46 Tdap 1 completed Not Available [facility] 12/21/2022 06:21:47 Influenza, high-dose, quadrivalent, PF 1 completed Not Available [facility] 12/21/2022 06:21:47 Td (adult), 5 Lf tetanus toxoid, preservative free, adsorbed 3 completed Not Available [facility] 12/21/2022 06:21:47 Influenza, high-dose, quadrivalent, PF 0 completed Not Available [facility] 12/21/2022 06:21:47 pneumococcal polysaccharide PPV23 8 completed Not Available [facility] 12/21/2022 06:21:47 Influenza, high-dose, trivalent, PF 8 completed Not Available [facility] 12/21/2022 06:21:47 Pneumococcal conjugate PCV 13 6 completed Not Available [facility] 12/21/2022 06:21:47 Influenza, high-dose, quadrivalent, PF 4 completed YUNG [place], [place] [facility] 03/21/2024 17:35:08 Past Encounters Encounter ID Performer Location Encounter Start Date Encounter Closed Date Diagnosis/Indication Diagnosis SNOMED-CT Code Diagnosis ICD10 Code Diagnosis Note [id number] [facility] Ritter MD [facility] [address] [place] [address] 05/18/2021 00:00:00 05/18/2021 16:56:56 [id number] Wan Ritter MD [facility] [address] [place] [address] 1 06/24/2021 00:00:00 06/24/2021 14:15:49 [id number] Wan Ritter MD [facility] [address] [place] [address] 1 07/27/2021 00:00:00 07/27/2021 13:41:32 [id number] Wan Ritter MD [facility] [address] [place] [id number] 1 07/28/2021 00:00:00 07/28/2021 15:56:19 [id number] Wan Ritter MD [facility] [address] [place], [place] [address] [place] [address] 11/17/2021 00:00:00 11/17/2021 15:00:15 [id number] Munira Lockwood NP [facility] [address] [place], [place] [address] [place] [address] 06/16/2022 00:00:00 06/17/2022 15:47:52 [id number] Munira Lockwood NP [facility] [address] [place] [address] 1 07/28/2022 00:00:00 07/28/2022 11:07:33 [id number] Rivera Scruggs MD [facility] [place] [address] [place] [address] 08/04/2022 00:00:00 08/04/2022 11:23:20 [id number] Wan Ritter MD [address] [address] 08/25/2022 00:00:00 08/25/2022 11:00:04 [id number] Wan Ritter MD [address] [address] 12/01/2022 00:00:00 12/01/2022 17:56:30 [id number] Munira Lockwood NP [address] [address] 03/31/2023 12:32:52 03/31/2023 14:31:05 Essential hypertension 01667970 I10 Gastroesop hageal reflux disease 773483708 K21.9 Hyperlipidemia 20184355 E78.5 trigs 400+ in december 2022. Osteoarthritis 463734842 M19.90 Depressive disorder 3548 9007 F32.9 Type 2 oli betes mellitus 10284138 E11.9 Rheumatoid arthritis 698 45735 M06.9 Vitamin D deficiency 347 32892 E55.9 Chronic ki dney disease stage 3B 924307294 N18.[address] Juan. [place] [facility] [place] if [place] avail. If not, call office to change referral. Candidiasis of vagina 72 425701 B37.31 Allergy to diflucan. Will try monastat. Vaginal irritation 84211 6004 N89.8 [id number] Munira Lcokwood NP [address] [address] 05/31/2023 10:23:45 05/31/2023 11:15:28 Essential hypertension 95894818 I10 Losartan 100 mg po daily.Nebi volol 5 mg po daily.tria mterene 37.5 mg- hctz 25 mg po daily. Gastroesop hageal reflux disease 487700941 K21.9 Nexium 40 mg po daily. Hyperlipidemia 99411997 E78.5 trigs 400+ in december 2022.Fenof ibrate 160 mg po daily.Rosu vastatin 20 mg po nightly. Osteoarthritis 137213492 M19.90 Stable Depressive disorder 3548 9007 F32.9 buspirone 10 mg, 2 tab po in AM and 1 tab in PMPristiq [address] Baum. Type 2 oli betes mellitus 52241816 E11.9 Gabapentin 100 mg po tid, pt takes 100 mg po nightly.La ntus solostar 25 units nightly.Oz empic 0.5 mg weekly. Rheumatoid arthritis 698 44638 M06.9 Stable Vitamin D deficiency 347 87660 E55.9 Vit d 50,000 IU po weekly. Chronic ki dney disease stage 3B 963917652 N18.[address] Juan. [place] [facility] [place] if [place] avail. If not, call office to change referral. Migraine 38586884 G43.90 9 Sumatripta n 100 mg po prn.Tizani dine prn. Insomnia 915523714 G47.0 0 Zolpidem ER 12.5 mg po nightly prn. [id number] Wan Ritter MD [place] [address] 1 03/21/2024 09:52:05 03/21/2024 12:29:11 Type 2 diabetes mellitus 82624246 E11.9 Recommende huy Adams, would like to wait due to yeast infection risks Will consider weaning off insulin pending A1C in 90 days Dyspnea at rest 86178106 7 R06.00 Will consider cardio consult Hyperlipidemia 61420865 E78.5 Screening mammography 24 635827 Z12.31 Screening for osteoporosis 743797214 Z13.820 Essential hypertension 64846336 I10 Administra tion of influenza vaccine 67504786 Z23 [id number] Wan Ritter MD [address] [address] 09/26/2024 09:57:36 09/26/2024 11:12:35 Essential hypertension 92481429 I10 Blood pressure elevated to 172/98 in office today but reportedly normal in cardiology office yesterday. Already on maximum dose of losartan 100mg daily. Additional ly on nebivolol 5 mg daily and triamteren e 37.5-HCTZ 25 mg daily. Hyperlipidemia 15346185 E78.5 Taking fenofibrat e 160mg daily and rosuvastat in 20 mg daily. Type 2 oli betes mellitus 26376164 E11.9 Recommendedgar Adams, would like to wait due to yeast infection risks Will consider weaning off insulin pending A1C in 90 days Sleep apnea 36678495 G47 .30 Significan t fatigue in the morning and throughout the day with elevated blood pressure, risk factor (obesity), and elevated blood pressure concerning for sleep apnea. Stable angina 686325850 I20.89 Shortness of breath and chest discomfort with effort worsening over the last year. Is following with cardiology (Dr. Ritter at [facility] in [facility]) with plans for TTE on 10/[address] on 10/21. Migraine 82633441 G43.90 9 Bilateral anterior headaches in the morning. Likely component of teeth-grin ding at night but it is possible that sleep apnea and elevated blood pressures are contributi ng. Can take sumatripta n 100 mg tablet for episodes if necessary. [id number] Wan Ritter MD [facility] [place] [address] 04/04/2025 11:04:48 04/04/2025 12:13:09 Type 2 diabetes mellitus 36150621 E11.9 Recommende huy Adams, would like to wait due to yeast infection risks Will consider weaning off insulin pending A1C in 90 days Will move insulin to a sliding doseglucos e <100, 0 units Lantusgluc ose 100-110, 10 units Lantusgluc ose 110-130, 20 unitsgluco se 130-200, 25 unitsgluco se >200, 30 units Dyspnea 978957388 R06.02 Breztri given in office Health Concerns Section Related Observation LastModified by Organization Detai ls LastModified Time None Recorded Concern Status LastModified by Organization Details LastModified Time None Recorded Advance Directives Directive N: Payers Insurance Date Sequence Insurance Name Policy Number Policy Ortega Covered Member ID Ortega Member ID Guarantor Name 04/01/2025 [employer] (MEDICARE REPLACEMENT/A DVANTAGE - PPO) Cynthia Nielson [id number] L Yaima Nielson 04/04/2025 1 [employer] Yaima Nielson [id number] Cynthia Nielson 03/24/2025 2 KAROLINEJOHNSONXiomara [employer] - MEDICARE-RAIL [address] DETENTION BOARD (MEDICARE) yCnthia Nielson [id number] Cynthia Nielson 09/26/2024 2 [email or web address] (INDEMNITY) [id number] Cynthia Nielson [id number] Cynthia Nielson 04/04/2025 1 [employer] (MEDICARE REPLACEMENT/A DVANTAGE - PPO) Cynthia Nielson [id number] Cynthia Nielson Notes Date Note Type Note Provider [...] scheduled April 2023. Munira Lockwood, [facility] [address] [facility], [facility] [address], [place], [address], [place] [email or web address] 04/05/2023 13:57:19 05/31/2023 text/html Here for check [...] d weekly.CKD- Seeing Dr. Paulson. exercising at [facility] 3 days weekly. Munira Lockwood NP [address] [facility], [address], [place], [address], [place] [facility] 05/31/2023 11:11:02 03/21/2024 text/html Yaima Nielson is [...] cologuard and colonoscopy last year Yoana Lauren, JIG AND FIXTURE BUILDER [address], [address], [place], [address], [place] [facility] 04/05/2024 12:13:26 09/26/2024 text/html Yaima Nielson is a 78 year old female patient here today for a 6 month FU She saw a aircraft instrument engineer (Dr. Ritter at [facility] in [place]) yesterday for angina, she has testing scheduled. [...] and colonoscopy last year; colonoscopy was normal TANIKA Alberts [address], [address], [place], [address], [employer] 09/26/2024 11:29:04 04/04/2025 text/html Recently diagnos ed with breast cancer, she just completed a month of radiation, lumpectomy. She believes she is done with this, will do hormone therapy.She is taking alprazolam 0.25 mg prior to treatments, does not feel she needs this anymore She has type 2 diabetes, she is insulin dependant. She is taking Lantus 25 units daily. She has concerns with weight gain. Has been having shortness of breath, she saw a fruit sprayer and was given an XR which was normal. She was given Symbicort but this does not feel effective. Migraine headaches have improved, she has started Aimovig and finds this effective. TANIKA Alberts [address], [address], [place], [address], [employer] 04/04/2025 11:55:06 OBGyn Episode No OBEpisode recorded.
--- OUTSIDE RECORDS SUMMARY | 2025-04-30 09:17 | XMS_ITS | Clinical Summary ---
Author Organization [facility] Address [address] [place] [address] Care Team Providers Care Carpentry Instructor Name Role Phone Unavailable Primary Care Provider [...]
--- OUTSIDE RECORDS SUMMARY | 2025-04-30 09:18 | XMS_ITS | Clinical Summary ---
Author Organization [facility] Address [address] [place] [address] Care Team Providers Care Automatic Outsole Cutter Name Role Phone Munira Greenberg PROPERTY DISPOSAL MANAGER Primary Care Provider + Allergies Active Allergy [...] on file Legal Sex Female 1:04 AM SUPERVISORY GEOGRAPHER Gender Identity Not on file Sexual Orientation Not on file Occupation Industry Job Start Date Job End Date retired Not on file Not on file Not on file Obstetrics History Last Filed Vital Signs Vital Sign Reading Time Taken Comments Blood Pressure 124/65 10/21/2024 12:43 PM SUPERVISORY GEOGRAPHER Pulse 75 10/21/2024 12:43 PM SUPERVISORY GEOGRAPHER Temperature - - Respiratory Rate - - Oxygen Saturation 96% 09/25/2024 9:45 AM SUPERVISORY GEOGRAPHER Inhaled Oxygen Concentration - - Weight 98 kg (216 lb) 09/25/2024 9:45 AM SUPERVISORY GEOGRAPHER Height 165.1 cm (5' 5) 09/25/2024 9:45 AM SUPERVISORY GEOGRAPHER Body Mass Index 35.94 09/25/2024 9:45 AM SUPERVISORY GEOGRAPHER Plan of Treatment Health Maintenance Due Date [...] Completed 018, 08/12/2016, 11/19/2012 Insurance MEDICARE RAILROAD [place] [id number] [employer] CHOICE MEDICARE PPO [employer] CHOICE MEDICARE PPO Care Teams Automatic Outsole Cutter Relationship Specialty Start Date End Date Munira Greenberg NP PCP - General Nurse Practitioner 06/18/21
--- OUTSIDE RECORDS SUMMARY | 2025-04-30 09:18 | XMS_ITS | Patient Health Record ---
Author Organization [facility] [employer] Address [address] [facility] [address], [place] [address] Care Team Providers Care Lurer Name Role Phone Jerardo King Primary Care Provider Angelo Price Unavailable [phone] ALLERGIES Allergen (clinical drug ingredient) Drug/Non Drug [...] Problem Never smoked cigarettes (Z78.9) Active confirmed 203791844 Problem Right wrist pain (M25.531) Active confirmed 635573653616740 Problem Left wrist pain (M25.532) Active confirmed 644188932764218 Problem Myalgia (M79.1) Active confirmed 687216 01 Problem Shoulder pain (M25.519) Active confirmed 54641739 Problem Polyarthritis (M13.0) Active confirmed 32476457 Problem Positive anti-CCP test (R76.8) Active confirmed 785016945 Problem terminal system operator current use of non-steroidal anti-inflammatori es (NSAID) (Z79.1) Active confirmed 648675023 Problem 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) Active confirmed 473503909 Problem Other computer terminal operator (current) drug therapy (Z79.899) Active confirmed 397535028 Problem Screening-pulmona ry TB (Z11.1) Active confirmed Problem Abnormal labor (O62.9) Active confirmed 65005918 Problem Abnormal laboratory test result (R89.9) Active confirmed 865801198 Problem Need for hepatitis B screening test (Z11.59) Active confirmed 141550838 PLAN OF TREATMENT Pending Test Test Name [...] Coverage End Date LISA PRABHAKARA [address] [address] [place] [address] [id number] Cynthia Leon Self - patient is the insured 3 ANTHEM M/CARE SUPP [address] [place] [address] [id number] Cynthia Leon Self - patient is the [...]
--- OUTSIDE RECORDS SUMMARY | 2025-04-30 09:18 | XMS_ITS | Referral Summary ---
Author Organization [facility] Address [address] [place] [address] Care Team Providers Care Compensation Specialist Name Role Phone Munira Greenberg PLANT AND MAINTENANCE TECHNICIAN Primary Care Provider + Allergies Active Allergy [...] on file Legal Sex Female 1:04 AM FIELD INTERVIEWER Gender Identity Not on file Sexual Orientation Not on file Occupation Industry Job Start Date Job End Date retired Not on file Not on file Not on file Last Filed Vital Signs Vital Sign Reading Time Taken Comments Blood Pressure 124/65 10/21/2024 12:43 PM FIELD INTERVIEWER Pulse 75 10/21/2024 12:43 PM FIELD INTERVIEWER Temperature - - Respiratory Rate - - Oxygen Saturation 96% 09/25/2024 9:45 AM FIELD INTERVIEWER Inhaled Oxygen Concentration - - Weight 98 kg (216 lb) 09/25/2024 9:45 AM FIELD INTERVIEWER Height 165.1 cm (5' 5) 09/25/2024 9:45 AM FIELD INTERVIEWER Body Mass Index 35.94 09/25/2024 9:45 AM FIELD INTERVIEWER Plan of Treatment Not on file Insurance MEDICARE RAILROAD [place] [employer] CHOICE MEDICARE PPO HU[employer] CHOICE MEDICARE PPO Care Teams Compensation Specialist Relationship Specialty Start Date End Date Munira Greenberg NP PCP - General Nurse Practitioner 06/18/21
--- OUTSIDE RECORDS SUMMARY | 2025-04-30 09:18 | XMS_ITS | Clinical Summary ---
Author Organization [facility] Address [address] [place] [address] Phone Care Team Providers Care Contracts Intern Name Role Phone Munira Greenberg DELINQUENT ACCOUNT CLERK Primary Care Provider [phone] Allergies Active Allergy Reactions Criticality Noted Date [...] Referring Provider: Alix Morales ANP [address] [address] Other: Dr Candi Awad Problem Noted Date [...] LEFT 3.0 cm IDC, 1/3 LN ER(+) MD(+) Her 2(-) Surgeon: [facility] Surgery: 01/15/2025 left lump/SLN Medical Oncologist: Nico Chemotherapy: Radiation Oncologist: Radiation: Anti-estrogen therapy: History of right breast cancer 12/24/2015 Overview (12/19/2024): Stage: Clinical T1 N0; pT1c N1 Date of diagnosis: 12/24/15 Diagnosis: right 1.6 cm IDC 1/2 LN ER(+) MD(+) HER 2 (-) Ki-76 21% Surgeon: [facility] Surgery: 01/18/16: right lump/SLN Medical Oncologist: Nico Oncotype: low RS (13) Chemotherapy: none Radiation Oncologist: Liliane Radiation: standard + boost Hormonal therapy: started letrozole on 04/2016 --> Tamoxifen --> Raloxifene (stopped January 2021) Migraine headache 12/22/2015 Left breast lump 05/06/2015 Major depression, recurrent 12/21/2012 Sleep-related bruxism 11/07/2012 Generalized anxiety disorder 11/07/2012 Hiatal hernia 11/07/2012 Hypertension 11/07/2012 Encounters Date Type Department Care Team Description 04/14/2025 Telephone [facility] Oncology and Hematology [facility] Xenia Duran [address] [place], [place] [id number] Tomás Walsh MD BD scan not done for appt. 04/02/2025 Telephone [facility] Oncology and Hematology [facility] [address] [place] [phone] Tomás Wlash MD FOLLOW UP INFO (Spoke with the patient to provide follow up appt w/ Dr. Walsh and Dexa Bone Density ) 04/01/2025 10:00 AM CDT Office Visit [facility] Oncology and Hematology [facility] [address] [place] [address] Tomás Walsh MD Osteopenia of multiple sites (Primary Dx) 01/29/2025 10:00 AM CDT Office Visit [facility] Oncology and Hematology [facility] [address] [place] [address] Tomás Walsh MD Malignant neoplasm of upper-outer quadrant of left breast in female, estrogen receptor positive (CMS/HCC) (Primary Dx) from Last 3 Months Family History Medical [...] on file Legal Sex Female 4:29 AM PATIENT REGISTRATION MANAGER Gender Identity Not on file Sexual Orientation [...] Care Team (Late st Contact Info) Description 08/05/2025 11:30 AM CDT Appointment [facility] Janessa [address] [place] [address] [place] [address] [place] [address] 08/05/2025 12:15 PM CDT Office Visit [facility] Breast Surgery Janessa Gabrielle [address] [place] [address] [place] [address] [place] [address] Health Maintenance Due Date Last Done Comments DIABETES ANNUAL FOOT EXAM 1965 DIABETES ANNUAL RETINAL EXAM 1965 DIABETES MICROALBUMIN ANNUAL SCREEN 1965 LDL CHOLESTEROL ANNUAL 1965 ZOSTER VACCINE (2 of 3) 12/02/2011 10/07/2011 OSTEOPOROSIS SCREENING 09/04/2019 09/04/2014 RSV VACCINE (60+ or ) (1 - 1-dose 75+ series) 2022 DIABETES HBA1C Q 6 MONTHS 11/25/20232022, 03/29/2021, 08/25/2020, Additional history exists COVID-19 Vaccine (2 - 2023-2 5 season) 2024 08/20/2021 INFLUENZA VACCINE (#1) 2025 4, 08/09/2022, 07/28/2021, Additional history exists DTAP/TDAP/TD VACCINES (3 - T d or Tdap) 12/01/2032 12/01/2022, 11/08/2010 PNEUMOCOCCAL VACCINE 50+ YEARS Completed 1 11/27/2017, 08/12/2016, 11/19/2012 Medical Devices Implanted Type Area Sheriffs Device Identifier Shelf Expiration Date Model / Serial / Lot Logistics Center Manager [employer]pper [id number] - [id number] Implanted:Qty : 1 on 01/15/2025 by Candi Awad MD at [facility] Clip Left: [employer] [id number] 11/22/2029 [id number] / / [id number] [facility] [employer] Medicare Part D Advance Directives For more information, please contact: [phone] * Full Code (Latest Code Status on File) Date Activated Date Inactivated Comments 01/18/2016 9:45 AM 01/18/2016 7:03 PM Care Teams Contracts Intern Relationship Specialty Start Date End Date Munira Greenberg FNP [address] [address] PCP - General Nurse Practitioner Family 06/06/19
--- NOTE | 2025-04-30 14:58 | WPDSIXMINUTE ---
Six Minute Walk Procedure Procedure Performed Pulmonary Stress Test (6 min walk) Six Minute Walk Six Minute Walk: This is a 6 minute walk test. The test was performed and interpreted in accordance with the 2014 ERS/ATS task force guidelines. Findings: The patient's resting room air oxygen saturation measured by pulse oximetry was 96%, the heart rate was 89 bpm, and the modified Vadim dyspnea score was 2. Patient ambulated for 213 meters and oxygen saturation remained 94 to 95%. At the end of the study the heart rate was 106 bpm and the modified Vadim dyspnea score was 7. The patient did not qualify for supplemental oxygen at rest or with ambulation. There are no prior studies for comparison.
--- NOTE | 2025-04-30 14:59 | WPDPFTINT ---
PFT Procedure Performed PFT Procedure Performed Spirometry with Pre/Post Bronchodilator Plethysmography (Lung Vol) Diffusing Cap (DLCO) Flow Vol Loop PFT Interpretation This is a pulmonary function test with pre and post-bronchodilator spirometry, plethysmography and diffusing capacity. The test was performed and results interpreted in accordance with the 2019 and 2005 ATS/ERS Task Force guidelines respectively using the Global Lung Function Initiative-2012 reference equations. Patient demonstrated good effort and cooperation. Reproducibility criteria were met. The quality of the pre bronchodilator spirometry maneuver was Grade A and post bronchodilator spirometry maneuver was Grade A. Findings: Spirometry: The contour the inspiratory and expiratory flow tracing are normal. The pre bronchodilator FVC is 2.69 L, 99% predicted. The pre bronchodilator FEV1 is 2.08 L, 100% predicted. The pre bronchodilator FEV1: FVC ratio is 77%. The post bronchodilator FVC is 2.65 L, representing a 2% decrease. The post bronchodilator FEV1 is 2.08 L, representing no change. The post bronchodilator FEV1: FVC ratio 79%. Plethysmography: The total lung capacity is 4.15 L, 80% predicted. The functional residual capacity is 1.82 L, 61% predicted. The residual volume is 1.46 L, 61% predicted. Diffusing capacity: The diffusing capacity unadjusted for hemoglobin and carboxyhemoglobin is 13.6, 68% predicted. The diffusing capacity adjusted for alveolar volume is 3.78, 91% predicted. Impression: The spirometry is normal without evidence of an obstructive abnormality. There is no significant improvement after inhaling a single dose of albuterol. The total lung capacity is normal with a decreased functional residual capacity and residual volume. This is an abnormal but nonspecific lung volume pattern. The diffusing capacity is normal. There are no prior studies for comparison
== END 2025-04-30 09:10 | disposition home or self-care (01) ==
PROVIDERS: Visit Provider Nurse Practitioner Family
DX: R06.09 Other forms of dyspnea (principal); R06.02 Shortness of breath
CPT/HCPCS: 94060; 94618; 94726; 94729

== ENCOUNTER 2025-05-07 09:27 | Outpatient (CLI) | payer MEDICARE, SELFPAY ==
--- NOTE | ~2025-05-07 | DEXA_ITS ---
Bone Density Report Name: Cynthia NIELSON Age: 79 Sex: Female Ethnicity: White Date of : 1945 Indication: postmenopausal; screening for osteoporosis; height loss; cancer; rheumatoid arthritis; Referring Provider: LEONIDAS, ESTEFANY Carvajal Study: Bone densitometry was performed. Exam Date: May 07, 2025 Accession number: [id number] Bone Density: Region BMD T-score Z-score Classification AP Spine(L1-L4) 1.478 3.9 6.5 Normal Femoral Neck (Left) 0.829 -0.2 2.0 Normal Total Hip (Left) 1.083 1.2 3.1 Normal Femoral Neck (Right) 0.749 -0.9 1.3 Normal Total Hip (Right) 1.058 0.9 2.9 Normal Total Hip Mean 1.071 1.1 3.0 Normal World Health Organization criteria for BMD impression classify patients as: Normal (T-score at or above -1.0), Osteopenia (T-score between -1.0 and -2.5), or Osteoporosis (T-score at or below -2.5). 10-year Fracture Risk: FRAX not reported because: All T-scores for Spine Total, Hip Total, Femoral Neck at or above -1.0 Clinical Information Provided by Patient: Has rheumatoid arthritis Has the following medical conditions: Cancer, breast ca Patient maximum height was 66.0 Menopause Age: 57 No regular weight bearing exercise Onset of menses at age 15 Number of children 2 Impression: The patient has normal bone mass. Discussion: BONE DENSITY IS ABOVE THE MINIMUM DESIRABLE LEVEL AT ALL SKELETAL SITES TESTED. This patient?s bone mineral density is above the minimum desirable level (T-score -1.0 or better) at all sites measured. The patient should follow a healthful lifestyle (good nutrition with adequate calcium and vitamin D, and appropriate weight-bearing exercise). Follow-Up: Consider repeating this study in 5 years or sooner if there is some new clinical indication. Reported by: JANETH on 05/07/2025 10:09:00 AM. Reviewed, dictated and finalized at location A.
--- OUTSIDE RECORDS SUMMARY | 2025-05-07 09:38 | XMS_ITS | Clinical Summary ---
Author Organization [facility] Address [address] [place] [address] Care Team Providers Care Dam Operator Name Role Phone Unavailable Primary Care [...] (2 - season) 2024 08/20/2021 Influenza Immunization (#1) 2025 Hepatitis B Immunization Aged Out No [...]
--- OUTSIDE RECORDS SUMMARY | 2025-05-07 09:38 | XMS_ITS | Clinical Summary ---
Author Organization [facility] Address [address] [place] [address] Care Team Providers Care Annual Campaign Manager Name Role Phone Munira Greenberg RETIREMENT PLAN COUNSELOR Primary Care Provider + Allergies Active Allergy [...] on file Legal Sex Female 1:04 AM MANAGER STRATEGIC PARTNERSHIPS Gender Identity Not on file Sexual Orientation Not on file Occupation Industry Job Start Date Job End Date retired Not on file Not on file Not on file Obstetrics History Last Filed Vital Signs Vital Sign Reading Time Taken Comments Blood Pressure 124/65 10/21/2024 12:43 PM MANAGER STRATE[employer]IC PARTNERSHIPS Pulse 75 10/21/2024 12:43 PM MANAGER STRATE[employer]NER[employer]IPS Temperature - - Respiratory Rate - - Oxygen Saturation 96% 09/25/2024 9:45 AM MANAGER STRATEGIC PARTNERSHIPS Inhaled Oxygen Concentration - - Weight 98 kg (216 lb) 09/25/2024 9:45 AM MANAGER STRATEGIC PARTNERSHIPS Height 165.1 cm (5' 5) 09/25/2024 9:45 AM MANAGER STRATEGIC PARTNERSHIPS Body Mass Index 35.94 09/25/2024 9:45 AM MANAGER STRATEGIC PARTNERSHIPS Plan of Treatment Health Maintenance Due Date [...] Completed 018, 08/12/2016, 11/19/2012 Insurance MEDICARE RAILROAD [place] [id number] [employer] CHOICE MEDICARE PPO HU[employer] CHOICE MEDICARE PPO Care Teams Annual Campaign Manager Relationship Specialty Start Date End Date Munira Greenberg NP PCP - General Nurse Practitioner 06/18/21
--- OUTSIDE RECORDS SUMMARY | 2025-05-07 09:38 | XMS_ITS | Referral Summary ---
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 Primary Care Provider + Allergies Active Allergy [...] on file Legal Sex Female 1:04 AM BOILER HELPER Gender Identity Not on file Sexual Orientation Not on file Occupation Industry Job Start Date Job End Date retired Not on file Not on file Not on file Last Filed Vital Signs Vital Sign Reading Time Taken Comments Blood Pressure 124/65 10/21/2024 12:43 PM BOILER HELPER Pulse 75 10/21/2024 12:43 PM BOILER HELPER Temperature - - Respiratory Rate - - Oxygen Saturation 96% 09/25/2024 9:45 AM BOILER HELPER Inhaled Oxygen Concentration - - Weight 98 kg (216 lb) 09/25/2024 9:45 AM BOILER HELPER Height 165.1 cm (5' 5) 09/25/2024 9:45 AM BOILER HELPER Body Mass Index 35.94 09/25/2024 9:45 AM BOILER HELPER Plan of Treatment Not on file Insurance MEDICARE RAILROAD [place] [employer]NA CHOICE MEDICARE PPO HUMANA CHOICE MEDICARE PPO Care Teams Tin Flopper Relationship Specialty Start Date End Date Munira Greenberg NP PCP - General Nurse Practitioner 06/18/21
--- OUTSIDE RECORDS SUMMARY | 2025-05-07 09:39 | XMS_ITS | Patient Health Record ---
Author Organization [facility] Address [address] [facility] [address] [place], [place] [id number] Care Team Providers Care Pattern Designer Name Role Phone Jerardo King Primary Care Provider Angelo Price Unavailable [phone] ALLERGIES Allergen (clinical drug ingredient) Drug/Non Drug [...] Problem Never smoked cigarettes (Z78.9) Active confirmed 970435547 Problem Right wrist pain (M25.531) Active confirmed 825795827688457 Problem Left wrist pain (M25.532) Active confirmed 623104464607782 Problem Myalgia (M79.1) Active confirmed 233540 01 Problem Shoulder pain (M25.519) Active confirmed 75700654 Problem Polyarthritis (M13.0) Active confirmed 87554820 Problem Positive anti-CCP test (R76.8) Active confirmed 130923125 Problem terminal gauger current use of non-steroidal anti-inflammatori es (NSAID) (Z79.1) Active confirmed 282865241 Problem 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) Active confirmed 075697985 Problem 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
--- OUTSIDE RECORDS SUMMARY | 2025-05-07 09:39 | XMS_ITS | Data Portability ---
Author Organization [facility] [employer], Main Office Address [address] [place] [address] Care Team Providers Care Fashion Supervisor Name Role Phone YOANA LAUREN Primary Care Provider Assessment No assessment recorded. Plan of Treatment Reminders Order Date Submit Date Provider Last Modified By Organization Details Last Modified Time Details Appointments Follow Up 15 2024 10:00A M TANIKA Alberts Not available Not available Not available Lab hemoglobi n A1C, fingersti ck 2024 025 [facility], [address] [place] [address], [address], 04/04/2025 11:54:31 glycohemo globin, total, blood [address] (Lab), [address] [place], [address], 09/26/2024 11:52:20 CBC w/ auto diff [address] (Lab), [address] [place], [address], 09/26/2024 11:53:48 lipid panel, serum [address] (Lab), [address] [place], [address], 09/26/2024 11:53:16 CMP, serum or plasma 2023 024 [email or web address] [facility] ([facility]), [address] [place], [address], 09/26/2024 11:52:44 HbA1c (hemoglob in A1c), blood 2023 024 [email or web address], [address], [place], [address], 03/28/2024 08:19:52 HbA1c (hemoglob in A1c), blood 2023 024 [email or web address], [address], [place], [address], 07/01/2024 08:17:42 CMP, serum or plasma [email or web address] [facility], [address], [place], [address], 03/28/2024 08:19:52 lipid panel, serum 2023 024 [email or web address], [address], [place], [address], 03/28/2024 08:19:52 pro BNP (pro B-type natriuret ic peptide), serum or plasma [email or web address] [facility], [address], [place], [address], 03/28/2024 08:19:52 CBC w/ auto diff [email or web address] [facility], [address], [place], [address], 03/28/2024 08:19:52 BMP, serum or plasma [address] (Lab), [address] [place], [address], 11/16/2023 11:53:24 HbA1c (hemoglob in A1c), blood [address] (Lab), [address] [place], [address], 11/16/2023 11:53:24 microalbu min, urine [address] [facility], [address] [place], [address], 11/16/2023 11:53:24 lipid panel, serum [address] (Lab), [address] [place], [address], 11/16/2023 11:53:23 BMP, serum or plasma [address] - Outpatient Lab, [address] [place], [address], 04/21/2023 08:54:38 HbA1c (hemoglob in A1c), blood [address] - Outpatient Lab, [address] [place], [address], 04/21/2023 08:54:39 lipid panel, serum [address] - Outpatient Lab, [address] [place], [address], 04/21/2023 08:54:39 Referral None recorded. Procedures None recorded. Surgeries None recorded. Imaging home sleep study - Please call pt to schedule 2023 024 [email or web address] 56 [facility] ([facility] [address] [place], [address], 10/30/2024 14:09:43 MAMMO, screening , digital, bilateral - US if indicated *PLEASE CALL PT TO SCHEDULE* 2023 024 [email or web address] 56 [facility], [address], [place], [address], 06/17/2024 16:31:44 DEXA - Please call pt to schedule 2023 [email or web address] [place] [address], [address], [place], [address], 07/25/2024 08:58:13 Medication Orders Ozempic 0.25 mg or 0.5 mg (2 mg/3 mL) subcutane ous pen injector 2024 025 [facility], [address], [place], [phone], 04/04/2025 11:54:41 Mounjaro 2.5 mg/0.5 mL subcutane ous pen injector 2023 024 [facility], [address], [place], [id number], 09/26/2024 10:17:34 nebivolol 5 mg tablet 2023 024 [facility]25297, [address], [place], [phone], 03/21/2024 10:45:27 Ozempic 0.25 mg or 0.5 mg (2 mg/1.5 mL) subcutane ous pen injector 2022 023 [email or web address] [facility]33215, [address], [place], [phone], 03/21/2024 10:13:54 Patient TargetsNo targets recorded. Patient Instructions Encounter Date Encounter Id Patient Instructions Last Modified By Organization Details Last Modified Time 03/31/2023 [id number] FU in 2-3 mo for dm, htn, arthritis, depression, allergies, lipid dbogue5 Not available 03/31/2023 13:26:05 Reason for Referral None Reported. Results Created Date Observation Date Name Description Value Unit Range Abnormal Flag Note LastModifiedBy Organization Detail LastModifiedTime 05/25/2005/25/2023 LIPID PANEL , STAND ROSITA cholesterol, total 124 mg/dL <200 normal Not Available [facility] [place] [address] [place], [address], 05/26/2023 00:57:48 05/25/2005/25/2023 LIPID PANEL , STAND ROSITA HDL cholesterol 35 mg/dL > or = 50 low Not Available [facility] [address] [place] [address] [place], [address], 05/26/2023 00:57:48 05/25/2005/25/2023 LIPID PANEL , STAND ROSITA triglyceride s 272 mg/dL <150 high If a non-f astin g speci men was colle cted, consi georgi repea t trigl yceri de testi ng on a fasti ng speci men if clini mark indic ated. Rakan mckeon et al. J. of Clin. Lipid ol. 2015; 9:129 -169. Not Available [facility] [employer] [address] [place] [address] [place], [address], 05/26/2023 00:57:48 05/25/2005/25/2023 LIPID PANEL , STAND [...] 310(1 9): 2061- 2068 (http ://ed ucati on.[employer] Danny Jigsee. PriceTag/f aq/FA Q164) Not Available [facility] [place] [address] [place], [address], 05/26/2023 00:57:48 05/25/2005/25/2023 LIPID PANEL , STAND ROSITA chol/HDLC ratio 3.5 (calc ) <5.0 normal Not Available [facility] [address] [place] [address] [place], [address], 05/26/2023 00:57:48 05/25/2005/25/2023 LIPID PANEL , STAND ROSITA non HDL cholesterol 89 mg/dL _(jose c) <130 normal For patie nts with diabe angela plus 1 major ASCVD risk facto r, treat ing to a non-H DL-C goal of <100 mg/dL (LDL- C of <70 mg/dL ) is consi dered a thera peuti c optio n. Not Available [facility] [place] [address] [place], [address], 05/26/2023 00:57:48 05/25/2005/25/2023 BASIC METAB OLIC PANEL glucose 130 mg/dL 65-99 high Fasti ng refer ence inter rika For someo ne witho ut known diabe angela, a gluco se value >125 mg/dL indic ates that they may have diabe angela and this shoul d be confi rmed with a follo w-up test. Not Available [facility] [address] [place] [address] [place], [address], 05/26/2023 00:57:48 05/25/2005/25/2023 BASIC METAB OLIC PANEL urea nitrogen (BUN) 19 mg/dL 7-25 normal Not Available [facility] [address] [place] [address] [place], [address], 05/26/2023 00:57:48 05/25/20 23 05/25/2023 BASIC METAB OLIC PANEL creatinine 1.28 mg/dL 0.60-1 .00 high Not Available [address], [address], 05/26/2023 00:57:48 05/25/2005/25/2023 BASIC METAB OLIC PANEL eGFR 44 mL/mi n/1.7 3m2 > or = 60 low Not Available [address], [address], 05/26/2023 00:57:48 05/25/2005/25/2023 BASIC METAB OLIC PANEL BUN/creatini ne ratio 15 (calc ) 6-22 normal Not Available [address], [address], 05/26/2023 00:57:48 05/25/20 23 05/25/2023 BASIC METAB OLIC PANEL sodium 136 mmol/ L 135-14 6 normal Not Available [address], [address], 05/26/2023 00:57:48 05/25/2005/25/2023 BASIC METAB OLIC PANEL potassium 4.5 mmol/ L 3.5-5. 3 normal Not Available [address], [address], 05/26/2023 00:57:48 05/25/2005/25/2023 BASIC METAB OLIC PANEL chloride 100 mmol/ L 98-110 normal Not Available [address], [address], 05/26/2023 00:57:48 05/25/2005/25/2023 BASIC METAB OLIC PANEL carbon dioxide 23 mmol/ L 20-32 normal Not Available [address], [address], 05/26/2023 00:57:48 05/25/20 23 05/25/2023 BASIC METAB OLIC PANEL calcium 9.5 mg/dL 8.6-10 .4 normal Not Available [facility] [address] [place], [address], 05/26/2023 00:57:48 05/25/2005/25/2023 HEMOG LOBIN A1C hemoglobin [...] diabe angela for child fabian. Not Available [facility] [place] [address] [place], [address], 05/26/2023 00:57:49 04/04/2004/04/2025 hemog lobin A1C, carole jose alberto k HgbA1C 9.0 Not Available [facility] [address], [place], [address], 04/04/2025 11:30:01 05/16/20 23 MAMMO , scree dalton, digit al, bilat eral [facility] [address] [facility], [place] [address] Patien t Name: Cynthia NIELSON Access ion #: [id number] [facility]: F [facility] 1944 [id number] Dictat ed By: Scot Valencia Attend [...] at 2022 13:04: 13 PM Page [address] (Imaging) [address] [place], [address], 05/19/2023 15:26:36 11/15/19 25 11/15/2024 MAMMO , diagn ostic , digit al, bilat eral No observ ation record ed. [address], [place], [address], 11/19/2024 10:16:11 11/18/19 25 11/15/2024 biops y, breas t, w/ ultra sound yolie nce (PROC ) No observ ation record ed. [address] [facility] [address], [place], [address], 11/19/2024 11:38:17 11/25/19 25 11/25/2024 biops y, breas t, w/ ultra sound yolie nce (PROC ) No observ ation record ed. [address] [facility] [address], [place], [address], 11/26/2024 15:36:58 11/29/19 25 11/25/2024 biops y, breas t, w/ ultra sound yolie nce (PROC ) No observ ation record ed. [facility] [address], [place], [address], 12/03/2024 11:06:08 04/01/20 25 04/01/2025 XR, chest , 2 view No observ ation record ed. [facility] [address], [place], [address], 04/01/2025 14:55:56 Result Notes Documentation Provider Name and Address Organization Details Recorded Time Mammo, Screening, Digital, Bilateral : [place] [address] Patient Name: Cynthia NIELSON Sex: F : 1945 Dictated By: Scot Valencia Attending Physician: MUNIRA LOCKWOOD Ordering Physician: MUNIRA LOCKWOOD Exam Date: [...] 2 benign. Page 1 Munira Jasmine RN [facility], SSN Funding [employer] 05/19/2023 15:26:36 Problems Name Problem SNOMED Code Status Onset Date Resolution Date Notes Provider Name and Address Organization Details Recorded Time Foreign body in left ear 96691573358 660725 Active 2021 Not Available [facility] 3 06:16:06 Mass of right breast 47180986890 638644 Active 2021 Not Available [facility] 3 06:16:06 Celluliti s of foot 202812727 Completed 03/21/2024 TANIKA Alberts [address], [place], [address] , SSN Funding [facility] [employer] 4 08:43:52 Computed tomograph y result abnormal 908721750 Active Not Available [facility] 3 06:16:06 Mammograp hic mass of breast 868686030 Active Not Available [facility] 3 06:16:06 Mammograp hy abnormal 494156357 Active Not Available [facility] 3 06:16:06 Insomnia 902852983 Active Not Available [facility] 3 06:16:06 Abdominal pain 90573373 Completed 03/21/2024 TANIKA Alberts [address], [facility] [address], [place], [address] , [employer] 4 08:43:33 Mixed anxiety and depressiv e disorder 248589383 Active 2016 Not Available [facility] 3 06:16:06 Stage fright 922601604 Active 2021 Not Available [facility] 3 06:16:06 Gastroeso phageal reflux disease 464809758 Active 2016 Not Available [facility] 3 06:16:06 Shoulder joint pain 206836608 Active 2016 Not Available [facility] 3 06:16:06 Insect bite - wound 916907309 Active 2016 Not Available [facility] 3 06:16:06 Low back pain 071728211 Active 2020 Not Available [facility] 3 06:16:06 Low back strain 075008371 Active 2016 Not Available [facility] 3 06:16:07 Pain in pelvis 70058424 Active Not Available [facility] 3 06:16:07 Injury of tendon of the rotator cuff of shoulder 138150153 Active Not Available [facility] 3 06:16:07 Changing shape of pigmented skin lesion 957960525 Active Not Available [facility] 3 06:16:07 Vitamin D deficienc y 87074192 Active Not Available [facility] 3 06:16:07 Depressiv e disorder 09956660 Active Not Available [facility] 3 06:16:07 Migraine 15366800 Active Not Available [facility] 3 06:16:07 Hypertens carlos disorder 83293564 Active Not Available [facility] 3 06:16:07 Neuropath y 912252125 Active 2019 Not Available [facility] 3 06:16:07 Osteoarth ritis 720013259 Active 2016 Not Available [facility] 3 06:16:07 Diverticu lar disease 967634381 Active 2016 Not Available [facility] 3 06:16:07 Pharyngit is 298407844 Active Not Available [facility] 3 06:16:07 History of malignant neoplasm of breast 550521823 Active 2016 Not Available [facility] 3 06:16:08 Hot flash caused by medicatio n 551897418 Active 2016 Not Available [facility] 3 06:16:08 Type 2 diabetes mellitus 38965288 Active 2017 Not Available [facility] 3 06:16:08 Atelectas is 13331912 Active 2017 Not Available [facility] 3 06:16:08 Anxiety 24785860 Active Not Available [facility] 3 06:16:08 Hernia of abdominal cavity 55431188 Active 2016 Not Available [facility] 3 06:16:08 Upper respirato ry infection 16868844 Active Not Available [facility] 3 06:16:08 Hyperlipi demia 11009602 Active Not Available [facility] 3 06:16:08 Essential hypertens ion 30757787 Active Not Available [facility] 3 06:16:08 Tinea pedis 0159946 Active Not Available [facility] 3 06:16:08 Rheumatoi d arthritis 22102185 Active 2016 Not Available [facility] 3 06:16:08 Liver enzymes level above reference range 114829370 Active 2020 Not Available [facility] [place] 3 06:16:09 Posterior rhinorrhe a 01426265 Active Not Available [facility] 3 06:16:09 Postmenop ausal state 15939168 Active 2017 Not Available [facility] 3 06:16:09 Hiatal hernia 15957458 Active Not Available [facility] 3 06:16:09 Breast lump 07319755 Active Not Available [facility] 3 06:16:09 Skin lesion 39281477 Active 2018 Not Available [facility] 3 06:16:09 Hypertrig lyceridem ia 094005964 Active 2022 Munira Lockwood NP [address], [place], [address] , SSN Funding [facility] [employer] [facility] 3 09:37:54 Chronic kidney disease stage 3B 132041804 Active 2022 Munira Lockwood NP [address], [place], [address] , SSN Funding [facility] [employer] [facility] 3 08:50:27 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 071211660 Active 2022 Munira Lockwood NP [address], [place], [address] , SSN Funding [employer] 3 19:18:27 Candidias is of vagina 29836950 Completed 202203/21/2024 TANIKA Alberts [address], [place], [address] , [facility] [employer] 4 08:43:36 Vaginal irritatio n 265759374 Active 2022 Munira Lockwood, [employer] [address], [place], [address] , SSN Funding [facility] [employer] [facility] 3 13:23:44 Dyspnea at rest 819605163 Active 2023 TANIKA Alberts [address], [place], [address] , SSN Funding [facility] [employer] [facility] 4 10:36:05 Sleep apnea 88793110 Active 2023 TANIKA Alberts [address], [place], [address] , SSN Funding [facility] [employer] [facility] 4 11:03:50 Stable angina 277933669 Active 2023 TANIKA Alberts [address], [place], [address] , SSN Funding [facility] [employer] [facility] 4 11:13:47 Mass of left breast 34603500529 233740 Active 2024 TANIKA Alberts [address], [place], [address] , SSN Funding [facility] [employer] 5 11:10:38 Lump in bilateral breasts 96500146363 976173 Active 2024 TANIKA Alberts [address], [place], [address] , SSN Funding [employer] 5 11:53:19 Invasive carcinoma of breast 981051613 Active 2024 TANIKA Alberts [address], [place], [address] , [employer] 5 12:13:34 Dyspnea 531055834 Active 2024 TANIKA Alberts [address], [facility] [address], [place], [address] , [employer] 5 11:54:08 Problem Notes None recorded. Procedures Surgical History Date Name Laterality Status Provider Name and Address Organization Details Recorded Time 06/22/20 Most Recent Bone Density completed Not Available [facility] 12/21/2022 06:11:06 Cholecystectomy completed Not Available [facility] 12/21/2022 06:11:09 lumpectomy of breast completed Not Available [facility] 12/21/2022 06:11:09 procedure on lymph node completed Not Available [facility] 12/21/2022 06:11:09 Imaging Results None recorded. Procedure Notes None recorded. Medical Equipment None Reported. Allergies Allergen ID Allergen Name Allergen Category Reaction Reaction Severity Criticality Documentation Date Start Date Code Code System Note Provider Name and Address Organization Details Recorded Time 54603 Tricor medicatio n headache Not available Not available 12/21/2022 35252 6 RxNorm Not Available [facility] 3 06:22:00 28688 Protonix medicatio n Not available Not available Not available 12/21/2022 90412 4 RxNorm DOESN 'T HELP TANIKA Alberts [address], [facility] [address], [place], [address], [employer] 4 16:11:56 49812 Product containin g penicilli n (product) medicatio n hives Not available Not available 12/21/2022 23528 8001 SNOMED Not Available [facility] 3 06:22:01 02345 Niaspan medicatio n Not available Not available Not available 12/21/2022 07059 6 RxNorm FLUSH ING Not Available [facility] 3 06:22:01 83461 Diflucan medicatio n Not available Not available Not available 12/21/202228679 3 RxNorm Not Available [facility] 3 06:22:01 Medications Name Sig Start [...] completed Dr.Huq Nancy tomas (Oncolog y at [facility] Not Available Not Available Not Available [...] TAKES 1 TABLET DAILYExt ernal note: DR. SUSAN TOMAS Not Available Not Available Not Available zolpidem [...] as directed . 2024 active Bertram Peoples [facility] Not Available Not Available Not Available [...] Updated DateTime 4 165.1 cm 36.2 kg/m2 02098.6 4 g 98.6 [degF] 93 /min 97 % 97 % 154/86 mm[Hg] [place] Deshpande MA [facility] [employer] [facility] 4 10:05:12 Date Recorded Systolic And Diastolic Provider Name and Address Organization Details Last Updated DateTime 03/31/2023 142/88 mm[Hg] Munira Lockwood NP [address] [facility] [address], [address], [facility] [employer] [facility] 03/31/2023 13:21:26 Date Recorded Body height Body mass index (BMI) Body weight Body temperature Heart rate Oxygen saturation Oxygen saturation in Arterial blood by Pulse oximetry Respiratory rate Systolic And Diastolic Provider Name and Address Organization Details Last Updated DateTime 3 165.1 cm 35.8 kg/m2 05759.3 6 g 96.7 [degF] 94 /min 96 % 96 % 20 /min 152/84 mm[Hg] Munira Jasmine RN [facility] [employer] [facility] 3 12:42:54 Date Recorded Body height Body mass index (BMI) Body weight Body temperature Oxygen saturation Oxygen saturation in Arterial blood by Pulse oximetry Heart rate Systolic And Diastolic Provider Name and Address Organization Details Last Updated DateTime 5 165.1 cm 36.5 kg/m2 23824.7 8 g 96.8 [degF] 94 % 94 % 97 /min 140/80 mm[Hg] Ignacia Moya RN [facility] [employer] [facility] 5 11:17:03 Date Recorded Body height Body mass index (BMI) Body weight Body temperature Heart rate Respiratory rate Oxygen saturation Oxygen saturation in Arterial blood by Pulse oximetry Systolic And Diastolic Provider Name and Address Organization Details Last Updated DateTime 3 165.1 cm 35.1 kg/m2 72821.9 9 g 95.3 [degF] 75 /min 16 /min 94 % 94 % 150/84 mm[Hg] Munira Jasmine RN [facility] [employer] [facility] 3 10:44:20 Date Recorded Body height Body mass index (BMI) Body weight Body temperature Heart rate Respiratory rate Oxygen saturation Oxygen saturation in Arterial blood by Pulse oximetry Systolic And Diastolic Provider Name and Address Organization Details Last Updated DateTime 4 165.1 cm 35.7 kg/m2 49083.5 7 g 96.6 [degF] 80 /min 24 /min 94 % 94 % 172/98 mm[Hg] Munira Jasmine RN [facility] [employer] [facility] 4 10:20:48 Social History Question Answer Notes LastModified by Organization Details LastModified Time Tobacco Smoking Status Never Smoker Not Available [facility] 12/21/2022 06:09:42 Do You Have An Advance Directive? No MIGRATION.0301 [id number] Information not available 12/21/2022 Are You Blind Or Do You Have Difficulty Seeing? No MIGRATION.0301 [id number] Information not available 12/21/2022 What Is Your Level Of Caffeine Consumption? None MIGRATION.0301 [id number] Information not available 12/21/2022 What Is Your Code Status? Full Code MIGRATION.0301 [id number] Information not available 12/21/2022 In The 14 Days Before Symptom Onset, Have You Had Close Contact With A Laboratory-confi rmed COVID-19 While That Case Was Ill? No MIGRATION.0301 [id number] Information not available 12/21/2022 In The 14 Days Before Symptom Onset, Have You Had Close Contact With A Person Who Is Under Investigation For COVID-19 While That Person Was Ill? No MIGRATION.0301 [id number] Information not available 12/21/2022 Are You Deaf Or Do You Have Serious Difficulty Hearing? Yes Tenitis MIGRATION.0301 [id number] Information not available 12/21/2022 What Type Of Diet Are You Following? REGULAR MIGRATION.0301 [id number] Information not available 12/21/2022 How Many Days [...] Your Family Or Social Situation? No MIGRATION.0301 [id number] Information not available 12/21/2022 Do You Use Insect Repellent Routinely? Yes MIGRATION.0301 [id number] Information not available 12/21/2022 Where Do You Live? SingleLevelHouse Information not available 03/31/2023 Are You Following A Low Salt Diet? Yes MIGRATION.0301 [id number] Information not available 12/21/2022 Do You Have A Medical Power Of Educational Interpreter? Yes MIGRATION.0301 [id number] Information not available 12/21/2022 Do You Have Any Pets? Yes MIGRATION.0301 [id number] Information not available 12/21/2022 What Is Your Relationship Status? Single MIGRATION.0301 [id number] Information not available 12/21/2022 Do You Use Your Seat Belt Or Car Seat Routinely? Yes MIGRATION.0301 [id number] Information not available 12/21/2022 Do You Have Smoke And Carbon Monoxide Detectors In Your Home? Yes MIGRATION.0301 [id number] Information not available 12/21/2022 Are There Any Smokers In Your House? No MIGRATION.0301 [id number] Information not available 12/21/2022 Do You Participate In Social Media? No MIGRATION.0301 [id number] Information not available 12/21/2022 What Types Of Sporting Activities Do You Participate In? Treadmill, Chair Yoga Information not available 03/31/2023 Do You Use Sunscreen Routinely? Yes MIGRATION.0301 755709 Information not available 12/21/2022 Has Tobacco Cessation Counseling Been Provided? No MIGRATION.0301 076089 Information not available 12/21/2022 Have You Recently Traveled Abroad? No MIGRATION.0301 292620 Information not available 12/21/2022 Do You Have Difficulty Walking Or Climbing Stairs? No MIGRATION.0301 [id number] Information not available 12/21/2022 Do You Have Any Dietary Restrictions? Yes [id number] Information not available 12/21/2022 Sex: Female Functional Status Question Answer Note LastModified by Organizat eeden Details LastModified Time Do you use any illicit or recreational drugs? No [id number] Information not available 12/21/2022 Do you or have you ever used any other forms of tobacco or nicotine? No [id number] 026 Information not available 12/21/2022 What is your level of alcohol consumption? Occasional [id number] 026 Information not available 12/21/2022 Do you have transportation difficulties? No [id number].[id number] 026 Information not available 12/21/2022 Are you able to walk? YESWOREST [id number] 026 Information not available 12/21/2022 Do you have difficulty doing errands alone? No MIGRATION.[id number] 026 Information not available 12/21/2022 Are you able to care for yourself? Yes [id number].[id number] 026 Information not available 12/21/2022 What is your occupation? retired MIGRATION.[id number] 026 Information not available 12/21/2022 Do you have difficulty dressing or bathing? No MIGRATION.[id number] 026 Information not available 12/21/2022 What is your exercise level? Heavy MIGRATION.[id number] 026 Information not available 12/21/2022 Mental Status Question Answer Note LastModified by Organizat eeden Details LastModified Time Do you feel stressed (tense, restless, nervous, or anxious, or unable to sleep at night)? [id number] [id number].[id number] 26 Information not available 12/21/2022 Do you have difficulty concentrating, remembering or making decisions? No MIGRATION.[id number] 26 Information not available 12/21/2022 Family History Relationship Description Onset Age of this Age Resolved Age Notes LastModified by Organization Details LastModified Time Mother Dementia Deceas ed [id number] Not available 12/21/2022 06:11:10 Notes:Mother had recurrent [...] high-dose, quadrivalent, PF 2 completed Not Available [facility] [place] 12/21/2022 06:21:46 SARS-COV-2 (COVID-19) vaccine, UNSPECIFIED 2 completed Not Available [facility] 12/21/2022 06:21:46 SARS-COV-2 (COVID-19) vaccine, UNSPECIFIED 1 completed Not Available [facility] 12/21/2022 06:21:46 SARS-COV-2 (COVID-19) vaccine, UNSPECIFIED 1 completed Not Available [facility] 12/21/2022 06:21:46 pneumococcal polysaccharide PPV23 3 completed Not Available [facility] 12/21/2022 06:21:46 Influenza, split virus, trivalent, preservative 3 completed Not Available [facility] 12/21/2022 06:21:46 zoster live 1 completed Not Available [facility] 12/21/2022 06:21:46 Tdap 1 completed Not Available [facility] 12/21/2022 06:21:47 Influenza, high-dose, quadrivalent, PF 1 completed Not Available [facility] 12/21/2022 06:21:47 Td (adult), 5 Lf tetanus toxoid, preservative free, adsorbed 3 completed Not Available [facility] 12/21/2022 06:21:47 Influenza, high-dose, quadrivalent, PF 0 completed Not Available [facility] 12/21/2022 06:21:47 pneumococcal polysaccharide PPV23 8 completed Not Available [facility] 12/21/2022 06:21:47 Influenza, high-dose, trivalent, PF 8 completed Not Available [facility] 12/21/2022 06:21:47 Pneumococcal conjugate PCV 13 6 completed Not Available [facility] 12/21/2022 06:21:47 Influenza, high-dose, quadrivalent, PF 4 completed YUNG Low[place], [place] [facility] 03/21/2024 17:35:08 Past Encounters Encounter ID Performer Location Encounter Start Date Encounter Closed Date Diagnosis/Indication Diagnosis SNOMED-CT Code Diagnosis ICD10 Code Diagnosis Note [id number] Wan Ritter MD [facility] [address] [place] [address] 05/18/2021 00:00:00 05/18/2021 16:56:56 [id number] Wan Ritter MD [facility] [address] [place] [address] 06/24/2021 00:00:00 06/24/2021 14:15:49 [id number] Wan Ritter MD [facility] [address] [place] [address] 07/27/2021 00:00:00 07/27/2021 13:41:32 [id number] Wan Ritter MD [facility] [address] [place] [address] 07/28/2021 00:00:00 07/28/2021 15:56:19 [id number] Wan Ritter MD [facility] [address] [place], [place] [address] [place] [address] 11/17/2021 00:00:00 11/17/2021 15:00:15 [id number] Munira Lockwood NP [facility] [address] [place], [place] [address] [place] [address] 06/16/2022 00:00:00 06/17/2022 15:47:52 [id number] Munira Lockwood NP [facility] [address] [place] [id number] 07/28/2022 00:00:00 07/28/2022 11:07:33 [id number] Rivera Scruggs MD [facility] [place] [address] [place] [address] 08/04/2022 00:00:00 08/04/2022 11:23:20 [id number] Wan Ritter MD [address] [address] 08/25/2022 00:00:00 08/25/2022 11:00:04 [id number] Wan Ritter MD [address] [address] 12/01/2022 00:00:00 12/01/2022 17:56:30 [id number] Munira Lockwood NP [address] [address] 03/31/2023 12:32:52 03/31/2023 14:31:05 Essential hypertension 91057114 I10 Gastroesop hageal reflux disease 094431993 K21.9 Hyperlipidemia 86081520 E78.5 trigs 400+ in december 2022. Osteoarthritis 461828597 M19.90 Depressive disorder 3548 9007 F32.9 Type 2 oli betes mellitus 22480071 E11.9 Rheumatoid arthritis 698 34716 M06.9 Vitamin D deficiency 347 04452 E55.9 Chronic ki dney disease stage 3B 100320379 N18.[address] Juan. [place] [facility] [place] if [place] avail. If not, call office to change referral. Candidiasis of vagina 72 985401 B37.31 Allergy to diflucan. Will try monastat. Vaginal irritation 30263 6004 N89.8 [id number] Munira Lockwood NP [address] [address] 05/31/2023 10:23:45 05/31/2023 11:15:28 Essential hypertension 63946614 I10 Losartan 100 mg po daily.Nebi volol 5 mg po daily.tria mterene 37.5 mg- hctz 25 mg po daily. Gastroesop hageal reflux disease 778883845 K21.9 Nexium 40 mg po daily. Hyperlipidemia 98978303 E78.5 trigs 400+ in december 2022.Fenof ibrate 160 mg po daily.Rosu vastatin 20 mg po nightly. Osteoarthritis 801149392 M19.90 Stable Depressive disorder 3548 9007 F32.9 buspirone 10 mg, 2 tab po in AM and 1 tab in PMPristiq 50 [address] po [address] Baum. Type 2 oli betes mellitus 41778270 E11.9 Gabapentin 100 mg po tid, pt takes 100 mg po nightly.La ntus solostar 25 units nightly.Oz empic 0.5 mg weekly. Rheumatoid arthritis 698 92442 M06.9 Stable Vitamin D deficiency 347 01445 E55.9 Vit d 50,000 IU po weekly. Chronic ki dney disease stage 3B 416909707 N18.[address] Juan. [place] [facility] [place] if [place]. If not, call office to change referral. Migraine 81245044 G43.90 9 Sumatripta n 100 mg po prn.Tizani dine prn. Insomnia 048008988 G47.0 0 Zolpidem ER 12.5 mg po nightly prn. [id number] Wan iRtter MD [place] [address] 1 03/21/2024 09:52:05 03/21/2024 12:29:11 Type 2 diabetes mellitus 47203401 E11.9 Recommende huy Adams, would like to wait due to yeast infection risks Will consider weaning off insulin pending A1C in 90 days Dyspnea at rest 51960634 7 R06.00 Will consider cardio consult Hyperlipidemia 58431863 E78.5 Screening mammography 24 603729 Z12.31 Screening for osteoporosis 520333139 Z13.820 Essential hypertension 22994264 I10 Administra tion of influenza vaccine 73223181 Z23 [id number] Wan Ritter MD [address] [address] 09/26/2024 09:57:36 09/26/2024 11:12:35 Essential hypertension 26001710 I10 Blood pressure elevated to 172/98 in office today but reportedly normal in cardiology office yesterday. Already on maximum dose of losartan 100mg daily. Additional ly on nebivolol 5 mg daily and triamteren e 37.5-HCTZ 25 mg daily. Hyperlipidemia 30186560 E78.5 Taking fenofibrat e 160mg daily and rosuvastat in 20 mg daily. Type 2 oli betes mellitus 22569976 E11.9 Recommendedgar Adams, would like to wait due to yeast infection risks Will consider weaning off insulin pending A1C in 90 days Sleep apnea 38946341 G47 .30 Significan t fatigue in the morning and throughout the day with elevated blood pressure, risk factor (obesity), and elevated blood pressure concerning for sleep apnea. Stable angina 398820348 I20.89 Shortness of breath and chest discomfort with effort worsening over the last year. Is following with cardiology (Dr. Ritter at [facility] in [facility]) with plans for TTE on 10/[address] on 10/21. Migraine 00960786 G43.90 9 Bilateral anterior headaches in the morning. Likely component of teeth-grin ding at night but it is possible that sleep apnea and elevated blood pressures are contributi ng. Can take sumatripta n 100 mg tablet for episodes if necessary. [id number] Wan Ritter MD [facility] [place] [address] 04/04/2025 11:04:48 04/04/2025 12:13:09 Type 2 diabetes mellitus 02954333 E11.9 Recommende huy Adams, would like to wait due to yeast infection risks Will consider weaning off insulin pending A1C in 90 days Will move insulin to a sliding doseglucos e <100, 0 units Lantusgluc ose 100-110, 10 units Lantusgluc ose 110-130, 20 unitsgluco se 130-200, 25 unitsgluco se >200, 30 units Dyspnea 138891250 R06.02 Breztri given in office Health Concerns Section Related Observation LastModified by Organization Detai ls LastModified Time None Recorded Concern Status LastModified by Organization Details LastModified Time None Recorded Advance Directives Directive N: Payers Insurance Date Sequence Insurance Name Policy Number Policy Ortega Covered Member ID Ortega Member ID Guarantor Name 04/01/2025 [employer] (MEDICARE REPLACEMENT/A DVANTAGE - PPO) Cynthia Nielson [id number] L Yaima Nielson 04/04/2025 1 [employer] Yaima Nielson [id number] Cynthia Nielson 03/24/2025 2 KAROLINEJOHNSONXiomara [employer] - MEDICARE-[address] [facility] (MEDICARE) Cynthia Nielson [id number] Cynthia Nielson 09/26/2024 2 [employer] (INDEMNITY) [id number] Cynthia Nielson [id number] Cynthai Nielson 05/01/2025 1 [employer] (MEDICARE REPLACEMENT/A DVANTAGE - PPO) Cynthia Nielson [id number] Cynthia Nielson Notes Date Note Type Note [...] scheduled April 2023. Munira Lockwood, SILVIA [address] [facility], [facility] [address], [place], [address], [place] [facility] 04/05/2023 13:57:19 05/31/2023 text/html Here for check [...] d weekly.CKD- Seeing Dr. Paulson. exercising at [facility] 3 days weekly. Munira Lockwood NP [address] [facility], [address], [place], [address], [place] [facility] 05/31/2023 11:11:02 03/21/2024 text/html Yaima Nielson [...] cologuard and colonoscopy last year Yoana Lauren, CHILD AND FAMILY SERVICES WORKER [address], [address], [place], [address], [place] [facility] 04/05/2024 12:13:26 09/26/2024 text/html Yaima Nielson is a 78 year old female patient here today for a 6 month FU She saw a teradata architect (Dr. Ritter at [facility] in [place]) yesterday for angina, she has testing scheduled. [...] TANIKA Alberts [address], [address], [place], [address], [employer] 09/26/2024 11:29:04 04/04/2025 text/html Recently diagnos ed [...] having shortness of breath, she saw a remote ruby on rails developer and was given an XR which was normal. She was given Symbicort but this does not feel effective. Migraine headaches have improved, she has started Aimovig and finds this effective. TANIKA Alberts [address], [address], [place], [address], [employer] 04/04/2025 11:55:06 OBGyn Episode No OBEpisode recorded.
== END 2025-05-07 09:28 | disposition home or self-care (01) ==
LOC: ANHIMG 09:32
DX: M85.89 Other specified disorders of bone density and structure, multiple sites (principal); Z13.820 Encounter for screening for osteoporosis
CPT/HCPCS: 77080